=== PATIENT | male | born 1980 | race Caucasian/White ===

== ENCOUNTER 2018-10-05 13:16 | Emergency (ER) | payer MEDICAID, SELFPAY ==
--- NOTE | 2018-10-05 13:22 | NUR.NOTE ---
note pt is poor historian... pt states that he has had chest pain for 7 days that is constant but made worse with exercising pt also states that he has had a fevor (however does not know what temperature) diarrhea and diaphoresis as well as near syncopal episodes wile coughing or exercising
[2018-10-05 13:26] VITALS: BP 126/100; PULSE 90; RESP 16; TEMP 36; O2SAT 93
[2018-10-05 13:42] VITALS: BP 115/79; PULSE 90; RESP 18; O2SAT 93
--- NOTE | 2018-10-05 14:09 | DI.RAD_ITS ---
SYMPTOMS/DIAGNOSIS: COUGH, SHORTNESS OF BREATH, ? ACUTE DISTRESS PA AND LATERAL CHEST: Comparison is made with October,. The heart size is normal. There is a linear area of scarring or atelectasis in the lingula. No infiltrate or effusion is seen. IMPRESSION: No acute abnormality.
--- NOTE | 2018-10-05 14:13 | ED.GENADUL_ITS ---
Discharge Plan Disposition Patient Disposition: HOME Condition: Improving Discharge Details Chief Complaint: GenMedical Clinical Impression: Bronchitis Primary Care Provider: Chikis Linder ED Provider: Paola Waters Home Meds and New Rx's Prescriptions: New prednisone 50 mg tablet 50 mg PO DAILY 4 Days Qty: 4 RF: 0 azithromycin [Zithromax] 500 mg tablet 500 mg PO DAILY 5 Days Qty: 5 RF: 0 Continued penicillin V potassium 500 MG tablet 500 mg PO Q6H WHILE AWAKE Qty: 28 RF: 0 hydromorphone [Dilaudid] 2 MG tablet 2 mg PO Q4H PRN PRN (Reason: Pain) Qty: 10 RF: 0 Discharge Instructions Instructions: Acute Bronchitis (ED) Additional Instructions: You are encouraged to continue to refrain from smoking as this will only prolong or worsen your symptoms. Use the albuterol inhaler as needed and directed. Take the steroids until finished. If you have no improvement of symptoms in the next 2-3 days, you may start the antibiotics. Follow-up with your primary care doctor in 1 week for reevaluation. Return immediately to the emergency department any worsening or concerning symptoms. Discharge Data Discharge Physician: Paola Waters Medical Decision Making 38-year-old male who is a chronic tobacco smoker who presents for cough with green sputum, sore throat, shortness of breath with exertion, chest pain with coughing, and vomiting and diarrhea for the past week. Oxygen saturation 93% on room air. Afebrile. Coarse breath sounds and wheezing throughout. Normal ENT exam. Presentation appears most likely consistent with acute bronchitis and chest wall strain from coughing. Patient had told the nurse that he promised primary care doctor and his blood counts were off. We will give a DuoNeb, steroids, Toradol, as well as check an EKG and chest x-ray. Nurse already gaby labs, will send to assess for any abnormalities, but suspect this is likely acute bronchitis rather than a cardiac etiology. 1545 --patient sleeping on reevaluation. Patient breathing normally without retractions and appears comfortable. Breath sounds improved, minimal scattered wheezing, no rhonchi. EKG notes a rate of 78, sinus, no acute ST findings. Labs and imaging reviewed. Influenza negative. White blood cell count 14. Troponin negative. Chest x-ray negative. Patient states he feels much better and is requesting to go home. Will send home with an albuterol inhaler, and a prescription for prednisone. Patient states he recently quit smoking within the last few weeks, will send home with a prescription for antibiotics if symptoms do not improve or worsen. He is instructed to follow-up with his primary care doctor for reevaluation and return here at any time if worse. Medical Records Medical records reviewed: Yes I reviewed the patient's medical records. Imaging Data Radiologic Study: Radiologist's impression: PA AND LATERAL CHEST: Comparison is made with October,. The heart size is normal. There is a linear area of scarring or atelectasis in the lingula. No infiltrate or effusion is seen. IMPRESSION: No acute abnormality. Lab Data Lab results reviewed: Yes I reviewed the patient's lab results. 10/05/18 13:55 Nasopharynx Influenza Types A,B Antigen - Final Laboratory Tests Range/Units 10/05/18 10/05/18 14:13 14:13 WBC (4.4-10.8) k/cumm 14.38 H RBC (4.50-6.00) m/cumm 4.24 L Hgb (13.5-17.5) g/dL 14.8 Hct (40.0-50.0) % 42.1 MCV (80-95) fL 99.3 H MCH (27.0-33.0) pg 34.9 H MCHC (32.0-36.0) g/dL 35.2 RDW (11.8-14.1) % 13.7 Plt Count (130-400) x1000/uL 502 H MPV (8.0-11.0) fL 9.8 Immature Gran % 0.0 Neutrophils % 39.0 Band Neutrophils % % 4.0 Lymphocytes % 28.0 Atypical Lymphs % 9 Monocytes % 9.0 Eosinophils % 10.0 Basophils % 0.0 Absolute Neutrophils (1.2-6.7) k/cumm 6.18 Absolute Lymphocytes (1.2-3.4) k/cumm 5.32 H Absolute Monocytes (0.11-0.7) k/cumm 1.29 H Absolute Eosinophils (0.0-0.7) k/cumm 1.44 H Absolute Basophils (0.0-0.2) k/cumm 0.00 Differential Comment Manual differential RBC Morphology Normal Sodium (136-145) mmol/L 142 Potassium (3.5-5.1) mmol/L 3.9 Chloride (98-107) mmol/L 106 Carbon Dioxide (21.0-32.0) mmol/L 25.5 Anion Gap (3-11) mmol/L 10.5 BUN (7-18) mg/dL 10 Creatinine (0.70-1.30) mg/dL 0.90 Estimated GFR/1.73 m2 (mL/min/1.73m2) >= 60.00 Glucose (70-100) mg/dL 86 Calcium (8.5-10.1) mg/dL 8.9 Magnesium (1.8-2.4) mg/dL 1.9 Total Bilirubin (0.2-1.0) mg/dL 0.1 L AST (15-37) U/L 22 ALT (12-78) U/L 27 Alkaline Phosphatase (46-116) U/L 108 Troponin I (0.00-0.06) ng/mL < 0.02 Total Protein (6.4-8.2) g/dL 7.8 Albumin (3.4-5.0) g/dL 3.4 ECG Data Attestation: I personally reviewed and interpreted this ECG (s) as follows: Interpretation: Rate of 78, sinus, no acute ST elevation or depression, QTC 410, QRS 92. HPI General Mode of arrival: ambulatory . Date/Time Provider Initiated Documentation: 10/05/18 13:37 . Limitations to Documentation: no limitations . Information obtained by: patient . HPI Narrative: Patient is a 38-year-old male who is a chronic tobacco smoker who presents for sweats, sore throat, cough with green sputum, shortness of breath, vomiting and diarrhea for the past week. Patient states the cough and shortness of breath with exertion is bothering him the most. He denies any known fevers. Patient states he has been eating and drinking normally. States he has not been sleeping well. Patient states his chest pain is worse with coughing. Patient denies any recent hospital admission, antibiotics or recent travel. States he has been taking Tylenol for pain without relief. Related Data Home Medications Medication Instructions Recorded Confirmed hydromorphone [Dilaudid] 2 mg PO Q4H PRN PRN #10 tab 05/22/17 penicillin V potassium 500 mg PO Q6H WHILE AWAKE #28 05/22/17 tablet azithromycin [Zithromax] 500 mg PO DAILY 5 Days #5 tab 10/05/18 prednisone 50 mg PO DAILY 4 Days #4 tab 10/05/18 Previous Rx's Medication Instructions Recorded hydromorphone [Dilaudid] 2 mg PO Q4H PRN PRN #10 tab 05/22/17 penicillin V potassium 500 mg PO Q6H WHILE AWAKE #28 05/22/17 tablet azithromycin [Zithromax] 500 mg PO DAILY 5 Days #5 tab 10/05/18 prednisone 50 mg PO DAILY 4 Days #4 tab 10/05/18 Allergies Allergy/AdvReac Type Severity Reaction Status Date / Time No Known Allergies Allergy Unverified 05/22/17 08:42 General Stated Complaint: GenMedical [place]: 3 Review of Systems Review of Systems All systems reviewed & are unremarkable except as noted in HPI and below Constitutional Reports as per HPI, Denies chills and Denies fever(s) Eyes Denies blurry vision ENT Denies dizziness, Reports sore throat and Denies throat swelling Cardiovascular Reports chest pain and Reports dyspnea Respiratory Reports cough and Reports dyspnea Gastrointestinal Denies abdominal pain, Denies diarrhea and Denies vomiting Genitourinary Denies hematuria and Denies dysuria Musculoskeletal Denies back pain and Denies numbness Integumentary/Breasts Denies lesions and Denies rash Neurologic Denies dizziness, Denies focal weakness and Denies numbness Allergic/Immunologic Denies throat swelling PFSH Medical History No significant past medical history (Acute) Surgical History History of hammer toe correction (Acute) History of splenectomy (Acute) Social History Smoking/Tobacco Use Status: Current every day alcohol intake: never substance use type: does not use Exam Const General: cooperative and healthy appearing Orientation: alert and awake HENMT Head: normal to inspection Ears: hearing grossly normal bilaterally, external ears normal and TM's normal bilaterally General nose exam: external nose normal Face and sinus: normal facial exam Mouth: oral mucosae normal Teeth and gingiva: dentition normal Throat: posterior oropharynx normal Eyes General: appearance normal, both eyes and all related structures Eyelids: eyelids normal Pupils: PERRL EOM: EOM intact bilaterally Neck Neck: normal visual inspection Lymphatic: no lymphadenopathy noted Chest Chest: normal inspection of the chest and tenderness pectoral muscle on the left Resp Effort & Inspection: normal respiratory effort and able to speak in complete sentences Auscultation: rhonchi and wheezes Cardio Rate: regular rate Rhythm: regular rhythm GI Inspection: normal to inspection Palpation: soft, not firm, no guarding, no hepatosplenomegaly, no masses and nontender Auscultation: normal bowel sounds Skin General skin exam: no rashes or lesions noted Neuro General: alert and awake Cognition: normal cognition Speech: speech normal Gait: normal gait Motor: muscle tone normal throughout Sensory Exam: no sensory deficits noted Extrem General: normal to inspection, full ROM, normal capillary refill and no edema Psych Appearance: grossly normal Mental Status: mental status grossly normal Speech and Movement: speech and movement normal Affect: normal affect Thought Process: normal Course Vital Signs Temperature 96.8 F L 10/05/18 13:26 Pulse 90 10/05/18 13:26 Respiratory Rate 16 10/05/18 13:26 Blood Pressure 126/100 H 10/05/18 13:26 Pulse Oximetry 93 L 10/05/18 13:26 Temperature 96.8 F L 10/05/18 13:26 Temperature Source Skin 10/05/18 13:26 Pulse 90 10/05/18 13:42 Respiratory Rate 18 10/05/18 13:42 Respiratory Effort Non-Labored 10/05/18 13:41 Respiratory Depth Normal 10/05/18 13:41 Blood Pressure 115/79 10/05/18 13:42 Blood Pressure Position Sitting 10/05/18 13:26 Pulse Oximetry 93 L 10/05/18 13:42 Oxygen Delivery Method Room Air 10/05/18 13:42 Oxygen Flow Rate 0 10/05/18 13:42 Pain Level 2 10/05/18 13:26 Lab/Test Results Lab/Test Results: 10/05/18 13:55 Nasopharynx Influenza Types A,B Antigen - Pending
[2018-10-05] MEDS: Ketorolac 30 MG/ML VIAL IVP (14:28)
[2018-10-05] MEDS: Albuterol/Ipratropium 3 ML UPD VIAL UPD (14:28)
[2018-10-05] MEDS: predniSONE 20 MG TAB 60 MG PO (14:28)
[2018-10-05 14:44] LABS: Abs Immature Grans 0.08 k/cumm (0.0-0.09); HCT 42.1 % (40.0-50.0); HGB 14.8 g/dL (13.5-17.5); Mean Corp. HGB Concentration 35.2 g/dL (32.0-36.0); Mean Corpuscular Hemoglobin 34.9 pg (27.0-33.0); Mean Corpuscular Volume 99.3 fL (80-95); Mean Platelet Volume 9.8 fL (8.0-11.0); RBC 4.24 m/cumm (4.50-6.00); RBC Distribution Width 13.7 % (11.8-14.1); White Blood Cell Count 14.38 k/cumm (4.4-10.8)
[2018-10-05 14:45] LABS: Absolute Monocyte Count 1.29 k/cumm (0.11-0.7)
[2018-10-05 14:55] LABS: ALT 27 U/L (12-78); AST 22 U/L (15-37); Albumin 3.4 g/dL (3.4-5.0); Alkaline Phosphatase 108 U/L (46-116); Anion Gap 10.5 mmol/L (3-11); BUN 10 mg/dL (7-18); Bilirubin, Total 0.1 mg/dL (0.2-1.0); CO2 25.5 mmol/L (21.0-32.0); Calcium 8.9 mg/dL (8.5-10.1); Chloride 106 mmol/L (98-107); Glucose 86 mg/dL (70-100); Magnesium 1.9 mg/dL (1.8-2.4); Potassium 3.9 mmol/L (3.5-5.1); Sodium 142 mmol/L (136-145); Total Protein 7.8 g/dL (6.4-8.2)
[2018-10-05 14:58] LABS: Troponin I < 0.02 ng/mL (0.00-0.06)
[2018-10-05 15:04] VITALS: RESP 18; O2SAT 100
--- NOTE | 2018-10-05 15:05 | NUR.NOTE ---
Nursing Note: Pt alert and oriented, LS coarse throughout with occasional non-productive cough. Neb tx given and cxr obtained. no acute resp distress. will continue to monitor, labs pending.
[2018-10-05 15:09] LABS: Absolute Lymphocyte Count 5.32 k/cumm (1.2-3.4); Absolute Neutrophil Count 6.18 k/cumm (1.2-6.7); Atypical Lymphocytes % 9; Platelet Count 502 x1000/uL (130-400)
[2018-10-05 15:10] LABS: Absolute Eosinophil Count 1.44 k/cumm (0.0-0.7); Diff Comment Manual Differential; RBC Morphology Normal
[2018-10-05] MEDS: Albuterol HFA 8 GM 60 PUFF INH IH (16:22)
[2018-10-05 16:26] VITALS: PULSE 86; RESP 18; TEMP 36.7; O2SAT 95
== END 2018-10-05 16:26 | disposition home or self-care (01) ==
PROVIDERS: Emergency Provider Physician Assistant; PCP Nurse Practitioner
DX: R06.02 Shortness of breath (principal); R05 Cough; J20.9 Acute bronchitis, unspecified; R07.9 Chest pain, unspecified; F17.210 Nicotine dependence, cigarettes, uncomplicated; S29.011A Strain of muscle and tendon of front wall of thorax, initial encounter; X50.9XXA Other and unspecified overexertion or strenuous movements or postures, initial encounter
CPT/HCPCS: 36415; 80053; 87449; 93005; 94640; 96374; 99285; 71046; 83735; 84484; 85025; 93010; J1885; J7512; J7620

== ENCOUNTER 2019-02-10 07:40 | Emergency (ER) | payer MEDICAID, SELFPAY ==
[2019-02-10] VITALS (89 sets, daily range): BP systolic 117–156; BP diastolic 48–95; PULSE 62–120; RESP 13–29; TEMP 36.6–37.3; O2SAT 81–100
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
[2019-02-10] MEDS: Normal Saline 1,000 ML 1000 ML IV (07:50)
[2019-02-10 08:25] LABS: Abs Immature Grans 0.03 k/cumm (0.0-0.09); Absolute Eosinophil Count 0.13 k/cumm (0.0-0.7); Absolute Lymphocyte Count 3.26 k/cumm (1.2-3.4); Absolute Monocyte Count 0.98 k/cumm (0.11-0.7); Absolute Neutrophil Count 5.96 k/cumm (1.2-6.7); Basophils % 1.9; Eosinophils % 1.2; HCT 42.7 % (40.0-50.0); HGB 15.4 g/dL (13.5-17.5); Immature Grans % 0.3; Lymphocytes % 30.9; Mean Corp. HGB Concentration 36.1 g/dL (32.0-36.0); Mean Corpuscular Hemoglobin 36.4 pg (27.0-33.0); Mean Corpuscular Volume 100.9 fL (80-95); Mean Platelet Volume 9.3 fL (8.0-11.0); Monocytes % 9.3; Neutrophils % 56.4; Platelet Count 338 x1000/uL (130-400); RBC 4.23 m/cumm (4.50-6.00); RBC Distribution Width 13.6 % (11.8-14.1); White Blood Cell Count 10.56 k/cumm (4.4-10.8)
[2019-02-10 08:30] LABS: INR 0.9 (0.9-1.1); PTT Activated 20.9 sec (21.0-31.4); Prothrombin Time 8.9 sec (9.3-11.0)
[2019-02-10 08:36] LABS: ALT 39 U/L (12-78); AST 47 U/L (15-37); Albumin 3.9 g/dL (3.4-5.0); Alkaline Phosphatase 103 U/L (46-116); Anion Gap 16.3 mmol/L (3-11); BUN 16 mg/dL (7-18); Bilirubin, Total 0.4 mg/dL (0.2-1.0); CO2 21.7 mmol/L (21.0-32.0); CREATININE 1.06 mg/dL (0.70-1.30); Calcium 8.9 mg/dL (8.5-10.1); Chloride 101 mmol/L (98-107); Glucose 133 mg/dL (70-100); NT-proBNP 12 pg/mL; Potassium 3.7 mmol/L (3.5-5.1); Sodium 139 mmol/L (136-145); TSH (W/Ref FT4) 2.07 uIU/mL (0.358-3.74); Total Protein 7.8 g/dL (6.4-8.2)
[2019-02-10 08:42] LABS: Troponin I < 0.02 ng/mL (0.00-0.06)
[2019-02-10 08:50] LABS: Lipase 100 U/L (73-393)
[2019-02-10 09:03] LABS: ETHANOL BLOOD < 3.0 mg/dL (<3)
[2019-02-10] MEDS: Omnipaque 350 MG/ML 100 ML BTL IJ (09:05)
--- NOTE | 2019-02-10 09:05 | DI.CT_ITS ---
SYMPTOM/DIAGNOSIS: CP, SOB, MILD HYPOXEMIA. EVAL FOR PE/DISSECTION CTA CHEST AND ABDOMEN: CT angiography was performed with multi slice acquisition and multi planar and 3D reconstruction. There is no evidence of a pulmonary embolus. The thoracic aorta is intact and of normal caliber. No evidence of a dissection or aneurysm is seen. Heart size is within normal limits. No significant pericardial effusion is present. No evidence of right ventricular dysfunction seen. No significant thoracic adenopathy, pleural effusion or pneumothorax is present. Mild to moderate central lobular emphysematous changes are present in the lungs. No focal consolidating infiltrates are seen in the lungs. The tracheobronchial tree is unremarkable. There are mild degenerative changes seen in the bones of the thoracic spine. IMPRESSION: 1. No evidence of a pulmonary embolus 2. No evidence of a thoracic aortic dissection or aneurysm. 3. Mild to moderate central lobular emphysematous changes in the lungs. CT ANGIOGRAPHY ABDOMEN: CT angiography was performed with multi slice acquisition and multi planar and 3D reconstruction. The abdominal aorta is of normal caliber. No evidence of dissection or aneurysm. The celiac axis and mesenteric arteries are unremarkable. No evidence of occlusion or significant stenosis. The renal arteries are unremarkable without evidence of occlusion or significant stenosis. The iliac arteries are unremarkable without evidence of occlusion or significant stenosis. There does appear to be diffuse decreased attenuation of the liver suggesting hepatic steatosis. The portal, superior mesenteric and splenic veins are patent. The gallbladder is negative. There is no biliary ductal dilatation. The pancreas and adrenal glands are unremarkable. There is small splenule present measuring 1.4 cm. This is unchanged compared to the prior examination from 01/19/17. The kidneys show normal and symmetric enhancement. No evidence of a solid renal mass or obstruction. The urinary bladder is intact. The reproductive organs are unremarkable. The bowel shows no evidence of obstruction or inflammation. There is a normal appendix present. No significant abdominal or pelvic adenopathy, ascites or pneumoperitoneum is present. Note is made of a small fat containing umbilical hernia. Incidental note is made of diverticulosis of the colon but no evidence of acute diverticulitis. No acute osseous abnormalities appreciated. IMPRESSION: No evidence of abdominal arterial injury. No evidence of dissection or aneurysm.
[2019-02-10] MEDS: Normal Saline Flush 10 ML SYR IVP (09:06)
[2019-02-10] MEDS: Albuterol/Ipratropium 3 ML UPD VIAL UPD (10:08)
[2019-02-10] MEDS: LORazepam 2 MG/ML VIAL 0.5 MG IM (10:38)
[2019-02-10 11:42] LABS: *AMPHETAMINES SCREEN URINE Negative (Negative); *BARBITURATES SCREEN URINE Negative (Negative); *BENZODIAZEPINES SCREEN URINE Negative (Negative); Cannabinoids THC Negative (Negative); Cocaine Screen,Urine Negative (Negative); METHADONE URINE SCREEN Negative (Negative); OPIATES URINE SCREEN Negative (Negative)
[2019-02-10 11:45] LABS: Tricyclic Antidepressants Negative (Negative)
[2019-02-10 12:19] LABS: Troponin I < 0.02 ng/mL (0.00-0.06)
== END 2019-02-10 13:59 | disposition home or self-care (01) ==
PROVIDERS: Emergency Provider Student in an Organized Health Care Education/Training Program; PCP Nurse Practitioner Family
DX: R07.9 Chest pain, unspecified (principal); F17.210 Nicotine dependence, cigarettes, uncomplicated; Z90.81 Acquired absence of spleen
CPT/HCPCS: 36415; 71275; 74177; 80053; 80307; 83690; 93005; 96360; 96372; 99285; 80320; 83880; 84443; 84484; 85025; 85610; 85730; 93010; J2060; J3490; J7620

== ENCOUNTER 2019-09-02 14:28 | Emergency (ER) | payer MEDICAID, SELFPAY ==
[2019-09-02 14:36] VITALS: BP 166/108; PULSE 118; TEMP 36.4; O2SAT 96
--- NOTE | 2019-09-02 14:44 | W.ED.GENAD ---
Discharge Plan Disposition Patient Disposition: HOME Condition: Improving Discharge Details Chief Complaint: GenMedical Clinical Impression: Alcohol withdrawal, Gastroenteritis Primary Care Provider: Malou Moreno ED Provider: Elizabeth Ramos Home Meds and New Rx's Prescriptions: New ondansetron HCl [Zofran] 4 mg tablet 4 mg PO Q8H PRN (Reason: nausea and vomiting) Qty: 7 RF: 0 No Action albuterol sulfate 90 mcg/actuation HFA aerosol inhaler 1 puff IH Q6H PRN (Reason: bronchospasm) Qty: 6.7 RF: 0 Discharge Instructions Instructions: Gastroenteritis (ED) Additional Instructions: Drink plenty of fluids. Rest activities as tolerated Tylenol for soreness if needed. Ice to your shoulder for inflammation. Ice for 15 minutes 3-5 times a day. Recheck with orthopedic doctor if shoulder pain is not improving within 1 week as discussed Use nausea medication if needed as prescribed. Use withdrawal medication, Ativan only if needed for withdrawal symptoms. Do not mix with alcohol. 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 Return for any worsening or concerns sooner if needed for any alarming symptoms, difficulty eating or drinking, alarming withdrawal symptoms. Referrals: Erick Jones MD [ [facility] STAFF PHYSICIAN] - Discharge Data Discharge Date/Time-TO BE ENTERED AT DEPARTURE: 09/02/19 18:55 Medical Decision Making <Paola Waters DO - Last Filed: 09/03/19 09:18> 1510 -- 39-year-old male with a history of daily alcohol abuse presents for left shoulder pain status post fall last night after drinking and vomiting 10 times this morning. Patient denies any injuries. Patient states he was getting up from a chair and slipped while walking and hit his left shoulder on the ground. He denies head injury or LOC. He admits to occasional diarrhea. He denies any chest or abdominal pain. He denies any neck pain, back pain or extremity weakness or numbness. BP hypertensive. Heart rate tachycardic. Afebrile. He appears nontoxic but appears clinically in alcohol withdrawal. He states he drinks approximately 3 drinks daily. His last drink was at noon today which he drank after vomiting. Patient has tenderness palpation of the left distal clavicle but there is no deformity. There is no obvious extremity deformity. Will place an IV, bolus IV fluids, screening labs, Zofran, Toradol, and Ativan. Will obtain a left clavicle x-ray. 1600 -- Case endorsed to SHIRA Lewis to follow-up on labs and imaging and final disposition. Some labs returning and noted white blood cell count of 15, anion gap 13, normal lipase. Alcohol level pending. Clavicle x-ray notes possible AC separation but no obvious fracture. Medical Records Medical records reviewed: Yes I reviewed the patient's medical records. Imaging Data Radiologic Study: Radiologist's impression: XR Left Clavicle, Complete Exam date and time: 09/02/2019 4:07 PM Age: 39 years old Clinical indication: Other: S/P fall, R/O acute fracture TECHNIQUE: Imaging protocol: XR Left clavicle complete. Any number of views. COMPARISON: CR XR CHEST 2V PA LATERAL 10/05/2018 2:44 PM FINDINGS: Bones/joints: Normal. Soft tissues: Normal. IMPRESSION: No acute findings. Lab Data Lab results reviewed: Yes I reviewed the patient's lab results. Labs: Laboratory Tests Range/Units 09/02/19 09/02/19 09/02/19 15:30 15:30 15:30 WBC (4.4-10.8) k/cumm 15.97 H RBC (4.50-6.00) m/cumm 4.16 L Hgb (13.5-17.5) g/dL 14.9 Hct (40.0-50.0) % 41.4 MCV (80-95) fL 99.5 H MCH (27.0-33.0) pg 35.8 H MCHC (32.0-36.0) g/dL 36.0 RDW (11.8-14.1) % 13.8 Plt Count (130-400) x1000/uL 320 MPV (8.0-11.0) fL 9.3 Immature Gran % % 0.4 Neutrophils % 80.6 Lymphocytes % 10.5 Monocytes % 7.7 Eosinophils % 0.0 Basophils % 0.8 Absolute Neutrophils (1.2-6.7) k/cumm 12.87 H Absolute Lymphocytes (1.2-3.4) k/cumm 1.68 Absolute Monocytes (0.11-0.7) k/cumm 1.23 H Absolute Eosinophils (0.0-0.7) k/cumm 0.00 Absolute Basophils (0.0-0.2) k/cumm 0.13 Sodium (136-145) mmol/L 134 L Potassium (3.5-5.1) mmol/L 3.5 Chloride (98-107) mmol/L 96 L Carbon Dioxide (21.0-32.0) mmol/L 24.6 Anion Gap (3-11) mmol/L 13.4 H BUN (7-18) mg/dL 9 Creatinine (0.70-1.30) mg/dL 0.92 Estimated GFR/1.73 m2 (mL/min/1.73m2) >= 60.00 Glucose (74-106) mg/dL 125 H Calcium (8.5-10.1) mg/dL 9.7 Total Bilirubin (0.2-1.0) mg/dL 0.7 AST (15-37) U/L 73 H ALT (16-63) U/L 40 Alkaline Phosphatase (46-116) U/L 96 Total Protein (6.4-8.2) g/dL 7.9 Albumin (3.4-5.0) g/dL 4.0 Lipase (73-393) U/L 110 Ethyl Alcohol (<3) mg/dL < 3.0 <William Bishop MD - Last Filed: 09/03/19 00:15> Patient not seen by me. Inadvertently signed over to me. Patient should have been signed over to SHIRA Hahn. <SHIRA Sutton - Last Filed: 09/03/19 22:19> This is a 39-year-old patient signed out to me pending review of labs and left clavicle imaging. No acute fracture of the left clavicle. Patient does have leukocytosis which is likely attributed to gastroenteritis and patient is describing nausea vomiting and diarrhea. Denies associated abdominal pain. Of note patient is somewhat tachycardic. Patient did receive 1 L of IV fluid and nausea is well controlled with medications provided. Had discussion with the patient regarding how he is feeling and he is feeling significantly improved. A second liter of IV fluid was provided. Patient does report he is a daily drinker. He does report he is interested in detox he does already have information from pet nutrition specialist. Patient does feel likely he could have mild associated withdrawal symptoms in the tuition to GI symptoms as he is been unable to hold down any alcohol today. Given patient's tachycardia he did have a tremulous presentation initially which is improved at this time after receiving half milligram of Ativan. Will give patient a few tablets of Ativan for home and a few tablets prescription if needed for desired withdrawal or for forced withdrawal if unable to tolerate p.o. Patient reports understanding. Patient consents to not using this medication with alcohol. Patient reports his understanding of the desired use of this medication. Patient does continue to feel improved. Patient's reevaluation reveals benign abdominal exam. Precautions discussed for which patient should have return. Nausea medication also provided for symptomatic relief. Encouraged close follow-up with PCP and return for any alarming or worsening symptoms. The patient was stable and requested discharge. Prior to discharge, my usual and customary return precautions were reviewed with the patient - this included follow-up instructions and reasons to return to the Emergency Department if conditions worsens, does not improve as expected, or other new concerns arise. HPI <Paola Waters DO - Last Filed: 09/03/19 09:18> General Mode of arrival: ambulatory. Date/Time Provider Initiated Documentation: 09/02/19 14:39. Limitations to Documentation: no limitations. Information obtained by: patient. History of Present Illness 39 year old M presents to the emergency department with the chief complaint of drinking alcohol w/ L shoulder pain s/p fall last night, vomiting this am, described as moderate, Quality is described as sharp, Patient started experiencing this day(s) (1) and it has been constant. No relieving factors improve symptom(s), Movement worsens symptoms . Patient notes nausea/vomiting (10 x, yellow, clear); denies cough, diaphoresis, fever/chills and headaches. Patient did receive the following treatments prior to arrival, none Related Data Home Medications Medication Instructions Recorded Confirmed albuterol sulfate 1 puff IH Q6H PRN #6.7 gm 02/10/19 09/02/19 ondansetron HCl [Zofran] 4 mg PO Q8H PRN #7 tab 09/02/19 Previous Rx's Medication Instructions Recorded albuterol sulfate 1 puff IH Q6H PRN #6.7 gm 02/10/19 ondansetron HCl [Zofran] 4 mg PO Q8H PRN #7 tab 09/02/19 Allergies Allergy/AdvReac Type Severity Reaction Status Date / Time No Known Allergies Allergy Unverified 05/22/17 08:42 General Stated Complaint: GenMedical [place]: 3 Review of Systems <Paola Waters DO - Last Filed: 09/03/19 09:18> All systems reviewed & are unremarkable except as noted in HPI and below Constitutional Constitutional: Reports as per HPI, Denies chills and Denies fever(s) Eyes Eyes: Denies blurry vision ENT Ears, Nose, Mouth, and Throat: Denies dizziness, Denies sore throat and Denies throat swelling Cardiovascular Cardiovascular: Denies chest pain and Denies dyspnea Respiratory Respiratory: Denies cough and Denies dyspnea Gastrointestinal Gastrointestinal: Denies abdominal pain, Denies diarrhea and Reports vomiting Genitourinary Genitourinary: Denies hematuria and Denies dysuria Musculoskeletal Musculoskeletal: Denies back pain, Denies numbness and Reports other (L shoulder pain) Integumentary/Breasts Skin/Breast: Denies lesions and Denies rash Neurologic Neurologic: Denies dizziness, Denies focal weakness and Denies numbness Allergic/Immunologic Allergic/Immunologic: Denies throat swelling PFSH <Paola Waters DO - Last Filed: 09/03/19 09:18> Social History Smoking/Tobacco Use Status: Current every day Tobacco Type: cigarettes Alcohol Intake: current Alcohol Intake frequency: 3 or more drinks per day Drug use: Occasionally Substance use type: marijuana Do you feel safe at home: Yes Do you feel safe in your relationship?: Yes Exam <Paola Waters DO - Last Filed: 09/03/19 09:18> Const General: cooperative, ill appearing acutely (appears in withdrawal) and other (Tremulous) Nutritional Appearance: average body habitus Orientation: alert, awake and oriented x3 HENMT Head: normal to inspection Ears: hearing grossly normal bilaterally and external ears normal General nose exam: external nose normal Face and sinus: normal facial exam Mouth: oral mucosae normal Teeth and gingiva: dentition normal Throat: posterior oropharynx normal Eyes General: appearance normal, both eyes and all related structures Eyelids: eyelids normal Pupils: PERRL EOM: EOM intact bilaterally Neck Neck: normal visual inspection Lymphatic: no lymphadenopathy noted Chest Chest: normal inspection of the chest Resp Effort & Inspection: normal respiratory effort and able to speak in complete sentences Auscultation: clear to auscultation bilaterally Cardio Rate: tachycardic Rhythm: regular rhythm GI Inspection: normal to inspection Palpation: soft, not firm, no guarding, no hepatosplenomegaly, no masses and nontender Auscultation: normal bowel sounds Back/Spine/Pelvis Back: no CVA tenderness Skin General skin exam: no rashes or lesions noted Neuro General: alert and awake Cognition: normal cognition Speech: speech normal Gait: normal gait Motor: muscle tone normal throughout Sensory Exam: no sensory deficits noted Extrem Other: Tenderness to palpation of left distal clavicle. No tenderness palpation of left anterior shoulder. No bony deformity noted. Full range of motion of right upper extremity and bilateral lower extremities without evidence of trauma or deformity. Psych Appearance: grossly normal Mental Status: mental status grossly normal Speech and Movement: speech and movement normal Affect: normal affect Thought Process: normal Course <Paola Waters DO - Last Filed: 09/03/19 09:18> Vital Signs Vital signs: Vital Signs Temperature 97.5 F L 09/02/19 14:36 Pulse 118 H 09/02/19 14:36 Blood Pressure 166/108 H 09/02/19 14:36 Pulse Oximetry 96 09/02/19 14:36 Temperature 97.5 F L 09/02/19 14:36 Temperature Source Skin 09/02/19 14:36 Pulse 118 H 09/02/19 14:36 Respiratory Effort Non-Labored 09/02/19 14:39 Blood Pressure 166/108 H 09/02/19 14:36 Blood Pressure Position Sitting 09/02/19 14:36 Pulse Oximetry 96 09/02/19 14:36 Oxygen Delivery Method Room Air 09/02/19 14:36 Oxygen Flow Rate 0 09/02/19 14:36 Pain Level 10 09/02/19 14:36 Sign Out <DO Kenia Cohn Last Filed: 09/03/19 09:18> Sign Out Data: Sign Out Comment: Follow-up on patient response to fluids and meds and final disposition. Last updated by Paola Waters DO at 09/02/19 16:15 Sign Out Comment: signed over to me in error Last updated by William Bishop MD at 09/02/19 23:26
[2019-09-02] MEDS: Ondansetron 4 MG/2 ML VIAL IVP (15:26)
[2019-09-02] MEDS: Normal Saline 1,000 ML 1000 ML IV (15:27)
[2019-09-02 15:33] LABS: Abs Immature Grans 0.06 k/cumm (0.0-0.09); Absolute Basophil Count 0.13 k/cumm (0.0-0.2); Absolute Lymphocyte Count 1.68 k/cumm (1.2-3.4); Absolute Monocyte Count 1.23 k/cumm (0.11-0.7); Absolute Neutrophil Count 12.87 k/cumm (1.2-6.7); Basophils % 0.8; HCT 41.4 % (40.0-50.0); HGB 14.9 g/dL (13.5-17.5); Immature Grans % 0.4 %; Lymphocytes % 10.5; Mean Corpuscular Hemoglobin 35.8 pg (27.0-33.0); Mean Corpuscular Volume 99.5 fL (80-95); Mean Platelet Volume 9.3 fL (8.0-11.0); Monocytes % 7.7; Neutrophils % 80.6; Platelet Count 320 x1000/uL (130-400); RBC 4.16 m/cumm (4.50-6.00); RBC Distribution Width 13.8 % (11.8-14.1); White Blood Cell Count 15.97 k/cumm (4.4-10.8)
[2019-09-02] MEDS: LORazepam 2 MG/ML VIAL 0.5 MG IVP (15:34)
[2019-09-02] MEDS: Ketorolac 30 MG/ML VIAL IVP (15:37)
[2019-09-02 15:46] LABS: ALT 40 U/L (16-63); AST 73 U/L (15-37); Alkaline Phosphatase 96 U/L (46-116); Anion Gap 13.4 mmol/L (3-11); BUN 9 mg/dL (7-18); Bilirubin, Total 0.7 mg/dL (0.2-1.0); CO2 24.6 mmol/L (21.0-32.0); CREATININE 0.92 mg/dL (0.70-1.30); Calcium 9.7 mg/dL (8.5-10.1); Chloride 96 mmol/L (98-107); Glucose 125 mg/dL (74-106); Lipase 110 U/L (73-393); Potassium 3.5 mmol/L (3.5-5.1); Sodium 134 mmol/L (136-145); Total Protein 7.9 g/dL (6.4-8.2)
--- NOTE | 2019-09-02 16:04 | DI.RAD_ITS ---
EXAM: XR CLAVICLE LT INDICATION: s/p fall, r/o acute fracture. COMPARISON: No exams were available for comparison TECHNIQUE: 2D digital imaging was performed. FINDINGS: No fracture is identified. AC joint is not widened. There is no evidence of glenohumeral joint disl ocation. The visualized portions of the left upper ribs appear intact. IMPRESSION: Negative left clavicle.
[2019-09-02 16:16] LABS: ETHANOL BLOOD < 3.0 mg/dL (<3)
--- NOTE | 2019-09-02 16:35 | DI.VRAD_ITS ---
PROCEDURE INFORMATION: Exam: XR Left Clavicle, Complete Exam date and time: 09/02/2019 4:07 PM Age: 39 years old Clinical indication: Other: S/P fall, R/O acute fracture TECHNIQUE: Imaging protocol: XR Left clavicle complete. Any number of views. COMPARISON: CR XR CHEST 2V PA LATERAL 10/05/2018 2:44 PM FINDINGS: Bones/joints: Normal. Soft tissues: Normal. IMPRESSION: No acute findings. Dictated and Authenticated by: Claire Badillo MD. Ordering:KADEN Guevara MD
[2019-09-02] MEDS: Folic Acid 50 MG/10 ML VIAL (16:44)
[2019-09-02] MEDS: MAGNESIUM SULFATE 8.12 MEQ, MULTIVITAMIN 10 ML, THIAMINE 100 MG, FOLIC ACID 1 MG in Nor... 168.867 MG IV (16:46)
[2019-09-02 17:07] VITALS: BP 142/89; PULSE 87; O2SAT 94
[2019-09-02 17:08] VITALS: O2SAT 95
[2019-09-02 17:10] VITALS: O2SAT 94
--- NOTE | 2019-09-02 18:12 | NUR.NOTE ---
Nursing Note: Report to Ana DAVIS
[2019-09-02 18:17] VITALS: BP 148/93; PULSE 97; RESP 16; O2SAT 96
[2019-09-02] MEDS: LORazepam 1 MG TAB PO (18:49)
[2019-09-02] MEDS: Ondansetron O.D.T. 4 MG TABEF, 3 TABS/BTL PO (18:50)
== END 2019-09-02 18:55 | disposition home or self-care (01) ==
PROVIDERS: Physician Assistant; Emergency Provider Physician Assistant; PCP Nurse Practitioner Family
DX: M25.512 Pain in left shoulder (principal); W19.XXXA Unspecified fall, initial encounter; K52.9 Noninfective gastroenteritis and colitis, unspecified; F10.239 Alcohol dependence with withdrawal, unspecified
CPT/HCPCS: 80053; 83690; 96361; 96365; 96375; 99284; 73000; 80320; 85025; J1885; J2060; J2405

== ENCOUNTER 2019-09-05 14:51 | Emergency (ER) | payer MEDICAID, SELFPAY ==
[2019-09-05] VITALS (17 sets, daily range): BP systolic 122–163; BP diastolic 68–103; PULSE 104–135; RESP 16–23; TEMP 36.5; O2SAT 94–98
[2019-09-05] MEDS: diazePAM 10 MG/2 ML SYR 5 MG IVP (15:29)
[2019-09-05 15:59] LABS: Troponin I < 0.05 ng/Ml (<0.06)
--- NOTE | 2019-09-05 16:01 | ED.GENADUL_ITS ---
Discharge Plan Disposition Patient Disposition: HOME Condition: Improving Discharge Details Chief Complaint: Chest Pain Clinical Impression: Chest pain, Atrial tachycardia Primary Care Provider: Malou Moreno ED Provider: Sandro Fraga Home Meds and New Rx's Prescriptions: No Action albuterol sulfate 90 mcg/actuation HFA aerosol inhaler 1 puff IH Q6H PRN (Reason: bronchospasm) Qty: 6.7 RF: 0 ondansetron HCl [Zofran] 4 mg tablet 4 mg PO Q8H PRN (Reason: nausea and vomiting) Qty: 7 RF: 0 Discharge Instructions Additional Instructions: 1. Drink plenty of fluids. 2. Continue all medications as prescribed. 3. Acetaminophen 1000mg every 4 hours (up to 5 time a day) and/or ibuprofen 600mg every 6 hours as needed for fever or pain. 4. Follow?up with your primary care provider for reevaluation and possible event monitor Return to the Emergency Department (ED) if your condition worsens, does not improve as expected, or for ANY other concerns. Specifically, return if you have new or uncontrolled pain, worsening fever, difficulty breathing, vomiting, or are unable to drink fluids. Discharge Data Discharge Date/Time-TO BE ENTERED AT DEPARTURE: 09/05/19 16:31 Medical Decision Making 39-year-old who presents with persistent chest pain and palpitations/tachycardia since 0600 this morning. Symptoms subjectively similar to previous episodes and associated with not having drank alcohol for 2 days. Anxious on arrival with subjective chest pain and dyspnea. EKG diagnostic for sinus tachycardia with no acute ischemia. Clinically improved and receiving IV Valium. On reevaluation, has mild persistent tachycardia with resolution of chest pain. Also has mild subjective dyspnea. He is a smoker but does not use inhalers. Bedside thoracic ultrasound negative for evidence of focal consolidation, acute interstitial syndrome, or pleural effusion. Reviewed diagnostic findings with patient and his partner. Discussed association of rapid decrease in alcohol use with tachycardia. Discharged home with a plan for outpatient follow-up. Given usual customary return instructions prior to discharge. Medical Records Medical records reviewed: Yes I reviewed the patient's medical records. Imaging Data Radiologic Study: Attestation: I personally reviewed and interpreted this imaging study as follows: Imaging: Ultrasound (Bedside thoracic ultrasound. No evidence of focal consolidation, interstitial syndrome, or pleural effusion. Study performed by myself. Images interpreted and turbid pending contemporaneously by myself) My impression: No acute pulmonary disease. Lab Data Lab results reviewed: Yes I reviewed the patient's lab results. Lab results narrative: Normal troponin ECG Data Attestation: I personally reviewed and interpreted this ECG (s) as follows: Prior ECG tracings: available for review Interpretation: Sinus tachycardia. No acute ST changes. No sniffing change from previous EKG. HPI 39-year-old gent with a past medical history which includes alcohol abuse. He was evaluated here earlier this year for atypical chest pain. His evaluation at that time included a nondiagnostic EKG, normal labs, and a nondiagnostic CT abdomen pelvis. During that visit he was clinical improved after receiving some lorazepam. He notes he has had intermittent chest pain since with brief episodes and has not had outpatient follow-up nor re-stratification. Presents with persistent chest pain and subjective tachycardia since since 0600 this morning. Pain is subjectively similar to similar episodes and localized to his left anterior chest. He notes mild subjective dyspnea and worsening pain with palpation/positional change.. He denies presyncope, abdominal pain, change in bowel habits. He was recently evaluated here for a fall and injury to his left shoulder. He notes that that is improved and his current symptoms are different in nature than those associated with his trauma. His pain is identical to that which was managed earlier this year at this emergency department. General Date/Time Provider Initiated Documentation: 09/05/19 15:00 . Related Data Home Medications Medication Instructions Recorded Confirmed albuterol sulfate 1 puff IH Q6H PRN #6.7 gm 02/10/19 09/05/19 ondansetron HCl [Zofran] 4 mg PO Q8H PRN #7 tab 09/02/19 09/05/19 Previous Rx's Medication Instructions Recorded albuterol sulfate 1 puff IH Q6H PRN #6.7 gm 02/10/19 ondansetron HCl [Zofran] 4 mg PO Q8H PRN #7 tab 09/02/19 Allergies Allergy/AdvReac Type Severity Reaction Status Date / Time No Known Allergies Allergy Unverified 09/05/19 15:04 General Stated Complaint: Chest Pain [place]: 2 Review of Systems All systems reviewed & are unremarkable except as noted in HPI and below PFSH Medical History No significant past medical history (Acute) Surgical History History of hammer toe correction (Acute) History of splenectomy (Acute) Social History Smoking/Tobacco Use Status: Current every day Tobacco Type: cigarettes Alcohol Intake: current Alcohol Intake frequency: 3 or more drinks per day A lcohol type: hard liquor Drug use: Occasionally Substance use type: marijuana Do you feel safe at home: Yes Do you feel safe in your relationship?: Yes Exam Narrative Exam Narrative: Nursing note and vital signs have been reviewed and noted. GENERAL: alert, active, no acute distress, well -hydrated, well-nourished HEENT: atraumatic/normocephalic, PERRLA, EOMI, conjunctiva clear, external ears/canals normal, nasal mucosa normal NECK: supple, full range of motion, no mass, normal lymphadenopathy, no thyromegaly CARDIOVASCULAR: RRR, no murmurs, nl pulses, no edema; left anterior chest wall tenderness. Palpation worsening subjective pain. PULMONARY: nl effort, no audible wheezing or stridor, nl breath sounds with no focal deficit. no chest wall tenderness ABDOMEN: soft, non-tender, non-distended, no mass, no organomegaly EXTREMITY: normal muscle tone, all joints with FROM, no deformity or tenderness SKIN: no exanthem appreciated NEURO: gross motor exam normal, normal stance and gait PSYCH: alert and oriented, Course Vital Signs Vital signs: Vital Signs Pulse 135 H 09/05/19 14:55 Respiratory Rate 22 09/05/19 14:55 Blood Pressure 163/103 H 09/05/19 14:55 Pulse Oximetry 98 09/05/19 14:55 Pulse 135 H 09/05/19 14:55 Respiratory Rate 22 09/05/19 14:55 Respiratory Effort 09/05/19 15:24 Respiratory Depth Normal 09/05/19 15:24 Respiratory Pattern Normal 09/05/19 15:24 Blood Pressure 163/103 H 09/05/19 14:55 Blood Pressure Position Supine 09/05/19 14:55 Pulse Oximetry 98 09/05/19 14:55 Oxygen Delivery Method Room Air 09/05/19 14:55 Oxygen Flow Rate 0 09/05/19 14:55 Pain Level 5 09/05/19 14:55 Lab/Test Results Lab/Test Results: Laboratory Tests Range/Units 09/05/19 09/05/19 15:15 18:14 Troponin I (<0.06) ng/Ml < 0.05 Cancelled
== END 2019-09-05 16:31 | disposition home or self-care (01) ==
PROVIDERS: Emergency Provider Emergency Medicine; PCP Nurse Practitioner Family
DX: R07.9 Chest pain, unspecified (principal); I47.1 Supraventricular tachycardia; R06.00 Dyspnea, unspecified; F17.210 Nicotine dependence, cigarettes, uncomplicated
CPT/HCPCS: 36415; 93005; 96374; 99284; 84484; 93010; J3360

== ENCOUNTER 2019-12-22 09:18 | Inpatient (IN) | payer MEDICAID, SELFPAY ==
[2019-12-22] VITALS (33 sets, daily range): BP systolic 123–148; BP diastolic 75–101; PULSE 84–151; RESP 13–25; TEMP 36.4–37.9; O2SAT 94–98
--- NOTE | 2019-12-22 09:26 | DI.CT_ITS ---
EXAM: CT ABDOMEN PELVIS W CLINICAL HISTORY: periumbilical abdominal pain, vomiting x3 days. TECHNIQUE: Imaging Protocol: Axial computed tomography images with coronal and sagittal reformatted images were created and reviewed CONTRAST MATERIAL: Intravenous: Omnipaque 350 Contrast volume:structured data in ml Oral: yes / no COMPARISON: CT CHEST PE ABD PELVIS W from 02/10/2019 FINDINGS: ABDOMEN: Lung Bases: Vague area of increased density at the lung base could represent atelectasis versus infil trate. Heart size is normal.. Liver: Severe fatty infiltration.. No measurable mass. Gallbladder and biliary tract: No radiodense calculus or dilation. Pancreas: Normal density, no abnormal calcifications or inflammatory process. Spleen: status post splenectomy. A small splenule is noted in the left upper quadrant.. Kidneys: Normal size, contour and axis. No radiodense stones or obstructive uropathy. No masses seen. Adrenal glands: No masses seen. Abdominal Aorta: Abdominal portion non-dilated. PELVIS: Bladder: Symmetric distention, no gross wall thickening. Bowel: No obstruction. The colon is decompressed. There is diffuse bowel wall thickening throughout the colon which could indicate pancolitis. There are scattered diverticula but no evidence of diver ticulitis. The appendix appears normal. There is mild dilatation of distal ileum.. Peritoneal cavity: No ascites, collection or mesenteric inflammatory response. Bones: Within normal limits. Reproductive organs: Within normal limits. Lymph nodes: Unremarkable. Soft tissues: Small fatty containing umbilical hernia. Impression: Diffuse colonic wall thickening, consistent with pancolitis. The distal ileum also shows wall thicke kris and mild dilatation. RADIATION DOSE DELIVERED: Total DLP DATA REPOSITORY: All CT scans at this facility are submitted to the National Radiology Data Registry (NRDR) Dose Index Registry (DIR) with the [employer] (A[employer]). RADIATION OPTIMIZATION: All CT scans at this facility use at least one of these dose optimization te chniques: automated exposure control; mA and/or kV adjustment per patient size (includes targeted exa ms where dose is matched to clinical indication); or iterative reconstruction.
--- NOTE | 2019-12-22 09:30 | W.ED.GENAD ---
Discharge Plan Discharge Details Chief Complaint: Nausea/Vomit/Diar Primary Care Provider: Malou Moreno ED Provider: Colton Ram Home Meds and New Rx's Prescriptions: No Action albuterol sulfate 90 mcg/actuation HFA aerosol inhaler 1 puff IH Q6H PRN (Reason: bronchospasm) Qty: 6.7 RF: 0 ondansetron HCl [Zofran] 4 mg tablet 4 mg PO Q8H PRN (Reason: nausea and vomiting) Qty: 7 RF: 0 Medical Decision Making 39-year-old male with a past medical history of chronic alcoholism, last drink 1-1/2 to 2 weeks ago, and previous splenectomy secondary to trauma presents today for evaluation of vomiting for the last 2 to 3 days. No history of bilious or bloody vomiting. He denies diarrhea melena or hematochezia. Exam demonstrates mild epigastric tenderness, and mild supraumbilical tenderness. Heart rate is in the 150s, blood pressure stable. Differential includes pancreatitis, less likely gallbladder pathology, AAA is unlikely but on the differential. We will aggressively rehydrate, control his nausea. He does not want any thing for pain at this time. Will monitor closely get a CT scan reassess. 11:50 AM Patient's laboratory work-up is returned, notable anion gap, bicarb is low, white count is elevated, lactate is high. Heart rate has been improving with the 2 L of normal saline. Patient is still not urinated. He is feeling better though. CT scan results have returned and per Dr. Waddell patient has notable pancolitis, no evidence of perforation or diverticulitis. Failure the patient symptomatology is consistent with notable dehydration, and condition in conjunction with his colitis. We will give Cipro Flagyl here in the ED, continue to rehydrate. I did discuss the case with Dr. Jimenez, he agrees with the assessment and plan. Patient will be admitted to [facility]. Will order COVID and influenza testing out of an abundance of precaution. I have extensively reviewed the treatment plan with the patient. I have addressed all patient concerns at this time. I have also discussed the plan with the admitting physician and they agree with the current assessment and plan and have agreed to assume responsibility for the patient. All parties demonstrate verbal understanding and agreement with our assessment and plan at this time. EKG 9: 34 Rate 121, sinus tachycardia, DC slightly shortened at 114, no evidence of delta wave, no evidence of Fokuu-[id number]-Cdybr. QT 420, QRS 78, no evidence of STEMI. HPI General Date/Time Provider Initiated Documentation: 12/22/19 09:19. HPI Narrative: This is a 39-year-old male with a past medical history of chronic alcohol use, splenectomy secondary to previous trauma, who presents today for evaluation of vomiting. Patient states that for the last 2 and half days he has had multiple episodes of nonbilious nonbloody vomiting. He only has pain when he is vomiting. He denies any chest pain, shortness of breath, tightness in his chest, or other complaints. He denies any diarrhea. He states that the last time he drank was a week and 1/2 to 2 weeks ago. Denies any symptoms like this in the past. He denies any IV or illicit drug use, or other complaints. He denies any sick contacts. No other modifying factors. Related Data Home Medications Medication Instructions Recorded Confirmed albuterol sulfate 1 puff IH Q6H PRN #6.7 gm 02/10/19 12/22/19 ondansetron HCl [Zofran] 4 mg PO Q8H PRN #7 tab 09/02/19 12/22/19 Previous Rx's Medication Instructions Recorded albuterol sulfate 1 puff IH Q6H PRN #6.7 gm 02/10/19 ondansetron HCl [Zofran] 4 mg PO Q8H PRN #7 tab 09/02/19 Allergies Allergy/AdvReac Type Severity Reaction Status Date / Time No Known Allergies Allergy Unverified 12/22/19 09:29 General Stated Complaint: Nausea/Vomit/Diar [place]: 3 Review of Systems All systems reviewed & are unremarkable except as noted in HPI and below PFSH Social History Smoking/Tobacco Use Status: Current every day Tobacco Type: cigarettes Alcohol Intake: current Alcohol Intake frequency: 3 or more drinks per day Alcohol type: hard liquor Drug use: Occasionally Substance use type: marijuana Do you feel safe at home: Yes Do you feel safe in your relationship?: Yes Exam Narrative Exam Narrative: 1.Const: Well-nourished, Well-developed, appearing stated age 2.Eyes: PERRL, no conjunctival injection, and symmetrical lids. 3.ENT: Atraumatic external nose and ears. Notably dry MM. Neck: Symmetric, trachea midline, No thyromegaly. 4.CVS: +S1/S2, No murmurs or gallops. Peripheral pulses 2+ and equal in all extremities. Brisk capillary refill in all extremities. 5.RESP: Unlabored respiratory effort. Clear to auscultation bilaterally. No wheezes rales or rhonchi 6.GI: Soft, minimal distention, mild tenderness in the supraumbilical region, as well as the left upper quadrant. No subcutaneous air on palpation. No pain at McBurney's point, negative Wesley sign. 7.MSK: Normocephalic/Atraumatic, Extremities w/o deformity or ttp No cyanosis or clubbing, Normal movement of all extremities 8.Skin: Warm, Dry. No rashes or lesions. 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 Sensation grossly intact, no focal neurologic deficits. 10.Psych: (AAO) x3. Appropriate mood and affect Course Vital Signs Vital signs: Vital Signs Temperature 36.4 C L 12/22/19 09:23 Pulse 148 H 12/22/19 09:23 Respiratory Rate 18 12/22/19 09:23 Blood Pressure 148/101 H 12/22/19 09:23 Pulse Oximetry 95 12/22/19 09:23 Temperature 36.4 C L 12/22/19 09:23 Temperature Source Temporal Artery Scan 12/22/19 09:23 Pulse 148 H 12/22/19 09:23 Respiratory Rate 18 12/22/19 09:23 Respiratory Effort Non-Labored 12/22/19 09:27 Blood Pressure 148/101 H 12/22/19 09:23 Blood Pressure Position Sitting 12/22/19 09:23 Pulse Oximetry 95 12/22/19 09:23 Oxygen Delivery Method Room Air 12/22/19 09:23 Oxygen Flow Rate 0 12/22/19 09:23 Pain Level 2 12/22/19 09:23
[2019-12-22 09:55] LABS: Abs Immature Grans 0.03 k/cumm (0.0-0.09); Absolute Lymphocyte Count 0.44 k/cumm (1.2-3.4); Basophils % 0.1; HGB 15.7 g/dL (13.5-17.5); Immature Grans % 0.2 %; Lymphocytes % 2.4; Mean Corp. HGB Concentration 35.7 g/dL (32.0-36.0); Mean Corpuscular Hemoglobin 37.4 pg (27.0-33.0); Mean Corpuscular Volume 104.8 fL (80-95); Mean Platelet Volume 10.1 fL (8.0-11.0); Monocytes % 5.5; Neutrophils % 91.8; Platelet Count 267 x1000/uL (130-400); RBC Distribution Width 14.2 % (11.8-14.1); White Blood Cell Count 18.41 k/cumm (4.4-10.8)
[2019-12-22] MEDS: Normal Saline 1,000 ML 1000 ML IV ×2 (09:55→11:25)
[2019-12-22 09:58] LABS: Lactate 3.1 mmol/L (0.6-1.4)
[2019-12-22] MEDS: Ondansetron 4 MG/2 ML VIAL IVP (10:07)
[2019-12-22 10:08] LABS: Absolute Basophil Count 0.02 k/cumm (0.0-0.2); Absolute Monocyte Count 1.01 k/cumm (0.11-0.7)
[2019-12-22 10:23] LABS: ALT 73 U/L (16-63); AST 76 U/L (15-37); Albumin 4.1 g/dL (3.4-5.0); Alkaline Phosphatase 97 U/L (46-116); Anion Gap 26.1 mmol/L (3-11); BUN 20 mg/dL (7-18); Bilirubin, Total 1.2 mg/dL (0.2-1.0); CO2 12.9 mmol/L (21.0-32.0); CREATININE 1.36 mg/dL (0.70-1.30); Calcium 10.4 mg/dL (8.5-10.1); Chloride 90 mmol/L (98-107); Estimated GFR 57.75 (mL/min/1.73m2); Glucose 145 mg/dL (74-106); Lipase 133 U/L (73-393); Potassium 4.2 mmol/L (3.5-5.1); Sodium 129 mmol/L (136-145); TSH (W/Ref FT4) 1.36 uIU/mL (0.36-3.74); Total Protein 8.8 g/dL (6.4-8.2)
[2019-12-22 10:25] LABS: Troponin I < 0.05 ng/Ml (<0.06)
[2019-12-22 10:31] LABS: ETHANOL BLOOD < 3.0 mg/dL (<3)
[2019-12-22] MEDS: Omnipaque 350 MG/ML 100 ML BTL IV (10:37)
[2019-12-22 12:17] LABS: Bilirubin Large (Negative); Blood Small (Negative); Clarity Clear (Clear); Glucose Negative (Negative); Ketones >=160 mg/dL (Negative); Leukocyte Esterase Negative (Negative); Nitrite Negative (Negative); Specific Gravity 1.015 (1.005-1.025); Urobilinogen 0.2 EU/dL (Up TO 0.2)
[2019-12-22 12:26] LABS: Bacteria Negative HPF (Negative); C & S Indicated? No; Crystals Negative HPF (Negative); Epithelial Cells Negative HPF (Negative); Mucus Trace (Negative); Other Cells Rare Renal (Negative); RBC 0-2 HPF (0-2); WBC Negative HPF (0-5)
[2019-12-22] MEDS: metroNIDAZOLE 500 MG/100 ML BAG 100 MG IVPB (12:26)
[2019-12-22 12:27] LABS: Lactate 1.5 mmol/L (0.6-1.4)
[2019-12-22] MEDS: CIPROFLOXACIN 400 MG/200 ML BAG 200 MG IVPB (13:26)
[2019-12-22] MEDS: Acetaminophen 325 MG TAB 650 MG PO ×2 (13:40→18:12)
--- NOTE | 2019-12-22 13:55 | W.PM.HP.N ---
Date of service: 12/22/19 Time of Service: 13:55 Assessment and Plan Assessment and plan (1) Vomiting: Status: Acute Assessment and plan: History of repeated vomiting to the point of dehydration and electrolyte abnormalities. The cause of this is not clear from the history or exam or diagnostic studies performed. Relatively abrupt nausea and vomiting with relief of symptoms after vomiting. Symptoms triggered by ingestion of even liquids, but no pain, no chronic dyspepsia. If history is accurate he denies any use of medication or alcohol that might provoke gastritis. Exam and imaging do not suggest bowel obstruction. He has some mild elevation in transaminase levels which may be secondary to dehydration and not a cause of vomiting. Vomiting potentially a symptom of some other issue such as incipient sepsis? No signs or symptoms of increased intracranial pressure. No history of migraine or cyclic vomiting. Minimal use of marijuana. Diagnostically will check hepatitis panel. Therapeutically IV hydration and PRN antiemetic therapy. (2) Dehydration: Status: Acute Assessment and plan: Moderate, manifestations with tachycardia but no orthostatic symptoms. Rehydrate with lactated Ringer's and monitor electrolytes and renal function. (3) Colitis: Status: Acute Assessment and plan: This diagnosis based only on his CT scan. History and exam do not suggest colitis. He has had a CT scan and CT angiography a few years ago which did not raise any concerns regarding possible vascular compromise to the bowel. I am skeptical that he has any form of infectious colitis in the absence of diarrhea or pain. Cannot rule out the possibility of inflammatory bowel disease but again would expect diarrhea. The fever is a little concerning. He is received Cipro and metronidazole through the ER but I am not going to continue this given the ambiguity. Stool studies for bacterial pathogens and markers of inflammation or bleeding. Blood cultures to be obtained. Follow clinically. Consider steroids if pain, diarrhea develop. Reconsider antibiotics if diarrhea or abdominal pain develop. Consider colonoscopy if no other etiology found and symptoms persist. (4) Hyponatremia: Status: Acute Assessment and plan: Hyponatremia with dehydration secondary to vomiting. IV fluids and monitor sodium. (5) Tobacco use: Status: Acute Assessment and plan: Offer nicotine replacement. (6) History of splenectomy: Status: Acute Assessment and plan: CT scan shows a small splenule which may be adequate to protect him from infection from encapsulated organisms. He does not know if he has received pneumococcal, HIB or meningitis vaccines. History of Present Illness History of Present Illness Chief Complaint: Repeated vomiting Narrative: Generally healthy 39-year-old man, history of episodic heavy alcohol use, presents to the emergency room because of repeated bouts of vomiting for the past day and a half. He reports Wednesday morning development of sudden nausea then nonbilious, nonbloody emesis. Following vomiting the nausea abated fairly promptly. He knew he should try to hydrate himself but every time he did, even with water, within minutes would vomit again. Never vomited coffee-ground material or blood. Nausea is fairly sudden onset followed by vomiting and then fairly quick relief. He has had no abdominal pain. He has not had any diarrhea. He had a normal-appearing bowel movement today. He has not vomited for the past 10 to 12 hours. However feeling fatigued. Abdominal muscles are sore after vomiting but no pain otherwise. He has had no recent travel. No ill contacts. He works in the [employer] but does not drink water from streams or springs. No recent use of NSAIDs. Reports his last use of alcohol was a week and a half ago. Infrequent marijuana use. He has had one abdominal surgery for trauma, spleen removed but he has a splenule noted on CT scan. He has had no history of bowel obstruction. He has no history of black or bloody bowel movements. There is no family history of inflammatory bowel disease. No history of recurrent headaches. No history of migraine. On presentation to the emergency room he had resting tachycardia. CT scan was performed of the abdomen notable for CT findings of pancolitis, no evidence of obstruction. Fatty liver an incidental finding. Laboratory studies also show an elevated lactate, mild transaminitis, hyponatremia with sodium at 129, acute kidney injury/likely prerenal azotemia, leukocytosis with chronic macrocytosis. He empirically was given Cipro and Flagyl in the ER with concerns about infectious colitis. He received 2 L of saline with improvement in lactate and subjectively felt better. He has not had any vomiting since arrival here. Review of Systems All systems reviewed & are unremarkable except as noted in HPI and below Genitourinary Comments: Denies dysuria or hematuria. Neurologic Comments: Denies headache, focal numbness tingling or weakness. [facility] Social History Smoking/Tobacco Use Status: Current every day Tobacco Type: cigarettes Alcohol Intake: current Alcohol Intake frequency: 3 or more drinks per day Alcohol type: hard liquor Drug use: Occasionally Substance use type: marijuana Do you feel safe at home: Yes Do you feel safe in your relationship?: Yes Meds Home Medications and Allergies Home Medications Medication Instructions Recorded Confirmed Type albuterol sulfate 1 puff IH Q6H PRN #6.7 gm 02/10/19 12/22/19 Rx ondansetron HCl [Zofran] 4 mg PO Q8H PRN #7 tab 09/02/19 12/22/19 Rx Allergies Allergy/AdvReac Type Severity Reaction Status Date / Time No Known Allergies Allergy Unverified 12/22/19 09:29 Exam Narrative Exam Narrative: Man appearing his stated age in no acute distress. Temperature has gone up to 37.9. Pulse rate currently in the 90s and regular. Sclera clear, no icterus. Mucous membranes a little dry, no oral lesions visible. Neck supple. No JVD or cervical nodes. Lungs clear throughout. Regular heart rhythm no murmur S3 or S4. Abdomen is mildly obese soft there is no tenderness anywhere. Bowel sounds diminished. No masses appreciated. No guarding or rebound. I did not do rectal exam. Extremities warm with 2+ pulses distally. No edema, no petechiae. Symmetric antigravity power in all extremities. Normal DTRs throughout. No rest tremor. Transfers independently. No truncal ataxia. Oriented x4. Results CT abdomen and pelvis: Fatty infiltration of liver, diffuse colonic wall thickening, distal ileum with wall thickening. Labs Result diagrams: 12/22/19 09:40 12/22/19 09:40 Labs: Laboratory Results - last 24 hr 12/22/19 12/22/19 12/22/19 09:40 09:40 09:40 WBC 18.41 H RBC 4.20 L Hgb 15.7 Hct 44.0 MCV 104.8 H MCH 37.4 H MCHC 35.7 RDW 14.2 H Plt Count 267 MPV 10.1 Immature Gran % 0.2 Neutrophils % 91.8 Lymphocytes % 2.4 Monocytes % 5.5 Eosinophils % 0.0 Basophils % 0.1 Absolute Neutrophils 16.90 H Absolute Lymphocytes 0.44 L Absolute Monocytes 1.01 H Absolute Eosinophils 0.00 Absolute Basophils 0.02 Sodium 129 L Potassium 4.2 Chloride 90 L Carbon Dioxide 12.9 L Anion Gap 26.1 H BUN 20 H Creatinine 1.36 H Estimated GFR/1.73 m2 57.75 Glucose 145 H Lactate 3.1 H* Calcium 10.4 H Total Bilirubin 1.2 H AST 76 H ALT 73 H Alkaline Phosphatase 97 Troponin I < 0.05 Total Protein 8.8 H Albumin 4.1 Lipase 133 TSH 1.36 Urine Color Urine Clarity Urine pH Ur Specific [place] Urine Protein Urine Ketones Urine Blood Urine Nitrite Urine Bilirubin Urine Urobilinogen Ur Leukocyte Esterase Urine RBC Urine WBC Ur Epithelial Cells Urine Crystals Urine Bacteria Urine Casts Urine Mucus Urine Other Ur Culture Indicated? Urine Glucose Ethyl Alcohol < 3.0 12/22/19 12/22/19 12:00 12:25 WBC RBC Hgb Hct MCV MCH MCHC RDW Plt Count MPV Immature Gran % Neutrophils % Lymphocytes % Monocytes % Eosinophils % Basophils % Absolute Neutrophils Absolute Lymphocytes Absolute Monocytes Absolute Eosinophils Absolute Basophils Sodium Potassium Chloride Carbon Dioxide Anion Gap BUN Creatinine Estimated GFR/1.73 m2 Glucose Lactate 1.5 H Calcium Total Bilirubin AST ALT Alkaline Phosphatase Troponin I Total Protein Albumin Lipase TSH Urine Color Yellow Urine Clarity Clear Urine pH 6.0 Ur Specific [place] 1.015 Urine Protein 30 H Urine Ketones >=160 H Urine Blood Small H Urine Nitrite Negative Urine Bilirubin Large H Urine Urobilinogen 0.2 Ur Leukocyte Esterase Negative Urine RBC 0-2 Urine WBC Negative Ur Epithelial Cells Negative Urine Crystals Negative Urine Bacteria Negative Urine Casts >50 hyaline Urine Mucus Trace Urine Other Rare renal Ur Culture Indicated? No Urine Glucose Negative Ethyl Alcohol Last Vital Signs Temp 37.9 C H 12/22/19 13:40 Pulse 111 H 12/22/19 12:53 Resp 18 12/22/19 12:53 BP 134/85 12/22/19 12:53 Pulse Ox 95 12/22/19 12:53 COVID-19 Screening Traveled to [place] from one of the affected countries or regions?: NO Recent travel in the [place] within the last 14 days?: No Recent out of the country travel within the last 14 days?: No Exposure or possible exposure to illness during travel?: No Had IN PERSON contact w/suspected or confirmed C-19 person: No Have you had the following symptoms in the past few days?: No Symptoms noted since travel?: No Symptoms Medical treatment received for symptoms/illness related to travel?: no travel outside of [place]
[2019-12-22] MEDS: Pantoprazole 40 MG TABCR PO (14:54)
[2019-12-22] MEDS: Normal Saline Flush 10 ML SYR IVP (20:04)
[2019-12-22] MEDS: Lactated Ringers 1,000 ML 150 ML IV (20:57)
[2019-12-23] VITALS (8 sets, daily range): BP systolic 129–153; BP diastolic 74–102; PULSE 82–111; RESP 18–19; TEMP 36.5–37.5; O2SAT 93–97
[2019-12-23] MEDS: Lactated Ringers 1,000 ML 150 ML IV ×3 (03:30→18:50)
[2019-12-23 07:19] LABS: HCT 36.1 % (40.0-50.0); Mean Corpuscular Hemoglobin 37.9 pg (27.0-33.0); Mean Corpuscular Volume 105.2 fL (80-95); Mean Platelet Volume 10.3 fL (8.0-11.0); Platelet Count 219 x1000/uL (130-400); RBC 3.43 m/cumm (4.50-6.00); RBC Distribution Width 14.3 % (11.8-14.1); White Blood Cell Count 12.52 k/cumm (4.4-10.8)
[2019-12-23 07:36] LABS: ALT 55 U/L (16-63); AST 76 U/L (15-37); Albumin 2.9 g/dL (3.4-5.0); Alkaline Phosphatase 67 U/L (46-116); BUN 15 mg/dL (7-18); Bilirubin, Total 0.7 mg/dL (0.2-1.0); Calcium 8.2 mg/dL (8.5-10.1); Chloride 100 mmol/L (98-107); Glucose 87 mg/dL (74-106); Potassium 3.2 mmol/L (3.5-5.1); Sodium 134 mmol/L (136-145); Total Protein 6.3 g/dL (6.4-8.2)
[2019-12-23] MEDS: Pantoprazole 20 MG TABCR PO (08:00)
[2019-12-23 08:03] LABS: Vitamin B12 522 pg/mL (193-986)
[2019-12-23] MEDS: Potassium Chloride 20 MEQ TABCR 40 MEQ PO ×2 (08:37→15:42)
[2019-12-23 08:48] LABS: Magnesium 1.4 mg/dL (1.8-2.4)
--- NOTE | 2019-12-23 10:27 | PGE_ITS ---
Date of Service Date of service: 12/23/19 Time of Service: 10:27 Assessment and Plan Assessment and plan (1) Vomiting: Start date: 12/23/19 Start time: 10:30 Status: Acute Assessment and plan: No family history of bowel disease. He has not vomited since admission. One loose stool but denies diarrhea. No pain to abdomen, tolerating clear liquids. CRP elevated at 3.94 Continues to have elevated WBC, stool cultures pending, blood cultures pending. Surgery consulted. Will advance diet if surgery agrees. Continue IVF at this time. (2) Colitis: Start date: 12/23/19 Start time: 10:33 Status: Acute Assessment and plan: Imaging does not match patient assessment, no pain, no diarrhea. However he did have a low grade fever and elevated WBC, I have asked surgery to evaluate based on lack of symptoms. See above. (3) Dehydration: Start date: 12/23/19 Start time: 10:32 Status: Resolved Assessment and plan: Resolved. MMM. He is tolerating clears. (4) Hyponatremia: Start date: 12/23/19 Start time: 10:34 Status: Acute Assessment and plan: Improving at 134, will continue IVF overnight. (5) Tobacco use: Start date: 12/23/19 Start time: 10:35 Status: Acute Assessment and plan: Offer nicotine replacement, assess readiness to quit and smoking cessation (6) History of splenectomy: Start date: 12/23/19 Start time: 10:35 Status: Acute Assessment and plan: CT scan shows a small splenule which may be adequate to protect him from infection from encapsulated organisms. He does not know if he has received pneumococcal, HIB or meningitis vaccines. Above case discussed with Dr. Rosado who is in agreement. Subjective Subjective Patient reports: no new complaints and feels better Interval history since last seen: Doing well, no nausea no vomiting, denies diarrhea states he had one loose stool but not diarrhea. His assessment is not indicative of colitis with no pain or diarrhea. I have asked surgery to see him. He denies CP, SOB, NVD. Exam Narrative Exam Narrative: Man appearing his stated age in no acute distress. Afebrile overnight Pulse rate currently regular without ectopic beats. Sclera clear, no icterus. Mucous membranes moist, no oral lesions visible. Neck supple. No JVD or cervical nodes. Lungs clear throughout. Regular heart rhythm no murmur S3 or S4. Abdomen is mildly obese soft there is no tenderness anywhere. Bowel sounds normal. No masses appreciated. No guarding or rebound. Extremities warm with 2+ pulses distally. No edema, no petechiae. Symmetric antigravity power in all extremities. Normal DTRs throughout. No rest tremor. Transfers independently. No truncal ataxia. Oriented x4. Objective Objective Clinical Data: Abnormal lab results 12/22/19 12/22/19 12/23/19 Range/Units 12:00 12:25 06:30 WBC (4.4-10.8) k/cumm RBC (4.50-6.00) m/cumm Hgb (13.5-17.5) g/dL Hct (40.0-50.0) % MCV (80-95) fL MCH (27.0-33.0) pg RDW (11.8-14.1) % Sodium 134 L (136-145) mmol/L Potassium 3.2 L D (3.5-5.1) mmol/L Lactate 1.5 H (0.6-1.4) mmol/L Calcium 8.2 L (8.5-10.1) mg/dL Magnesium 1.4 L (1.8-2.4) mg/dL AST 76 H (15-37) U/L C-Reactive Protein (0.0-0.3) mg/dL Total Protein 6.3 L (6.4-8.2) g/dL Albumin 2.9 L (3.4-5.0) g/dL Urine Protein 30 H (Negative) mg/dL Urine Ketones >=160 H (Negative) mg/dL Urine Blood Small H (Negative) Urine Bilirubin Large H (Negative) 12/23/19 12/23/19 Range/Units 06:30 07:10 WBC 12.52 H D (4.4-10.8) k/cumm RBC 3.43 L (4.50-6.00) m/cumm Hgb 13.0 L D (13.5-17.5) g/dL Hct 36.1 L (40.0-50.0) % MCV 105.2 H (80-95) fL MCH 37.9 H (27.0-33.0) pg RDW 14.3 H (11.8-14.1) % Sodium (136-145) mmol/L Potassium (3.5-5.1) mmol/L Lactate (0.6-1.4) mmol/L Calcium (8.5-10.1) mg/dL Magnesium (1.8-2.4) mg/dL AST (15-37) U/L C-Reactive Protein 3.90 H (0.0-0.3) mg/dL Total Protein (6.4-8.2) g/dL Albumin (3.4-5.0) g/dL Urine Protein (Negative) mg/dL Urine Ketones (Negative) mg/dL Urine Blood (Negative) Urine Bilirubin (Negative) Vital Signs Temperature 37.5 C 12/23/19 08:00 Temperature Source Tympanic 12/23/19 08:00 Pulse 86 12/23/19 08:00 Pulse Rhythm Regular 12/22/19 16:37 Pulse 98 H 12/22/19 12:20 Respiratory Rate 18 12/23/19 08:00 Respiratory Effort Non-Labored 12/22/19 20:00 Respiratory Depth Normal 12/22/19 20:00 Respiratory Pattern Normal 12/22/19 20:00 Blood Pressure 138/92 H 12/23/19 08:00 Blood Pressure Mean 106 12/22/19 12:00 Blood Pressure Position Sitting 12/22/19 09:23 Pulse Oximetry 95 12/23/19 08:00 Oxygen Delivery Method Room Air 12/23/19 08:00 Oxygen Flow Rate 0 12/23/19 08:00 Pain Level 0 12/23/19 08:00 Intake & Output 12/22/19 12/22/19 12/23/19 11:59 23:59 11:59 Intake Total 2789 278 / 0 1949 Balance 2789 278 / 2789 Weight 68.039 kg 68.039 kg Intake: IV 2309 / 2309 Oral 480 / 480 Other: Urine Appearance Clear Stool Characteristics Liquid Laboratory Results WBC 12.52 k/cumm (4.4-10.8) H D 12/23/19 06:30 RBC 3.43 m/cumm (4.50-6.00) L 12/23/19 06:30 Hgb 13.0 g/dL (13.5-17.5) L D 12/23/19 06:30 Hct 36.1 % (40.0-50.0) L 12/23/19 06:30 MCV 105.2 fL (80-95) H 12/23/19 06:30 MCH 37.9 pg (27.0-33.0) H 12/23/19 06:30 MCHC 36.0 g/dL (32.0-36.0) 12/23/19 06:30 RDW 14.3 % (11.8-14.1) H 12/23/19 06:30 Plt Count 219 x1000/uL (130-400) 12/23/19 06:30 MPV 10.3 fL (8.0-11.0) 12/23/19 06:30 Immature Gran % 0.2 % 12/22/19 09:40 Neutrophils % 91.8 12/22/19 09:40 Lymphocytes % 2.4 12/22/19 09:40 Monocytes % 5.5 12/22/19 09:40 Eosinophils % 0.0 12/22/19 09:40 Basophils % 0.1 12/22/19 09:40 Absolute Neutrophils 16.90 k/cumm (1.2-6.7) H 12/22/19 09:40 Absolute Lymphocytes 0.44 k/cumm (1.2-3.4) L 12/22/19 09:40 Absolute Monocytes 1.01 k/cumm (0.11-0.7) H 12/22/19 09:40 Absolute Eosinophils 0.00 k/cumm (0.0-0.7) 12/22/19 09:40 Absolute Basophils 0.02 k/cumm (0.0-0.2) 12/22/19 09:40 Sodium 134 mmol/L (136-145) L 12/23/19 06:30 Potassium 3.2 mmol/L (3.5-5.1) L D 12/23/19 06:30 Chloride 100 mmol/L (98-107) 12/23/19 06:30 Carbon Dioxide 23.0 mmol/L (21.0-32.0) 12/23/19 06:30 Anion Gap 11.0 mmol/L (3-11) 12/23/19 06:30 BUN 15 mg/dL (7-18) 12/23/19 06:30 Creatinine 0.80 mg/dL (0.70-1.30) D 12/23/19 06:30 Estimated GFR/1.73 m2 >= 60.00 (mL/min/1.73m2) 12/23/19 06:30 Glucose 87 mg/dL (74-106) D 12/23/19 06:30 Lactate 1.5 mmol/L (0.6-1.4) H 12/22/19 12:25 Calcium 8.2 mg/dL (8.5-10.1) L 12/23/19 06:30 Magnesium 1.4 mg/dL (1.8-2.4) L 12/23/19 06:30 Total Bilirubin 0.7 mg/dL (0.2-1.0) 12/23/19 06:30 AST 76 U/L (15-37) H 12/23/19 06:30 ALT 55 U/L (16-63) 12/23/19 06:30 Alkaline Phosphatase 67 U/L (46-116) 12/23/19 06:30 Troponin I < 0.05 ng/Ml (<0.06) 12/22/19 09:40 C-Reactive Protein 3.90 mg/dL (0.0-0.3) H 12/23/19 07:10 Total Protein 6.3 g/dL (6.4-8.2) L 12/23/19 06:30 Albumin 2.9 g/dL (3.4-5.0) L 12/23/19 06:30 Lipase 133 U/L (73-393) 12/22/19 09:40 Vitamin B12 522 pg/mL (193-986) 12/23/19 06:30 TSH 1.36 uIU/mL (0.36-3.74) 12/22/19 09:40 Urine Color Yellow (Yellow) 12/22/19 12:00 Urine Clarity Clear (Clear) 12/22/19 12:00 Urine pH 6.0 (5-8) 12/22/19 12:00 Ur Specific [place] 1.015 (1.005-1.025) 12/22/19 12:00 Urine Protein 30 mg/dL (Negative) H 12/22/19 12:00 Urine Ketones >=160 mg/dL (Negative) H 12/22/19 12:00 Urine Blood Small (Negative) H 12/22/19 12:00 Urine Nitrite Negative (Negative) 12/22/19 12:00 Urine Bilirubin Large (Negative) H 12/22/19 12:00 Urine Urobilinogen 0.2 EU/dL (Up TO 0.2) 12/22/19 12:00 Ur Leukocyte Esterase Negative (Negative) 12/22/19 12:00 Urine RBC 0-2 HPF (0-2) 12/22/19 12:00 Urine WBC Negative HPF (0-5) 12/22/19 12:00 Ur Epithelial Cells Negative HPF (Negative) 12/22/19 12:00 Urine Crystals Negative HPF (Negative) 12/22/19 12:00 Urine Bacteria Negative HPF (Negative) 12/22/19 12:00 Urine Casts >50 hyaline LPF (Negative) 12/22/19 12:00 Urine Mucus Trace (Negative) 12/22/19 12:00 Urine Other Rare renal (Negative) 12/22/19 12:00 Ur Culture Indicated? No 12/22/19 12:00 Urine Glucose Negative mg/dL (Negative) 12/22/19 12:00 Ethyl Alcohol < 3.0 mg/dL (<3) 12/22/19 09:40
[2019-12-23 10:30] LABS: COVID-19 RT-PCR UVMMC Result Negative (Negative)
--- NOTE | 2019-12-23 10:43 | W.SURGCON ---
Date of service: 12/23/19 Assessment and Plan Assessment and plan (1) Colitis: Status: Acute Assessment and plan: A\\ 39 year old with 2 days of diarrhea followed by intractable N/V prior to admission. CT scan showed mcginnis-colitis. There is no family history of IBD Stool cultures, fecal calprotectin pending CRP is increased Differential includes viral/bacterial Gastroenteritis vs inflammatory bowel disease P\\ Will advance diet to soft, low fiber for now Await stool cultures and stool calprotectin If calprotecting is elevated and stool cultures negative then that is diagnostic for inflammatory bowel disease and we can treat with steroids. If calprotein is normal and stool cultures are negative then patient will need a flexible sigmoidoscopy with biopsies to try and get a diagnosis If stool cultures positive then treat for the infection Plan was discussed with the patient and the Hospitalist I will follow along with you (2) Hypomagnesemia: Status: Acute Assessment and plan: P\\ Replace with 2 GM of Magnesium Recheck in am History of Present Illness History of Present Illness Chief Complaint: Colitis Narrative: Generally healthy 39-year-old man, history of episodic heavy alcohol use, presents to the emergency room because of repeated bouts of vomiting for the past day and a half. He reports Wednesday morning development of sudden nausea then nonbilious, nonbloody emesis. Following vomiting the nausea abated fairly promptly. He knew he should try to hydrate himself but every time he did, even with water, within minutes would vomit again. Never vomited coffee-ground material or blood. Nausea is fairly sudden onset followed by vomiting and then fairly quick relief. He has had no abdominal pain. He has had no recent travel. No ill contacts. He works in the [employer] but does not drink water from streams or springs. No recent use of NSAIDs. Reports his last use of alcohol was a week and a half ago. Infrequent marijuana use. He has had one abdominal surgery for trauma, spleen removed but he has a splenule noted on CT scan. He has had no history of bowel obstruction. He has no history of black or bloody bowel movements. There is no family history of inflammatory bowel disease. No history of recurrent headaches. No history of migraine. Talking to the patient today he does admit that he had diarrhea for 2 days prior to his Nausea and Vomiting. He has not eaten anything since Wednesday Morning when the N/V started. He had a BM last night or this morning that was loose. CT scan was performed of the abdomen notable for CT findings of pancolitis, no evidence of obstruction. Fatty liver an incidental finding. Laboratory studies also show an elevated lactate, mild transaminitis, hyponatremia with sodium at 129, acute kidney injury/likely prerenal azotemia, leukocytosis with chronic macrocytosis. He empirically was given Cipro and Flagyl in the ER with concerns about infectious colitis. He has not had any vomiting since arrival here. He has been tolerating clear liquids Consults Consult date: 12/23/19 Requesting physician: Karen Rosado Review of Systems Constitutional Constitutional: Reports anorexia, Denies chills, Denies fever(s), Denies headache(s) and Denies weight loss Eyes Eyes: Denies change in vision ENT Ears, Nose, Mouth, and Throat: Denies dysphagia, Denies headache(s) and Denies hoarseness Cardiovascular Cardiovascular: Denies chest pain, Denies chest pain at rest, Denies chest pain with activity, Denies irregular heart rhythm, Denies palpitations, Denies dyspnea, Denies dyspnea on exertion and Denies orthopnea Respiratory Respiratory: Denies cough, Denies hemoptysis, Denies dyspnea and Denies dyspnea on exertion Gastrointestinal Gastrointestinal: Reports as per HPI and Denies dysphagia Genitourinary Genitourinary: Denies hematuria and Denies difficulty urinating Musculoskeletal Musculoskeletal: Reports system reviewed and no additional complaints, except as documented Integumentary/Breasts Skin/Breast: Reports system reviewed and no additional complaints, except as documented Neurologic Neurologic: Reports system reviewed and no additional complaints, except as documented and Denies headache(s) Psychiatric Psychiatric: Reports system reviewed and no additional complaints, except as documented Endocrine Endocrine: Reports system reviewed and no additional complaints, except as documented and Denies palpitations Hematologic/Lymphatic Hematologic/Lymphatic: Reports system reviewed and no additional complaints, except as documented [facility] Medical History Alcohol intoxication (Inactive 07/14/14) Depression (Inactive 07/14/14) No significant past medical history (Acute) Tobacco use (Inactive) Surgical History (Updated 12/23/19 @ 11:11 by Larisa Whaley MD) History of hammer toe correction (Acute) History of splenectomy (Acute) Social History Smoking/Tobacco Use Status: Current every day Tobacco Type: cigarettes Alcohol Intake: current Alcohol Intake frequency: 3 or more drinks per day Alcohol type: hard liquor Drug use: Occasionally Substance use type: marijuana Do you feel safe at home: Yes Do you feel safe in your relationship?: Yes Exam Const General: cooperative, comfortable and no acute distress Orientation: alert and oriented x3 HENMT Head: normocephalic and atraumatic Resp Effort & Inspection: normal respiratory effort Auscultation: clear to auscultation bilaterally Cardio Rate: regular rate Rhythm: regular rhythm Heart Sounds: no gallops, no murmurs and no rubs GI Inspection: normal to inspection and non-distended Palpation: soft, no hepatomegaly and no hernias Auscultation: normal bowel sounds Rectal Exam: deferred General: deferred Extrem General: no clubbing, cyanosis or edema Results Last Vital Signs Temp 99.5 F 12/23/19 08:00 Pulse 86 12/23/19 08:00 Resp 18 12/23/19 08:00 BP 138/92 H 12/23/19 08:00 Pulse Ox 95 12/23/19 08:00 Labs Result diagrams: 12/23/19 06:30 12/23/19 06:30 Labs: Laboratory Results - last 24 hr 12/22/19 12/22/19 12/22/19 12:00 12:00 12:25 WBC RBC Hgb Hct MCV MCH MCHC RDW Plt Count MPV Sodium Potassium Chloride Carbon Dioxide Anion Gap BUN Creatinine Estimated GFR/1.73 m2 Glucose Lactate 1.5 H Calcium Magnesium Total Bilirubin AST ALT Alkaline Phosphatase C-Reactive Protein Total Protein Albumin Vitamin B12 Urine Color Yellow Urine Clarity Clear Urine pH 6.0 Ur Specific [place] 1.015 Urine Protein 30 H Urine Ketones >=160 H Urine Blood Small H Urine Nitrite Negative Urine Bilirubin Large H Urine Urobilinogen 0.2 Ur Leukocyte Esterase Negative Urine RBC 0-2 Urine WBC Negative Ur Epithelial Cells Negative Urine Crystals Negative Urine Bacteria Negative Urine Casts >50 hyaline Urine Mucus Trace Urine Other Rare renal Ur Culture Indicated? No Urine Glucose Negative COVID-19 PCR Negative Nasopharyn COVID-19 PCR Not Applicable Ref Test Perform Site [facility] lab 12/23/19 12/23/19 12/23/19 06:30 06:30 06:30 WBC 12.52 H D RBC 3.43 L Hgb 13.0 L D Hct 36.1 L MCV 105.2 H MCH 37.9 H MCHC 36.0 RDW 14.3 H Plt Count 219 MPV 10.3 Sodium 134 L Potassium 3.2 L D Chloride 100 Carbon Dioxide 23.0 Anion Gap 11.0 BUN 15 Creatinine 0.80 D Estimated GFR/1.73 m2 >= 60.00 Glucose 87 D Lactate Calcium 8.2 L Magnesium 1.4 L Total Bilirubin 0.7 AST 76 H ALT 55 Alkaline Phosphatase 67 C-Reactive Protein Total Protein 6.3 L Albumin 2.9 L Vitamin B12 522 Urine Color Urine Clarity Urine pH Ur Specific [place] Urine Protein Urine Ketones Urine Blood Urine Nitrite Urine Bilirubin Urine Urobilinogen Ur Leukocyte Esterase Urine RBC Urine WBC Ur Epithelial Cells Urine Crystals Urine Bacteria Urine Casts Urine Mucus Urine Other Ur Culture Indicated? Urine Glucose COVID-19 PCR Nasopharyn COVID-19 PCR Ref Test Perform Site 12/23/19 07:10 WBC RBC Hgb Hct MCV MCH MCHC RDW Plt Count MPV Sodium Potassium Chloride Carbon Dioxide Anion Gap BUN Creatinine Estimated GFR/1.73 m2 Glucose Lactate Calcium Magnesium Total Bilirubin AST ALT Alkaline Phosphatase C-Reactive Protein 3.90 H Total Protein Albumin Vitamin B12 Urine Color Urine Clarity Urine pH Ur Specific [place] Urine Protein Urine Ketones Urine Blood Urine Nitrite Urine Bilirubin Urine Urobilinogen Ur Leukocyte Esterase Urine RBC Urine WBC Ur Epithelial Cells Urine Crystals Urine Bacteria Urine Casts Urine Mucus Urine Other Ur Culture Indicated? Urine Glucose COVID-19 PCR Nasopharyn COVID-19 PCR Ref Test Perform Site
--- NOTE | 2019-12-23 11:17 | PHA.REVIEW ---
Pharmacy Admission Review - Admission Clinical Review (Last Updated 12/23/19 @ 11:11 by Larisa Whaley MD) History of splenectomy (Acute) Hyponatremia (Acute) Colitis (Acute) Vomiting (Acute) No Known Allergies Allergy (Unverified 12/22/19 09:29) Height 5 ft 6 in Weight 68.039 kg - Renal Dosing Renal Dosing: BUN 15 mg/dL (7-18) 12/23/19 06:30 Creatinine 0.80 mg/dL (0.70-1.30) D 12/23/19 06:30 Medications needing adjustments: Reviewed (CRCL ~109ML/MIN) - Anticoagulation Anticoagulation: Hgb 13.0 g/dL (13.5-17.5) L D 12/23/19 06:30 Hct 36.1 % (40.0-50.0) L 12/23/19 06:30 Plt Count 219 x1000/uL (130-400) 12/23/19 06:30 Creatinine 0.80 mg/dL (0.70-1.30) D 12/23/19 06:30 DVT Prohphylaxis: N/A - Relevant Labs Sodium 134 mmol/L (136-145) L 12/23/19 06:30 Potassium 3.2 mmol/L (3.5-5.1) L D 12/23/19 06:30 Chloride 100 mmol/L (98-107) 12/23/19 06:30 Magnesium 1.4 mg/dL (1.8-2.4) L 12/23/19 06:30 C-Reactive Protein 3.90 mg/dL (0.0-0.3) H 12/23/19 07:10 Electrolytes, C-Reactive P, ESR: Reviewed - DM Control DM Control: Glucose 87 mg/dL (74-106) D 12/23/19 06:30 Insulin Dosing: N/A - Heart Failure/FL Heart Failure/FL: Troponin I < 0.05 ng/Ml (<0.06) 12/22/19 09:40 EF%, DEANA's, B-Blockers, Diuretics: N/A - BP Control BP Control: Blood Pressure 138/92 Blood Pressure 137/85 Blood Pressure 133/86 - Qtc Review If Elevated: Reviewed (420) - IV to PO Switch IV Medications: Reviewed (IV antibiotics,) - Home Meds Home Med List reviewed: Reviewed (albuterol inh not ordered) - Current meds Current Medication Order Review: Reviewed
[2019-12-23] MEDS: MAGNESIUM SULFATE 2 GM/50 ML BAG IVPB (11:24)
[2019-12-23] MEDS: Nicotine 14 MG/24 HR PATCH TD (12:46)
[2019-12-23] MEDS: Normal Saline Flush 10 ML SYR IVP ×2 (13:19→14:24)
[2019-12-23] MEDS: metroNIDAZOLE 500 MG/100 ML BAG 100 MG IVPB ×2 (13:19→19:55)
[2019-12-23] MEDS: CIPROFLOXACIN 400 MG/200 ML BAG 200 MG IVPB (14:24)
[2019-12-23] MEDS: Acetaminophen 325 MG TAB 650 MG PO (15:42)
--- NOTE | 2019-12-23 17:03 | PDOC.CMIN ---
- If Service Date Differs Date of service: 12/23/19 Time of Service: 17:09 Care Management Initial Assess REASON FOR HOSPITALIZATION:: Colitis, dehydration, vomiting. PAST MEDICAL HISTORY/PAST SURGICAL HISTORY:: Alcohol intoxication, depression, tobacco use, hammer toe correction, splenectomy PREVIOUS FUNCTIONAL STATUS/SOCIAL/FAMILY SUPPORTS:: Milan resides in [facility] in an apartment with his significant other. He reports working intermittently due to CV-19 and shares that he does not currently have a vehicle. He reports being independent in the community with ADLs. CURRENT FUNCTIONAL STATUS:: Milan is pleasant in interaction, somewhat guarded and answers questions simply. CM provides overview of Care Management, and Milan becomes more interactive and engaged. He reports being content with his care and shares no concerns at this time. ADVANCE DIRECTIVES:: None on file. Has patient been provided with information about the portal?: Yes Did the patient sign up for the portal?: No CODE STATUS:: Full Code INSURANCE COVERAGE / FINANCIAL ISSUES:: [facility] PRIMARY CARE PHYSICIAN:: Malou Moreno POTENTIAL DISCHARGE NEEDS:: Follow up appointment with PCP. PATIENT/FAMILY EDUCATION NEEDS:: Review of discharge instructions, discuss Ask Me Three. ANTICIPATED BARRIERS TO DISCHARGE:: None identified. TRANSPORTATION:: Via private vehicle with his significant other. PLAN:: Milan continues to be closely monitored at this time. He reports feeling much better than when he arrived. He will return home when ready per MD. He will transport via private vehicle with family or his signficant other. CM continues to follow.
[2019-12-24] VITALS (8 sets, daily range): BP systolic 135–162; BP diastolic 89–112; PULSE 72–85; RESP 18–20; TEMP 37.3–37.8; O2SAT 96–99
[2019-12-24] MEDS: Lactated Ringers 1,000 ML 150 ML IV (02:06)
[2019-12-24] MEDS: CIPROFLOXACIN 400 MG/200 ML BAG 200 MG IVPB ×2 (02:07→13:41)
[2019-12-24] MEDS: metroNIDAZOLE 500 MG/100 ML BAG 100 MG IVPB ×3 (03:57→19:47)
[2019-12-24 07:14] LABS: Abs Immature Grans 0.04 k/cumm (0.0-0.09); HCT 35.5 % (40.0-50.0); HGB 12.7 g/dL (13.5-17.5); Mean Corp. HGB Concentration 35.8 g/dL (32.0-36.0); Mean Corpuscular Volume 106.3 fL (80-95); Mean Platelet Volume 10.3 fL (8.0-11.0); Platelet Count 205 x1000/uL (130-400); RBC 3.34 m/cumm (4.50-6.00); RBC Distribution Width 14.5 % (11.8-14.1); White Blood Cell Count 12.37 k/cumm (4.4-10.8)
[2019-12-24 07:24] LABS: Anion Gap 7.4 mmol/L (3-11); BUN 7 mg/dL (7-18); CO2 25.6 mmol/L (21.0-32.0); Calcium 8.3 mg/dL (8.5-10.1); Chloride 102 mmol/L (98-107); Glucose 94 mg/dL (74-106); Magnesium 1.8 mg/dL (1.8-2.4); Potassium 3.3 mmol/L (3.5-5.1); Sodium 135 mmol/L (136-145)
[2019-12-24 07:40] LABS: Anisocytosis 1+; Macrocytosis 2+
[2019-12-24 07:41] LABS: Poikilocytes 1+
[2019-12-24 07:42] LABS: Absolute Eosinophil Count 0.62 k/cumm (0.0-0.7); Absolute Lymphocyte Count 1.98 k/cumm (1.2-3.4); Absolute Monocyte Count 0.62 k/cumm (0.11-0.7); Absolute Neutrophil Count 9.15 k/cumm (1.2-6.7); Nucleated RBC 2 /100WBC
[2019-12-24 07:51] LABS: Diff Comment Manual Differential
[2019-12-24] MEDS: Potassium Chloride 20 MEQ TABCR 40 MEQ PO ×2 (07:59→15:30)
[2019-12-24] MEDS: Pantoprazole 20 MG TABCR PO (07:59)
--- NOTE | 2019-12-24 10:01 | W.PM.PROGNOT ---
Date of Service Date of service: 12/24/19 Time of Service: 11:31 Assessment and Plan Assessment and plan (1) Colitis: Status: Acute Assessment and plan: A\\ 39 year old with 2 days of diarrhea followed by intractable N/V prior to admission. CT scan showed mcginnis-colitis. There is no family history of IBD Stool cultures, fecal calprotectin pending CRP is increased Lactoferrin is elevated WBC count continues to be elevated despite antibiotics Differential includes viral/bacterial Gastroenteritis vs inflammatory bowel disease P\\ Will place patient back on clear liquids Enema in am for a Flexible sigmoidoscopy Risks, benefits and complications reviewed with the patient. Complications include bleeding, perforation, sore throat, adverse reaction to the medications, and aspiration. Questions were entertained and answered to his satisfaction and he wished to proceed. No guarantees were given or implied. Subjective Subjective Interval history since last seen: Mr. Cody is doing well today. he has no abdominal pain. He has had a few liquid stools since getting a diet. he has not noted any blood. he denies any N/V Exam Const General: cooperative, comfortable and no acute distress Orientation: alert and oriented x3 GI Inspection: normal to inspection Palpation: soft, no hepatomegaly and nontender Auscultation: normal bowel sounds Objective Objective Clinical Data: Abnormal lab results 12/24/19 12/24/19 Range/Units 06:40 06:40 WBC 12.37 H (4.4-10.8) k/cumm RBC 3.34 L (4.50-6.00) m/cumm Hgb 12.7 L (13.5-17.5) g/dL Hct 35.5 L (40.0-50.0) % MCV 106.3 H (80-95) fL MCH 38.0 H (27.0-33.0) pg RDW 14.5 H (11.8-14.1) % Absolute Neutrophils 9.15 H (1.2-6.7) k/cumm Sodium 135 L (136-145) mmol/L Potassium 3.3 L (3.5-5.1) mmol/L Calcium 8.3 L (8.5-10.1) mg/dL Vital Signs Temperature 99.3 F 12/24/19 08:01 Temperature Source Temporal Artery Scan 12/24/19 08:01 Pulse 72 12/24/19 08:01 Pulse Rhythm Regular 12/24/19 08:04 Pulse 98 H 12/22/19 12:20 Respiratory Rate 20 12/24/19 08:01 Respiratory Effort 12/24/19 08:04 Respiratory Depth Normal 12/24/19 08:04 Respiratory Pattern Normal 12/24/19 08:04 Blood Pressure 147/98 H 12/24/19 08:01 Blood Pressure Mean 106 12/22/19 12:00 Blood Pressure Position Sitting 12/22/19 09:23 Pulse Oximetry 96 12/24/19 08:01 Oxygen Delivery Method Room Air 12/24/19 08:01 Oxygen Flow Rate 0 12/24/19 08:01 Pain Level 0 12/24/19 08:01 Intake & Output 12/23/19 12/23/19 12/24/19 11:59 23:59 11:59 Intake Total 2070 / 4320 2250 / 4320 1200 / 1200 Balance 2070 / 4320 2250 / 4320 1200 / 1200 Intake: IV 1950 / 3350 1400 / 3350 1000 / 1000 Oral 120 / 970 850 / 970 200 / 200 Other: Comment pt voiding independently. patient toilets self independently Stool Size Moderate Stool Characteristics Liquid Brown Voiding Methods Toilet Toilet Laboratory Results WBC 12.37 k/cumm (4.4-10.8) H 12/24/19 06:40 RBC 3.34 m/cumm (4.50-6.00) L 12/24/19 06:40 Hgb 12.7 g/dL (13.5-17.5) L 12/24/19 06:40 Hct 35.5 % (40.0-50.0) L 12/24/19 06:40 MCV 106.3 fL (80-95) H 12/24/19 06:40 MCH 38.0 pg (27.0-33.0) H 12/24/19 06:40 MCHC 35.8 g/dL (32.0-36.0) 12/24/19 06:40 RDW 14.5 % (11.8-14.1) H 12/24/19 06:40 Plt Count 205 x1000/uL (130-400) 12/24/19 06:40 MPV 10.3 fL (8.0-11.0) 12/24/19 06:40 Immature Gran % 0.0 % 12/24/19 06:40 Neutrophils % 74.0 12/24/19 06:40 Lymphocytes % 16.0 12/24/19 06:40 Monocytes % 5.0 12/24/19 06:40 Eosinophils % 5.0 12/24/19 06:40 Basophils % 0.0 12/24/19 06:40 Absolute Neutrophils 9.15 k/cumm (1.2-6.7) H 12/24/19 06:40 Absolute Lymphocytes 1.98 k/cumm (1.2-3.4) 12/24/19 06:40 Absolute Monocytes 0.62 k/cumm (0.11-0.7) 12/24/19 06:40 Absolute Eosinophils 0.62 k/cumm (0.0-0.7) 12/24/19 06:40 Absolute Basophils 0.00 k/cumm (0.0-0.2) 12/24/19 06:40 Nucleated RBCs 2 /100WBC 12/24/19 06:40 Differential Comment Manual differential 12/24/19 06:40 RBC Morphology See below 12/24/19 06:40 Poikilocytosis 1+ 12/24/19 06:40 Anisocytosis 1+ 12/24/19 06:40 Macrocytosis 2+ 12/24/19 06:40 Sodium 135 mmol/L (136-145) L 12/24/19 06:40 Potassium 3.3 mmol/L (3.5-5.1) L 12/24/19 06:40 Chloride 102 mmol/L (98-107) 12/24/19 06:40 Carbon Dioxide 25.6 mmol/L (21.0-32.0) 12/24/19 06:40 Anion Gap 7.4 mmol/L (3-11) 12/24/19 06:40 BUN 7 mg/dL (7-18) 12/24/19 06:40 Creatinine 0.70 mg/dL (0.70-1.30) 12/24/19 06:40 Estimated GFR/1.73 m2 >= 60.00 (mL/min/1.73m2) 12/24/19 06:40 Glucose 94 mg/dL (74-106) 12/24/19 06:40 Lactate 1.5 mmol/L (0.6-1.4) H 12/22/19 12:25 Calcium 8.3 mg/dL (8.5-10.1) L 12/24/19 06:40 Magnesium 1.8 mg/dL (1.8-2.4) 12/24/19 06:40 Total Bilirubin 0.7 mg/dL (0.2-1.0) 12/23/19 06:30 AST 76 U/L (15-37) H 12/23/19 06:30 ALT 55 U/L (16-63) 12/23/19 06:30 Alkaline Phosphatase 67 U/L (46-116) 12/23/19 06:30 Troponin I < 0.05 ng/Ml (<0.06) 12/22/19 09:40 C-Reactive Protein 3.90 mg/dL (0.0-0.3) H 12/23/19 07:10 Total Protein 6.3 g/dL (6.4-8.2) L 12/23/19 06:30 Albumin 2.9 g/dL (3.4-5.0) L 12/23/19 06:30 Lipase 133 U/L (73-393) 12/22/19 09:40 Vitamin B12 522 pg/mL (193-986) 12/23/19 06:30 Procalcitonin 1.0 ng/mL 12/23/19 06:30 TSH 1.36 uIU/mL (0.36-3.74) 12/22/19 09:40 Urine Color Yellow (Yellow) 12/22/19 12:00 Urine Clarity Clear (Clear) 12/22/19 12:00 Urine pH 6.0 (5-8) 12/22/19 12:00 Ur Specific [place] 1.015 (1.005-1.025) 12/22/19 12:00 Urine Protein 30 mg/dL (Negative) H 12/22/19 12:00 Urine Ketones >=160 mg/dL (Negative) H 12/22/19 12:00 Urine Blood Small (Negative) H 12/22/19 12:00 Urine Nitrite Negative (Negative) 12/22/19 12:00 Urine Bilirubin Large (Negative) H 12/22/19 12:00 Urine Urobilinogen 0.2 EU/dL (Up TO 0.2) 12/22/19 12:00 Ur Leukocyte Esterase Negative (Negative) 12/22/19 12:00 Urine RBC 0-2 HPF (0-2) 12/22/19 12:00 Urine WBC Negative HPF (0-5) 12/22/19 12:00 Ur Epithelial Cells Negative HPF (Negative) 12/22/19 12:00 Urine Crystals Negative HPF (Negative) 12/22/19 12:00 Urine Bacteria Negative HPF (Negative) 12/22/19 12:00 Urine Casts >50 hyaline LPF (Negative) 12/22/19 12:00 Urine Mucus Trace (Negative) 12/22/19 12:00 Urine Other Rare renal (Negative) 12/22/19 12:00 Ur Culture Indicated? No 12/22/19 12:00 Urine Glucose Negative mg/dL (Negative) 12/22/19 12:00 Ethyl Alcohol < 3.0 mg/dL (<3) 12/22/19 09:40 COVID-19 PCR Negative (Negative) 12/22/19 12:00 Nasopharyn COVID-19 PCR Not Applicable 12/22/19 12:00 Ref Test Perform Site [facility] lab 12/22/19 12:00
--- NOTE | 2019-12-24 10:19 | PGE_ITS ---
Date of Service Date of service: 12/24/19 Time of Service: Assessment and Plan Assessment and plan (1) Vomiting: Start date: 12/24/19 Start time: 10: Status: Resolved Assessment and plan: No vomiting since admission, tolerating soft diet.. Colitis on CT, on CIPRO and Flagyl for colitis. WBC slightly better still 12. He denies n/v states loose stool x 3 but semiformed. Surgery following patient, stool studies pending, lactoferin positive, stool occult blood negative, blood cultures NGTD. Plan for surgery to perform colonoscopy either Wednesday or Wednesday, will defer to surgery. (2) Colitis: Start date: 12/24/19 Start time: : Status: Acute Assessment and plan: Imaging does not match patient assessment, no pain, no diarrhea. However he did have a low grade fever and elevated WBC on admission,surgery following patient.. See above. (3) Dehydration: Start date: 12/24/19 Start time: : Status: Resolved Assessment and plan: Resolved. MMM. He is tolerating soft continue to monitor hydration status. (4) Hyponatremia: Start date: 12/24/19 Start time: 10: Status: Acute Assessment and plan: Improving at 135, will continue IVF add potassium for hypokalemia despite oral repletion (5) Tobacco use: Start date: 12/24/19 Start time: 10: Status: Inactive Assessment and plan: Not interested in cessation at this time. He is craving nicotine will increase patch to 21 mg. He smokes 1/2-1 pack daily. Continue to assess readiness to quit . (6) History of splenectomy: Start date: 12/24/19 Start time: 10:28 Status: Acute Assessment and plan: CT scan shows a small splenule which may be adequate to protect him from infection from encapsulated organisms. He does not know if he has received pneumococcal, HIB or meningitis vaccines. Above case discussed with Dr. Rosado who is in agreement. (7) Hypokalemia: Start date: 12/24/19 Start time: 10:29 Status: Acute Assessment and plan: Repeleted yesterday for 3.2 with oral repleteion of 80 meq total. Today continues to be hypokalemic. Will replete with another 80meq and give NS with 20 k IVF at 100/hr. He denies Diarrhea will obtain stool count. Subjective Subjective Patient reports: no new complaints and feels better Interval history since last seen: Patient feels better, no pain, no nausea, vomiting states 3 loose semi formed stool, no blood. He is craving nicotine, smokes 1/2-1 pack a day will increase nicotine patch. Discussed colonoscopy with him and lab results he is agreeable to plan. Exam Narrative Exam Narrative: Man appearing his stated age in no acute distress. Afebrile overnight Pulse rate currently regular without ectopic beats. Sclera clear, no icterus. Mucous membranes moist, no oral lesions visible. Neck supple. No JVD or cervical nodes. Lungs clear throughout. Regular heart rhythm no murmur S3 or S4. Abdomen is mildly obese soft there is no tenderness anywhere. Bowel sounds normal. No masses appreciated. No guarding or rebound. Extremities warm with 2+ pulses distally. No edema, no petechiae. Symmetric antigravity power in all extremities. Normal DTRs throughout. No rest tremor. Transfers independently. No truncal ataxia. Oriented x4. Objective Objective Clinical Data: Abnormal lab results 12/24/19 12/24/19 Range/Units 06:40 06:40 WBC 12.37 H (4.4-10.8) k/cumm RBC 3.34 L (4.50-6.00) m/cumm Hgb 12.7 L (13.5-17.5) g/dL Hct 35.5 L (40.0-50.0) % MCV 106.3 H (80-95) fL MCH 38.0 H (27.0-33.0) pg RDW 14.5 H (11.8-14.1) % Absolute Neutrophils 9.15 H (1.2-6.7) k/cumm Sodium 135 L (136-145) mmol/L Potassium 3.3 L (3.5-5.1) mmol/L Calcium 8.3 L (8.5-10.1) mg/dL Vital Signs Temperature 37.4 C 12/24/19 08:01 Temperature Source Temporal Artery Scan 12/24/19 08:01 Pulse 72 12/24/19 08:01 Pulse Rhythm Regular 12/24/19 08:04 Pulse 98 H 12/22/19 12:20 Respiratory Rate 20 12/24/19 08:01 Respiratory Effort 12/24/19 08:04 Respiratory Depth Normal 12/24/19 08:04 Respiratory Pattern Normal 12/24/19 08:04 Blood Pressure 147/98 H 12/24/19 08:01 Blood Pressure Mean 106 12/22/19 12:00 Blood Pressure Position Sitting 12/22/19 09:23 Pulse Oximetry 96 12/24/19 08:01 Oxygen Delivery Method Room Air 12/24/19 08:01 Oxygen Flow Rate 0 12/24/19 08:01 Pain Level 0 12/24/19 08:01 Intake & Output 12/23/19 12/23/19 12/24/19 11:59 23:59 11:59 Intake Total 2070 / 4320 2250 / 4320 1200 / 1200 Balance 2070 / 4320 2250 / 4320 1200 / 1200 Intake: IV 1950 / 3350 1400 / 3350 1000 / 1000 Oral 120 / 970 850 / 970 200 / 200 Other: Comment pt voiding independently. patient toilets self independently Stool Size Moderate Stool Characteristics Liquid Brown Voiding Methods Toilet Toilet Laboratory Results WBC 12.37 k/cumm (4.4-10.8) H 12/24/19 06:40 RBC 3.34 m/cumm (4.50-6.00) L 12/24/19 06:40 Hgb 12.7 g/dL (13.5-17.5) L 12/24/19 06:40 Hct 35.5 % (40.0-50.0) L 12/24/19 06:40 MCV 106.3 fL (80-95) H 12/24/19 06:40 MCH 38.0 pg (27.0-33.0) H 12/24/19 06:40 MCHC 35.8 g/dL (32.0-36.0) 12/24/19 06:40 RDW 14.5 % (11.8-14.1) H 12/24/19 06:40 Plt Count 205 x1000/uL (130-400) 12/24/19 06:40 MPV 10.3 fL (8.0-11.0) 12/24/19 06:40 Immature Gran % 0.0 % 12/24/19 06:40 Neutrophils % 74.0 12/24/19 06:40 Lymphocytes % 16.0 12/24/19 06:40 Monocytes % 5.0 12/24/19 06:40 Eosinophils % 5.0 12/24/19 06:40 Basophils % 0.0 12/24/19 06:40 Absolute Neutrophils 9.15 k/cumm (1.2-6.7) H 12/24/19 06:40 Absolute Lymphocytes 1.98 k/cumm (1.2-3.4) 12/24/19 06:40 Absolute Monocytes 0.62 k/cumm (0.11-0.7) 12/24/19 06:40 Absolute Eosinophils 0.62 k/cumm (0.0-0.7) 12/24/19 06:40 Absolute Basophils 0.00 k/cumm (0.0-0.2) 12/24/19 06:40 Nucleated RBCs 2 /100WBC 12/24/19 06:40 Differential Comment Manual differential 12/24/19 06:40 RBC Morphology See below 12/24/19 06:40 Poikilocytosis 1+ 12/24/19 06:40 Anisocytosis 1+ 12/24/19 06:40 Macrocytosis 2+ 12/24/19 06:40 Sodium 135 mmol/L (136-145) L 12/24/19 06:40 Potassium 3.3 mmol/L (3.5-5.1) L 12/24/19 06:40 Chloride 102 mmol/L (98-107) 12/24/19 06:40 Carbon Dioxide 25.6 mmol/L (21.0-32.0) 12/24/19 06:40 Anion Gap 7.4 mmol/L (3-11) 12/24/19 06:40 BUN 7 mg/dL (7-18) 12/24/19 06:40 Creatinine 0.70 mg/dL (0.70-1.30) 12/24/19 06:40 Estimated GFR/1.73 m2 >= 60.00 (mL/min/1.73m2) 12/24/19 06:40 Glucose 94 mg/dL (74-106) 12/24/19 06:40 Lactate 1.5 mmol/L (0.6-1.4) H 12/22/19 12:25 Calcium 8.3 mg/dL (8.5-10.1) L 12/24/19 06:40 Magnesium 1.8 mg/dL (1.8-2.4) 12/24/19 06:40 Total Bilirubin 0.7 mg/dL (0.2-1.0) 12/23/19 06:30 AST 76 U/L (15-37) H 12/23/19 06:30 ALT 55 U/L (16-63) 12/23/19 06:30 Alkaline Phosphatase 67 U/L (46-116) 12/23/19 06:30 Troponin I < 0.05 ng/Ml (<0.06) 12/22/19 09:40 C-Reactive Protein 3.90 mg/dL (0.0-0.3) H 12/23/19 07:10 Total Protein 6.3 g/dL (6.4-8.2) L 12/23/19 06:30 Albumin 2.9 g/dL (3.4-5.0) L 12/23/19 06:30 Lipase 133 U/L (73-393) 12/22/19 09:40 Vitamin B12 522 pg/mL (193-986) 12/23/19 06:30 Procalcitonin 1.0 ng/mL 12/23/19 06:30 TSH 1.36 uIU/mL (0.36-3.74) 12/22/19 09:40 Urine Color Yellow (Yellow) 12/22/19 12:00 Urine Clarity Clear (Clear) 12/22/19 12:00 Urine pH 6.0 (5-8) 12/22/19 12:00 Ur Specific [place] 1.015 (1.005-1.025) 12/22/19 12:00 Urine Protein 30 mg/dL (Negative) H 12/22/19 12:00 Urine Ketones >=160 mg/dL (Negative) H 12/22/19 12:00 Urine Blood Small (Negative) H 12/22/19 12:00 Urine Nitrite Negative (Negative) 12/22/19 12:00 Urine Bilirubin Large (Negative) H 12/22/19 12:00 Urine Urobilinogen 0.2 EU/dL (Up TO 0.2) 12/22/19 12:00 Ur Leukocyte Esterase Negative (Negative) 12/22/19 12:00 Urine RBC 0-2 HPF (0-2) 12/22/19 12:00 Urine WBC Negative HPF (0-5) 12/22/19 12:00 Ur Epithelial Cells Negative HPF (Negative) 12/22/19 12:00 Urine Crystals Negative HPF (Negative) 12/22/19 12:00 Urine Bacteria Negative HPF (Negative) 12/22/19 12:00 Urine Casts >50 hyaline LPF (Negative) 12/22/19 12:00 Urine Mucus Trace (Negative) 12/22/19 12:00 Urine Other Rare renal (Negative) 12/22/19 12:00 Ur Culture Indicated? No 12/22/19 12:00 Urine Glucose Negative mg/dL (Negative) 12/22/19 12:00 Ethyl Alcohol < 3.0 mg/dL (<3) 12/22/19 09:40 COVID-19 PCR Negative (Negative) 12/22/19 12:00 Nasopharyn COVID-19 PCR Not Applicable 12/22/19 12:00 Ref Test Perform Site [facility] lab 12/22/19 12:00
[2019-12-24] MEDS: POTASSIUM CHLORIDE/0.9% NACL 1,000 ML 100 MEQ IV (11:13)
[2019-12-24] MEDS: Nicotine 21 MG/24 HR PATCH TD (11:20)
--- NOTE | 2019-12-24 13:59 | CMPROGNOTE_ITS ---
Care Management Progress Note S/O: Milan remains pleasant in interaction, and agreeable to treatment plan. Awaiting stool cultures, per MD. Milan remains on liquid diet and IV ABX at this time. CM continues to follow. A: 39 year old male admitted to [facility] 12/22/19 for [place] colitis, vomiting, dehydration, diarrhea P: Milan continues to be closely monitored at this time. Surgical consult resulted in Dr. Whaley scheduling flexible sigmoidoscopy with biopsies for 12/25/19. Per provider, Milan will remain at [facility] awaiting procedure. Anticipate Milan will return home when ready per MD. He will transport via private vehicle with family or his significant other. CM continues to follow.
[2019-12-24] MEDS: Normal Saline Flush 10 ML SYR IVP (19:47)
[2019-12-24] MEDS: Acetaminophen 325 MG TAB 650 MG PO (22:56)
[2019-12-25] MEDS: Normal Saline Flush 10 ML SYR IVP ×3 (00:22→04:43)
[2019-12-25] MEDS: CIPROFLOXACIN 400 MG/200 ML BAG 200 MG IVPB (01:56)
[2019-12-25 01:59] VITALS: BP 140/90; PULSE 76; RESP 18; TEMP 36.8; O2SAT 97
[2019-12-25 03:14] VITALS: BP 134/92; PULSE 92; RESP 19; TEMP 36.9; O2SAT 98
[2019-12-25] MEDS: metroNIDAZOLE 500 MG/100 ML BAG 100 MG IVPB (04:44)
[2019-12-25] MEDS: POTASSIUM CHLORIDE/0.9% NACL 1,000 ML 100 MEQ IV (06:25)
[2019-12-25 07:35] VITALS: BP 148/110; PULSE 122; RESP 18; TEMP 37.4; O2SAT 98
[2019-12-25 07:35] LABS: Abs Immature Grans 0.06 k/cumm (0.0-0.09); HCT 39.9 % (40.0-50.0); HGB 14.4 g/dL (13.5-17.5); Mean Corp. HGB Concentration 36.1 g/dL (32.0-36.0); Mean Corpuscular Hemoglobin 38.3 pg (27.0-33.0); Mean Corpuscular Volume 106.1 fL (80-95); Mean Platelet Volume 9.9 fL (8.0-11.0); Platelet Count 269 x1000/uL (130-400); RBC 3.76 m/cumm (4.50-6.00); RBC Distribution Width 14.6 % (11.8-14.1); White Blood Cell Count 10.77 k/cumm (4.4-10.8)
[2019-12-25 07:43] LABS: Anion Gap 12.5 mmol/L (3-11); BUN 5 mg/dL (7-18); CO2 21.5 mmol/L (21.0-32.0); Calcium 8.8 mg/dL (8.5-10.1); Chloride 101 mmol/L (98-107); Glucose 108 mg/dL (74-106); Potassium 3.6 mmol/L (3.5-5.1); Sodium 135 mmol/L (136-145)
[2019-12-25 07:52] LABS: Absolute Basophil Count 0.11 k/cumm (0.0-0.2); Absolute Eosinophil Count 0.65 k/cumm (0.0-0.7); Absolute Monocyte Count 0.65 k/cumm (0.11-0.7); Absolute Neutrophil Count 7.97 k/cumm (1.2-6.7); Atypical Lymphocytes % 1
[2019-12-25 07:53] LABS: Diff Comment Manual Differential; Howell-Jolly Bodies Present; Macrocytosis 2+; Poikilocytes 1+
[2019-12-25] MEDS: Lactated Ringers 1,000 ML 80 ML IV (08:22)
--- NOTE | 2019-12-25 08:40 | BOWEL_PTH ---
PATIENT: Milan Cody LOC: U#:[id number] AGE/SX: 39/M ROOM: MSDoc206 RE12/22/[address]: Karen Rosado : 1980 BED: A DIS: 12/25/2019 SPEC #: [id number] RECD: 12/25/19 12:04 STATUS: YU RELiliana #: [id number] AKBAR: 12/25/19 08:[address]: Larisa Whaley DEPT: Surgical Specimen RECD BY: Stephon Winkler ENTERED: 12/25/19 12:08 SP TYPE: Bowel OTHR DR: Malou Moreno Tissues: 1 - BIOPSY BOWEL 2 - BIOPSY BOWEL 3 - BIOPSY BOWEL 4 - BIOPSY BOWEL 5 - BIOPSY BOWEL 6 - BIOPSY BOWEL 7 - BIOPSY BOWEL Procedures: GROSS AND MICRO LEVEL 4 Comments: [id number]
--- NOTE | 2019-12-25 09:13 | W.COLOREPORT ---
Date of service: 12/25/19 Time of Service: 09:13 Colonoscopy Report Date of procedure: 12/25/19 Pre-op diagnosis general: CT scan with Pancolitis Post-op diagnosis procedure note: other (Diverticulosis, colorectal polyps) Procedure: Colonoscopy Surgeon: Larisa Whaley Anesthesia proc note operative: GETA (ASA 2/ Miguelangel Barajas, ANGLE) Estimated blood loss (mL): 3 Pathology: other (Transverse polyp at 76 cm, Transverse polyp at 73 cm and splenic flexure polyp at 65, and randome biopsies) Complications: None Disposition: floor Indications: Mr. weber is a pleasant 39 year old male admitted on with abdominal pain and intractable N/V. He had had diarrhea for 3 days prior to developing the N/V. CT scan in the ER was interpreted as pancolitis. Flexible sigmoidoscopy with biopsies were recommended for diagnostic purposes. Risks, benefits and complications were reviewed with the patient. No guarantees were given or implied. He wished to proceed. Prep: Other (enema) Procedure Start Time: 08:33 Procedure End Time: 09:03 Retraction Time: 26 minutes Findings: Diverticulosis in the ascending and sigmoid colon 3 large polyps in the transverse colon at 76, 73 and 65 cm. All were >1 cm in size No edema or inflammation noted Procedure Description: After informed consent was obtained the patient was taken to the procedure room and placed in a left decubitous position. Monitors were applied and a time out was done. The patients name, date of , procedure, allergies to medications and metal in their body was reviewed. The patient was then sedated. Once sedated and comfortable a rectal exam was done. External exam was normal. Internal exam revealed a normal sphincter tone and no palpable masses. The prostate felt smooth. The scope was then introduced and retro-flexed. Grade 1 internal hemorrhoids were identified. The scope was then advanced to the cecum without difficulty. The TI and appendiceal orifice were identified. The prep was good. The scope was then slowly retracted over 26 minutes back into the rectum. Polyps were removed with hot snare in the Transverse colon at 76, 73, and 65 cm. All polyps were > 1 cm in size. There was mild diverticulosis noted in the ascending colon. There was moderate diverticulosis in the sigmoid colon. There was no appreciated edema or inflammation throughout the colon. Randome biopsies were done with cold forceps in the ascending colon, transverse colon, sigmoid colon and rectum. The scope was removed and the patient was woken up and taken back to Med/ Surg unit in stable condition. The patient tolerated the procedure well and there were no immediate complications. Follow up: The patient should follow up in the office in 10 days to discuss results and to make sure his symptoms have completely resolved. I will recommend that he finishes a course of antibiotics for 7 days because I am not sure what he had. Stool cultures are still pending at this time and there was no inflammation so doubt Colitis.
[2019-12-25 09:22] VITALS: BP 134/90; PULSE 103; RESP 18; TEMP 36.9; O2SAT 99
[2019-12-25 09:48] VITALS: BP 146/101; PULSE 85; RESP 18; TEMP 37; O2SAT 99
[2019-12-25] MEDS: Pantoprazole 20 MG TABCR PO (09:55)
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
--- NOTE | 2019-12-25 11:07 | PDOC.CMDIS ---
- If Service Date Differs Date of service: 12/25/19 Time of Service: 11:07 LACE Index Scoring Tool - Questions: Length of Stay (in days): 3 Acuity (Admit via E.D.?): Yes E.D. Visits: 3 - Answers: Total Score: 9 Risk of Readmission: Low Risk Care Management Discharge Reason for Hospitalization: Colitis, dehydration, vomiting. Discharge Plan: Milan is discharged home today with no new services. He advises his girlfriend lives with him, so she will be at home to oversee him and to ensure he has no adverse effects of the anesthesia. Milan will follow up with his PCP and plan of care as directed. He is being transported home by [facility]. Patient/Family Education Needs: Discharge education, limitations, and follow-up plan of care, including Ask Me Three and self management.
[2019-12-25 11:17] LABS: Campylobacter PCR Negative (Negative); Salmonella PCR Negative (Negative); Shiga Toxin PCR Negative (Negative); Shigella/Enteroinvasive Ecoli Negative (Negative)
[2019-12-25 11:23] LABS: Hepatitis C Ab w Rflx HCV PCR Negative (Negative)
[2019-12-25 11:47] LABS: HBs Antibody, Quant 5.5 mIU/mL (See Note); Hep B Surface Ab Negative (See Note); Hepatitis B Core Antibody Negative (Negative); Hepatitis B Surface Antigen Negative (Negative)
[2019-12-26 21:19] LABS: Calprotectin 133.9 mcg/g
== END 2019-12-25 10:55 | disposition home or self-care (01) | DRG 392 ==
LOC: ER 12:19 → MS 12:48
PROVIDERS: Surgery; Admitting Provider Internal Medicine; Emergency Provider Student in an Organized Health Care Education/Training Program; PCP Nurse Practitioner Family; Visit Provider Internal Medicine
PROC: 0DJD8ZZ Inspection of Lower Intestinal Tract, Via Natural or Artificial Opening Endoscopic (ICD-10-PCS; CPT 45330; principal; 2019-12-25 10:00)
DX: K52.9 Noninfective gastroenteritis and colitis, unspecified (principal); E87.1 Hypo-osmolality and hyponatremia; N17.9 Acute kidney failure, unspecified; D12.3 Benign neoplasm of transverse colon; K57.30 Diverticulosis of large intestine without perforation or abscess without bleeding; K64.0 First degree hemorrhoids; E83.42 Hypomagnesemia; E86.0 Dehydration; E87.6 Hypokalemia; R11.10 Vomiting, unspecified; F17.210 Nicotine dependence, cigarettes, uncomplicated; Z90.81 Acquired absence of spleen; F10.10 Alcohol abuse, uncomplicated
CPT/HCPCS: 45385; 45380; 36410; 36415; 80048; 80053; 83690; 84145; 85027; 86704; 86706; 86803; 87040; 87340; 87449; 87505; 88305; 93005; 96361; 96374; 96375; 99222; 99232; 99233; 99239; 99253; 99285; U0003; 74177; 80320; 81003; 81015; 82272; 82607; 83605; 83630; 83735; 83993; 84443; 84484; 85025; 86140; 93010; J0744; J2001; J2405; J2704; J3490

== ENCOUNTER 2020-01-28 21:34 | Emergency (ER) | payer MEDICAID, SELFPAY ==
[2020-01-28 21:38] VITALS: BP 127/99; PULSE 105; RESP 18; TEMP 36.7; O2SAT 99
--- NOTE | 2020-01-28 21:50 | ED.GENADUL_ITS ---
Discharge Plan Disposition Patient Disposition: HOME Condition: Stable Discharge Details Chief Complaint: ETOHWithdr Clinical Impression: Alcohol intoxication Primary Care Provider: Malou Moreno ED Provider: Paul Solano Home Meds and New Rx's Prescriptions: Continued albuterol sulfate 90 mcg/actuation HFA aerosol inhaler 1 puff IH Q6H PRN (Reason: bronchospasm) Qty: 6.7 RF: 0 pantoprazole [Protonix] 20 mg Tablet,Delayed Release (Dr/Ec) 20 mg PO DAILY@0730 Qty: 14 RF: 0 ondansetron HCl [Zofran] 4 mg tablet 4 mg PO Q8H PRN (Reason: nausea and vomiting) Qty: 7 RF: 0 Discharge Instructions Instructions: Alcohol Intoxication (ED) Medical Decision Making 39 yo male comes in with EMS after they were called by PD because he was intoxicated and had argument on the phone. He arrives ambulatory with stable gait and has no complaints. HAs clear speech, no focal deficits. States he had 8 twisted teas today no other drug use. No signs of trauma. Apparently on breathalyzer blew a 0.4. Given he has no complaints and no concerning findings on exam or history will d/c as his mother is able to take him home Differential Diagnosis Differential Diagnosis: alcohol intoxication, alcohol abuse HPI General Mode of arrival: EMS . Date/Time Provider Initiated Documentation: 01/28/20 21:42 . Limitations to Documentation: no limitations . Information obtained by: patient . History of Present Illness 39 year old M presents to the emergency department with the chief complaint of i feel great', Patient reports no radiation. No relieving factors improve symptom(s), Related Data Home Medications Medication Instructions Recorded Confirmed albuterol sulfate 1 puff IH Q6H PRN #6.7 gm 02/10/19 01/28/20 ondansetron HCl [Zofran] 4 mg PO Q8H PRN #7 tab 09/02/19 01/28/20 pantoprazole [Protonix] 20 mg PO DAILY@0730 #14 tab 12/25/19 01/28/20 Previous Rx's Medication Instructions Recorded albuterol sulfate 1 puff IH Q6H PRN #6.7 gm 02/10/19 ondansetron HCl [Zofran] 4 mg PO Q8H PRN #7 tab 09/02/19 pantoprazole [Protonix] 20 mg PO DAILY@0730 #14 tab 12/25/19 Allergies Allergy/AdvReac Type Severity Reaction Status Date / Time No Known Allergies Allergy Unverified 01/28/20 21:41 General Stated Complaint: ETOHWithdr [place]: 3 Review of Systems All systems reviewed & are unremarkable except as noted in HPI and below Constitutional Constitutional: Denies chills, Denies fever(s) and Denies weakness Eyes Eyes: Denies loss of vision Cardiovascular Cardiovascular: Denies chest pain and Denies dyspnea Respiratory Respiratory: Denies cough and Denies dyspnea Gastrointestinal Gastrointestinal: Denies abdominal pain, Denies nausea and Denies vomiting Genitourinary Genitourinary: Denies dysuria Musculoskeletal Musculoskeletal: Denies joint swelling Integumentary/Breasts Skin/Breast: Denies rash Neurologic Neurologic: Denies loss of vision and Denies weakness Psychiatric Psychiatric: Denies depression Endocrine Endocrine: Denies heat intolerance PFSH Social History Smoking/Tobacco Use Status: Current every day Tobacco Type: cigarettes Alcohol Intake: current Alcohol Intake frequency: 3 or more drinks per day Alcohol type: hard liquor Drug use: Never Substance use type: marijuana Details: pt states that he drank 8 or 10 twisted tea Do you feel safe at home: Yes Do you feel safe in your relationship?: Yes Exam Const General: no acute distress Orientation: alert HENMT Head: normal to inspection Ears: external ears normal General nose exam: external nose normal Mouth: moist mucous membranes Eyes General: appearance normal, both eyes and all related structures Neck Neck: normal visual inspection Resp Effort & Inspection: normal respiratory effort and able to speak in complete sentences Cardio Rate: regular rate Skin General skin exam: no rashes or lesions noted Neuro General: patient alert and patient oriented x3 Extrem General: normal to inspection Psych Mental Status: mental status grossly normal Course Vital Signs Vital signs: Vital Signs Temperature 36.7 C 01/28/20 21:38 Pulse 105 H 01/28/20 21:38 Respiratory Rate 18 01/28/20 21:38 Blood Pressure 127/99 H 01/28/20 21:38 Pulse Oximetry 99 01/28/20 21:38 Temperature 36.7 C 01/28/20 21:38 Pulse 105 H 01/28/20 21:38 Respiratory Rate 18 01/28/20 21:38 Respiratory Effort 01/28/20 21:43 Blood Pressure 127/99 H 01/28/20 21:38 Blood Pressure Position Sitting 01/28/20 21:38 Pulse Oximetry 99 01/28/20 21:38 Oxygen Delivery Method Room Air 01/28/20 21:38 Oxygen Flow Rate 0 01/28/20 21:38 Pain Level 0 01/28/20 21:38
--- NOTE | 2020-01-28 22:50 | NUR.NOTE ---
[id number] pt called his mother who said that she would send her to get him . he waited in room 4 for 10 min and then went out to the lobby. he said that his ride was here . it was not. he made several more attempts to call people. he was told to go back to rm 4. [facility] police and the screener were notified that he had no ride and needed custody.Nursing Note:
== END 2020-01-28 21:55 | disposition home or self-care (01) ==
PROVIDERS: Emergency Provider Emergency Medicine; PCP Nurse Practitioner Family
DX: F10.220 Alcohol dependence with intoxication, uncomplicated (principal)
CPT/HCPCS: 99285; 99283

== ENCOUNTER 2020-02-29 09:14 | Emergency (ER) | payer MEDICAID, SELFPAY ==
[2020-02-29] VITALS (34 sets, daily range): BP systolic 121–163; BP diastolic 73–116; PULSE 69–129; RESP 13–20; TEMP 36.8–37; O2SAT 90–100
[2020-02-29] MEDS: Ondansetron 4 MG/2 ML VIAL IVP (09:41)
[2020-02-29 09:45] LABS: Abs Immature Grans 0.02 k/cumm (0.0-0.09); Absolute Eosinophil Count 0.01 k/cumm (0.0-0.7); Absolute Lymphocyte Count 1.54 k/cumm (1.2-3.4); Absolute Monocyte Count 0.81 k/cumm (0.11-0.7); Absolute Neutrophil Count 5.73 k/cumm (1.2-6.7); Basophils % 2.4; Eosinophils % 0.1; HCT 44.7 % (40.0-50.0); Immature Grans % 0.2 %; Lymphocytes % 18.5; Mean Corp. HGB Concentration 35.8 g/dL (32.0-36.0); Mean Corpuscular Hemoglobin 38.6 pg (27.0-33.0); Mean Corpuscular Volume 107.7 fL (80-95); Monocytes % 9.7; Neutrophils % 69.1; Platelet Count 542 x1000/uL (130-400); RBC 4.15 m/cumm (4.50-6.00); RBC Distribution Width 13.8 % (11.8-14.1); White Blood Cell Count 8.31 k/cumm (4.4-10.8)
--- NOTE | 2020-02-29 09:45 | ED.GENADUL_ITS ---
Discharge Plan Disposition Patient Disposition: HOME Condition: Stable Discharge Details Chief Complaint: Nausea/Vomit/Diar Clinical Impression: Nausea and vomiting, Acute kidney injury, Acute dehydration Primary Care Provider: Malou Moreno ED Provider: Carter Ramírez Home Meds and New Rx's Prescriptions: New ondansetron 4 mg tablet,disintegrating 4 mg PO Q8H PRN (Reason: nausea and vomiting) Qty: 10 RF: 0 Discharge Instructions Instructions: Dehydration (ED), Acute Kidney Injury (DC), Acute Nausea and Vomiting (ED) Additional Instructions: Please take nausea medicine as prescribed. Please be sure to stay hydrated. Drink small amounts of fluid frequently. Please contact your primary care physician to arrange follow-up. Return to the ER for any worsening or new concerning symptoms. Stand Alone Forms: Work Release Discharge Data Discharge Date/Time-TO BE ENTERED AT DEPARTURE: 02/29/20 12:46 Medical Decision Making 9:50 -- 39-year-old male presents with nausea, vomiting and loose stool over the past 3 days with associated generalized weakness and fatigue. Abdominal exam is benign. Patient is hypertensive and tachycardic. He appears hypovolemic. I will give IVF fluid bolus and ondansetron IV for nausea. Will check chemistry to assess for electrolyte abnormalities. Consider hepatic/biliary disease, will check LFTs. --Labs reviewed and noted in creatinine noted with anion gap acidosis. Suspect starvation ketosis and GUANAKO secondary to hypovolemia. Patient has received 2L crystalloid. On reassessment is tolerating oral fluids and he notes that he feels much better. Plan for repeat labs. -- Repeat labs reviewed: creatinine and anion gap improved. Continues to tolerate PO intake. Plan for discharge with outpatient follow-up. Disposition decision was made weighing the risks and benefits of hospitalization versus outpatient treatment, the risk for further decompensation, and the patient's wishes. The patient was stable and requested discharge. Prior to discharge, my usual and customary return precautions were reviewed with the patient - this included follow-up instructions and reason to return to the emergency department if condition worsens, does not improve as expected, or other new concerns arise. HPI General Mode of arrival: ambulatory . Date/Time Provider Initiated Documentation: 02/29/20 09:33 . Limitations to Documentation: no limitations . Information obtained by: patient . HPI Narrative: 39-year-old male presents with chief complaint of nausea. Patient notes nausea and vomiting for the past 3 days. Symptoms are severe. No modifiers. He is not able to keep any fluids down. He has associated fatigue and loose stool over the same period of time. No associated fever. No abdominal pain. Patient denies raw or undercooked foods. No recent travel. Related Data Home Medications Medication Instructions Recorded Confirmed ondansetron 4 mg PO Q8H PRN #10 tab 02/29/20 Previous Rx's Medication Instructions Recorded ondansetron 4 mg PO Q8H PRN #10 tab 02/29/20 Allergies Allergy/AdvReac Type Severity Reaction Status Date / Time No Known Allergies Allergy Unverified 02/29/20 09:31 General Stated Complaint: Nausea/Vomit/Diar [place]: 3 Review of Systems All systems reviewed & are unremarkable except as noted in HPI and below Constitutional Constitutional: Denies fever(s) Respiratory Respiratory: Denies cough Gastrointestinal Gastrointestinal: Denies abdominal pain, Reports loose stools, Reports nausea and Reports vomiting PFSH Medical History Alcohol intoxication (Inactive 07/14/14) Depression (Inactive 07/14/14) No significant past medical history (Acute) Tobacco use (Inactive) Surgical History History of hammer toe correction (Acute) History of splenectomy (Acute) Social History Smoking/Tobacco Use Status: Current every day Tobacco Type: cigarettes Alcohol Intake: current Alcohol Intake frequency: 3 or more drinks per day Alcohol type: hard liquor Drug use: Never Substance use type: marijuana Details: pt states that he drank 8 or 10 twisted tea Do you feel safe at home: Yes Do you feel safe in your relationship?: Yes Exam Const General: cooperative and no acute distress Eyes Conjunctivae: normal conjunctivae Sclera: normal sclerae Neck Neck: trachea midline Resp Auscultation: clear to auscultation bilaterally, no rales, no rhonchi and no wheezes Cardio Jugular venous pressure: no JVD Rate: tachycardic Rhythm: regular rhythm GI Palpation: soft, not firm, no guarding, no masses, not rigid and nontender Skin General skin exam: no rashes or lesions noted Neuro General: patient alert, patient awake and tone normal Extrem General: no edema Psych Appearance: grossly normal Mental Status: mental status grossly normal Course Vital Signs Vital signs: Vital Signs Temperature 36.8 C 02/29/20 09:26 Pulse 129 H 02/29/20 09:26 Respiratory Rate 20 02/29/20 09:26 Blood Pressure 160/116 H 02/29/20 09:26 Pulse Oximetry 100 02/29/20 09:26 Temperature 36.8 C 02/29/20 09:26 Temperature Source Skin 02/29/20 09:26 Pulse 129 H 02/29/20 09:26 Respiratory Rate 20 02/29/20 09:26 Respiratory Effort Non-Labored 02/29/20 09:26 Blood Pressure 160/116 H 02/29/20 09:26 Blood Pressure Position Sitting 02/29/20 09:26 Pulse Oximetry 100 02/29/20 09:26 Oxygen Delivery Method Room Air 02/29/20 09:26 Oxygen Flow Rate 0 02/29/20 09:26 Pain Level 6 02/29/20 09:26
[2020-02-29] MEDS: Normal Saline 1,000 ML 1000 ML IV (09:52)
[2020-02-29 09:55] LABS: ALT 27 U/L (16-63); AST 48 U/L (15-37); Albumin 4.2 g/dL (3.4-5.0); Alkaline Phosphatase 96 U/L (46-116); Anion Gap 19.5 mmol/L (3-11); BUN 15 mg/dL (7-18); Bilirubin, Total 0.6 mg/dL (0.2-1.0); CO2 22.5 mmol/L (21.0-32.0); CREATININE 1.47 mg/dL (0.70-1.30); Calcium 10.5 mg/dL (8.5-10.1); Chloride 95 mmol/L (98-107); Estimated GFR 52.79 (mL/min/1.73m2); Glucose 141 mg/dL (74-106); Potassium 3.6 mmol/L (3.5-5.1); Sodium 137 mmol/L (136-145); Total Protein 8.5 g/dL (6.4-8.2)
[2020-02-29] MEDS: Lactated Ringers 1,000 ML 1000 ML IV (10:54)
[2020-02-29] MEDS: Mylanta Suspension 30 ML CUP PO (11:04)
[2020-02-29] MEDS: FAMOTIDINE 20 MG/50 ML BAG 200 MG IVPB (11:05)
[2020-02-29 12:35] LABS: Anion Gap 10.7 mmol/L (3-11); BUN 14 mg/dL (7-18); CO2 26.3 mmol/L (21.0-32.0); CREATININE 1.11 mg/dL (0.70-1.30); Calcium 9.1 mg/dL (8.5-10.1); Chloride 101 mmol/L (98-107); Glucose 117 mg/dL (74-106); Potassium 4.1 mmol/L (3.5-5.1); Sodium 138 mmol/L (136-145)
== END 2020-02-29 12:46 | disposition home or self-care (01) ==
PROVIDERS: Emergency Provider Student in an Organized Health Care Education/Training Program; PCP Nurse Practitioner Family
DX: R11.2 Nausea with vomiting, unspecified (principal); N17.9 Acute kidney failure, unspecified; E86.0 Dehydration
CPT/HCPCS: 80048; 80053; 96361; 96365; 96375; 99285; 85025; 99284; J2405

== ENCOUNTER 2020-03-18 17:54 | Emergency (ER) | payer MEDICAID, SELFPAY ==
[2020-03-18] VITALS (12 sets, daily range): BP systolic 53–151; BP diastolic 25–98; PULSE 87–154; RESP 14–24; TEMP 36.9; O2SAT 91–100
--- NOTE | 2020-03-18 18:13 | ED.GENADUL_ITS ---
Discharge Plan Disposition Patient Disposition: HOME Condition: Good Discharge Details Chief Complaint: GenMedical Clinical Impression: Acute dehydration, Heat exhaustion Primary Care Provider: Malou Moreno ED Provider: Colton Ram Discharge Instructions Instructions: Dehydration (ED), Heat Exhaustion (ED) Additional Instructions: At this time you are dehydrated and have suffered from mild heat exhaustion. Please drink 10 to 12 cups of tai per day, stay out of the sun for the next 24 to 48 hours and rest. Take the Zofran as needed for nausea. If you notice any worsening of your symptoms, or any new symptoms such as vomiting, diarrhea, fever, chills, shortness of breath, chest pain, numbness, weakness, or fainting , please return immediately to the emergency department for reevaluation. Please follow up with your primary care provider as soon as possible for reassessment and reevaluation. As always, it was a pleasure participating in your medical care today. 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 On exam patient is tachycardic at 110. He is nontoxic-appearing. Nonfocal neurologic exam. Concern for dehydration, metabolic/electrolyte derangement, other. Doubt acute coronary syndrome. Exam/history at this time is not consistent with sepsis, meningitis, acute tristan gent intracranial process, acute emergent intra-abdominal process, pulmonary embolism. Plan for EKG, screening labs, IV fluid hydration, telemetry. Will monitor and reassess. Labs reviewed, show hypomagnesemia, hypokalemia, elevated anion gap. Will replete, continue IV fluid hydration, at this time suspect elevated anion gap secondary to dehydration. On reassessment, patient reports feeling improved with IV fluids. Patient signed out to Dr. Ram at time of shift change with continued hydration, repeat labs pending. Medical Records Medical records reviewed: Yes I reviewed the patient's medical records. Lab Data Lab results reviewed: Yes I reviewed the patient's lab results. ECG Data Attestation: I personally reviewed and interpreted this ECG (s) as follows: Interpretation: EKG shows sinus rhythm at 96, normal axis, QRS 86, QTc 434, no acute ischemic changes, nondiagnostic EKG <Colton Ram DO - Last Filed: 03/18/20 21:48> Case was signed out to me by my colleague Dr. Molly Ramírez. Please refer to her HPI assessment and plan physical exam. Patient was signed out pending reevaluat ion after fluids. Repeat basic metabolic panel after greater than 2 L of fluids potassium and magnesium demonstrates normalization of his electrolytes and his anion gap. Patient is feeling much better and is requesting to be discharged. Signs and symptoms clinically consistent with mild dehydration in conjunction with heat exhaustion. Recommend rest for the next 48 hours, plenty of fluids, will give Zofran for home use. No concerning red flags on exam. Normal neurologic exam on exam. Patient will be discharged. I have extensively reviewed the treatment plan and discharge instructions with the patient. I have addressed all patient concerns at this time. The patient was made aware of what symptoms to monitor for that would warrant a return to the emergency department. Discussed the plan with the patient, they demonstrate verbal understanding and agreement with our assessment and plan at this time. HPI <Kassandra Ramírez MD - Last Filed: 03/27/20 09:05> General Mode of arrival: ambulatory . Date/Time Provider Initiated Documentation: 03/18/20 18:07 . Limitations to Documentation: no limitations . Information obtained by: patient, RN notes reviewed and old records reviewed . HPI Narrative: Varun Jackson is a 39-year-old man without reported history of major medical problems presenting to the emergency department with lightheadedness and nausea. 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 He reports that he did not have very much to drink today. He reports that he got nauseous and vomited around noon today, and then again around 3 PM. He reports that he had 1 beer after work. He reports that his lightheadedness worsened after and he presented to the emergency department. He reports current nausea, denies any other symptoms: No pain, fever, cough, shortness of breath, numbness, localized weakness, rash. Patient reports that he has been eating and drinking as usual, other than not drinking enough fluids while at work today. He denies any recent illness. Denies any trauma. Patient reports that he was previously in his usual state of health. Related Data Allergies Allergy/AdvReac Type Severity Reaction Status Date / Time No Known Allergies Allergy Unverified 03/18/20 18:06 General Stated Complaint: GenMedical [place]: 3 Review of Systems <Kassandra Ramírez MD - Last Filed: 03/27/20 09:05> Narrative: Constitutional: denies fevers Eyes: denies eye pain ENT: denies ear pain, dental pain, sore throat Cardiovascular: denies chest pain, edema, palpitations, reports lightheadedness Respiratory: denies SOB, cough GI: denies abdominal pain, diarrhea, reports vomiting : denies flank pain MSK: denies back pain, neck pain, arthralgias, myalgias Skin: denies rash Neuro: denies headaches, numbness, weakness PFSH <Kassandra Ramírez MD - Last Filed: 03/27/20 09:05> Medical History Alcohol intoxication (Inactive 07/14/14) Depression (Inactive 07/14/14) No significant past medical history (Acute) Tobacco use (Inactive) Social History Smoking/Tobacco Use Status: Current every day Tobacco Type: cigarettes Alcohol Intake: current Alcohol Intake frequency: 3 or more drinks per day Alcohol type: hard liquor Drug use: Never Substance use type: marijuana Details: pt states that he drank 8 or 10 twisted tea Do you feel safe at home: Yes Do you feel safe in your relationship?: Yes Exam <Kassandra Ramírez MD - Last Filed: 03/27/20 09:05> Narrative Exam Narrative: Constitutional: well and [id number], pleasant, conversing normally HENT: head atraumatic/normocephalic/normal inspection, mucous membranes dry Eyes: conjunctiva normal, sclera normal, pupils 3mm b/l Neck: no stridor, normal ROM, trachea midline Resp: normal work of breathing, LCTAB Cardio: Tachycardic rate, normal rhythm, no murmur appreciated GI: abdomen soft, non-tender, non-distended Back: normal inspection, no rash Skin: warm, dry, normal color, no rash Neuro: alert, not altered, grossly non-focal, normal tone Ext: no edema, no posterior calf tenderness to palpation Psych: normal mood, normal affect, normal behavior Course <Kassandra Ramírez MD - Last Filed: 03/27/20 09:05> Vital Signs Vital signs: Vital Signs Temperature 36.9 C 03/18/20 18:02 Pulse 119 H 03/18/20 18:02 Respiratory Rate 16 03/18/20 18:02 Blood Pressure 148/98 H 03/18/20 18:02 Pulse Oximetry 98 03/18/20 18:02 Temperature 36.9 C 03/18/20 18:02 Temperature Source Skin 03/18/20 18:02 Pulse 119 H 03/18/20 18:02 Respiratory Rate 16 03/18/20 18:02 Respiratory Effort Non-Labored 03/18/20 18:02 Blood Pressure 148/98 H 03/18/20 18:02 Blood Pressure Position Supine 03/18/20 18:02 Pulse Oximetry 98 03/18/20 18:02 Oxygen Delivery Method Room Air 03/18/20 18:02 Oxygen Flow Rate 0 03/18/20 18:02 Pain Level 0 03/18/20 18:02 Sign Out <Kassandra Ramírez MD - Last Filed: 03/27/20 09:05> Sign Out Data: Sign Out Comment: Patient signed out to Dr. Ram with IV fluids, med infusion, reassessment pending Last updated by Kassandra Ramírez MD at 03/18/20 20:29
[2020-03-18] MEDS: Normal Saline 1,000 ML 1000 ML IV ×2 (18:23→19:30)
[2020-03-18] MEDS: Ondansetron 4 MG/2 ML VIAL IVP (18:23)
--- NOTE | 2020-03-18 18:30 | RT.EKG_ITS ---
APPROVED REPORT Exam: Resting ECG Patient Location: E HR:96 bpm ECG Measurements Heart Rate 96 AXIS VT 150 P 64 QRSd 86 QRS -1 QT 344 T 50 QTc 434 <Conclusion> Sinus rhythm...normal P axis, V-rate 60- 99 Probable left atrial enlargement...P >50mS, <-0.10mV V1 EKG shows sinus rhythm at 96, normal axis, QRS 86, QTc 434, no acute ischemic changes, nondiagnostic EKG
[2020-03-18 18:35] LABS: Abs Immature Grans 0.02 k/cumm (0.0-0.09); Absolute Basophil Count 0.19 k/cumm (0.0-0.2); Absolute Lymphocyte Count 1.97 k/cumm (1.2-3.4); Absolute Monocyte Count 0.91 k/cumm (0.11-0.7); Absolute Neutrophil Count 8.16 k/cumm (1.2-6.7); Basophils % 1.7; HCT 40.8 % (40.0-50.0); Immature Grans % 0.2 %; Lymphocytes % 17.5; Mean Corpuscular Volume 106.8 fL (80-95); Mean Platelet Volume 9.7 fL (8.0-11.0); Monocytes % 8.1; Neutrophils % 72.5; Platelet Count 428 x1000/uL (130-400); RBC 3.82 m/cumm (4.50-6.00); RBC Distribution Width 13.4 % (11.8-14.1); White Blood Cell Count 11.25 k/cumm (4.4-10.8)
[2020-03-18 19:04] LABS: ALT 28 U/L (16-63); AST 34 U/L (15-37); Albumin 3.9 g/dL (3.4-5.0); Alkaline Phosphatase 89 U/L (46-116); Anion Gap 18.9 mmol/L (3-11); BUN 9 mg/dL (7-18); Bilirubin, Total 0.5 mg/dL (0.2-1.0); CO2 21.1 mmol/L (21.0-32.0); Calcium 11.2 mg/dL (8.5-10.1); Chloride 97 mmol/L (98-107); Glucose 114 mg/dL (74-106); Magnesium 1.1 mg/dL (1.8-2.4); Potassium 3.2 mmol/L (3.5-5.1); Sodium 137 mmol/L (136-145); Total Protein 7.8 g/dL (6.4-8.2)
[2020-03-18 19:13] LABS: HGB 14.8 g/dL (13.5-17.5)
[2020-03-18 19:14] LABS: Mean Corp. HGB Concentration 36.3 g/dL (32.0-36.0); Mean Corpuscular Hemoglobin 38.7 pg (27.0-33.0)
[2020-03-18 19:15] LABS: Macrocytosis 2+
[2020-03-18 19:18] LABS: Troponin I < 0.05 ng/mL (<0.06)
[2020-03-18] MEDS: MAGNESIUM SULFATE 2 GM/50 ML BAG IVPB (20:00)
[2020-03-18 20:18] LABS: Bilirubin Negative (Negative); Blood Trace-intact (Negative); Clarity Clear (Clear); Glucose Negative (Negative); Ketones Negative (Negative); Leukocyte Esterase Negative (Negative); Nitrite Negative (Negative); Urobilinogen 0.2 EU/dL (Up TO 0.2)
[2020-03-18 20:28] LABS: Bacteria Few HPF (Negative); C & S Indicated? No; Casts Negative LPF (Negative); Crystals Negative HPF (Negative); Epithelial Cells Negative HPF (Negative); Mucus Negative (Negative); Other Cells Negative (Negative); RBC 0-2 HPF (0-2); WBC Negative HPF (0-5)
[2020-03-18] MEDS: Potassium Chloride 20 MEQ TABCR 40 MEQ PO (20:32)
[2020-03-18] MEDS: Ondansetron 4 MG/2 ML VIAL (20:36)
[2020-03-18 21:34] LABS: Anion Gap 9.5 mmol/L (3-11); BUN 7 mg/dL (7-18); CO2 26.5 mmol/L (21.0-32.0); CREATININE 1.09 mg/dL (0.70-1.30); Chloride 103 mmol/L (98-107); Glucose 113 mg/dL (74-106); Potassium 3.8 mmol/L (3.5-5.1); Sodium 139 mmol/L (136-145); Troponin I < 0.05 ng/mL (<0.06)
[2020-03-18] MEDS: Ondansetron O.D.T. 4 MG TABEF, 3 TABS/BTL PO (21:54)
== END 2020-03-18 21:40 | disposition home or self-care (01) ==
PROVIDERS: Student in an Organized Health Care Education/Training Program; Emergency Provider Student in an Organized Health Care Education/Training Program; PCP Nurse Practitioner Family
DX: E86.0 Dehydration (principal); T67.3XXA Heat exhaustion, anhydrotic, initial encounter
CPT/HCPCS: 80048; 80053; 93005; 96361; 96374; 99284; 81003; 81015; 83735; 84484; 85025; 93010; J2405

== ENCOUNTER 2021-01-06 10:27 | Observation (INO) | payer MEDICAID, SELFPAY ==
[2021-01-06] VITALS (66 sets, daily range): BP systolic 108–159; BP diastolic 10–126; PULSE 76–146; RESP 10–26; TEMP 36.7–37.7; O2SAT 93–99
--- NOTE | 2021-01-06 10:15 | RT.EKG_ITS ---
APPROVED REPORT Exam: Resting ECG Reason for Exam: chest pain Patient Location: E HR:115 bpm ECG Measurements Heart Rate 115 AXIS NC 137 P 70 QRSd 73 QRS 16 QT 308 T 60 QTc 425 Conclusion Sinus tachycardia...rate> 99 Probable left atrial enlargement...P >50mS, <-0.10mV V1 questionable ST depression V4-V6, no STEMI, non-diagnostic EKG I have reviewed and interpreted ECG and agree with software generated interpretation.
--- NOTE | 2021-01-06 10:45 | DI.CT_ITS ---
Exam(s) CT CHEST/ABD/PEL W EXAM: CT CHEST/ABD/PEL W CLINICAL HISTORY: Chest pain, Abd pain, nausea, vomiting. TECHNIQUE: Imaging Protocol: Axial computed tomography images with coronal and sagittal reformatted images were created and reviewed CONTRAST MATERIAL: Intravenous: Omnipaque 350 Contrast volume:100 ml Oral: None COMPARISON: CT CT ABDOMEN PELVIS W from 12/22/2019 FINDINGS: CHEST: LUNGS: No pulmonary infiltrates nor pleural effusions. No ominous pulmonary nodules.. MEDIASTINUM: There is no hilar nor mediastinal adenopathy. Visualized thyroid unremarkable. CARDIAC: Heart size is normal. There is no pericardial effusion.Caliber of the thoracic aorta is wit hin normal limits. OSSEOUS: No significant osseous lesions.. ABDOMEN: There is no ascites. LIVER: Liver is very hypodense implying severe steatosis and slightly prominent in size. There are n o discrete focal hepatic lesions identified nor dilatation of intrahepatic ducts. GALLBLADDER/BILIARY: No obvious gallbladder pathology. CBD is not dilated. PANCREAS: No evidence of pancreatic mass nor dilatation of the pancreatic duct. SPLEEN: Spleen is again not seen. Small splenule left upper quadrant is again noted. ADRENALS: There are no significant adrenal masses. KIDNEYS: No calculi nor hydronephrosis. No solid renal masses. No cysts evident. ABDOMINAL AORTA: Abdominal aorta is not enlarged. LYMPH NODES: There is no retroperitoneal nor paraaortic adenopathy. ABDOMINAL WALL: Anterior abdominal wall periumbilical hernia noted which appears unchanged from 12/21. Does not contain bowel loops. GI: There is no evidence of bowel obstruction.There hyperdense diverticuli in the upper descending le ft colon but no evidence of acute diverticulitis. Similar type of diverticuli are seen in the ascend ing-right colon. PELVIS: LYMPH NODES: There is no intrapelvic nor inguinal adenopathy. GI: No evidence of appendicitis.Few hyperdense sigmoid diverticuli but no evidence of acute diverticu litis. diffuse thickening of the colon wall but this may be spurious related to no oral contrast ther ein. Nevertheless cannot rule out subtle colitis pattern-mcginnis colitis. The appendix itself appears u nremarkable. URINARY BLADDER: No calculi nor masses evident REPRODUCTIVE: Prostate gland is not enlarged. Seminal vesicles appear unremarkable. OSSEOUS: No significant osseous lesions. IMPRESSION: 1. No significant intrathoracic findings 2. Advanced hepatic steatosis. No discrete focal hepatic mass. 3. 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 Small splenule noted, unchanged. 4. 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 5. Right para umbilical anterior abdominal hernia again noted. This contains fat and no bowel loops . There is no bowel obstruction. RADIATION DOSE DELIVERED: 829.77mGy.cm Total DLP DATA REPOSITORY: All CT scans at this facility are submitted to the National Radiology Data Registry (NRDR) Dose Index Registry (DIR) with the [employer] ([employer]). RADIATION OPTIMIZATION: All CT scans at this facility use at least one of these dose optimization te chniques: automated exposure control; mA and/or kV adjustment per patient size (includes targeted exa ms where dose is matched to clinical indication); or iterative reconstruction.
--- NOTE | 2021-01-06 10:49 | ED.GENADUL_ITS ---
Discharge Plan Discharge Details Chief Complaint: [facility]Medical Clinical Impression: Electrolyte disturbance, Fatty liver Admit Date/Time: 01/06/21 16:54 Admit Provider: Karen Rosado Attending Provider: Karen Rosado Primary Care Provider: Malou Moreno ED Provider: Pat Sofia Discharge Data Discharge Date/Time-TO BE ENTERED AT DEPARTURE: 01/06/21 17:33 Medical Decision Making <Latricia Davis - Last Filed: 01/07/21 08:14> 40-year-old male presents the ER with of nausea vomiting, abdominal pain which began on Wednesday. Patient is also complaining of chest pain which began yesterday morning. He reports it is intermittent and is not currently present upon initial exam. He reports left midsternal type pain which shoots into his back. He is diaphoretic upon initial exam tachycardic at 117. He does have a tenderness with palpation to his right upper quadrant abdomen and area. He also endorses some chills and loose stools, denies any hematochezia or blood in his stools. 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 EKG was reviewed by Kassandra Ramírez MD ER attending, questionable ST depression in V4 V5 V6, old EKG available for review questionable related to rate. Will reorder EKG after rate has slowed. At this time cardiac work-up ordered including serial troponins, CT chest abdomen pelvis CBC shows white blood cell count 12.93, RBCs 4.09, absolute neutrophils 10.60 sodium is 134, potassium 3.1 chloride 90, anion gap 17.3 BUN 16 creatinine 1.0 GFR greater than 60 glucose was 135 calcium 13.0 bilirubin is 1.2 AST is 82 ALT 101 alk phos 96 initial troponin within normal limits. Albumin is 3.9 lipase is 100. Urinalysis shows greater than 300 protein. 160 ketones small blood positive nitrites large bilirubin and 1.0 urobilinogen negative for leukocytes. We will give 2 g of magnesium IV piggyback, another liter of normal saline added on. At this time CT is pending. 1426: Hospitalist jenn, Spoke with Addie Sexton EMERGENCY VETERINARIAN who recommends repeat CMP and PO challenge and re-eval. I will call them back if electrolytes not improving or unable to tolerate PO. 1505: Informed by staff internist office based only that patient is having visual hallucinations, states I see mice hanging from the ceiling. Informed patient that there is in fact no mouse on the ceiling, informed of plan of care and awaiting lab results. 1526: Spoke again with Hospitalist regarding repeat CMP results, patient is no longer seeing a mouse on the ceiling. He states he has never hallucinated before. Dr. Rosado recommended adding ammonia level and a PT/INR. Patient is tolerating p.o. without difficulty is eating a cracker and has drank some bria whitley no further vomiting noted. Patient states he does still markedly improved from when he arrived. Repeat call again to request hospitalist evaluation prior to disposition. She agrees to come eval patient after ammonia level results. Care to be handed off to oncoming provider Pat SILVA pending labs and Hospitalist eval. <SHIRA Kyle - Last Filed: 01/06/21 17:48> Care transition myself from Ekta Fallon NP. Please see her initial note regarding history, presentation and exam. In brief, patient is a 40-year-old female who presents today with chief complaint of vomiting and diarrhea. Patient reports constant pain hypomagnesemic with magnesium of 0.9, potassium is 3.1. Electrolyte replenishment was started in the department. During evaluation here, patient began to have visual hallucinations, in particular expressing seeing mice running on the [place]. At the time I assume care, ammonia and PT pending. Plan for admission for electrolyte abnormalities and new onset of visual hallucinations. PT 8.9, ammonia 23. Dr. Rosado evaluated the patient and agrees to admission. Patient transferred to [facility] MedSurg unit for further treatment of his electrolyte abnormalities and further assessment of his hallucinations. HPI <Latricia Davis - Last Filed: 01/07/21 08:14> General Mode of arrival: wheelchair . Date/Time Provider Initiated Documentation: 01/06/21 10:31 . Limitations to Documentation: no limitations . Information obtained by: patient . HPI Narrative: 40-year-old male presents the ER with of nausea vomiting, abdominal pain which began on Wednesday. Patient is also complaining of chest pain which began yesterday morning. He reports it is intermittent and is not currently present upon initial exam. He reports left midsternal type pain which shoots into his back. He is diaphoretic upon initial exam tachycardic at 117. He does have a tenderness with palpation to his right upper quadrant abdomen and area. He also endorses some chills and loose stools, denies any hematochezia or blood in his stools. 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 Related Data Home Medications Medication Instructions Recorded Confirmed Unknown [No Known Home Meds] 01/06/21 01/06/21 Allergies Allergy/AdvReac Type Severity Reaction Status Date / Time No Known Allergies Allergy Unverified 01/06/21 10:51 General Stated Complaint: [facility] [place]: 2 Review of Systems <Latricia Davis - Last Filed: 01/07/21 08:14> Narrative: Constitutional: Negative for weight loss, alert and oriented, well groomed, normal body habitus, appears comfortable. HEENT: Denies trauma, headaches, blurry vision, nasal discharge, sore throat, trouble swallowing. Chest: Denies palpitations, irregular rhythm. Positive left midsternal chest pain intermittently Respiratory: Denies Shortness of breath, cough, hemoptysis. GI: Denies constipation. Positive abdominal pain, nausea vomiting or diarrhea. : Denies dysuria, hematuria, flank pain, rectal bleeding. Neuro: Denies dizziness, blurry vision, weakness, syncope, headache or facial numbness. Hematologic: Denies easy bruising, intolerance to heat or cold, hair loss. [facility] <Latricia Davis - Last Filed: 01/07/21 08:14> Medical History Alcohol intoxication (07/14/14) Depression (07/14/14) No significant past medical history Tobacco use Surgical History History of hammer toe correction History of splenectomy Social History Smoking/Tobacco Use Status: Current every day Tobacco Type: cigarettes Smoking risk assessment performed?: Yes Alcohol Intake: current Alcohol Intake frequency: 3 or more drinks per day Alcohol type: hard liquor Drug use: Occasionally Substance use type: marijuana Details: NO ETOH x 3-4 weeks---01/06/21--er Do you feel safe at home: Yes Do you feel safe in your relationship?: Yes Exam <Latricia Upton Filed: 01/07/21 08:14> Narrative Exam Narrative: Constitutional: Alert and oriented x3. Appears stated age. Normal body habitus. Head: Normocephalic, no trauma. Eyes: Pupils PERRLA, Red reflex noted, EOM's intact. Eyelids symmetrical without lesions, discharge, or swelling. ENT: Bilateral TM's WNL, External ear normal to inspection, no mastoid TTP, swelling, or erythema, Nasal turbinates WNL, no nasal discharge. Normal dentition, Posterior pharynx WNL, no exudate. Chest: Tachycardic normal S1, S2, distal pulses intact. Resp: Lungs clear to auscultation bilaterally, no wheezes, rales, or rhonchi. Abdomen: Soft, nondistended tender to palpation right upper quadrant midepig astric. Musculoskeletal: Normal gait, 5/5 strength to all four extremities. Skin: No suspicious rashes or lesions. Capillary refill less than 2 sec. Neurologic: Cranial nerves II-XII intact. Alert and oriented x 3. DTR's intact. Hematologic/Lymphatic: No ecchymosis, no lymphadenopathy. Course <Latricia Upton Filed: 01/07/21 08:14> Vital Signs Vital signs: Vital Signs Temperature 36.7 C 01/06/21 10:44 Pulse 120 H 01/06/21 10:44 Respiratory Rate 18 01/06/21 10:44 Blood Pressure 159/10 H 01/06/21 10:44 Pulse Oximetry 98 01/06/21 10:44 Temperature 36.7 C 01/06/21 10:44 Temperature Source Temporal Artery Scan 01/06/21 10:44 Pulse 120 H 01/06/21 10:44 Respiratory Rate 18 01/06/21 10:44 Blood Pressure 159/10 H 01/06/21 10:44 Blood Pressure Position Supine 01/06/21 10:44 Pulse Oximetry 98 01/06/21 10:44 Oxygen Delivery Method Room Air 01/06/21 10:44 Oxygen Flow Rate 0 01/06/21 10:44 Pain Level 8 01/06/21 10:44 Sign Out <Latricia Upton Filed: 01/07/21 08:14> Sign Out Data: Sign Out Comment: Pending Ammonia and PT INR level, hospitalist evaluation. Hepatic Steatosis and electrolyte abnormality. Last updated by Latricia Davis at 01/06/21 15:48
[2021-01-06] MEDS: Normal Saline 1,000 ML 1000 ML IV (11:13)
[2021-01-06] MEDS: Ondansetron 4 MG/2 ML VIAL IVP (11:15)
--- NOTE | 2021-01-06 11:15 | RT.EKG_ITS ---
APPROVED REPORT Exam: Resting ECG Reason for Exam: chest pain Patient Location: E HR:93 bpm ECG Measurements Heart Rate 93 AXIS FL 158 P 59 QRSd 82 QRS 10 QT 354 T 53 QTc 441 Conclusion Ventricular-paced complexes...other complexes also detected Sinus rhythm at 93, normal axis, ST changes now resolved, no STEMI, noon-diagnostic EKG
[2021-01-06] MEDS: Normal Saline Flush 10 ML SYR IVP ×2 (11:17→18:34)
[2021-01-06] MEDS: Aspirin 81 MG CHEW 324 MG CH (11:17)
[2021-01-06 11:32] LABS: HCT 42.3 % (40.0-50.0); HGB 15.3 g/dL (13.5-17.5); MCH 37.4 pg (27.0-33.0); MCHC 36.2 % (32.0-36.0); MCV 103.4 fL (80-95); MPV 10.9 fL (8.0-11.0); Nucleated RBC 0 %; Platelet Count 217 10^3/uL (130-400); RBC 4.09 10^6/uL (4.36-5.78); RDW 12.5 % (11.8-14.1); RDW-SD 47.2 fL; WBC 12.93 10^3/uL (4.4-10.8)
[2021-01-06 11:35] LABS: Bilirubin Large (Negative); Blood Small (Negative); Clarity Clear (Clear); Glucose Negative (Negative); Ketones >=160 mg/dL (Negative); Leukocyte Esterase Negative (Negative); Specific Gravity >= 1.030 (1.005-1.025); pH 6.5 (5-8)
[2021-01-06 11:40] LABS: Absolute Lymphocyte Count 1.42 10^3/uL (1.2-3.4); Absolute Monocyte Count 0.91 10^3/uL (0.1-0.8); Atypical Lymphocytes % 2; Diff Comment Manual Differential; RBC Morphology Normal
[2021-01-06 11:46] LABS: Bacteria Negative HPF (Negative); Crystals Negative HPF (Negative); Epithelial Cells Rare HPF (Negative); RBC Negative HPF (0-2); WBC Negative HPF (0-5)
[2021-01-06 11:47] LABS: C & S Indicated? No; Casts Negative LPF (Negative); Mucus Heavy (Negative)
[2021-01-06 12:01] LABS: ALT 101 U/L (16-63); AST 82 U/L (15-37); Albumin 3.9 g/dL (3.4-5.0); Alkaline Phosphatase 96 U/L (46-116); Anion Gap 17.3 mmol/L (3-11); BUN 16 mg/dL (7-18); Bilirubin, Total 1.2 mg/dL (0.2-1.0); CO2 26.7 mmol/L (21.0-32.0); Chloride 90 mmol/L (98-107); Glucose 135 mg/dL (74-106); Lipase 100 U/L (73-393); Magnesium 0.9 mg/dL (1.8-2.4); Potassium 3.1 mmol/L (3.5-5.1); Sodium 134 mmol/L (136-145); Total Protein 8.1 g/dL (6.4-8.2)
[2021-01-06 12:02] LABS: Troponin I < 0.05 ng/mL (<0.06)
[2021-01-06] MEDS: Normal Saline 250 ML IV (12:31)
[2021-01-06] MEDS: MAGNESIUM SULFATE 1 GM/100 ML BAG IVPB ×2 (12:32→13:57)
[2021-01-06] MEDS: Omnipaque 350 MG/ML 100 ML BTL IV (13:31)
[2021-01-06 14:47] LABS: COVID-19 PCR Negative (Negative)
--- NOTE | 2021-01-06 15:01 | NUR.NOTE ---
PO challenge Nursing Note:
--- NOTE | 2021-01-06 15:02 | NUR.NOTE ---
pt hallucinating - sees mice on the ceiling Nursing Note:
[2021-01-06 15:06] LABS: ALT 86 U/L (16-63); AST 65 U/L (15-37); Albumin 3.4 g/dL (3.4-5.0); Alkaline Phosphatase 84 U/L (46-116); Anion Gap 12.3 mmol/L (3-11); BUN 13 mg/dL (7-18); Bilirubin, Total 0.9 mg/dL (0.2-1.0); CO2 27.7 mmol/L (21.0-32.0); CREATININE 0.9 mg/dL (0.70-1.30); Calcium 10.5 mg/dL (8.5-10.1); Chloride 94 mmol/L (98-107); Glucose 97 mg/dL (74-106); Potassium 3.2 mmol/L (3.5-5.1); Sodium 134 mmol/L (136-145); Total Protein 6.9 g/dL (6.4-8.2)
[2021-01-06 15:18] LABS: Troponin I < 0.05 ng/mL (<0.06)
[2021-01-06] MEDS: Potassium Chloride 20 MEQ TABCR PO (15:49)
[2021-01-06] MEDS: Ondansetron O.D.T. 4 MG TABEF PO (15:49)
[2021-01-06 16:03] LABS: INR 0.9 (0.9-1.1); Prothrombin Time 8.9 sec (9.3-11.0)
[2021-01-06 16:39] LABS: Ammonia 23 umol/L (11-32)
--- NOTE | 2021-01-06 17:02 | NUR.NOTE ---
Nursing Note: JHONNY Boykin for update [phone]
--- NOTE | 2021-01-06 17:14 | HPE_ITS ---
Date of service: 01/06/21 Time of Service: 16:50 Assessment and Plan Assessment and plan (1) Acute gastroenteritis: Status: Acute Assessment and plan: Possibly bacterial. Canabinoid hyperemesis not ruled out. Observe on hospitalist service. IVF. Obtain stool studies. No abx at this time - but if no improvement tomorrow, would initiate. (2) Colitis: Status: Suspected Assessment and plan: This could not be ruled out by CT. As above (3) Dehydration: Status: Acute Assessment and plan: IVF (4) Hypomagnesemia: Status: Acute Assessment and plan: Replete and recheck in am (5) Hypokalemia: Status: Acute Assessment and plan: Replete and recheck in am (6) Hyponatremia: Status: Acute Assessment and plan: Due to dehydration. Continue IVF (7) DVT prophylaxis: Status: Acute Assessment and plan: Not indicated in a young ambulatory male with no other risk factors (8) Discharge planning issues: Status: Acute Assessment and plan: Full code Obs History of Present Illness History of Present Illness Chief Complaint: Nausea and vomiting Narrative: Mr Cody is a 40 year old male with no relevant PMHx except for tobacco abuse and occasional alcohol use who presented to [facility] ED today with two days of n/v/diarrhea after eating a chicken sandwich. He states his last alcoholic beverage was 3 weeks ago. His workup in the ED reveals dehydration with profound hypomagnesemia. His nausea and vomiting resolved in the ED with IV zofran. Hospitalist admission was requested due to hypomagnesemia. Additionally, the patient did state in the ED that he saw a mouse on the ceiling. To me he states that he did not see a mouse but saw the chains from the curtain move and thought that there must have been a mouse doing it. He does not normally have hallucinations. Review of Systems All systems reviewed & are unremarkable except as noted in HPI and below [facility] Medical History Alcohol intoxication (07/14/14) Depression (07/14/14) No significant past medical history Tobacco use Surgical History History of hammer toe correction History of splenectomy Social History Smoking/Tobacco Use Status: Current every day Tobacco Type: cigarettes Smoking risk assessment performed?: Yes Alcohol Intake: current Alcohol Intake frequency: 3 or more drinks per day Alcohol type: hard liquor Drug use: Occasionally Substance use type: marijuana Details: NO ETOH x 3-4 weeks---01/06/21--er Do you feel safe at home: Yes Do you feel safe in your relationship?: Yes Meds Allergies and Home Medications Allergies Allergy/AdvReac Type Severity Reaction Status Date / Time No Known Allergies Allergy Unverified 01/06/21 10:51 Home Medications Medication Instructions Recorded Confirmed Type Unknown [No Known Home Meds] 01/06/21 01/06/21 History Exam Narrative Exam Narrative: General: Pleasant middle-aged male, appears comfortable in bed Neurological: A&Ox3, no focal deficits, no asterexis Psychiatric: appropriate speech pattern/content; the patient is not hallucinating with me in the room Skin: Visible skin intact HEENT: Atraumatic, normocephalic, EOMI, dry MM, clear oropharynx, no submandibular or cervical lymphadenopathy, no goiter or JVD Cardiovascular: RRR, no m/r/g Lungs: CTAB Gastrointestinal: soft, nontender, nondistended Genitourinary: deferred Extremities: no edema BLE's Results Imaging Additional studies: EKG #1: ST, HR 115, no acute ischemia EKG #2: SR, HR 93, no acute ischemia CT abdomen/pelvis: 1. No significant intrathoracic findings 2. Advanced hepatic steatosis. No discrete focal hepatic mass. 3. 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 Small splenule noted, unchanged. 4. Crawford colitis versus lack of oral contrast within the colon lumen. 5. Right para umbilical anterior abdominal hernia again noted. This contains fat and no bowel loops. There is no bowel obstruction. Labs Result diagrams: 01/06/21 11:20 01/06/21 14:28 Labs: Laboratory Results - last 24 hr 01/06/21 01/06/21 01/06/21 11:20 11:20 11:25 WBC 12.93 H RBC 4.09 L Hgb 15.3 Hct 42.3 MCV 103.4 H MCH 37.4 H MCHC 36.2 H RDW 12.5 Plt Count 217 MPV 10.9 Immature Gran % 0.0 Neutrophils % 82.0 Lymphocytes % 9.0 Atypical Lymphs % 2 Monocytes % 7.0 Eosinophils % 0.0 Basophils % 0.0 Nucleated RBC % 0 Absolute Neutrophils 10.60 H Absolute Lymphocytes 1.42 Absolute Monocytes 0.91 H Absolute Eosinophils 0.00 Absolute Basophils 0.00 RBC Morphology Normal PT INR Sodium 134 L Potassium 3.1 L Chloride 90 L Carbon Dioxide 26.7 Anion Gap 17.3 H BUN 16 Creatinine 1.0 Estimated GFR/1.73 m2 >= 60.00 Glucose 135 H Calcium 13.0 H* Magnesium 0.9 L Total Bilirubin 1.2 H AST 82 H ALT 101 H Alkaline Phosphatase 96 Ammonia Troponin I < 0.05 Total Protein 8.1 Albumin 3.9 Lipase 100 Urine Color Yellow Urine Clarity Clear Urine pH 6.5 Ur Specific [place] >= 1.030 H Urine Protein >=300 H Urine Ketones >=160 H Urine Blood Small H Urine Nitrite Positive H Urine Bilirubin Large H Urine Urobilinogen 1.0 H Ur Leukocyte Esterase Negative Urine RBC Negative Urine WBC Negative Ur Epithelial Cells Rare Urine Crystals Negative Urine Bacteria Negative Urine Casts Negative Urine Mucus Heavy Ur Culture Indicated? No Urine Glucose Negative COVID-19 Source SARS-CoV-2 (PCR) 01/06/21 01/06/21 01/06/21 13:55 14:28 14:28 WBC RBC Hgb Hct MCV MCH MCHC RDW Plt Count MPV Immature Gran % Neutrophils % Lymphocytes % Atypical Lymphs % Monocytes % Eosinophils % Basophils % Nucleated RBC % Absolute Neutrophils Absolute Lymphocytes Absolute Monocytes Absolute Eosinophils Absolute Basophils RBC Morphology PT INR Sodium 134 L Potassium 3.2 L Chloride 94 L Carbon Dioxide 27.7 Anion Gap 12.3 H BUN 13 Creatinine 0.9 Estimated GFR/1.73 m2 >= 60.00 Glucose 97 Calcium 10.5 H Magnesium Total Bilirubin 0.9 AST 65 H ALT 86 H Alkaline Phosphatase 84 Ammonia Troponin I < 0.05 Total Protein 6.9 Albumin 3.4 Lipase Urine Color Urine Clarity Urine pH Ur Specific [place] Urine Protein Urine Ketones Urine Blood Urine Nitrite Urine Bilirubin Urine Urobilinogen Ur Leukocyte Esterase Urine RBC Urine WBC Ur Epithelial Cells Urine Crystals Urine Bacteria Urine Casts Urine Mucus Ur Culture Indicated? Urine Glucose COVID-19 Source Nasopharyx SARS-CoV-2 (PCR) Negative 01/06/21 01/06/21 15:45 16:21 WBC RBC Hgb Hct MCV MCH MCHC RDW Plt Count MPV Immature Gran % Neutrophils % Lymphocytes % Atypical Lymphs % Monocytes % Eosinophils % Basophils % Nucleated RBC % Absolute Neutrophils Absolute Lymphocytes Absolute Monocytes Absolute Eosinophils Absolute Basophils RBC Morphology PT 8.9 L INR 0.9 Sodium Potassium Chloride Carbon Dioxide Anion Gap BUN Creatinine Estimated GFR/1.73 m2 Glucose Calcium Magnesium Total Bilirubin AST ALT Alkaline Phosphatase Ammonia 23 Troponin I Total Protein Albumin Lipase Urine Color Urine Clarity Urine pH Ur Specific [place] Urine Protein Urine Ketones Urine Blood Urine Nitrite Urine Bilirubin Urine Urobilinogen Ur Leukocyte Esterase Urine RBC Urine WBC Ur Epithelial Cells Urine Crystals Urine Bacteria Urine Casts Urine Mucus Ur Culture Indicated? Urine Glucose COVID-19 Source SARS-CoV-2 (PCR) Last Vital Signs Temp 36.7 C 01/06/21 10:44 Pulse 89 01/06/21 13:16 Resp 12 01/06/21 13:10 BP 108/93 H 01/06/21 13:16 Pulse Ox 97 01/06/21 13:16 COVID-19 Screening Have you, or household traveled for leisure in last 14 days?: No Had IN PERSON contact w/suspected or confirmed C-19 person: No
[2021-01-06] MEDS: POTASSIUM CHLORIDE/0.9% NACL 1,000 ML 100 MEQ IV (18:36)
[2021-01-06] MEDS: MAGNESIUM SULFATE 2 GM/50 ML BAG IVPB (18:36)
[2021-01-06 19:50] LABS: *AMPHETAMINES SCREEN URINE Negative (Negative); *BARBITURATES SCREEN URINE Negative (Negative); *BENZODIAZEPINES SCREEN URINE Negative (Negative); Cannabinoids THC Positive (Negative); Cocaine Screen,Urine Negative (Negative); METHADONE URINE SCREEN Negative (Negative); OPIATES URINE SCREEN Negative (Negative)
[2021-01-06 19:55] LABS: Tricyclic Antidepressants Negative (Negative)
[2021-01-06] MEDS: Magnesium Oxide 400 MG TAB PO (20:10)
[2021-01-07] VITALS: BP 143/93; PULSE 80; RESP 18; TEMP 37.3; O2SAT 95
[2021-01-07] MEDS: POTASSIUM CHLORIDE/0.9% NACL 1,000 ML 100 MEQ IV (03:55)
[2021-01-07 03:57] VITALS: BP 147/93; PULSE 82; RESP 16; TEMP 36.5; O2SAT 96
[2021-01-07 07:00] VITALS: PULSE 113
[2021-01-07 07:05] LABS: Absolute Basophil Count 0.11 10^3/uL (0.0-0.2); HCT 35.8 % (40.0-50.0); HGB 12.6 g/dL (13.5-17.5); MCH 37.1 pg (27.0-33.0); MCHC 35.2 % (32.0-36.0); MCV 105.3 fL (80-95); MPV 11.5 fL (8.0-11.0); Nucleated RBC 0 %; RDW 12.8 % (11.8-14.1); RDW-SD 49.6 fL; WBC 11.02 10^3/uL (4.4-10.8)
[2021-01-07 07:25] LABS: ALT 70 U/L (16-63); AST 68 U/L (15-37); Albumin 2.9 g/dL (3.4-5.0); Alkaline Phosphatase 69 U/L (46-116); Anion Gap 11.4 mmol/L (3-11); BUN 13 mg/dL (7-18); Bilirubin, Total 0.8 mg/dL (0.2-1.0); CO2 24.6 mmol/L (21.0-32.0); CREATININE 0.9 mg/dL (0.70-1.30); Calcium 8.6 mg/dL (8.5-10.1); Chloride 101 mmol/L (98-107); Glucose 73 mg/dL (74-106); Magnesium 1.8 mg/dL (1.8-2.4); Potassium 3.6 mmol/L (3.5-5.1); Sodium 137 mmol/L (136-145); Total Protein 6.2 g/dL (6.4-8.2)
[2021-01-07 07:35] LABS: Platelet Count 178 10^3/uL (130-400)
[2021-01-07 07:40] LABS: Absolute Eosinophil Count 0.11 10^3/uL (0.0-0.7); Absolute Monocyte Count 0.88 10^3/uL (0.1-0.8); Absolute Neutrophil Count 7.71 10^3/uL (1.2-6.7); Diff Comment Manual Differential
[2021-01-07 07:41] LABS: Macrocytosis 1+
[2021-01-07 07:42] LABS: Howell-Jolly Bodies Present
[2021-01-07 07:44] VITALS: BP 129/92; PULSE 82; RESP 18; TEMP 37.3; O2SAT 94
[2021-01-07] MEDS: Magnesium Oxide 400 MG TAB PO (08:28)
--- NOTE | 2021-01-07 08:48 | DSE_ITS ---
Date of service: 01/07/21 Time of Service: 08:48 DS: Diagnosis Discharge Diagnosis (1) Acute gastroenteritis: Status: Acute (2) Colitis: Status: Suspected (3) Dehydration: Status: Acute (4) Hypomagnesemia: Status: Acute (5) Hypokalemia: Status: Acute (6) Hyponatremia: Status: Acute Discharge Plan Disposition Patient Disposition: HOME Condition: Improving Discharge Details Reason For Visit: Dehydration, hypomagnesemia, hypokalemia Admit Date/Time: 01/06/21 16:54 Admit Provider: Karen Rosado Attending Provider: Karen Rosado Primary Care Provider: Malou Moreno Hospital Course Hospital Course: Thisis a 40 year old male with no past medical history except for tobacco abuse and occasional alcohol use who presented to the emergency department with two days of n/v/diarrhea after eating a chicken sandwich. He states his last alcoholic beverage was 3 weeks ago. His workup in the ED reveals dehydration with profound hypomagnesemia. His nausea and vomiting resolved in the ED with IV zofran. Hospitalist admission was requested due to hypomagnesemia. Additionally, the patient did state in the ED that he saw a mouse on the ceiling. To me he states that he did not see a mouse but saw the chains from the curtain move and thought that there must have been a mouse doing it. He does not normally have hallucinations. Overnight he continued to remain asymptomatic. He continued to receive magnesium and fluid replacement with resolution of electrolyte abnormalities. his diet was advanced and he was tolerating a regular diet. He had no abdominal pain on examination. he is stable and ready for discharge to home. discharge discussed with Dr Rosado Home Meds and New Rx's Prescriptions: New magnesium oxide 400 mg (241.3 mg magnesium) Tablet 400 mg PO DAILY Qty: 30 RF: 0 ondansetron HCl [Zofran] 4 mg tablet 4 mg PO Q6H PRNQty: 10 RF: 0 Discharge Instructions Instructions: Dehydration (DC), Hypomagnesemia (DC) Additional Instructions: can hydrate with 1/2 strength Gatorade with water. after one week of magnesium supplement can switch to multivitamin. magnesium can cause diarrhea, if so stop taking to see if it subsides Stand Alone Forms: Nursing Discharge Form Referrals: Malou Moreno [Primary Care Provider] - 01/16/21 1:15 pm Activity:: Activity as Tolerated Equipment/Supplies:: No Equipment Needed Diet:: As Tolerated Discharge Orders Discharge Orders: Discharge Order (Routine); Ordered 01/07/21 Ordered By: Addie Sexton DS: Summary Time Spent with Patient providing and/or coordinating discharge services: Less than 30 minutes Status at Discharge Functional status at discharge: independent ambulation Overall status at discharge: patient is back to baseline Mental Status: mental status grossly normal Speech and Movement: speech and movement normal Mood: congruent mood Affect: normal affect Exam Narrative Exam Narrative: General: middle-aged male, no acute distress Neurological: A&Ox3, no focal deficits, no asterexis Psychiatric: appropriate mood and affect, no hallucinations Skin: no rashes or lesions HEENT: Atraumatic, normocephalic, EOMI, dry MM, clear oropharynx Cardiovascular: RRR, no murmurs Lungs: respirations even and unlabored Gastrointestinal: soft, non-tender, non-distended Genitourinary: deferred Extremities: no edema BLE's Psych Mental Status: mental status grossly normal Speech and Movement: speech and movement normal Mood: congruent mood Affect: normal affect DS: Data Vitals/I&O Vitals and I&O: Vital Signs Temperature 37.3 C 01/07/21 07:44 Temperature Source Tympanic 01/07/21 07:44 Pulse 82 01/07/21 07:44 Pulse Rhythm Regular 01/07/21 02:52 Pulse 94 H 01/06/21 20:30 Respiratory Rate 18 01/07/21 07:44 Respiratory Effort Non-Labored 01/07/21 02:52 Respiratory Depth Normal 01/07/21 02:52 Respiratory Pattern Normal 01/07/21 02:52 Blood Pressure 129/92 H 01/07/21 07:44 Blood Pressure Mean 110 01/06/21 17:31 Blood Pressure Position Supine 01/06/21 10:44 Pulse Oximetry 94 01/07/21 07:44 Oxygen Delivery Method Room Air 01/07/21 07:44 Oxygen Flow Rate 0 01/07/21 07:44 Pain Level 0 01/07/21 08:26 Comment 01/07/21 08:26 Intake & Output 01/06/21 01/06/21 01/07/21 11:59 23:59 11:59 Intake Total 1445.833 / 1445.833 931.667 / 931.667 Output Total 300 / 300 350 / 350 Balance 1145.833 / 1145.833 581.667 / 581.667 Weight 64 kg 63 kg Intake: IV 1445.833 / 1445.833 931.667 / 931.667 Output: Urine 300 / 300 350 / 350 Other: Urine Color Yellow Urine Appearance Clear Comment unable to assess pt flushed it immediately Voiding Methods Toilet Data Completed and Pending Labs on day of discharge: Labs from last 24 hours 01/07/21 01/07/21 01/06/21 06:30 06:30 16:21 WBC 11.02 H RBC 3.40 L Hgb 12.6 L D Hct 35.8 L MCV 105.3 H MCH 37.1 H MCHC 35.2 RDW 12.8 Plt Count 178 MPV 11.5 H Immature Gran % 0.0 Neutrophils % 70.0 Lymphocytes % 20.0 Atypical Lymphs % Monocytes % 8.0 Eosinophils % 1.0 Basophils % 1.0 Nucleated RBC % 0 Absolute Neutrophils 7.71 H Absolute Lymphocytes 2.20 Absolute Monocytes 0.88 H Absolute Eosinophils 0.11 Absolute Basophils 0.11 RBC Morphology See below Macrocytosis 1+ [place] Bodies Present PT INR Sodium 137 Potassium 3.6 Chloride 101 Carbon Dioxide 24.6 Anion Gap 11.4 H BUN 13 Creatinine 0.9 Estimated GFR/1.73 m2 >= 60.00 Glucose 73 L Calcium 8.6 Magnesium 1.8 Total Bilirubin 0.8 AST 68 H ALT 70 H Alkaline Phosphatase 69 Ammonia 23 Troponin I Total Protein 6.2 L Albumin 2.9 L Lipase Urine Color Urine Clarity Urine pH Ur Specific [place] Urine Protein Urine Ketones Urine Blood Urine Nitrite Urine Bilirubin Urine Urobilinogen Ur Leukocyte Esterase Urine RBC Urine WBC Ur Epithelial Cells Urine Crystals Urine Bacteria Urine Casts Urine Mucus Ur Culture Indicated? Urine Glucose Urine Opiates Screen Urine Methadone Screen Ur Barbiturates Screen Ur Tricyclics Screen Ur Amphetamines Screen U Benzodiazepines Scrn Urine Cocaine Screen Ur THC Screen COVID-19 Source SARS-CoV-2 (PCR) Path Cons Comment Pending 01/06/21 01/06/21 01/06/21 15:45 14:28 14:28 WBC RBC Hgb Hct MCV MCH MCHC RDW Plt Count MPV Immature Gran % Neutrophils % Lymphocytes % Atypical Lymphs % Monocytes % Eosinophils % Basophils % Nucleated RBC % Absolute Neutrophils Absolute Lymphocytes Absolute Monocytes Absolute Eosinophils Absolute Basophils RBC Morphology Macrocytosis [place] Bodies PT 8.9 L INR 0.9 Sodium 134 L Potassium 3.2 L Chloride 94 L Carbon Dioxide 27.7 Anion Gap 12.3 H BUN 13 Creatinine 0.9 Estimated GFR/1.73 m2 >= 60.00 Glucose 97 Calcium 10.5 H Magnesium Total Bilirubin 0.9 AST 65 H ALT 86 H Alkaline Phosphatase 84 Ammonia Troponin I < 0.05 Total Protein 6.9 Albumin 3.4 Lipase Urine Color Urine Clarity Urine pH Ur Specific [place] Urine Protein Urine Ketones Urine Blood Urine Nitrite Urine Bilirubin Urine Urobilinogen Ur Leukocyte Esterase Urine RBC Urine WBC Ur Epithelial Cells Urine Crystals Urine Bacteria Urine Casts Urine Mucus Ur Culture Indicated? Urine Glucose Urine Opiates Screen Urine Methadone Screen Ur Barbiturates Screen Ur Tricyclics Screen Ur Amphetamines Screen U Benzodiazepines Scrn Urine Cocaine Screen Ur THC Screen COVID-19 Source SARS-CoV-2 (PCR) Path Cons Comment 01/06/21 01/06/21 01/06/21 13:55 11:25 11:25 WBC RBC Hgb Hct MCV MCH MCHC RDW Plt Count MPV Immature Gran % Neutrophils % Lymphocytes % Atypical Lymphs % Monocytes % Eosinophils % Basophils % Nucleated RBC % Absolute Neutrophils Absolute Lymphocytes Absolute Monocytes Absolute Eosinophils Absolute Basophils RBC Morphology Macrocytosis [place] Bodies PT INR Sodium Potassium Chloride Carbon Dioxide Anion Gap BUN Creatinine Estimated GFR/1.73 m2 Glucose Calcium Magnesium Total Bilirubin AST ALT Alkaline Phosphatase Ammonia Troponin I Total Protein Albumin Lipase Urine Color Yellow Urine Clarity Clear Urine pH 6.5 Ur Specific [place] >= 1.030 H Urine Protein >=300 H Urine Ketones >=160 H Urine Blood Small H Urine Nitrite Positive H Urine Bilirubin Large H Urine Urobilinogen 1.0 H Ur Leukocyte Esterase Negative Urine RBC Negative Urine WBC Negative Ur Epithelial Cells Rare Urine Crystals Negative Urine Bacteria Negative Urine Casts Negative Urine Mucus Heavy Ur Culture Indicated? No Urine Glucose Negative Urine Opiates Screen Negative Urine Methadone Screen Negative Ur Barbiturates Screen Negative Ur Tricyclics Screen Negative Ur Amphetamines Screen Negative U Benzodiazepines Scrn Negative Urine Cocaine Screen Negative Ur THC Screen Positive A COVID-19 Source Nasopharyx SARS-CoV-2 (PCR) Negative Path Cons Comment 01/06/21 01/06/21 11:20 11:20 WBC 12.93 H RBC 4.09 L Hgb 15.3 Hct 42.3 MCV 103.4 H MCH 37.4 H MCHC 36.2 H RDW 12.5 Plt Count 217 MPV 10.9 Immature Gran % 0.0 Neutrophils % 82.0 Lymphocytes % 9.0 Atypical Lymphs % 2 Monocytes % 7.0 Eosinophils % 0.0 Basophils % 0.0 Nucleated RBC % 0 Absolute Neutrophils 10.60 H Absolute Lymphocytes 1.42 Absolute Monocytes 0.91 H Absolute Eosinophils 0.00 Absolute Basophils 0.00 RBC Morphology Normal Macrocytosis [place] Bodies PT INR Sodium 134 L Potassium 3.1 L Chloride 90 L Carbon Dioxide 26.7 Anion Gap 17.3 H BUN 16 Creatinine 1.0 Estimated GFR/1.73 m2 >= 60.00 Glucose 135 H Calcium 13.0 H* Magnesium 0.9 L Total Bilirubin 1.2 H AST 82 H ALT 101 H Alkaline Phosphatase 96 Ammonia Troponin I < 0.05 Total Protein 8.1 Albumin 3.9 Lipase 100 Urine Color Urine Clarity Urine pH Ur Specific [place] Urine Protein Urine Ketones Urine Blood Urine Nitrite Urine Bilirubin Urine Urobilinogen Ur Leukocyte Esterase Urine RBC Urine WBC Ur Epithelial Cells Urine Crystals Urine Bacteria Urine Casts Urine Mucus Ur Culture Indicated? Urine Glucose Urine Opiates Screen Urine Methadone Screen Ur Barbiturates Screen Ur Tricyclics Screen Ur Amphetamines Screen U Benzodiazepines Scrn Urine Cocaine Screen Ur THC Screen COVID-19 Source SARS-CoV-2 (PCR) Path Cons Comment PFSH Medical History Alcohol intoxication (07/14/14) Depression (07/14/14) No significant past medical history Tobacco use Surgical History History of hammer toe correction History of splenectomy Social History Smoking/Tobacco Use Status: Current every day Tobacco Type: cigarettes Smoking risk assessment performed?: Yes Alcohol Intake: current Alcohol Intake frequency: 3 or more drinks per day Alcohol type: hard liquor Drug use: Occasionally Substance use type: marijuana Details: NO ETOH x 3-4 weeks---01/06/21--er Do you feel safe at home: Yes Do you feel safe in your relationship?: Yes
[2021-01-30 13:25] LABS: Nitrite Positive (Negative)
== END 2021-01-07 11:57 | disposition home or self-care (01) ==
LOC: ER 17:18 → MS 17:38
PROVIDERS: Nurse Practitioner Acute Care; Registered Nurse Emergency; Admitting Provider Internal Medicine; Emergency Provider Physician Assistant; PCP Nurse Practitioner Family; Visit Provider Internal Medicine
DX: K52.9 Noninfective gastroenteritis and colitis, unspecified (principal); E87.1 Hypo-osmolality and hyponatremia; E83.42 Hypomagnesemia; R07.89 Other chest pain; E86.0 Dehydration; R00.0 Tachycardia, unspecified; E87.6 Hypokalemia; Z90.81 Acquired absence of spleen; F17.210 Nicotine dependence, cigarettes, uncomplicated
CPT/HCPCS: 36415; 74177; 80053; 80307; 83690; 87635; 93005; 96361; 96365; 96366; 96375; 99285; 71260; 81003; 81015; 82140; 83735; 84484; 85025; 85610; 93010; 99217; 99220; G0378; J2405; J3475; J3490

== ENCOUNTER 2021-04-18 08:56 | Emergency (ER) | payer MEDICAID, SELFPAY ==
[2021-04-18] VITALS (20 sets, daily range): BP systolic 141–168; BP diastolic 85–113; PULSE 66–101; RESP 9–25; TEMP 37.1; O2SAT 96–99
--- NOTE | 2021-04-18 09:00 | RT.EKG_ITS ---
APPROVED REPORT Exam: Resting ECG Reason for Exam: chest pain Patient Location: E HR:83 bpm ECG Measurements Heart Rate 83 AXIS MA 133 P 23 QRSd 74 QRS 15 QT 388 T 52 QTc 456 Conclusion Sinus rhythm...normal P axis, V-rate 60- 99
[2021-04-18 09:37] LABS: Abs Immature Grans 0.02 10^3/uL (0.0-0.06); Absolute Basophil Count 0.12 10^3/uL (0.0-0.2); Absolute Eosinophil Count 0.09 10^3/uL (0.0-0.7); Absolute Lymphocyte Count 1.57 10^3/uL (1.2-3.4); Absolute Monocyte Count 0.92 10^3/uL (0.1-0.8); Absolute Neutrophil Count 7.61 10^3/uL (1.2-6.7); Basophils % 1.2; Eosinophils % 0.9; HCT 37.4 % (40.0-50.0); HGB 13.5 g/dL (13.5-17.5); Immature Grans % 0.2; Lymphocytes % 15.2; MCH 39.5 pg (27.0-33.0); MCHC 36.1 % (32.0-36.0); MCV 109.4 fL (80-95); MPV 10.1 fL (8.0-11.0); Monocytes % 8.9; Neutrophils % 73.6; Nucleated RBC 0 %; Platelet Count 278 10^3/uL (130-400); RBC 3.42 10^6/uL (4.36-5.78); RDW 13.1 % (11.8-14.1); RDW-SD 52.9 fL; WBC 10.33 10^3/uL (4.4-10.8)
[2021-04-18] MEDS: Ondansetron 4 MG/2 ML VIAL IVP (09:39)
[2021-04-18] MEDS: Lactated Ringers 1,000 ML 1000 ML IV ×2 (09:39→11:30)
--- NOTE | 2021-04-18 09:44 | ED.GENADUL_ITS ---
Discharge Plan Disposition Patient Disposition: HOME Condition: Good Discharge Details Clinical Impression: Dehydration, Hypomagnesemia, Electrolyte disturbance, Acute hypokalemia, Nausea & vomiting, Diarrhea Primary Care Provider: Malou Moreno ED Provider: Lavinia Galindo Home Meds and New Rx's Prescriptions: New potassium chloride 20 mEq tablet extended release 20 meq PO DAILY Qty: 7 RF: 0 magnesium 250 mg tablet 250 mg PO DAILY Qty: 10 RF: 0 metoclopramide HCl [Reglan] 10 mg tablet 10 mg PO Q6H PRNQty: 14 RF: 0 Discharge Instructions Instructions: Dehydration (ED), Hypokalemia (ED), Acute Nausea and Vomiting (ED), Acute Diarrhea (ED), Hypomagnesemia (ED) Additional Instructions: Continue with the electrolyte supplementation at home Recommend Gatorade Clear liquid diet for the next 24 hours Take the nausea medication as needed Please return with persistent vomiting, worsening pain, shortness of breath, or with any new or worsening complaints including blood in your vomit, blood in your stool Discharge Data Discharge Date/Time-TO BE ENTERED AT DEPARTURE: 04/18/21 12:52 Medical Decision Making Negative troponin with symptoms present for last several days, clinically low suspicion for pulmonary embolism and PERC negative Feeling very much symptomatically improved, able to tolerate p.o. Hypokalemia, supplemented and patient able to tolerate potassium in the outpatient setting Hyponatremia, received IV fluids resuscitation, no indication for additional intervention at this time Request discharge home, feeling symptomatically improved We will take potassium in the outpatient setting Given the threshold to return there worsening complaints CT abdomen and pelvis were ordered, viral etiology of patient's complaints Will need close outpatient follow-up with primary care physician, return discu ssed and patient expressed understanding, discharged home in stable condition with stable vital Medical Records Medical records reviewed: Yes I reviewed the patient's medical records. Lab Data Lab results reviewed: Yes I reviewed the patient's lab results. HPI General Mode of arrival: ambulatory . Date/Time Provider Initiated Documentation: 04/18/21 08:59 . Limitations to Documentation: no limitations . Information obtained by: patient . HPI Narrative: This 40-year-old male with history of colitis, splenectomy in 2006, fatty liver presents for report of nausea, vomiting, diarrhea, yesterday. Patient states he vomited 15-20 times. He denies any blood in his vomitus. He states he has had some intermittent chest pain which is precipitated with vomiting. He denies any current chest discomfort. He states he had chills but has not checked his temperature. He denies any sick contacts, cough, or shortness of breath. He is not vaccinated. He denies any urinary symptoms. Denies recent alcohol use. States his last drink was at the beginning of February. Denies history of withdrawals. Denies any urinary symptoms. Has not taken any medications prior to arrival. Last vomitus was several hours prior to arrival. Denies any blood in stool. Denies any known spoiled food. Related Data Home Medications Medication Instructions Recorded Confirmed magnesium 250 mg PO DAILY #10 tab 04/18/21 metoclopramide HCl [Reglan] 10 mg PO Q6H PRN #14 tab 04/18/21 potassium chloride 20 meq PO DAILY #7 tab 04/18/21 Previous Rx's Medication Instructions Recorded magnesium 250 mg PO DAILY #10 tab 04/18/21 metoclopramide HCl [Reglan] 10 mg PO Q6H PRN #14 tab 04/18/21 potassium chloride 20 meq PO DAILY #7 tab 04/18/21 Allergies Allergy/AdvReac Type Severity Reaction Status Date / Time No Known Allergies Allergy Unverified 04/18/21 10:23 General Stated Complaint: Chest Pain [place]: 3 Review of Systems All systems reviewed & are unremarkable except as noted in HPI and below PFSH Medical History Alcohol intoxication (07/14/14) Depression (07/14/14) No significant past medical history Tobacco use Surgical History History of hammer toe correction History of splenectomy Social History Smoking/Tobacco Use Status: Current every day Tobacco Type: cigarettes Smoking risk assessment performed?: Yes Alcohol Intake: current Alcohol Intake frequency: 3 or more drinks per day Alcohol type: hard liquor Drug use: Occasionally Substance use type: marijuana Details: NO ETOH x 3-4 weeks---01/06/21--er Do you feel safe at home: Yes Do you feel safe in your relationship?: Yes Exam Const General: cooperative, comfortable and no acute distress HENMT Mouth: oral mucosae normal Eyes Pupils: PERRL Neck Other: No meningismus Chest Other: Reproducible left chest wall pain Resp Effort & Inspection: normal respiratory effort Auscultation: clear to auscultation bilaterally Cardio Rate: regular rate Rhythm: regular rhythm GI Other: No abdominal tenderness, no CVA tenderness Skin General skin exam: no rashes or lesions noted Neuro General: patient alert and patient oriented x3 Extrem Other: No calf swelling or tenderness Psych Appearance: grossly normal Course Vital Signs Vital signs: Vital Signs Temperature 37.1 C 04/18/21 09:01 Pulse 87 04/18/21 09:01 Respiratory Rate 18 04/18/21 09:01 Blood Pressure 168/104 H 04/18/21 09:01 Pulse Oximetry 99 04/18/21 09:01 Temperature 37.1 C 04/18/21 09:01 Temperature Source Temporal Artery Scan 04/18/21 09:01 Pulse 87 04/18/21 09:01 Respiratory Rate 18 04/18/21 09:14 Respiratory Effort Non-Labored 04/18/21 09:14 Respiratory Depth Normal 04/18/21 09:14 Respiratory Pattern Normal 04/18/21 09:14 Blood Pressure 168/104 H 04/18/21 09:01 Blood Pressure Position Sitting 04/18/21 09:01 Pulse Oximetry 99 04/18/21 09:01 Oxygen Delivery Method Room Air 04/18/21 09:01 Oxygen Flow Rate 0 04/18/21 09:01
[2021-04-18 09:50] LABS: ETHANOL BLOOD < 3.0 mg/dL (<3)
[2021-04-18 09:50] LABS: Bilirubin Moderate (Negative); Blood Trace-intact (Negative); Clarity Clear (Clear); Glucose Negative (Negative); Ketones 40 mg/dL (Negative); Leukocyte Esterase Negative (Negative); pH 8.5 (5-8)
[2021-04-18 09:53] LABS: ALT 124 U/L (16-63); AST 169 U/L (15-37); Albumin 3.7 g/dL (3.4-5.0); Alkaline Phosphatase 101 U/L (46-116); Anion Gap 13.2 mmol/L (3-11); BUN 12 mg/dL (7-18); Bilirubin, Total 0.8 mg/dL (0.2-1.0); CO2 24.8 mmol/L (21.0-32.0); CREATININE 0.7 mg/dL (0.70-1.30); Calcium 8.1 mg/dL (8.5-10.1); Chloride 95 mmol/L (98-107); Glucose 105 mg/dL (74-106); Lipase 174 U/L (73-393); Sodium 133 mmol/L (136-145); Total Protein 7.6 g/dL (6.4-8.2)
[2021-04-18 09:54] LABS: Potassium 2.9 mmol/L (3.5-5.1); Troponin I < 0.05 ng/mL (<0.06)
[2021-04-18 10:02] LABS: Diff Comment Agrees w/ Instrument
[2021-04-18 10:04] LABS: Howell-Jolly Bodies Present; Macrocytosis 1+
--- NOTE | 2021-04-18 10:06 | DI.RAD_ITS ---
Exam(s) XR PORTABLE CHEST AP EXAM: XR PORTABLE CHEST AP CLINICAL HISTORY: fever TECHNIQUE: 2D digital imaging was performed. COMPARISON: No exams were available for comparison FINDINGS: MEDIASTINUM: Normal. HEART: Normal. PULMONARY VASCULATURE: Normal. LUNGS: Clear. PLEURAL SPACE: No pleural effusion or pneumothorax. BONE:Within normal limits for the patient's age. OTHER FINDINGS:Normal. IMPRESSION: No acute pulmonary findings. DATA REPOSITORY: RADIATION DOSE DELIVERED:
[2021-04-18 10:10] LABS: Nitrite Color Interference (Negative)
[2021-04-18] MEDS: MAGNESIUM SULFATE 2 GM/50 ML BAG IVPB (10:15)
[2021-04-18 10:22] LABS: Bacteria Few HPF (Negative); C & S Indicated? Yes; Casts Negative LPF (Negative); Crystals Negative HPF (Negative); Epithelial Cells Negative HPF (Negative); Mucus Heavy (Negative)
[2021-04-18] MEDS: Potassium Chloride 20 MEQ TABCR 40 MEQ PO (11:30)
[2021-04-19 12:46] LABS: COVID-19 RT-PCR UVMMC Result Negative (Negative)
== END 2021-04-18 12:52 | disposition home or self-care (01) ==
PROVIDERS: Emergency Provider Physician Assistant; PCP Nurse Practitioner Family
DX: E86.0 Dehydration (principal); E83.42 Hypomagnesemia; E87.6 Hypokalemia; R11.2 Nausea with vomiting, unspecified; R19.7 Diarrhea, unspecified
CPT/HCPCS: 36415; 80053; 83690; 87505; 93005; 96361; 96365; 96366; 99284; U0003; 71045; 80320; 81003; 81015; 83735; 84484; 85025; 87086; 93010; J2405

== ENCOUNTER 2021-04-29 02:30 | Inpatient (IN) | payer MEDICAID, SELFPAY ==
[2021-04-29] VITALS (132 sets, daily range): BP systolic 105–149; BP diastolic 68–113; PULSE 75–111; RESP 10–24; TEMP 36.5–36.8; O2SAT 87–98
--- NOTE | 2021-04-29 02:30 | RT.EKG_ITS ---
APPROVED REPORT Exam: Resting ECG Reason for Exam: dizziness Patient Location: E HR:95 bpm ECG Measurements Heart Rate 95 AXIS AZ 148 P 65 QRSd 77 QRS 7 QT 337 T 30 QTc 425 Conclusion Sinus rhythm...normal P axis, V-rate 60- 99 Left atrial enlargement...P, P'>60mS, <-0.15mV V1
--- NOTE | 2021-04-29 02:30 | DI.CT_ITS ---
Exam(s) CT HEAD WO EXAM: CT HEAD WO CLINICAL HISTORY: altered mental status. TECHNIQUE: Imaging Protocol: Axial computed tomography images with coronal and sagittal reformatted images were created and reviewed COMPARISON: No exams were available for comparison FINDINGS: Ventricles and Extra axial spaces: Normal in size and morphology for the patient's age. Hemorrhage: None. Cerebral parenchyma: Normal. Midline shift: None. Brainstem/Cerebellum: Normal. Calvarium: Normal. Visualized Paranasal sinuses/Mastoids: Clear. Soft Tissues: Unremarkable. IMPRESSION: No acute intracranial process. RADIATION DOSE DELIVERED: 746.11mGy.cm Total DLP DATA REPOSITORY: All CT scans at this facility are submitted to the National Radiology Data Registry (NRDR) Dose Index Registry (DIR) with the [employer] [employer] ([employer]). RADIATION OPTIMIZATION: All CT scans at this facility use at least one of these dose optimization te chniques: automated exposure control; mA and/or kV adjustment per patient size (includes targeted exa ms where dose is matched to clinical indication); or iterative reconstruction.
--- NOTE | 2021-04-29 02:37 | ED.GENADUL_ITS ---
Discharge Plan Disposition Patient Disposition: [facility] INPATIENT Condition: Stable Discharge Details Clinical Impression: Dehydration, Hyponatremia, Hypercalcemia, Altered mental status Primary Care Provider: Malou Moreno ED Provider: Paul Solano Home Meds and New Rx's Prescriptions: No Action potassium chloride 20 mEq tablet extended release 20 meq PO DAILY Qty: 7 RF: 0 magnesium 250 mg tablet 250 mg PO DAILY Qty: 10 RF: 0 metoclopramide HCl [Reglan] 10 mg tablet 10 mg PO Q6H PRNQty: 14 RF: 0 Medical Decision Making 40 yo male with hx of splenectomy, frequent episodes of n/v and electrolyte abnormalities, chronic smoker, who comes in with ems with him reportedly not acting himself and not remembering parts of the evening/night. EMS reports they were called to him last night for him not acting his norm per family and he was caox4 at that time and declined transport. He apparently doesn't remember EMS being with him and alfredo again was not acting himself per his family so they called ems. EMS states he was outside his house about 50 feet or so [address]. HE was brought here and is currently caox4 though with mild slurred speech, constricted pupils and both conjunctiva are injected. He smokes, states he had 3 beers last night and denies drug use. He has no focal motor or sensation deficits, eomi. HE states he has had some intermittent dizziness where he feels the room spinning and also nausea, no chest pain. Given his history will evaluate for electrolyte abnormalities and obtain ct head given his altered mental status earlier. His last known well was 7pm per report from ems so not lyitic candidate and symptoms don't fit with cva and has no deficits on exam to suggest this. Will also obtain drug screen and check alcohol level though he denies drug use recently does use marijuana occasionally. He has no headache, no meningismus and no fever and is cao4 now so doubt rn paralegal infection labs remarkable for wbc of 16 and has on review of labs chronic elevation of wbc when it is checked most of the time, has had repeated undifferentiated colitis in the past though has no gi symptoms now and no abdomen tenderness. Has a Na of 114 and Ca of 17 which is significantly changed from when he was here on 04/18. 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 Will discuss with hospitalist for admission Differential Diagnosis Differential Diagnosis: electrolyte abnormality, ich, drug use, alcohol use Medical Records Medical records reviewed: Yes I reviewed the patient's medical records. Imaging Data Radiologic Study: Attestation: I personally reviewed and interpreted this imaging study as follows: Imaging: CT Scan Radiologist's impression: no acute findings Radiologic Study #2: Attestation: I personally reviewed and interpreted this imaging study as follows: Imaging: X-Ray My impression: no acute findings Lab Data Lab results reviewed: Yes I reviewed the patient's lab results. ECG Data Attestation: I personally reviewed and interpreted this ECG (s) as follows: Prior ECG tracings: available for review Interpretation: sinus rhythm, rate of 95, pr 148, qtc [address] t wave ischemic findings HPI General Mode of arrival: EMS . Date/Time Provider Initiated Documentation: 04/29/21 02:35 . Limitations to Documentation: altered mental status (doesn't remember parts of the night) . Information obtained by: patient and EMS . History of Present Illness 40 year old M presents to the emergency department with the chief complaint of altered mental status, Patient started experiencing this unknown and it has been intermittent. No relieving factors improve symptom(s), No exacerbating factors reported . Patient notes other (nausea). Patient did receive the following treatments prior to arrival, none Related Data Home Medications Medication Instructions Recorded Confirmed magnesium 250 mg PO DAILY #10 tab 04/18/21 04/29/21 metoclopramide HCl [Reglan] 10 mg PO Q6H PRN #14 tab 04/18/21 04/29/21 potassium chloride 20 meq PO DAILY #7 tab 04/18/21 04/29/21 Previous Rx's Medication Instructions Recorded magnesium 250 mg PO DAILY #10 tab 04/18/21 metoclopramide HCl [Reglan] 10 mg PO Q6H PRN #14 tab 04/18/21 potassium chloride 20 meq PO DAILY #7 tab 04/18/21 Allergies Allergy/AdvReac Type Severity Reaction Status Date / Time No Known Allergies Allergy Unverified 04/18/21 10:23 General Stated Complaint: [facility] [place]: 3 Review of Systems All systems reviewed & are unremarkable except as noted in HPI and below Constitutional Constitutional: Denies chills, Denies fever(s) and Denies weakness Cardiovascular Cardiovascular: Denies chest pain and Denies dyspnea Respiratory Respiratory: Denies cough and Denies dyspnea Gastrointestinal Gastrointestinal: Denies abdominal pain and Denies vomiting Genitourinary Genitourinary: Denies dysuria Musculoskeletal Musculoskeletal: Denies joint swelling Neurologic Neurologic: Denies weakness Psychiatric Psychiatric: Denies depression [facility] Medical History Alcohol intoxication (07/14/14) Depression (07/14/14) No significant past medical history Tobacco use Surgical History History of hammer toe correction History of splenectomy Social History Smoking/Tobacco Use Status: Current every day Tobacco Type: cigarettes Smoking risk assessment performed?: Yes Alcohol Intake: current Alcohol Intake frequency: 3 or more drinks per day Alcohol type: hard liquor Drug use: Occasionally Substance use type: marijuana Details: NO ETOH x 3-4 weeks---01/06/21--er. Admits to 3 beers on 04/29/2021 Do you feel safe at home: Yes Do you feel safe in your relationship?: Yes Exam Const General: no acute distress Orientation: alert HENMT Head: normal to inspection Ears: external ears normal General nose exam: external nose normal Mouth: moist mucous membranes Eyes EOM: EOM intact bilaterally Neck Neck: normal visual inspection Resp Effort & Inspection: normal respiratory effort and able to speak in complete sentences Cardio Rate: regular rate Skin General skin exam: no rashes or lesions noted Neuro General: patient alert and patient oriented x3 Extrem General: normal to inspection Psych Mental Status: mental status grossly normal Course Vital Signs Vital signs: Vital Signs Temperature 36.6 C 04/29/21 02:31 Pulse 96 H 04/29/21 02:31 Respiratory Rate 18 04/29/21 02:31 Blood Pressure 146/111 H 04/29/21 02:31 Pulse Oximetry 94 04/29/21 02:31 Temperature 36.6 C 04/29/21 02:31 Pulse 96 H 04/29/21 02:31 Respiratory Rate 18 04/29/21 02:31 Blood Pressure 146/111 H 04/29/21 02:31 Blood Pressure Position Supine 04/29/21 02:31 Pulse Oximetry 94 04/29/21 02:31 Oxygen Delivery Method Room Air 04/29/21 02:31 Oxygen Flow Rate 0 04/29/21 02:31 Pain Level 0 04/29/21 02:31
[2021-04-29 03:21] LABS: Abs Immature Grans 0.13 10^3/uL (0.0-0.06); HCT 39.7 % (40.0-50.0); HGB 14.3 g/dL (13.5-17.5); MCH 38.8 pg (27.0-33.0); MCV 107.6 fL (80-95); MPV 11.1 fL (8.0-11.0); Nucleated RBC 0 %; Platelet Count 210 10^3/uL (130-400); RBC 3.69 10^6/uL (4.36-5.78); RDW 12.1 % (11.8-14.1); RDW-SD 48.1 fL; WBC 16.85 10^3/uL (4.4-10.8)
[2021-04-29 03:22] LABS: Magnesium 1.8 mg/dL (1.8-2.4)
[2021-04-29 03:31] LABS: Acetaminophen < 2 ug/mL (10-30); Salicylate < 2.8 mg/dL (<2.8); Troponin I < 0.05 ng/mL (<0.06)
--- NOTE | 2021-04-29 03:33 | DI.VRAD_ITS ---
PROCEDURE INFORMATION: Exam: CT Head Without Contrast Exam date and time: 04/29/2021 2:37 AM Age: 40 years old Clinical indication: Altered mental status/memory loss; Confusion or disorientation; Patient HX: AMS TECHNIQUE: Imaging protocol: Computed tomography of the head without contrast. Radiation optimization: All CT scans at this facility use at least one of these dose optimization techniques: automated exposure control; mA and/or kV adjustment per patient size (includes targeted exams where dose is matched to clinical indication); or iterative reconstruction. COMPARISON: CT HEAD WITHOUT CONTRAST 07/14/2014 8:01 PM FINDINGS: Brain: Normal. No hemorrhage. Unremarkable white matter. No mass effect. Extra-axial space: No evidence of subdural hemorrhage. Cerebral ventricles: No ventriculomegaly. Paranasal sinuses: Visualized sinuses are unremarkable. No fluid levels. Mastoid air cells: Visualized mastoid air cells are well aerated. Bones/joints: Unremarkable. No acute fracture. Soft tissues: Unremarkable. IMPRESSION: No acute intracranial abnormality. Dictated and Authenticated by: Paul Hernandez MD. Ordering:SUZAN Miller MD
[2021-04-29 03:41] LABS: Absolute Lymphocyte Count 1.18 10^3/uL (1.2-3.4); Absolute Monocyte Count 1.35 10^3/uL (0.1-0.8); Absolute Neutrophil Count 14.32 10^3/uL (1.2-6.7); Bands % 0; Diff Comment Manual Differential; Macrocytosis 2+
--- NOTE | 2021-04-29 03:45 | DI.RAD_ITS ---
Exam(s) XR PORTABLE CHEST AP EXAM: XR PORTABLE CHEST AP CLINICAL HISTORY: hypercalcemia TECHNIQUE: 2D digital imaging was performed. COMPARISON: CR XR PORTABLE CHEST AP from 04/18/2021 FINDINGS: MEDIASTINUM: Normal. HEART: Normal. PULMONARY VASCULATURE: Normal. LUNGS: Clear. PLEURAL SPACE: No pleural effusion or pneumothorax. BONE:Within normal limits for the patient's age. OTHER FINDINGS:Normal. IMPRESSION: No acute pulmonary findings. DATA REPOSITORY: RADIATION DOSE DELIVERED:
[2021-04-29 03:47] LABS: ALT 126 U/L (16-63); AST 123 U/L (15-37); Alkaline Phosphatase 106 U/L (46-116); Anion Gap -5.4 mmol/L (3-11); BUN 33 mg/dL (7-18); Bilirubin, Direct 0.4 mg/dL (0.0-0.2); Bilirubin, Total 1.7 mg/dL (0.2-1.0); CO2 35.4 mmol/L (21.0-32.0); CREATININE 1.9 mg/dL (0.70-1.30); Chloride 84 mmol/L (98-107); Creatine Kinase 316 U/L (39-308); ETHANOL BLOOD < 3.0 mg/dL (<3); Estimated GFR 39.07 (mL/min/1.73m2); Glucose 111 mg/dL (74-106); Potassium 3.3 mmol/L (3.5-5.1); TSH (W/Ref FT4) 1.24 uIU/mL (0.36-3.74); Total Protein 8.1 g/dL (6.4-8.2)
[2021-04-29 03:49] LABS: Calcium 17.5 mg/dL (8.5-10.1); Sodium 114 mmol/L (136-145)
[2021-04-29] MEDS: Normal Saline 1,000 ML 150 ML IV (04:04)
[2021-04-29 04:06] LABS: PHOSPHORUS 5.2 mg/dL (2.6-4.7)
--- NOTE | 2021-04-29 04:48 | MCONE_ITS ---
Date of service: 04/29/21 Time of Service: 04:48 Assessment and Plan Assessment and plan (1) Hypercalcemia: Status: Acute Assessment and plan: Acute, severe symptomatic hypercalcemia. 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 I do note prior instances of mild hypercalcemia and there may be some underlying predisposition. While there is some TW flattening on EKG there are no abnorm alities of conduction. The liver enzymes may be a separate issue (? alcohol) and the leukocytosis is nonspecific (and no clinical features otherwise of infection). Lastly the hyponatremia is likely of the hypovolemic variety, as manifested by azotemia, though this latter may represent a degree of intrinsic renal disease as well. I have requested a repeat labs to ensure this is not lab error: Ca 17.4, Na 127, K 3.3, Creat 1.6. Hypercalcemia: check PTH, aggressive IVF, trend Calcium Hyponatremia: Given extremely rapid (<2 hours) change in serum sodium with minimal intervention I strongly suspect this was of brief duration (and therefore not at risk during correction). Will continue hydration and track. TAs, question EtOH. Will trend Leukocytosis: trend, no antibiotics at this time Azotemia: check U/A, follow, hydrate History of Present Illness History of Present Illness Chief Complaint: confusion Narrative: 40 male with h/o alcohol use, and prior visits entailing varying degrees of dehydration or electrolyte abnormalities but w/o specific etiology -- here tonight because of confusion and unusual behaviors at home (EMS called by girlfriend). In ER initial findings of note for mild confusion, and labs for severe hyponatremia (114) and hypercalcemia (17.5) along with HCO3 35, BUN 33, Creat 1.9, white count 16 and CPK 316. EKG sinus rhythm with diffuse TW flattening. UDS pending. Head CT negative. ER obtains h/o frequent ingestion of TUMS (patient tells me 3-4 per day). I was asked to evaluate for admission. At present patient states he is feeling a little weak, has been have some vertigo like symptoms for several days, no other specific complaints. Other lab abnormalities in addition to above entail AST 123, ALT 126, TBili 1.7 Review of Systems All systems reviewed & are unremarkable except as noted in HPI and below PFSH Medical History Alcohol intoxication (07/14/14) Depression (07/14/14) No significant past medical history Tobacco use Surgical History History of hammer toe correction History of splenectomy Social History Smoking/Tobacco Use Status: Current every day Tobacco Type: cigarettes Smoking risk assessment performed?: Yes Alcohol Intake: current Alcohol Intake frequency: 3 or more drinks per day Alcohol type: hard liquor Drug use: Occasionally Substance use type: marijuana Details: NO ETOH x 3-4 weeks---01/06/21--er. Admits to 3 beers on 04/29/2021 Do you feel safe at home: Yes Do you feel safe in your relationship?: Yes Exam Narrative Exam Narrative: 142-146/98-111, 70-96, 36.6, 18, 94% RA. HEENT atraumatic; neck supple; lungs clear; heart RRR w/o MRG; abdomen soft and NT; extremities w/o edema; neuro Ox3, seems to have some trouble focusing or sustaining train of thought, moves all 4s equally Results Last Vital Signs Temp 36.6 C 04/29/21 02:31 Pulse 96 H 04/29/21 02:31 Resp 18 04/29/21 02:43 BP 146/111 H 04/29/21 02:31 Pulse Ox 94 04/29/21 02:31 Labs Result diagrams: 04/29/21 03:00 04/29/21 04:49 Labs: Laboratory Results - last 24 hr 04/29/21 04/29/21 04/29/21 03:00 03:00 03:00 WBC RBC Hgb Hct MCV MCH MCHC RDW Plt Count MPV Immature Gran % Neutrophils % Band Neutrophils % Lymphocytes % Monocytes % Eosinophils % Basophils % Nucleated RBC % Absolute Neutrophils Absolute Lymphocytes Absolute Monocytes Absolute Eosinophils Absolute Basophils RBC Morphology Macrocytosis Sodium 114 L* Potassium 3.3 L Chloride 84 L Carbon Dioxide 35.4 H Anion Gap -5.4 L BUN 33 H Creatinine 1.9 H Estimated GFR/1.73 m2 39.07 Glucose 111 H Calcium 17.5 H* Phosphorus Magnesium 1.8 Total Bilirubin 1.7 H Conjugated Bilirubin 0.4 H AST 123 H ALT 126 H Alkaline Phosphatase 106 Creatine Kinase 316 H Troponin I Total Protein 8.1 Albumin 4.0 TSH 1.24 Salicylates < 2.8 Acetaminophen < 2 Ethyl Alcohol < 3.0 04/29/21 04/29/21 04/29/21 03:00 03:00 03:10 WBC 16.85 H RBC 3.69 L Hgb 14.3 Hct 39.7 L MCV 107.6 H MCH 38.8 H MCHC 36.0 RDW 12.1 Plt Count 210 MPV 11.1 H Immature Gran % 0.0 Neutrophils % 85.0 Band Neutrophils % 0 Lymphocytes % 7.0 Monocytes % 8.0 Eosinophils % 0.0 Basophils % 0.0 Nucleated RBC % 0 Absolute Neutrophils 14.32 H Absolute Lymphocytes 1.18 L Absolute Monocytes 1.35 H Absolute Eosinophils 0.00 Absolute Basophils 0.00 RBC Morphology See Below Macrocytosis 2+ Sodium Potassium Chloride Carbon Dioxide Anion Gap BUN Creatinine Estimated GFR/1.73 m2 Glucose Calcium Phosphorus 5.2 H Magnesium Total Bilirubin Conjugated Bilirubin AST ALT Alkaline Phosphatase Creatine Kinase Troponin I < 0.05 Total Protein Albumin TSH Salicylates Acetaminophen Ethyl Alcohol
--- NOTE | 2021-04-29 04:50 | DI.VRAD_ITS ---
PROCEDURE INFORMATION: Exam: XR Chest Exam date and time: 04/29/2021 3:53 AM Age: 40 years old Clinical indication: Hypercalcemia TECHNIQUE: Imaging protocol: XR of the chest. Views: 1 view. COMPARISON: CR XR PORTABLE CHEST AP 04/18/2021 9:59 AM FINDINGS: Tubes, catheters and devices: Cardiac leads superimposed over the chest bilaterally. Lungs: No alveolar infiltrate. Pleural spaces: No pleural fluid collection. No pneumothorax. Heart/Mediastinum: Normal heart size. Bones/joints: Unremarkable for patient age. IMPRESSION: No active pulmonary disease. No acute change compared to 04/18/2021. Dictated and Authenticated by: Ervin Queen MD. Ordering:SUZAN Miller MD
[2021-04-29 05:11] LABS: Troponin I < 0.05 ng/mL (<0.06)
[2021-04-29 05:17] LABS: ALT 132 U/L (16-63); AST 120 U/L (15-37); Albumin 4.1 g/dL (3.4-5.0); Alkaline Phosphatase 106 U/L (46-116); Anion Gap 6.2 mmol/L (3-11); BUN 34 mg/dL (7-18); Bilirubin, Total 1.6 mg/dL (0.2-1.0); CO2 35.8 mmol/L (21.0-32.0); CREATININE 1.6 mg/dL (0.70-1.30); Chloride 85 mmol/L (98-107); Estimated GFR 47.64 (mL/min/1.73m2); Glucose 106 mg/dL (74-106); Potassium 3.3 mmol/L (3.5-5.1); Sodium 127 mmol/L (136-145); Total Protein 8.3 g/dL (6.4-8.2)
[2021-04-29 05:18] LABS: Calcium 17.4 mg/dL (8.5-10.1)
[2021-04-29 05:39] LABS: Source Nasal/Nares
[2021-04-29 06:07] LABS: Bilirubin Small (Negative); Blood Trace-intact (Negative); Clarity Sl Cloudy (Clear); Glucose Negative (Negative); Ketones 15 mg/dL (Negative); Leukocyte Esterase Negative (Negative); Nitrite Positive (Negative); Specific Gravity >= 1.030 (1.005-1.025); Urobilinogen 0.2 EU/dL (Up TO 0.2); pH 5.5 (5-8)
[2021-04-29 06:11] LABS: Bacteria Few HPF (Negative); C & S Indicated? Yes; Casts Negative LPF (Negative); Crystals Negative HPF (Negative); Epithelial Cells Negative HPF (Negative); Mucus Negative (Negative)
[2021-04-29 06:18] LABS: *AMPHETAMINES SCREEN URINE Negative (Negative); *BARBITURATES SCREEN URINE Negative (Negative); *BENZODIAZEPINES SCREEN URINE Negative (Negative); Cannabinoids THC Negative (Negative); Cocaine Screen,Urine Negative (Negative); METHADONE URINE SCREEN Negative (Negative); OPIATES URINE SCREEN Negative (Negative)
[2021-04-29] MEDS: cefTRIAXone 2 GM/50 ML BAG IVPB (06:21)
[2021-04-29 06:22] LABS: Tricyclic Antidepressants Negative (Negative)
[2021-04-29 06:29] LABS: COVID-19 PCR Negative (Negative)
[2021-04-29] MEDS: THIAMINE 100 MG in Normal Saline 100 ML 200 MG IVPB (08:00)
--- NOTE | 2021-04-29 08:24 | W.PM.PROGNOT ---
Date of Service Date of service: 04/29/21 Time of Service: 11:23 Assessment and Plan Assessment and plan (1) Hypercalcemia: Status: Acute Assessment and plan: Continue IV hydraton/forced diuresis. Fluids changed to plasmalyte. Look for source: check CT chest/abdomen/pelvis looking for malignancy (there is also a concern for nephrolithiasis). Await Vit D studies/PTH. Receiving calcitonin/zoledronic acid today. QT interval is actually prolonged, whereas shortening of QT is normally expected. Continue cardiac monitoring. Would keep in the ICU. (2) Hyponatremia: Status: Acute Assessment and plan: Actually significantly improved. Next BMP at noon, from then on Q6H. (3) Acute hypokalemia: Status: Acute Assessment and plan: replete, continue to follow (4) QT prolongation: Status: Acute Assessment and plan: Somewhat unusual with hypercalcemia. Mag level 1.8. Will give 2 grams of magnesium sulfate, continue cardiac monitoring. (5) Toxic metabolic encephalopathy: Status: Acute Assessment and plan: Likely due to hypercalcemia. Monitor mental status with improvement of calcium levels. (6) Nausea & vomiting: Status: Acute Assessment and plan: ? due to alcoholic gastritis. Obtain imaging (CT chest/abdomen/pelvis), start PPI. Clear liquids - advance as tolerated. (7) GUANAKO (acute kidney injury): Status: Acute Assessment and plan: Improved with IVF. Check CT abdomen to ensure there are no stones. Consider silva catheter for UOP monitoring. (8) Alcohol use: Status: Acute Assessment and plan: Monitor for EtOH w/d. Would not put on a multivitamin until I know Vitamin D level. Provide daily thiamine, monitor on CIWA. (9) DVT prophylaxis: Status: Acute Assessment and plan: enoxaparin SC (10) Discharge planning issues: Status: Acute Assessment and plan: Full code Continues to require hospitalization. Total Critical Care Time [address] Jha Subjective Subjective Interval history since last seen: This morning, was Disoriented, A&Ox1. Following commands. Calm, pleasant. He is now A&Ox2. Denies dizziness, headache or pain anywhere, shortness of breath, nausea. Drinks 2-3 beers/day. No signs of alcohol withdrawal yet. Exam Narrative Exam Narrative: General: Pleasant middle-aged male, A&Ox2, calm, cooperative HEENT: EOMI, MMM Heart: RRR, no m/r/g Lungs: CTAB Abdomen: soft, nontender, nondistended Extremities: no edema BLE's, 2+ pedal pulses B Objective Last Vital Signs Temp 36.8 C 04/29/21 06:45 Pulse 91 H 04/29/21 06:45 Resp 15 04/29/21 06:31 BP 131/91 H 04/29/21 06:31 Pulse Ox 94 04/29/21 06:31 Laboratory Results - last 24 hr 04/29/21 04/29/21 04/29/21 03:00 03:00 03:00 WBC RBC Hgb Hct MCV MCH MCHC RDW Plt Count MPV Immature Gran % Neutrophils % Band Neutrophils % Lymphocytes % Monocytes % Eosinophils % Basophils % Nucleated RBC % Absolute Neutrophils Absolute Lymphocytes Absolute Monocytes Absolute Eosinophils Absolute Basophils RBC Morphology Macrocytosis Sodium 114 L* Potassium 3.3 L Chloride 84 L Carbon Dioxide 35.4 H Anion Gap -5.4 L BUN 33 H Creatinine 1.9 H Estimated GFR/1.73 m2 39.07 Glucose 111 H Calcium 17.5 H* Phosphorus Magnesium 1.8 Total Bilirubin 1.7 H Conjugated Bilirubin 0.4 H AST 123 H ALT 126 H Alkaline Phosphatase 106 Creatine Kinase 316 H Troponin I Total Protein 8.1 Albumin 4.0 TSH 1.24 Urine Color Urine Clarity Urine pH Ur Specific [place] Urine Protein Urine Ketones Urine Blood Urine Nitrite Urine Bilirubin Urine Urobilinogen Ur Leukocyte Esterase Urine RBC Urine WBC Ur Epithelial Cells Urine Crystals Urine Bacteria Urine Casts Urine Mucus Ur Culture Indicated? Urine Glucose Salicylates < 2.8 Urine Opiates Screen Urine Methadone Screen Acetaminophen < 2 Ur Barbiturates Screen Ur Tricyclics Screen Ur Amphetamines Screen U Benzodiazepines Scrn Urine Cocaine Screen Ur THC Screen Ethyl Alcohol < 3.0 COVID-19 Source SARS-CoV-2 (PCR) 04/29/21 04/29/21 04/29/21 03:00 03:00 03:10 WBC 16.85 H RBC 3.69 L Hgb 14.3 Hct 39.7 L MCV 107.6 H MCH 38.8 H MCHC 36.0 RDW 12.1 Plt Count 210 MPV 11.1 H Immature Gran % 0.0 Neutrophils % 85.0 Band Neutrophils % 0 Lymphocytes % 7.0 Monocytes % 8.0 Eosinophils % 0.0 Basophils % 0.0 Nucleated RBC % 0 Absolute Neutrophils 14.32 H Absolute Lymphocytes 1.18 L Absolute Monocytes 1.35 H Absolute Eosinophils 0.00 Absolute Basophils 0.00 RBC Morphology See Below Macrocytosis 2+ Sodium Potassium Chloride Carbon Dioxide Anion Gap BUN Creatinine Estimated GFR/1.73 m2 Glucose Calcium Phosphorus 5.2 H Magnesium Total Bilirubin Conjugated Bilirubin AST ALT Alkaline Phosphatase Creatine Kinase Troponin I < 0.05 Total Protein Albumin TSH Urine Color Urine Clarity Urine pH Ur Specific [place] Urine Protein Urine Ketones Urine Blood Urine Nitrite Urine Bilirubin Urine Urobilinogen Ur Leukocyte Esterase Urine RBC Urine WBC Ur Epithelial Cells Urine Crystals Urine Bacteria Urine Casts Urine Mucus Ur Culture Indicated? Urine Glucose Salicylates Urine Opiates Screen Urine Methadone Screen Acetaminophen Ur Barbiturates Screen Ur Tricyclics Screen Ur Amphetamines Screen U Benzodiazepines Scrn Urine Cocaine Screen Ur THC Screen Ethyl Alcohol COVID-19 Source SARS-CoV-2 (PCR) 04/29/21 04/29/21 04/29/21 03:34 04:49 04:49 WBC RBC Hgb Hct MCV MCH MCHC RDW Plt Count MPV Immature Gran % Neutrophils % Band Neutrophils % Lymphocytes % Monocytes % Eosinophils % Basophils % Nucleated RBC % Absolute Neutrophils Absolute Lymphocytes Absolute Monocytes Absolute Eosinophils Absolute Basophils RBC Morphology Macrocytosis Sodium 127 L D Potassium 3.3 L Chloride 85 L Carbon Dioxide 35.8 H Anion Gap 6.2 BUN 34 H Creatinine 1.6 H Estimated GFR/1.73 m2 47.64 Glucose 106 Calcium 17.4 H* Phosphorus Magnesium Total Bilirubin 1.6 H Conjugated Bilirubin AST 120 H ALT 132 H Alkaline Phosphatase 106 Creatine Kinase Troponin I < 0.05 Total Protein 8.3 H Albumin 4.1 TSH Urine Color Urine Clarity Urine pH Ur Specific [place] Urine Protein Urine Ketones Urine Blood Urine Nitrite Urine Bilirubin Urine Urobilinogen Ur Leukocyte Esterase Urine RBC Urine WBC Ur Epithelial Cells Urine Crystals Urine Bacteria Urine Casts Urine Mucus Ur Culture Indicated? Urine Glucose Salicylates Urine Opiates Screen Urine Methadone Screen Acetaminophen Ur Barbiturates Screen Ur Tricyclics Screen Ur Amphetamines Screen U Benzodiazepines Scrn Urine Cocaine Screen Ur THC Screen Ethyl Alcohol COVID-19 Source Nasal/Nares SARS-CoV-2 (PCR) Negative 04/29/21 04/29/21 05:59 05:59 WBC RBC Hgb Hct MCV MCH MCHC RDW Plt Count MPV Immature Gran % Neutrophils % Band Neutrophils % Lymphocytes % Monocytes % Eosinophils % Basophils % Nucleated RBC % Absolute Neutrophils Absolute Lymphocytes Absolute Monocytes Absolute Eosinophils Absolute Basophils RBC Morphology Macrocytosis Sodium Potassium Chloride Carbon Dioxide Anion Gap BUN Creatinine Estimated GFR/1.73 m2 Glucose Calcium Phosphorus Magnesium Total Bilirubin Conjugated Bilirubin AST ALT Alkaline Phosphatase Creatine Kinase Troponin I Total Protein Albumin TSH Urine Color Yellow Urine Clarity Sl Cloudy Urine pH 5.5 Ur Specific [place] >= 1.030 H Urine Protein 100 H Urine Ketones 15 H Urine Blood Trace-intact H Urine Nitrite Positive H Urine Bilirubin Small H Urine Urobilinogen 0.2 Ur Leukocyte Esterase Negative Urine RBC 3-5 H Urine WBC 3-5 Ur Epithelial Cells Negative Urine Crystals Negative Urine Bacteria Few Urine Casts Negative Urine Mucus Negative Ur Culture Indicated? Yes Urine Glucose Negative Salicylates Urine Opiates Screen Negative Urine Methadone Screen Negative Acetaminophen Ur Barbiturates Screen Negative Ur Tricyclics Screen Negative Ur Amphetamines Screen Negative U Benzodiazepines Scrn Negative Urine Cocaine Screen Negative Ur THC Screen Negative Ethyl Alcohol COVID-19 Source SARS-CoV-2 (PCR)
[2021-04-29] MEDS: Furosemide 40 MG/4 ML VIAL IVP (09:00)
[2021-04-29 09:31] LABS: C-Reactive Protein 1.81 mg/dL (0.0-0.3); Procalcitonin 0.9 ng/mL
[2021-04-29 09:41] LABS: Anion Gap 9.8 mmol/L (3-11); BUN 35 mg/dL (7-18); CO2 31.2 mmol/L (21.0-32.0); CREATININE 1.3 mg/dL (0.70-1.30); Chloride 88 mmol/L (98-107); Glucose 97 mg/dL (74-106); Potassium 3.2 mmol/L (3.5-5.1); Sodium 129 mmol/L (136-145)
[2021-04-29 09:48] LABS: Calcium 15.6 mg/dL (8.5-10.1)
[2021-04-29 09:51] LABS: POTASSIUM,URINE RANDOM 81 mmol/L; Sodium, Urine 7 mmol/L
[2021-04-29] MEDS: Thiamine 100 MG TAB PO (10:27)
[2021-04-29] MEDS: Potassium Chloride 20 MEQ TABCR PO (10:27)
[2021-04-29] MEDS: Magnesium Oxide 400 MG TAB PO (10:27)
[2021-04-29] MEDS: Lactated Ringers 1,000 ML 150 ML IV (10:28)
[2021-04-29] MEDS: Omnipaque 350 MG/ML 50 ML BTL PO (10:33)
--- NOTE | 2021-04-29 10:38 | PUCC_ITS ---
General Date of Service Date of service: 04/29/21 Time of Service: 08:00 Reason for Admission to ICU: Hypercalcemia Assessment and Plan Assessment and plan (1) Acute hypokalemia: Status: Acute (2) Hypercalcemia: Status: Acute (3) Altered mental status: Status: Acute Qualifiers: Altered mental status type: disorientation Qualified Code(s): R41.0 - Disorientation, unspecified (4) GUANAKO (acute kidney injury): Status: Resolved (5) Alcohol use: Status: Acute (6) Macrocytosis: Status: Acute (7) Hyponatremia: Status: Acute Assessment and plan: This is a 40-year-old gentleman with medical history of alcohol use who presents to the ED with confusion found to have significant hypercalcemia as well as hyponatremia. He does not have a true prodrome of infectious illness, although he is currently a poor historian. I am unsure currently of the etiology of his hypercalcemia however it seems very unlikely for milk-alkali syndrome given he does not have chronic kidney disease and was not taking enough Tums per report for the development of this degree of hypercalcemia. On review of his calcium levels in the past they have been quite tenuous with high levels and low levels being present. Regardless of the cause the treatment remains the same initially which is IV fluids in addition to diuresis to try and lower calcium levels. We will recheck his calcium level and if there is not marked improvement we will have to consider administration of calcitonin as well as zoledronic acid acid. Recommendations Pulmonary: No acute concerns Cardiac: No acute concerns - monitor tele for bradycardia Renal: Acute Kidney Injury - 1 dose of Lasix 40mg - receiving IVF Hypercalcemia - recommend IVF with Plasmalyte at 150cc/hr - recheck calcium level at 12:00, if not below 12, recommend: - calcitonin 4units/kg s.q. q12 hours, with the first dose at the same time as: - Zoledronic acid 4mg IV infused over 60 minutes - no need to correct for renal failure as GFR >60 - recommend checking a PTH, ionized calcium, 25-OH vitamin D, 1,25-OH vitamin D and PTH-related peptide - TSH is normal - continue to monitor tele for bradycardia - recommend urine lytes and a random spot urine calcium - recommend checking lytes and calcium q8h for now Hypokalemia - recommend repletment to 4.0 Acute Hyponatremia Sodium level on 04/18/2021 was 133 so the sodium level of 114 on admission was clearly acute in nature and therefore rapid improvement to now 129 is not contraindicated. - continue to monitor - would check electrolyte with calcium q8hr as above I&O: Intake & Output 04/26/21 04/27/21 04/28/21 04/29/21 23:59 23:59 23:59 23:59 Intake Total / 101 Balance Weight 60.6 kg Daily Fluid Goal:: Positive 1-2 L GI Nutrition: OK for renal diet from my perspective Infectious Disease: No acute concerns. He does have a slightly elevated procalc itonin to 0.9, however in the setting of his GUANAKO as well as hypercalcemia this is somewhat to be expected as this is normally secreted by see cells of the thyroid in response to hypercalcemia. - CXR ok, no rashes, UA non infectious Hematologic: Macrocytosis - could be due to EtOH use - recommend multivitamin Neurologic: Confusion Due to hypercalcemia, should improve with treatment - recommend neuro checks q4hrs Endocrine: No acute concerns - TSH is normal Lines: PIV Consider [place] Prophylaxis: Recommend heparin and SCD's for DVT ppx No current indication for GI ppx I spent a total of 45 minutes with this patient including bedside assessment, rounding with nursing, coordination of care with the hospitalist service, chart review and documentation. Code Status: Resuscitation Status Full Code Subjective Critical and life-threatening events over the past 24 hours: This is a 40-year-old gentleman who presents to the ED after having bouts of confusion found to have a calcium level of initially 17.5 with marked hyponatremia to 114. The patient tells me that he was not feeling ill prior to this but that he was noticing confusion as well as some difficulty breathing. Of note the patient does drink daily. There is documentation of him ingesting TUMS 3-4 times per day, although it is extremely difficult to overdose on TUMS given the low amount of calcium actually present in them. On my assessment he is feeling much better than when he initially came in but is still having confusion. He denies any shortness of breath, change in sputum, skin rashes, difficulty urinating or other symptoms of side confusion at the moment Exam Const General: no acute distress Nutritional Appearance: well nourished HENMT Head: normocephalic Ears: external ears normal and no periauricular adenopathy General nose exam: nasal mucous membranes and turbinates normal Face and sinus: sinuses nontender Mouth: oropharynx normal and moist mucous membranes Teeth and gingiva: dentition normal Eyes General: appearance normal, both eyes and all related structures Pupils: PERRL Neck Neck: normal visual inspection and no lymphadenopathy Chest Chest: normal inspection of the chest Resp Effort & Inspection: normal respiratory effort Auscultation: clear to auscultation bilaterally, no rales, no rhonchi and no wheezes Cardio Rate: regular rate Rhythm: regular rhythm Heart Sounds: S1 normal, S2 normal and no murmurs Pulses: radial pulses present bilaterally GI Inspection: normal to inspection Palpation: soft Skin General skin exam: no rashes or lesions noted Neuro General: patient alert, patient awake and patient confused Extrem General: no clubbing, cyanosis or edema Psych Mental Status: mental status grossly normal Affect: normal affect Attitude: cooperative Most Recent VS/Results Last Vital Signs Temp 36.8 C 04/29/21 09:53 Pulse 91 H 04/29/21 09:53 Resp 14 04/29/21 09:53 BP 105/68 04/29/21 09:53 Pulse Ox 91 L 04/29/21 09:53 Laboratory Results - last 24 hr 04/29/21 04/29/21 04/29/21 03:00 03:00 03:00 WBC RBC Hgb Hct MCV MCH MCHC RDW Plt Count MPV Immature Gran % Neutrophils % Band Neutrophils % Lymphocytes % Monocytes % Eosinophils % Basophils % Nucleated RBC % Absolute Neutrophils Absolute Lymphocytes Absolute Monocytes Absolute Eosinophils Absolute Basophils RBC Morphology Macrocytosis Sodium 114 L* Potassium 3.3 L Chloride 84 L Carbon Dioxide 35.4 H Anion Gap -5.4 L BUN 33 H Creatinine 1.9 H Estimated GFR/1.73 m2 39.07 Glucose 111 H Calcium 17.5 H* Phosphorus Magnesium 1.8 Total Bilirubin 1.7 H Conjugated Bilirubin 0.4 H AST 123 H ALT 126 H Alkaline Phosphatase 106 Creatine Kinase 316 H Troponin I C-Reactive Protein Total Protein 8.1 Albumin 4.0 Procalcitonin TSH 1.24 Urine Color Urine Clarity Urine pH Ur Specific [place] Urine Protein Urine Ketones Urine Blood Urine Nitrite Urine Bilirubin Urine Urobilinogen Ur Leukocyte Esterase Urine RBC Urine WBC Ur Epithelial Cells Urine Crystals Urine Bacteria Urine Casts Urine Mucus Ur Culture Indicated? Ur Random Sodium Ur Random Potassium Urine Glucose Salicylates < 2.8 Urine Opiates Screen Urine Methadone Screen Acetaminophen < 2 Ur Barbiturates Screen Ur Tricyclics Screen Ur Amphetamines Screen U Benzodiazepines Scrn Urine Cocaine Screen Ur THC Screen Ethyl Alcohol < 3.0 COVID-19 Source SARS-CoV-2 (PCR) 04/29/21 04/29/21 04/29/21 03:00 03:00 03:10 WBC 16.85 H RBC 3.69 L Hgb 14.3 Hct 39.7 L MCV 107.6 H MCH 38.8 H MCHC 36.0 RDW 12.1 Plt Count 210 MPV 11.1 H Immature Gran % 0.0 Neutrophils % 85.0 Band Neutrophils % 0 Lymphocytes % 7.0 Monocytes % 8.0 Eosinophils % 0.0 Basophils % 0.0 Nucleated RBC % 0 Absolute Neutrophils 14.32 H Absolute Lymphocytes 1.18 L Absolute Monocytes 1.35 H Absolute Eosinophils 0.00 Absolute Basophils 0.00 RBC Morphology See Below Macrocytosis 2+ Sodium Potassium Chloride Carbon Dioxide Anion Gap BUN Creatinine Estimated GFR/1.73 m2 Glucose Calcium Phosphorus 5.2 H Magnesium Total Bilirubin Conjugated Bilirubin AST ALT Alkaline Phosphatase Creatine Kinase Troponin I < 0.05 C-Reactive Protein Total Protein Albumin Procalcitonin TSH Urine Color Urine Clarity Urine pH Ur Specific [place] Urine Protein Urine Ketones Urine Blood Urine Nitrite Urine Bilirubin Urine Urobilinogen Ur Leukocyte Esterase Urine RBC Urine WBC Ur Epithelial Cells Urine Crystals Urine Bacteria Urine Casts Urine Mucus Ur Culture Indicated? Ur Random Sodium Ur Random Potassium Urine Glucose Salicylates Urine Opiates Screen Urine Methadone Screen Acetaminophen Ur Barbiturates Screen Ur Tricyclics Screen Ur Amphetamines Screen U Benzodiazepines Scrn Urine Cocaine Screen Ur THC Screen Ethyl Alcohol COVID-19 Source SARS-CoV-2 (PCR) 04/29/21 04/29/21 04/29/21 03:34 04:49 04:49 WBC RBC Hgb Hct MCV MCH MCHC RDW Plt Count MPV Immature Gran % Neutrophils % Band Neutrophils % Lymphocytes % Monocytes % Eosinophils % Basophils % Nucleated RBC % Absolute Neutrophils Absolute Lymphocytes Absolute Monocytes Absolute Eosinophils Absolute Basophils RBC Morphology Macrocytosis Sodium 127 L D Potassium 3.3 L Chloride 85 L Carbon Dioxide 35.8 H Anion Gap 6.2 BUN 34 H Creatinine 1.6 H Estimated GFR/1.73 m2 47.64 Glucose 106 Calcium 17.4 H* Phosphorus Magnesium Total Bilirubin 1.6 H Conjugated Bilirubin AST 120 H ALT 132 H Alkaline Phosphatase 106 Creatine Kinase Troponin I < 0.05 C-Reactive Protein Total Protein 8.3 H Albumin 4.1 Procalcitonin TSH Urine Color Urine Clarity Urine pH Ur Specific [place] Urine Protein Urine Ketones Urine Blood Urine Nitrite Urine Bilirubin Urine Urobilinogen Ur Leukocyte Esterase Urine RBC Urine WBC Ur Epithelial Cells Urine Crystals Urine Bacteria Urine Casts Urine Mucus Ur Culture Indicated? Ur Random Sodium Ur Random Potassium Urine Glucose Salicylates Urine Opiates Screen Urine Methadone Screen Acetaminophen Ur Barbiturates Screen Ur Tricyclics Screen Ur Amphetamines Screen U Benzodiazepines Scrn Urine Cocaine Screen Ur THC Screen Ethyl Alcohol COVID-19 Source Nasal/Nares SARS-CoV-2 (PCR) Negative 04/29/21 04/29/21 04/29/21 05:59 05:59 08:30 WBC RBC Hgb Hct MCV MCH MCHC RDW Plt Count MPV Immature Gran % Neutrophils % Band Neutrophils % Lymphocytes % Monocytes % Eosinophils % Basophils % Nucleated RBC % Absolute Neutrophils Absolute Lymphocytes Absolute Monocytes Absolute Eosinophils Absolute Basophils RBC Morphology Macrocytosis Sodium 129 L Potassium 3.2 L Chloride 88 L Carbon Dioxide 31.2 Anion Gap 9.8 BUN 35 H Creatinine 1.3 Estimated GFR/1.73 m2 >= 60.00 Glucose 97 Calcium 15.6 H* Phosphorus Magnesium Total Bilirubin Conjugated Bilirubin AST ALT Alkaline Phosphatase Creatine Kinase Troponin I C-Reactive Protein Total Protein Albumin Procalcitonin TSH Urine Color Yellow Urine Clarity Sl Cloudy Urine pH 5.5 Ur Specific [place] >= 1.030 H Urine Protein 100 H Urine Ketones 15 H Urine Blood Trace-intact H Urine Nitrite Positive H Urine Bilirubin Small H Urine Urobilinogen 0.2 Ur Leukocyte Esterase Negative Urine RBC 3-5 H Urine WBC 3-5 Ur Epithelial Cells Negative Urine Crystals Negative Urine Bacteria Few Urine Casts Negative Urine Mucus Negative Ur Culture Indicated? Yes Ur Random Sodium Ur Random Potassium Urine Glucose Negative Salicylates Urine Opiates Screen Negative Urine Methadone Screen Negative Acetaminophen Ur Barbiturates Screen Negative Ur Tricyclics Screen Negative Ur Amphetamines Screen Negative U Benzodiazepines Scrn Negative Urine Cocaine Screen Negative Ur THC Screen Negative Ethyl Alcohol COVID-19 Source SARS-CoV-2 (PCR) 04/29/21 04/29/21 04/29/21 08:30 08:30 09:20 WBC RBC Hgb Hct MCV MCH MCHC RDW Plt Count MPV Immature Gran % Neutrophils % Band Neutrophils % Lymphocytes % Monocytes % Eosinophils % Basophils % Nucleated RBC % Absolute Neutrophils Absolute Lymphocytes Absolute Monocytes Absolute Eosinophils Absolute Basophils RBC Morphology Macrocytosis Sodium Potassium Chloride Carbon Dioxide Anion Gap BUN Creatinine Estimated GFR/1.73 m2 Glucose Calcium Phosphorus Magnesium Total Bilirubin Conjugated Bilirubin AST ALT Alkaline Phosphatase Creatine Kinase Troponin I C-Reactive Protein 1.81 H Total Protein Albumin Procalcitonin 0.9 TSH Urine Color Urine Clarity Urine pH Ur Specific [place] Urine Protein Urine Ketones Urine Blood Urine Nitrite Urine Bilirubin Urine Urobilinogen Ur Leukocyte Esterase Urine RBC Urine WBC Ur Epithelial Cells Urine Crystals Urine Bacteria Urine Casts Urine Mucus Ur Culture Indicated? Ur Random Sodium 7 Ur Random Potassium 81 Urine Glucose Salicylates Urine Opiates Screen Urine Methadone Screen Acetaminophen Ur Barbiturates Screen Ur Tricyclics Screen Ur Amphetamines Screen U Benzodiazepines Scrn Urine Cocaine Screen Ur THC Screen Ethyl Alcohol COVID-19 Source SARS-CoV-2 (PCR) Review of Systems All systems reviewed & are unremarkable except as noted in HPI and below
[2021-04-29] MEDS: Calcitonin-Salmon 400 UNITS/2 ML VIAL 240 UNITS IM ×2 (10:45→22:33)
--- NOTE | 2021-04-29 11:15 | RT.EKG_ITS ---
APPROVED REPORT Exam: Resting ECG Reason for Exam: qt prolongation Patient Location: I HR:99 bpm ECG Measurements Heart Rate 99 AXIS CO 144 P 67 QRSd 79 QRS 14 QT 424 T 58 QTc 544 Conclusion Sinus rhythm...normal P axis, V-rate 60- 99 Left atrial enlargement...P, P'>60mS, <-0.15mV V1 Prolonged QT interval...QTc >500mS
--- NOTE | 2021-04-29 12:08 | DI.CT_ITS ---
Exam(s) CT CHEST/ABD/PEL WO EXAM: CT CHEST/ABD/PEL WO CLINICAL HISTORY: with PO contrast. Leucocytosis, hypercalcemia TECHNIQUE: Imaging Protocol: Axial computed tomography images with coronal and sagittal reformatted images were created and reviewed CONTRAST MATERIAL: Imaging Protocol: Axial computed tomography images with coronal and sagittal refo rmatted images were created and reviewed. COMPARISON: CT CT CHEST/ABD/PEL W from 01/06/2021 FINDINGS: CHEST: Tracheobronchial tree: Patent where visualized. Mediastinum and [place]: No dominant adenopathy or fluid collection. Pulmonary parenchyma: Small ground-glass opacities are seen in the right middle lobe and the left suzie gula. Mild centrilobular pulmonary emphysema. Pleura: No effusion or pneumothorax. Heart: The heart is not dilated. No coronary artery calcifications are seen. No pericardial effusion. Aorta: Thoracic aorta non-dilated. Mild atherosclerosis. Lymph nodes: Within normal limits. Bones:Within normal limits for the patient's age. Soft tissues: Unremarkable. ABDOMEN: Liver: Fatty infiltration. The liver measures 18 cm long. No measurable mass. Gallbladder and Biliary Tract: No radiodense calculus or dilation. Pancreas: Normal density, no abnormal calcifications or inflammatory process. Spleen: Absent spleen. There is a splenule seen in the left upper quadrant. Adrenals: No masses seen. Kidneys: Normal size, contour and axis. No radiodense stones or obstructive uropathy. No masses seen. Abdominal Aorta: Abdominal portion non-dilated. Mild atherosclerosis. Bowel: No obstruction or bowel wall thickening. Appendix is unremarkable. Sigmoid diverticulosis, but no evidence of acute diverticulitis. Peritoneal Cavity: No ascites, collection or mesenteric inflammatory response. Lymph Nodes: Within normal limits. Bones: Unremarkable. Soft Tissues: Small fat containing paraumbilical hernia. PELVIS: Bladder: Symmetric distention, no gross wall thickening. Reproductive Organs: Unremarkable as visualized. Lymph Nodes: Within normal limits. Bones: Within normal limits. IMPRESSION: 1. No acute abdominal or pelvic process. 2. Small nonspecific ground-glass opacities in the right middle lobe and the left lingula. Different ial considerations include pulmonary edema, hemorrhage, infection or inflammation. Atypical infectio n should be considered. RADIATION DOSE DELIVERED: 761.14mGy.cm Total DLP 761.14mGy.cm Total DLP DATA REPOSITORY: All CT scans at this facility are submitted to the National Radiology Data Registry (NRDR) Dose Index Registry (DIR) with the [employer] (A[employer]). RADIATION OPTIMIZATION: All CT scans at this facility use at least one of these dose optimization te chniques: automated exposure control; mA and/or kV adjustment per patient size (includes targeted exa ms where dose is matched to clinical indication); or iterative reconstruction.
[2021-04-29] MEDS: POTASSIUM CHLORIDE 20 MEQ/100 ML BAG 50 MEQ IVPB ×2 (12:57→13:56)
[2021-04-29 13:05] LABS: Anion Gap 11.2 mmol/L (3-11); BUN 33 mg/dL (7-18); CO2 31.8 mmol/L (21.0-32.0); CREATININE 1.2 mg/dL (0.70-1.30); Chloride 86 mmol/L (98-107); Glucose 117 mg/dL (74-106); Sodium 129 mmol/L (136-145)
[2021-04-29] MEDS: Pantoprazole 40 MG VIAL IVP (13:12)
[2021-04-29 13:20] LABS: Potassium 2.8 mmol/L (3.5-5.1)
--- NOTE | 2021-04-29 13:23 | PDOC.CMIN ---
- If Service Date Differs Date of service: 04/29/21 Time of Service: 13:23 Care Management Initial Assess REASON FOR HOSPITALIZATION:: Hypercalcemia PAST MEDICAL HISTORY/PAST SURGICAL HISTORY:: Alcohol intoxication, depression, tobacco use, hammer toe correction, splenectomy PREVIOUS FUNCTIONAL STATUS/SOCIAL/FAMILY SUPPORTS:: Milan resides in [facility] in an apartment with his significant other. He reports being independent in the community with ADLs. CURRENT FUNCTIONAL STATUS:: Milan was lying in bed when CM met with him. He was pleasant although presented somewhat confused. He answered questions simply and minimally. He shared that things changed when the government opened up when CM asked him if he had his covid vaccine. No further info was provided. CM continues to support. ADVANCE DIRECTIVES:: None on file Has patient been provided with info about the portal/API?: Yes Did the patient sign up for the portal?: No CODE STATUS:: Full Code INSURANCE COVERAGE / FINANCIAL ISSUES:: Medicaid CURRENT HOME/COMMUNITY SERVICES/EQUIPMENT:: None PRIMARY CARE PHYSICIAN:: Malou Moreno POTENTIAL DISCHARGE NEEDS:: Follow up appointment with PCP PATIENT/FAMILY EDUCATION NEEDS:: Review of discharge instructions, limitations and plan to follow up with PCP, ask me three. ANTICIPATED BARRIERS TO DISCHARGE:: None identified at this time TRANSPORTATION:: via private vehicle with significant other PLAN:: Discharge home with no new services when medically cleared via private vehicle with significant other. Follow up with community providers. CM continues to support.
--- NOTE | 2021-04-29 13:27 | PHA.REVIEW ---
Pharmacy Admission Review - Admission Clinical Review (Last Reviewed 04/29/21 @ 05:00 by Miguelangel Saleh MD) QT prolongation (Acute) Toxic metabolic encephalopathy (Acute) Hyponatremia (Acute) Macrocytosis (Acute) Alcohol use (Acute) Acute hypokalemia (Acute) Nausea & vomiting (Acute) Hypercalcemia (Acute) Altered mental status (Acute) Discharge planning issues (Acute) DVT prophylaxis (Acute) GUANAKO (acute kidney injury) (Acute) Hyponatremia (Acute) Dehydration (Acute) No Known Allergies Allergy (Unverified 04/18/21 10:23) Resuscitation Status Full Code Height 5 ft 7 in Weight 60.6 kg - Comments Comments/Follow Ups: Rocephin 1gram IV x1 in ED, Lorazepam for CIWA, IVF's changed to Normosol-R, Vit D lab panel pending, repeat critical labs for Na++, Ca++, K+. Elevated Procal not necessarily an infectious process, see if lab is repeated. CIWA=1. K-dur is ordered 40meq po TID....so follow closely. Blood and urine cultures pending - Renal Dosing Renal Dosing: BUN 33 mg/dL (7-18) H 04/29/21 12:35 Creatinine 1.2 mg/dL (0.70-1.30) 04/29/21 12:35 Medications needing adjustments: Reviewed (CrCl~68ml/min) - Anticoagulation Anticoagulation: Hgb 14.3 g/dL (13.5-17.5) 04/29/21 03:00 Hct 39.7 % (40.0-50.0) L 04/29/21 03:00 Plt Count 210 10^3/uL (130-400) 04/29/21 03:00 Creatinine 1.2 mg/dL (0.70-1.30) 04/29/21 12:35 DVT Prophylaxis: Reviewed Medications: Enoxaparin - Opiate Usage Evaluate Pain Scale/Pains Meds: N/A - Relevant Labs Sodium 129 mmol/L (136-145) L 04/29/21 12:35 Potassium 2.8 mmol/L (3.5-5.1) L* 04/29/21 12:35 Chloride 86 mmol/L (98-107) L 04/29/21 12:35 Phosphorus 5.2 mg/dL (2.6-4.7) H 04/29/21 03:10 Magnesium 1.8 mg/dL (1.8-2.4) 04/29/21 03:00 C-Reactive Protein 1.81 mg/dL (0.0-0.3) H 04/29/21 08:30 Electrolytes, C-Reactive P, ESR: Reviewed (Calcium ~15, rec'd [place] Calcitonin 240mg IM x1, and receiving Q12h; Zolendronic Acid, K+ oral and IV runs, IVF's, Na++ low 129, C-reactive elevated, Procalcitonin 0.9, LFT's elevated, Mag IV given) - DM Control DM Control: Glucose 117 mg/dL (74-106) H 04/29/21 12:35 Insulin Dosing: N/A - Heart Failure/NE Heart Failure/NE: Troponin I < 0.05 ng/mL (<0.06) 04/29/21 04:49 EF%, DEANA's, B-Blockers, Diuretics: Reviewed (Lasix IVP x1) - BP Control BP Control: Blood Pressure [Right Arm] 105/68 Blood Pressure 105/68 Blood Pressure 131/85 Blood Pressure 140/113 Blood Pressure 129/91 Blood Pressure 131/91 Blood Pressure 131/93 Blood Pressure 120/90 Blood Pressure 143/98 Blood Pressure 126/82 Blood Pressure 131/91 Blood Pressure 148/102 Blood Pressure 134/93 Blood Pressure 138/108 Blood Pressure 142/104 Blood Pressure 142/103 Blood Pressure 135/94 Blood Pressure 141/101 Blood Pressure 149/106 Blood Pressure 134/103 Blood Pressure 145/106 Blood Pressure 146/111 Blood Pressure 146/111 - Qtc Review If Elevated: Reviewed (QTC 425) - IV to PO Switch IV Medications: Reviewed (IV Protonix) - Home Meds Home Med List reviewed: Reviewed Relevent Home Meds Not ordered & why?: Metoclopramide, Potassium & Mag being ordered as needed
[2021-04-29] MEDS: ELECTROLYTE-R SOLUTION 1,000 ML 150 ML IV ×2 (13:55→20:50)
[2021-04-29] MEDS: MAGNESIUM SULFATE 2 GM/50 ML BAG IVPB (13:56)
[2021-04-29] MEDS: Normal Saline Flush 10 ML SYR IVP ×2 (14:03→16:13)
[2021-04-29] MEDS: Potassium Chloride 20 MEQ TABCR 40 MEQ PO ×2 (14:49→20:01)
[2021-04-29 18:26] LABS: Anion Gap 3.8 mmol/L (3-11); BUN 32 mg/dL (7-18); CO2 35.2 mmol/L (21.0-32.0); CREATININE 0.9 mg/dL (0.70-1.30); Chloride 90 mmol/L (98-107); Glucose 94 mg/dL (74-106); Potassium 3.2 mmol/L (3.5-5.1); Sodium 129 mmol/L (136-145)
[2021-04-29 18:41] LABS: Calcium 12.5 mg/dL (8.5-10.1)
[2021-04-30] VITALS (82 sets, daily range): BP systolic 97–124; BP diastolic 59–84; PULSE 73–107; RESP 10–23; TEMP 36.5–37.6; O2SAT 89–100
[2021-04-30 01:27] LABS: Anion Gap 6.1 mmol/L (3-11); BUN 26 mg/dL (7-18); CO2 32.9 mmol/L (21.0-32.0); CREATININE 0.9 mg/dL (0.70-1.30); Calcium 10.9 mg/dL (8.5-10.1); Chloride 94 mmol/L (98-107); Glucose 89 mg/dL (74-106); Potassium 3.3 mmol/L (3.5-5.1); Sodium 133 mmol/L (136-145)
[2021-04-30] MEDS: ELECTROLYTE-R SOLUTION 1,000 ML 150 ML IV (03:09)
[2021-04-30 06:54] LABS: Abs Immature Grans 0.14 10^3/uL (0.0-0.06); Absolute Lymphocyte Count 1.09 10^3/uL (1.2-3.4); Absolute Monocyte Count 1.16 10^3/uL (0.1-0.8); Basophils % 0.8; Eosinophils % 0.8; HCT 31.3 % (40.0-50.0); HGB 10.9 g/dL (13.5-17.5); Lymphocytes % 7.5; MCH 38.8 pg (27.0-33.0); MCHC 34.8 % (32.0-36.0); MCV 111.4 fL (80-95); MPV 11.1 fL (8.0-11.0); Neutrophils % 81.9; Nucleated RBC 0 %; Platelet Count 188 10^3/uL (130-400); RBC 2.81 10^6/uL (4.36-5.78); RDW 12.6 % (11.8-14.1); RDW-SD 51.8 fL; WBC 14.55 10^3/uL (4.4-10.8)
[2021-04-30 06:56] LABS: Absolute Basophil Count 0.12 10^3/uL (0.0-0.2); Absolute Eosinophil Count 0.12 10^3/uL (0.0-0.7)
[2021-04-30 06:57] LABS: Absolute Neutrophil Count 11.92 10^3/uL (1.2-6.7)
[2021-04-30 07:16] LABS: Magnesium 1.8 mg/dL (1.8-2.4)
[2021-04-30 07:17] LABS: ALT 88 U/L (16-63); AST 73 U/L (15-37); BUN 24 mg/dL (7-18); Bilirubin, Total 0.6 mg/dL (0.2-1.0); CREATININE 0.8 mg/dL (0.70-1.30); Calcium 10.3 mg/dL (8.5-10.1); Chloride 96 mmol/L (98-107); Glucose 83 mg/dL (74-106); Potassium 3.5 mmol/L (3.5-5.1); Sodium 134 mmol/L (136-145)
[2021-04-30 07:23] LABS: ALT 86 U/L (16-63); AST 72 U/L (15-37); Alkaline Phosphatase 79 U/L (46-116); Bilirubin, Direct 0.2 mg/dL (0.0-0.2); Bilirubin, Total 0.6 mg/dL (0.2-1.0); Total Protein 5.7 g/dL (6.4-8.2)
[2021-04-30 07:24] LABS: Basophilic Stippling Present; Diff Comment Diff Reviewed; Howell-Jolly Bodies Present
[2021-04-30 07:25] LABS: Macrocytosis 3+; Poikilocytes 1+; Polychromasia Present
--- NOTE | 2021-04-30 08:15 | RT.EKG_ITS ---
APPROVED REPORT Exam: Resting ECG Reason for Exam: qt prolongation Patient Location: I HR:79 bpm ECG Measurements Heart Rate 79 AXIS IA 143 P 3 QRSd 78 QRS 16 QT 405 T 30 QTc 465 Conclusion Sinus rhythm...normal P axis, V-rate 60- 99
--- NOTE | 2021-04-30 08:18 | PGE_ITS ---
Date of Service Date of service: 04/30/21 Time of Service: 11:01 Assessment and Plan Assessment and plan (1) Hypercalcemia: Status: Acute Assessment and plan: Improved. D/c IVF, calcitonin. Transfer out of the ICU. (2) Abdominal pain: Status: Acute Assessment and plan: Concern for recurrent peptic ulcer disease for which the patient was probably taking tums at home to begin with. C/s general surgery for possible endoscopy. PPI. Carafate. Clear liquids until surgical plans clarified. (3) Hyponatremia: Status: Resolved Assessment and plan: Resolved. (4) Acute hypokalemia: Status: Resolved Assessment and plan: recheck in am (5) QT prolongation: Status: Resolved Assessment and plan: QTc 465 ms today. Ok to d/c cardiac moniotring (6) Toxic metabolic encephalopathy: Status: Resolved Assessment and plan: Likely due to hypercalcemia. Resolved today (7) Nausea & vomiting: Status: Resolved Assessment and plan: ? due to alcoholic gastritis or peptic ulcer disease. Add carafate to PPI. C/s general surgery as above. N/v/ resolved. Clear liquids until surgical plans clarified. (8) GUANAKO (acute kidney injury): Status: Resolved Assessment and plan: D/c IVF. (9) Alcohol use: Status: Acute Assessment and plan: Monitor for EtOH w/d. No signs of this so far. Would not put on a multivitamin until I know Vitamin D level. Provide daily thiamine, monitor on CIWA. (10) DVT prophylaxis: Status: Acute Assessment and plan: enoxaparin SC on hold due to possibility of peptic ulcer and/or EGD (11) Discharge planning issues: Status: Acute Assessment and plan: Full code Transfer out of ICU to [facility] floor Subjective Subjective Interval history since last seen: Milan states that he sometimes feels better and sometimes he feels sick. He specifically refers to midabdominal pain that started this morning. He was taking tums for abdominal pain at home and states that he has a h/o ulcers. He was using maalox for this earlier when he was first diagnosed with ulcers a long time ago. He states he had a diagnosis of colitis made at our hospital. His colonoscopy path report and endoscopy report show no colitis (12/27/2019). A&Ox3. No more nausea or light headedness. Urine cloudy. Urinating on his own. Had a BM yesterday. Does not feel constipated. Coughs. Smokers. on RA. Exam Narrative Exam Narrative: General: Pleasant middle-aged male, A&Ox3, calm, cooperative, looks tired HEENT: EOMI, MMM Heart: RRR, no m/r/g Lungs: CTAB Abdomen: soft, tender periumbilically, nondistended, + BS Extremities: no edema BLE's, 2+ pedal pulses B Objective Last Vital Signs Temp 36.5 C 04/30/21 05:27 Pulse 78 04/30/21 07:00 Resp 14 04/30/21 07:10 BP 105/69 04/30/21 07:00 Pulse Ox 95 04/30/21 07:10 Laboratory Results - last 24 hr 04/29/21 04/29/21 04/29/21 03:10 08:30 08:30 WBC RBC Hgb Hct MCV MCH MCHC RDW Plt Count MPV Immature Gran % Neutrophils % Lymphocytes % Monocytes % Eosinophils % Basophils % Nucleated RBC % Absolute Neutrophils Absolute Lymphocytes Absolute Monocytes Absolute Eosinophils Absolute Basophils RBC Morphology Polychromasia Poikilocytosis Basophilic Stippling Macrocytosis [place] Bodies Sodium 129 L Potassium 3.2 L Chloride 88 L Carbon Dioxide 31.2 Anion Gap 9.8 BUN 35 H Creatinine 1.3 Estimated GFR/1.73 m2 >= 60.00 Glucose 97 Calcium 15.6 H* Magnesium Total Bilirubin Conjugated Bilirubin AST ALT Alkaline Phosphatase C-Reactive Protein 1.81 H Total Protein Albumin Procalcitonin Cortisol 27 Ur Random Sodium Ur Random Potassium 04/29/21 04/29/21 04/29/21 08:30 09:20 12:35 WBC RBC Hgb Hct MCV MCH MCHC RDW Plt Count MPV Immature Gran % Neutrophils % Lymphocytes % Monocytes % Eosinophils % Basophils % Nucleated RBC % Absolute Neutrophils Absolute Lymphocytes Absolute Monocytes Absolute Eosinophils Absolute Basophils RBC Morphology Polychromasia Poikilocytosis Basophilic Stippling Macrocytosis [place] Bodies Sodium 129 L Potassium 2.8 L* Chloride 86 L Carbon Dioxide 31.8 Anion Gap 11.2 H BUN 33 H Creatinine 1.2 Estimated GFR/1.73 m2 >= 60.00 Glucose 117 H Calcium 15.0 H* Magnesium Total Bilirubin Conjugated Bilirubin AST ALT Alkaline Phosphatase C-Reactive Protein Total Protein Albumin Procalcitonin 0.9 Cortisol Ur Random Sodium 7 Ur Random Potassium 81 04/29/21 04/30/21 04/30/21 18:09 01:00 06:20 WBC RBC Hgb Hct MCV MCH MCHC RDW Plt Count MPV Immature Gran % Neutrophils % Lymphocytes % Monocytes % Eosinophils % Basophils % Nucleated RBC % Absolute Neutrophils Absolute Lymphocytes Absolute Monocytes Absolute Eosinophils Absolute Basophils RBC Morphology Polychromasia Poikilocytosis Basophilic Stippling Macrocytosis [place] Bodies Sodium 129 L 133 L 134 L Potassium 3.2 L 3.3 L 3.5 Chloride 90 L 94 L 96 L Carbon Dioxide 35.2 H 32.9 H 32.0 Anion Gap 3.8 6.1 6.0 BUN 32 H 26 H 24 H Creatinine 0.9 0.9 0.8 Estimated GFR/1.73 m2 >= 60.00 >= 60.00 >= 60.00 Glucose 94 89 83 Calcium 12.5 H* 10.9 H 10.3 H Magnesium Total Bilirubin 0.6 Conjugated Bilirubin AST 73 H ALT 88 H Alkaline Phosphatase C-Reactive Protein Total Protein Albumin Procalcitonin Cortisol Ur Random Sodium Ur Random Potassium 04/30/21 04/30/21 04/30/21 06:20 06:20 06:20 WBC 14.55 H RBC 2.81 L Hgb 10.9 L D Hct 31.3 L D MCV 111.4 H MCH 38.8 H MCHC 34.8 RDW 12.6 Plt Count 188 MPV 11.1 H Immature Gran % 1.0 Neutrophils % 81.9 Lymphocytes % 7.5 Monocytes % 8.0 Eosinophils % 0.8 Basophils % 0.8 Nucleated RBC % 0 Absolute Neutrophils 11.92 H Absolute Lymphocytes 1.09 L Absolute Monocytes 1.16 H Absolute Eosinophils 0.12 Absolute Basophils 0.12 RBC Morphology See Below Polychromasia Present Poikilocytosis 1+ Basophilic Stippling Present Macrocytosis 3+ [place] Bodies Present Sodium Potassium Chloride Carbon Dioxide Anion Gap BUN Creatinine Estimated GFR/1.73 m2 Glucose Calcium Magnesium 1.8 Total Bilirubin 0.6 Conjugated Bilirubin 0.2 AST 72 H ALT 86 H Alkaline Phosphatase 79 C-Reactive Protein Total Protein 5.7 L Albumin 3.0 L Procalcitonin Cortisol Ur Random Sodium Ur Random Potassium
[2021-04-30] MEDS: MAGNESIUM SULFATE 1 GM/100 ML BAG IVPB (08:51)
[2021-04-30] MEDS: Enoxaparin 40 MG/0.4 ML SYR SC (08:54)
[2021-04-30] MEDS: Thiamine 100 MG TAB PO (08:54)
[2021-04-30] MEDS: Magnesium Oxide 400 MG TAB PO (08:54)
[2021-04-30] MEDS: Normal Saline Flush 10 ML SYR IVP (08:55)
[2021-04-30 09:10] LABS: Calcium (Random Urine) 47.3 mg/dL (See Note)
--- NOTE | 2021-04-30 09:35 | PDOC.CMPRO ---
- If Service Date Differs Date of service: 04/30/21 Time of Service: 09:35 Care Management Progress Note S/O: Milan was laying in bed when CM met with him. He was pleasant, cooperative and A&O X3. He reports that he is feeling better today. He was able to update his significant other by phone and supports CM in reaching out to her because she has questions. CM called [facility] ([phone]), however she was at work and wants to call CM back at a later time. CM continues to support. A: 40 year old male admitted to [facility] ICU on 04/29/21 for hypercalcemia , hyponatremia and abdominal pain. P: Discharge home with no new services when medically cleared via private vehicle with significant other. Follow up with community providers. CM continues to support.
[2021-04-30 09:39] LABS: PHOSPHORUS < 2.0 mg/dL (2.6-4.7)
--- NOTE | 2021-04-30 11:21 | PUCC_ITS ---
General Date of Service Date of service: 04/30/21 Time of Service: 07:45 Reason for Admission to ICU: Hypercalcemia Assessment and Plan Assessment and plan (1) Acute hypokalemia: Status: Resolved (2) Hypercalcemia: Status: Acute (3) Altered mental status: Status: Acute Qualifiers: Altered mental status type: disorientation Qualified Code(s): R41.0 - Disorientation, unspecified (4) GUANAKO (acute kidney injury): Status: Resolved (5) Alcohol use: Status: Acute (6) Macrocytosis: Status: Acute (7) Respiratory failure with hypoxia: Status: Acute Qualifiers: Chronicity: acute Qualified Code(s): J96.01 - Acute respiratory failure with hypoxia (8) QT prolongation: Status: Resolved (9) Hyponatremia: Status: Acute Assessment and plan: This is a 40-year-old gentleman with medical history of alcohol use who presents to the ED with confusion found to have significant hypercalcemia as well as hyponatremia. He does not have a true prodrome of infectious illness, although he is currently a poor historian. I am unsure currently of the etiology of his hypercalcemia however it seems very unlikely for milk-alkali syndrome given he does not have chronic kidney disease and was not taking enough Tums per report for the development of this degree of hypercalcemia. On review of his calcium levels in the past they have been quite tenuous with high levels and low levels being present. He was treated with aggressive IV fluid resuscitation and was given a dose of Lasix due to his kidney dysfunction which did not dramatically change his calcium level so therefore was started on twice daily calcitonin and was given an infusion of zoledronic acid. His calcium level responded appropriately to these interventions and is currently at 10.3. He is significantly improved and no longer requires ICU care. Recommendations Pulmonary: Acute hypoxic respiratory failure - d/c IVF - Incentive spirometry - wean supplemental O2 as tolerated, sat goal >90% Emphysema - outpatient follow up with PCP GGO on CT These are quite small and nonspecific. Patient has no infectious symptoms so would not treat - outpatient follow up with PCP - recommend repeat CT in 3 months time Cardiac: QTc prolongation, transient His QTc was normal on admission and on an EKG obtained yesterday did increase by quite a large amount. Given this we repeated the EKG this morning that again shows a normal QTc. Renal: Acute Kidney Injury, resolved - no more IVF required Hypercalcemia - s/p calcitonin q12 and zoledronic acid infusion with appropriate response - f/u PTH, ionized calcium, 25-OH vitamin D, 1,25-OH vitamin D and PTH-related peptide - TSH is normal - can check lytes daily moving forward - urine calcium is high - no hypocalcuria Hypokalemia - recommend repletment to 4.0 Acute Hyponatremia Sodium level on 04/18/2021 was 133 so the sodium level of 114 on admission was clearly acute in nature and therefore rapid improvement to now 129 is not contraindicated. - continue to monitor Hypophosphatemia -recommend repletement to 4 I&O: Intake & Output 04/27/21 04/28/21 04/29/21 04/30/21 23:59 23:59 23:59 23:59 Intake Total 1368.167 / 9992.639 3092.0 / 2150.0 Output Total 1780 / 1780 Balance -411.833 / -481.373 8438.0 / 2150.0 Weight 60.6 kg 61.8 kg Daily Fluid Goal:: Even GI Nutrition: Ok for regular diet Date of Last Bowel Movement: 04/29/21 Infectious Disease: No acute concerns. He does have a slightly elevated procalcitonin to 0.9, however in the setting of his GUANAKO as well as hypercalcemia this is somewhat to be expected as this is normally secreted by see cells of the thyroid in response to hypercalcemia. - CT ok, no rashes, UA non infectious Hematologic: Macrocytosis - could be due to EtOH use - recommend multivitamin Neurologic: Confusion, improving Due to hypercalcemia Endocrine: No acute concerns Lines: PIV Prophylaxis: Recommend heparin and SCD's for DVT ppx No current indication for GI ppx I spent a total of 30 minutes with this patient including bedside assessment, rounding with nursing, coordination of care with the hospitalist service, chart review and documentation. Code Status: Resuscitation Status Full Code Subjective Critical and life-threatening events over the past 24 hours: Patient states he is feeling much better. He does feel as though his brain is a little slow but thinks the confusion has improved. He does not have any other symptoms at the moment. Exam Const General: no acute distress Nutritional Appearance: well nourished [facility] Head: normocephalic Ears: external ears normal and no periauricular adenopathy General nose exam: nasal mucous membranes and turbinates normal Face and sinus: sinuses nontender Mouth: oropharynx normal and moist mucous membranes Teeth and gingiva: dentition normal Eyes General: appearance normal, both eyes and all related structures Pupils: PERRL Neck Neck: normal visual inspection and no lymphadenopathy Chest Chest: normal inspection of the chest Resp Effort & Inspection: normal respiratory effort Auscultation: clear to auscultation bilaterally, no rales, no rhonchi and no wheezes Cardio Rate: regular rate Rhythm: regular rhythm Heart Sounds: S1 normal, S2 normal and no murmurs Pulses: radial pulses present bilaterally GI Inspection: normal to inspection Palpation: soft Skin General skin exam: no rashes or lesions noted Neuro General: patient alert, patient awake and patient confused Extrem General: no clubbing, cyanosis or edema Psych Mental Status: mental status grossly normal Affect: normal affect Attitude: cooperative Most Recent VS/Results Last Vital Signs Temp 36.5 C 04/30/21 05:27 Pulse 87 04/30/21 11:00 Resp 14 04/30/21 11:01 BP 124/77 04/30/21 11:00 Pulse Ox 95 04/30/21 11:01 Laboratory Results - last 24 hr 04/29/21 04/29/21 04/29/21 03:10 09:20 12:35 WBC RBC Hgb Hct MCV MCH MCHC RDW Plt Count MPV Immature Gran % Neutrophils % Lymphocytes % Monocytes % Eosinophils % Basophils % Nucleated RBC % Absolute Neutrophils Absolute Lymphocytes Absolute Monocytes Absolute Eosinophils Absolute Basophils RBC Morphology Polychromasia Poikilocytosis Basophilic Stippling Macrocytosis [place] Bodies Sodium 129 L Potassium 2.8 L* Chloride 86 L Carbon Dioxide 31.8 Anion Gap 11.2 H BUN 33 H Creatinine 1.2 Estimated GFR/1.73 m2 >= 60.00 Glucose 117 H Calcium 15.0 H* Phosphorus Magnesium Total Bilirubin Conjugated Bilirubin AST ALT Alkaline Phosphatase Total Protein Albumin Cortisol 27 Ur Random Calcium 47.3 04/29/21 04/30/21 04/30/21 18:09 01:00 06:20 WBC RBC Hgb Hct MCV MCH MCHC RDW Plt Count MPV Immature Gran % Neutrophils % Lymphocytes % Monocytes % Eosinophils % Basophils % Nucleated RBC % Absolute Neutrophils Absolute Lymphocytes Absolute Monocytes Absolute Eosinophils Absolute Basophils RBC Morphology Polychromasia Poikilocytosis Basophilic Stippling Macrocytosis [place] Bodies Sodium 129 L 133 L 134 L Potassium 3.2 L 3.3 L 3.5 Chloride 90 L 94 L 96 L Carbon Dioxide 35.2 H 32.9 H 32.0 Anion Gap 3.8 6.1 6.0 BUN 32 H 26 H 24 H Creatinine 0.9 0.9 0.8 Estimated GFR/1.73 m2 >= 60.00 >= 60.00 >= 60.00 Glucose 94 89 83 Calcium 12.5 H* 10.9 H 10.3 H Phosphorus Magnesium Total Bilirubin 0.6 Conjugated Bilirubin AST 73 H ALT 88 H Alkaline Phosphatase Total Protein Albumin Cortisol Ur Random Calcium 04/30/21 04/30/21 04/30/21 06:20 06:20 06:20 WBC 14.55 H RBC 2.81 L Hgb 10.9 L D Hct 31.3 L D MCV 111.4 H MCH 38.8 H MCHC 34.8 RDW 12.6 Plt Count 188 MPV 11.1 H Immature Gran % 1.0 Neutrophils % 81.9 Lymphocytes % 7.5 Monocytes % 8.0 Eosinophils % 0.8 Basophils % 0.8 Nucleated RBC % 0 Absolute Neutrophils 11.92 H Absolute Lymphocytes 1.09 L Absolute Monocytes 1.16 H Absolute Eosinophils 0.12 Absolute Basophils 0.12 RBC Morphology See Below Polychromasia Present Poikilocytosis 1+ Basophilic Stippling Present Macrocytosis 3+ [place] Bodies Present Sodium Potassium Chloride Carbon Dioxide Anion Gap BUN Creatinine Estimated GFR/1.73 m2 Glucose Calcium Phosphorus < 2.0 L Magnesium 1.8 Total Bilirubin 0.6 Conjugated Bilirubin 0.2 AST 72 H ALT 86 H Alkaline Phosphatase 79 Total Protein 5.7 L Albumin 3.0 L Cortisol Ur Random Calcium Review of Systems All systems reviewed & are unremarkable except as noted in HPI and below
[2021-04-30] MEDS: Pantoprazole 40 MG VIAL IVP (11:22)
--- NOTE | 2021-04-30 13:12 | W.SURGCON ---
Assessment and Plan Assessment and plan (1) Abdominal pain: Status: Acute Assessment and plan: Symptoms have been well controlled during this admission. Discussed continuing with PPI and Carafate upon d/c to help alleviate his symptoms. Reviewed and discussed diet modifications such as reducing (ideally eliminating) spicy foods, caffeine, chocolate, ETOH and fatty foods from his diet. He does not describe or present with any alarming symptoms, that require an in-patient endoscopy evaluation. He should follow up with General Surgery 1-2 weeks after d/c for follow up and to discuss proceeding with a endoscopy as an out-patient. He is also due for a screening Colonoscopy, secondary to Colonoscopy from 2019 that was remarkable for tubullovilious adenomatous polyp with dysplasia. Diet- Recommend advancing as tolerated. Continue PPI and Carafate. Pain is currently well controlled. (2) Alcohol use: Status: Acute (3) Nausea & vomiting: Status: Resolved History of Present Illness History of Present Illness Chief Complaint: Abdominal Pain, hypercalcemia Narrative: 40 y/o male with a history of ETOH us, colitis, s/p splenectomy and hypercalcemia presented to the ER with complaints of abdominal pain, nausea, vomiting and reported 6+ month history of heartburn. Patient reports that whenever he eat he gets heartburn, which he describes as pain and burning sensation located in his epigastric region. Reports distant history of ulcers when he was in the 6th grade.He states that he has only taken TUMs for his symptoms. He does not avoid spicy foods. He reports drinking 4+ beers/day. Currently, he denies having any nausea, vomiting, heart burn, abdominal pain or chest pain. [facility] Medical History Alcohol intoxication (07/14/14) Depression (07/14/14) No significant past medical history Tobacco use Surgical History History of hammer toe correction History of splenectomy Social History Smoking/Tobacco Use Status: Current every day Tobacco Type: cigarettes Smoking risk assessment performed?: Yes Alcohol Intake: current Alcohol Intake frequency: 3 or more drinks per day Alcohol type: hard liquor Drug use: Occasionally Substance use type: marijuana Details: NO ETOH x 3-4 weeks---01/06/21--er. Admits to 3 beers on 04/29/2021 Do you feel safe at home: Yes Do you feel safe in your relationship?: Yes Exam Const General: cooperative, healthy appearing and comfortable Orientation: alert and oriented x3 Resp Effort & Inspection: normal respiratory effort, no audible wheezes and no cough GI Inspection: normal to inspection and scar (s/p splenectomy) Palpation: soft Auscultation: normal bowel sounds Results Last Vital Signs Temp 36.6 C 04/30/21 08:00 Pulse 87 04/30/21 11:00 Resp 14 04/30/21 11:01 BP 124/77 04/30/21 11:00 Pulse Ox 95 04/30/21 11:01 Labs Result diagrams: 04/30/21 06:20 04/30/21 06:20 Labs: Laboratory Results - last 24 hr 04/29/21 04/29/21 04/29/21 03:10 09:20 12:35 WBC RBC Hgb Hct MCV MCH MCHC RDW Plt Count MPV Immature Gran % Neutrophils % Lymphocytes % Monocytes % Eosinophils % Basophils % Nucleated RBC % Absolute Neutrophils Absolute Lymphocytes Absolute Monocytes Absolute Eosinophils Absolute Basophils RBC Morphology Polychromasia Poikilocytosis Basophilic Stippling Macrocytosis [place] Bodies Sodium 129 L Potassium 2.8 L* Chloride 86 L Carbon Dioxide 31.8 Anion Gap 11.2 H BUN 33 H Creatinine 1.2 Estimated GFR/1.73 m2 >= 60.00 Glucose 117 H Calcium 15.0 H* Phosphorus Magnesium Total Bilirubin Conjugated Bilirubin AST ALT Alkaline Phosphatase Total Protein Albumin Cortisol 27 Ur Random Calcium 47.3 04/29/21 04/30/21 04/30/21 18:09 01:00 06:20 WBC RBC Hgb Hct MCV MCH MCHC RDW Plt Count MPV Immature Gran % Neutrophils % Lymphocytes % Monocytes % Eosinophils % Basophils % Nucleated RBC % Absolute Neutrophils Absolute Lymphocytes Absolute Monocytes Absolute Eosinophils Absolute Basophils RBC Morphology Polychromasia Poikilocytosis Basophilic Stippling Macrocytosis [place] Bodies Sodium 129 L 133 L 134 L Potassium 3.2 L 3.3 L 3.5 Chloride 90 L 94 L 96 L Carbon Dioxide 35.2 H 32.9 H 32.0 Anion Gap 3.8 6.1 6.0 BUN 32 H 26 H 24 H Creatinine 0.9 0.9 0.8 Estimated GFR/1.73 m2 >= 60.00 >= 60.00 >= 60.00 Glucose 94 89 83 Calcium 12.5 H* 10.9 H 10.3 H Phosphorus Magnesium Total Bilirubin 0.6 Conjugated Bilirubin AST 73 H ALT 88 H Alkaline Phosphatase Total Protein Albumin Cortisol Ur Random Calcium 04/30/21 04/30/21 04/30/21 06:20 06:20 06:20 WBC 14.55 H RBC 2.81 L Hgb 10.9 L D Hct 31.3 L D MCV 111.4 H MCH 38.8 H MCHC 34.8 RDW 12.6 Plt Count 188 MPV 11.1 H Immature Gran % 1.0 Neutrophils % 81.9 Lymphocytes % 7.5 Monocytes % 8.0 Eosinophils % 0.8 Basophils % 0.8 Nucleated RBC % 0 Absolute Neutrophils 11.92 H Absolute Lymphocytes 1.09 L Absolute Monocytes 1.16 H Absolute Eosinophils 0.12 Absolute Basophils 0.12 RBC Morphology See Below Polychromasia Present Poikilocytosis 1+ Basophilic Stippling Present Macrocytosis 3+ [place] Bodies Present Sodium Potassium Chloride Carbon Dioxide Anion Gap BUN Creatinine Estimated GFR/1.73 m2 Glucose Calcium Phosphorus < 2.0 L Magnesium 1.8 Total Bilirubin 0.6 Conjugated Bilirubin 0.2 AST 72 H ALT 86 H Alkaline Phosphatase 79 Total Protein 5.7 L Albumin 3.0 L Cortisol Ur Random Calcium
[2021-04-30 13:22] LABS: Parathyroid Hormone,Intact <6 pg/mL (19-88)
[2021-04-30] MEDS: Sucralfate 1 GM TAB PO ×2 (16:29→20:37)
[2021-04-30] MEDS: Acetaminophen 325 MG TAB 650 MG PO (17:29)
[2021-04-30] MEDS: Omeprazole 20 MG CAPCR 40 MG PO (20:37)
[2021-04-30] MEDS: Potassium Chloride 20 MEQ TABCR 40 MEQ PO (20:37)
[2021-05-01 01:14] LABS: Vitamin D 25 Total 10.5 ng/mL (30-100)
[2021-05-01 06:51] LABS: HCT 33.4 % (40.0-50.0); HGB 11.6 g/dL (13.5-17.5); MCH 38.8 pg (27.0-33.0); MCHC 34.7 % (32.0-36.0); MCV 111.7 fL (80-95); MPV 10.2 fL (8.0-11.0); Platelet Count 243 10^3/uL (130-400); RBC 2.99 10^6/uL (4.36-5.78); RDW 12.6 % (11.8-14.1); RDW-SD 51.8 fL
[2021-05-01 07:17] LABS: WBC 14.09 10^3/uL (4.4-10.8)
[2021-05-01 07:26] LABS: Magnesium 1.3 mg/dL (1.8-2.4)
[2021-05-01 07:27] LABS: Anion Gap 10.3 mmol/L (3-11); BUN 13 mg/dL (7-18); CO2 22.7 mmol/L (21.0-32.0); CREATININE 0.7 mg/dL (0.70-1.30); Calcium 8.7 mg/dL (8.5-10.1); Chloride 96 mmol/L (98-107); Glucose 85 mg/dL (74-106); Potassium 4.2 mmol/L (3.5-5.1); Sodium 129 mmol/L (136-145)
[2021-05-01 07:30] LABS: PHOSPHORUS < 2.0 mg/dL (2.6-4.7)
[2021-05-01] MEDS: Potassium Chloride 20 MEQ TABCR 40 MEQ PO ×2 (07:55→19:45)
[2021-05-01] MEDS: Omeprazole 20 MG CAPCR 40 MG PO ×2 (07:55→19:45)
[2021-05-01] MEDS: Thiamine 100 MG TAB PO (07:56)
[2021-05-01] MEDS: Magnesium Oxide 400 MG TAB PO (07:57)
[2021-05-01] MEDS: Sucralfate 1 GM TAB PO ×4 (07:57→21:31)
[2021-05-01] MEDS: Acetaminophen 325 MG TAB 650 MG PO (07:57)
[2021-05-01 08:05] VITALS: BP 116/82; PULSE 78; RESP 14; TEMP 36.7; O2SAT 99
[2021-05-01] MEDS: MAGNESIUM SULFATE 4 GM/100 ML BAG IVPB (09:54)
[2021-05-01] MEDS: Normal Saline Flush 10 ML SYR IVP (09:55)
[2021-05-01 11:15] LABS: HBs Antibody, Qual Negative (See Note); HBs Antibody, Quant <3.1 mIU/mL (See Note); Hepatitis B Core Antibody Negative (Negative); Hepatitis B surface Ag Negative (Negative); Hepatitis C Ab w Rflx HCV PCR Negative (Negative)
--- NOTE | 2021-05-01 12:55 | PDOC.CMPRO ---
- If Service Date Differs Date of service: 05/01/21 Time of Service: 12:55 Care Management Progress Note S/O: Milan was laying in bed when CM met with him. He was pleasant, cooperative and A&O X3. He reports that he is feeling better again today but is still weak. He reports that he is starving and hopes that his diet can be advanced soon. BUSTER discussed with RN, who advised that MD evaluation is pending. Milan has been able to ambulate independently in his room and has been just taking it easy. Milan shares that he's been nicotine free since his admission. 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 CM made referral and continues to support. A: 40 year old male admitted to [facility] ICU on 04/29/21 for hypercalcemia , hyponatremia and abdominal pain. P: Milan will likely be discharge home with no new services (when medically cleared) via private vehicle with significant other. Milan will need an outpatient colonoscopy scheduled and follow up with community providers. BUSTER continues to support.
--- NOTE | 2021-05-01 14:24 | CHAPLAIN ---
Milan was resting in bed when I visited. He was moved from the ICU to Med/Surg and said he was feeling better and glad to be moved to Med/Surg. I explained my role and offered support. Milan said he's been in touch with his girlfriend by phone.
[2021-05-01 15:35] VITALS: BP 109/76; PULSE 83; RESP 16; TEMP 36.6; O2SAT 100
--- NOTE | 2021-05-01 15:44 | W.PM.PROGNOT ---
Date of Service Date of service: 05/01/21 Time of Service: 15:44 Assessment and Plan Assessment and plan (1) Hypercalcemia: Status: Resolved Assessment and plan: Improved w/ IVF/lasix, bisphosphonates, calcitonin - now all d/c'ed. Low PTH and Vit D. Check PTHrP. 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 The patient was advised not to resume tums on discharge. (2) Abdominal pain: Status: Resolved Assessment and plan: Advance diet. Continue PPI and carafate. Will need repeat EGD/Colonoscopy as outpatient, per general surgery. (3) Hyponatremia: Status: Acute Assessment and plan: Monitor with resumption of regular diet. (4) Acute hypokalemia: Status: Resolved Assessment and plan: recheck in am (5) QT prolongation: Status: Resolved Assessment and plan: QTc 465 ms today. Ok to d/c cardiac moniotring (6) Toxic metabolic encephalopathy: Status: Resolved Assessment and plan: Likely due to hypercalcemia. Resolved (7) Nausea & vomiting: Status: Resolved Assessment and plan: ? due to alcoholic gastritis or peptic ulcer disease. Continue carafate to PPI. Advance diet. Needs outpatient EGD/colonoscopy. (8) GUANAKO (acute kidney injury): Status: Resolved (9) Alcohol use: Status: Chronic Assessment and plan: Monitor for EtOH w/d. No signs of this so far. Start MVI Provide daily thiamine, monitor on CIWA. (10) DVT prophylaxis: Status: Acute Assessment and plan: Teds/ SCDs (11) Discharge planning issues: Status: Acute Assessment and plan: Full code Anticipate d/c home tomorrow Subjective Subjective Interval history since last seen: Feels better today. ALmost no abdominal pain. No nausea. Denies dizziness, chest pain, shortness of breath. States he was going through 2 bottles of tums/week, thinks there is more than 100 tabs of tums in each bottle. Exam Narrative Exam Narrative: General: Pleasant middle-aged male, A&Ox3, calm, cooperative, looks more animated than yesterday HEENT: EOMI, MMM Heart: RRR, no m/r/g Lungs: CTAB Abdomen: soft, tender periumbilically, nondistended, + BS Extremities: no edema BLE's, 2+ pedal pulses B Objective Last Vital Signs Temp 36.7 C 09/02/21 08:05 Pulse 78 05/01/21 08:05 Resp 14 05/01/21 08:05 BP 116/82 05/01/21 08:05 Pulse Ox 99 05/01/21 08:05 Laboratory Results - last 24 hr 04/29/21 04/29/21 04/30/21 08:30 08:30 06:20 WBC RBC Hgb Hct MCV MCH MCHC RDW Plt Count MPV Sodium Potassium Chloride Carbon Dioxide Anion Gap BUN Creatinine Estimated GFR/1.73 m2 Glucose Calcium Phosphorus Magnesium 25-OH Vitamin D Total 10.5 L PTH Intact <6 L Hep Bs Antigen Negative Hep Bs Antibody Negative Hep Bs Antibody, Quant <3.1 Hep B Core Total Ab Negative Hepatitis C Antibody Negative 05/01/21 05/01/21 05/01/21 06:35 06:35 06:35 WBC 14.09 H RBC 2.99 L Hgb 11.6 L Hct 33.4 L MCV 111.7 H MCH 38.8 H MCHC 34.7 RDW 12.6 Plt Count 243 MPV 10.2 Sodium 129 L Potassium 4.2 Chloride 96 L Carbon Dioxide 22.7 Anion Gap 10.3 BUN 13 D Creatinine 0.7 Estimated GFR/1.73 m2 >= 60.00 Glucose 85 Calcium 8.7 Phosphorus Magnesium 1.3 L 25-OH Vitamin D Total PTH Intact Hep Bs Antigen Hep Bs Antibody Hep Bs Antibody, Quant Hep B Core Total Ab Hepatitis C Antibody 05/01/21 06:35 WBC RBC Hgb Hct MCV MCH MCHC RDW Plt Count MPV Sodium Potassium Chloride Carbon Dioxide Anion Gap BUN Creatinine Estimated GFR/1.73 m2 Glucose Calcium Phosphorus < 2.0 L Magnesium 25-OH Vitamin D Total PTH Intact Hep Bs Antigen Hep Bs Antibody Hep Bs Antibody, Quant Hep B Core Total Ab Hepatitis C Antibody
[2021-05-01] MEDS: Nicotine 14 MG/24 HR PATCH TD (17:56)
[2021-05-01] MEDS: Magnesium Chloride 64 MG TABCR PO (19:45)
--- NOTE | 2021-05-01 21:29 | W.PM.PROGNOT ---
Date of Service Date of service: 05/01/21 Time of Service: 17:00 Assessment and Plan Assessment and plan (1) Toxic metabolic encephalopathy: Status: Resolved Assessment and plan: -cont PPI & carafate -f/u as outpt for repeat blood work and egd & CE once electrolyte abnormalities have cleared -cont medical managment (2) Hyponatremia: Status: Acute (3) Alcohol use: Status: Chronic (4) Acute hypokalemia: Status: Resolved (5) Hypercalcemia: Status: Resolved (6) Diarrhea: Status: Acute (7) QT prolongation: Status: Resolved (8) Fatty liver: Status: Acute (9) GUANAKO (acute kidney injury): Status: Resolved (10) History of splenectomy: Status: Acute (11) Colitis: Status: Suspected Objective Last Vital Signs Temp 36.6 C 05/01/21 15:35 Pulse 83 05/01/21 15:35 Resp 16 05/01/21 15:35 BP 109/76 05/01/21 15:35 Pulse Ox 100 05/01/21 15:35 Laboratory Results - last 24 hr 04/29/21 04/30/21 05/01/21 08:30 06:20 06:35 WBC RBC Hgb Hct MCV MCH MCHC RDW Plt Count MPV Sodium 129 L Potassium 4.2 Chloride 96 L Carbon Dioxide 22.7 Anion Gap 10.3 BUN 13 D Creatinine 0.7 Estimated GFR/1.73 m2 >= 60.00 Glucose 85 Calcium 8.7 Phosphorus Magnesium 25-OH Vitamin D Total 10.5 L Hep Bs Antigen Negative Hep Bs Antibody Negative Hep Bs Antibody, Quant <3.1 Hep B Core Total Ab Negative Hepatitis C Antibody Negative 05/01/21 05/01/21 05/01/21 06:35 06:35 06:35 WBC 14.09 H RBC 2.99 L Hgb 11.6 L Hct 33.4 L MCV 111.7 H MCH 38.8 H MCHC 34.7 RDW 12.6 Plt Count 243 MPV 10.2 Sodium Potassium Chloride Carbon Dioxide Anion Gap BUN Creatinine Estimated GFR/1.73 m2 Glucose Calcium Phosphorus < 2.0 L Magnesium 1.3 L 25-OH Vitamin D Total Hep Bs Antigen Hep Bs Antibody Hep Bs Antibody, Quant Hep B Core Total Ab Hepatitis C Antibody
[2021-05-02 00:36] VITALS: BP 114/82; PULSE 90; RESP 18; TEMP 37.1; O2SAT 99
[2021-05-02 07:21] LABS: BUN 11 mg/dL (7-18); CREATININE 0.6 mg/dL (0.70-1.30); Calcium 7.5 mg/dL (8.5-10.1); Chloride 98 mmol/L (98-107); Glucose 94 mg/dL (74-106); PHOSPHORUS < 2.0 mg/dL (2.6-4.7); Potassium 3.8 mmol/L (3.5-5.1); Sodium 131 mmol/L (136-145)
[2021-05-02 07:24] LABS: Magnesium 1.6 mg/dL (1.8-2.4)
[2021-05-02] MEDS: Multivitamin TAB 1 TAB PO (07:44)
[2021-05-02] MEDS: Omeprazole 20 MG CAPCR 40 MG PO (07:44)
[2021-05-02] MEDS: Magnesium Chloride 64 MG TABCR PO (07:44)
[2021-05-02 07:45] VITALS: BP 113/87; PULSE 80; RESP 18; TEMP 36.4; O2SAT 100
[2021-05-02] MEDS: Thiamine 100 MG TAB PO (07:45)
[2021-05-02] MEDS: Potassium Chloride 20 MEQ TABCR 40 MEQ PO (07:45)
[2021-05-02] MEDS: Sucralfate 1 GM TAB PO ×2 (07:45→11:36)
[2021-05-02] MEDS: Cholecalciferol (Vitamin D3) 400 UNIT TAB 800 UNIT PO (11:40)
[2021-05-02] MEDS: MAGNESIUM SULFATE 2 GM/50 ML BAG IVPB (11:41)
[2021-05-02] MEDS: Normal Saline Flush 10 ML SYR IVP (11:42)
--- NOTE | 2021-05-02 13:30 | PT.INIE ---
Date of service: 05/02/21 Time of Service: 13:30 PT Notes Visit Reasons: Hypercalcemia Physical Therapy Inpatient Initial Evaluation Date: 05/02/2021 Referring Doctor: Karen Rosado MD PT Orders: PT CONSULT: Limited ability Precautions: Fall. Standard. Activity as tolerated. Patient Profile/Admitting Diagnosis: Varun is a 40-year-old male who presented to the ED with initial diagnosis of hypercalcemia, abdominal pain, acute hypokalemia, QT prolongation, toxic metabolic encephalopathy, nausea and vomiting and alcohol use. Remaining unresolved diagnoses include acute kidney injury and hyponatremia PMHX: Medical History Alcohol intoxication (07/14/14) Depression (07/14/14) No significant past medical history Tobacco use Surgical History History of hammer toe correction History of splenectomy Social History/Home Situation: Lives with a girlfriend and his cat in a private home with 4 steps to enter with both rails. Independent with all aspects of ADLs without assistive device. Equipment Owned/DME: None Subjective: Agreeable to PT consult. States that he feels a lot better and is more confident about getting mobilized. Hopeful to be going home today. Objective: General Observation: Supine in bed. Mental Status: Alert and oriented as to person, place, time, and purpose. Able to pay attention, focus, and respond appropriately. Pain: 0/10 ROM: Right Upper Extremity: Shoulder Flexion WFL. Shoulder abduction WFL. Elbow flexion WFL. Wrist flexion WFL. Functional opening and closing of hand WFL. Left Upper Extremity: Shoulder Flexion WFL. Shoulder abduction WFL. Elbow flexion WFL. Wrist flexion WFL. Functional opening and closing of hand WFL. Right Lower Extremity: Hip flexion WFL. Hip abduction WFL. Knee flexion WFL. Ankle dorsiflexion WFL. Ankle plantarflexion WFL. Left Lower Extremity: Hip flexion WFL. Hip abduction WFL. Knee flexion WFL. Ankle dorsiflexion WFL. Ankle plantarflexion WFL. Strength: Right Upper Extremity: Shoulder flexors 5/5. Shoulder abductors 5/5. Elbow flexors 5/5. Elbow extensors 5/5. 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 Left Upper Extremity: Shoulder flexors 5/5. Shoulder abductors 5/5. Elbow flexors 5/5. Elbow extensors 5/5. 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 Right Lower Extremity: Hip flexors 5/5. Hip abductors 5/5. Knee flexors 5/5. Knee extensors 5/5. Ankle dorsiflexors 5/5. Ankle plantarflexors 5/5. Left Lower Extremity: Hip flexors 5/5. Hip abductors 5/5. Knee flexors 5/5. Knee extensors 5/5. Ankle dorsiflexors 5/5. Ankle plantarflexors 5/5. Bed Mobility/Transfers: Rolling independent Supine to sit independent Sit to supine independent Sit to stand independent Stand to sit independent Bed to reclining chair independent Reclining chair to bed independent Gait: Instructed patient with level surface ambulation of 360 feet requiring supervision assist. Gait pattern unremarkable Balance: Static Sitting: Normal Dynamic Sitting: Normal Static Standing: Normal Dynamic Standing: Good Special Tests: Mobility Limitations Standardized Measure [facility] AM-PAC 6 clicks Basic Mobility Inpatient Short Form: Raw Score: 24 CMS Score: 0% deficit Informed Consent/Education: Patient was instructed in purpose of PT consult and plan of care. Agreeable to proceed with established PT POC to achieve personal goals. Assessment: Patient is at a baseline mobility level and requires no assistive device at this time. No skilled services needed at this time. No equipment needs. Patient is assessed as a 39721 low complexity based on the following: History: 40-year-old male with past medical history as indicated above Examination: Demonstrable impairment in strength, balance, and mobility level with underlying impairments and functional limitations as exhibited above as well as deficit score of 0% utilizing the [facility] Mobility Inpatient Short Form Presentation: Stable Decision Makin low complexity Goals: N/A, PT evaluation only. Plan of Care/Treatment Plan: N/A, PT evaluation only. DISCHARGE RECOMMENDATIONS: Home when medically cleared by hospitalist. TREATMENT CODE/TIME: 99027 x 18 minutes beginning at 13:30 PM. Thank you for the opportunity to participate in the care of this patient. Shira Parks PT, DPT, CLT [facility] [place], [place]
--- NOTE | 2021-05-02 14:30 | W.PM.DS.N ---
Date of service: 05/02/21 Time of Service: 14:31 DS: Diagnosis Discharge Diagnosis (1) Hypercalcemia: Status: Resolved (2) Milk alkali syndrome: Status: Resolved (3) Toxic metabolic encephalopathy: Status: Resolved (4) Hyponatremia: Status: Chronic (5) Acute hypokalemia: Status: Resolved (6) Hypoparathyroidism: Status: Acute (7) GUANAKO (acute kidney injury): Status: Resolved (8) QT prolongation: Status: Resolved (9) Diarrhea: Status: Resolved (10) Alcohol use: Status: Chronic (11) Fatty liver: Status: Chronic (12) Leucocytosis: Status: Chronic Asessment and Plan: not felt to be due to an infectious process. Will require outpatient follow up (13) Iatrogenic hypocalcemia: Status: Acute (14) Hypophosphatemia: Status: Acute (15) Tubulovillous adenoma: Status: Chronic Asessment and Plan: H/o tubulovillous adenoma on colonoscopy 12/25/19 (16) Vitamin D deficiency: Status: Acute (17) COVID-19 ruled out by laboratory testing: Status: Ruled-out Discharge Plan Disposition Patient Disposition: HOME Condition: Stable Discharge Details Reason For Visit: Hypercalcemia Admit Date/Time: 04/30/21 17:31 Admit Provider: Miguelangel Saleh Attending Provider: Miguelangel Saleh Primary Care Provider: Malou Moreno [facility] Course Hospital Course: Mr Cody is a 40 year old male with PMHx of EtOH abuse, gastric ulcer in the distant past, tubulovillous adenoma on colonoscopy in 2019, as well as multiple electrolyte abnormalities who was admitted to [facility] ICU on 04/29/21 with acute severe symptomatic hypercalcemia with calcium level of 17.5. He was altered on presentation, felt to be due to the hypercalcemia. Additionaly, he was found to have a sodium of 114, potassium of 3.3 He did have a normal magnesium level on presentation. His hypercalcemia workup included Vitamin D level (low), PTH (low), a CT of the chest/abdomen/pelvis looking for malignancy (negative for malignancy, but did show nonspecific ground glass opacities in RML and L lingula, which were asymptomatic, and he had ruled out for COVID-19). His urine calcium was 47.3 mg/dL. The patient was treated with aggressive IV fluids and forced diuresis as well as with addition of calcitonin and zoledronic acid. With this, his calcium level normalized (slightly low at the time of discharge) and his phosphate level, which was initially high, became low. Repletion of both was initiated. We now feel that the patient's hypercalcemia was due to milk alkali syndrome as he admitted taking 2 bottles of tums (>100 tabs) per week to treat his abdominal pain. This got better with initiation of PPI and carafate, on which the patient is getting discharged home. At this time, he is told not to take tums. He will need to follow up with general surgery, who evaluated the patient in the hospital, for an outpatient EGD/colonoscopy. He is asked not to drink alcohol. He did not have signs of alcohol withdrawal on this admission. The patient is medically stable for discharge home today. He will need repeat bloodwork in 1 week. Should his electrolyte abnormalities return, he should be referred to nephrology. Care for patient as well as completion of his discharge summary on day of discharge took 45 minutes. Home Meds and New Rx's Prescriptions: New potassium chloride [Klor-Con M20] 20 mEq Tablet,Er Particles/Crystals 40 meq PO BID Qty: 60 RF: 0 multivitamin [Multiple Vitamins] Tablet 1 tab PO DAILY Qty: 30 RF: 0 cholecalciferol (vitamin D3) [Vitamin D3] 10 mcg (400 unit) Tablet 800 unit PO DAILY Qty: 60 RF: 0 magnesium chloride [Mag 64] 64 mg Tablet,Delayed Release (Dr/Ec) 64 mg PO BID Qty: 60 RF: 0 nicotine 14 mg/24 hr Patch 24 Hour 14 mg transdermal DAILY PRN PRNQty: 28 RF: 0 Phospha 250 Neutral 250 mg Tablet 2 tab PO QID Qty: 30 RF: 0 sucralfate 1 gram Tablet 1 g PO AC & HS Qty: 120 RF: 0 thiamine mononitrate (vit B1) [Vitamin B-1 (mononitrate)] 100 mg Tablet 100 mg PO QAM Qty: 30 RF: 0 calcium carbonate [Calcium 600] 600 mg calcium (1,500 mg) tablet 600 mg PO DAILY Qty: 7 RF: 0 omeprazole 40 mg capsule,delayed release(DR/EC) 40 mg PO BID Qty: 60 RF: 0 Discontinued potassium chloride 20 mEq tablet extended release 20 meq PO DAILY Qty: 7 RF: 0 magnesium 250 mg tablet 250 mg PO DAILY Qty: 10 RF: 0 metoclopramide HCl [Reglan] 10 mg tablet 10 mg PO Q6H PRNQty: 14 RF: 0 Discharge Instructions Instructions: Omeprazole (By mouth), Diet for Stomach Ulcers and Gastritis (ED), Hyponatremia (DC), Hypokalemia (DC), Hypocalcemia (DC), Hypomagnesemia (DC), Hypercalcemia (DC), Hypophosphatemia (DC) Additional Instructions: Your calcium is actually low at the time of discharge, so you are being sent home on a calcium supplement. Do not take more than this unless told to do so by your doctor. Follow a bland diet. You must stop drinking alcohol and smoking. Return to the hospital with any fever, bleeding, chest pain, shortness of breath, or if you feel weak. Bloodwork in 1 week. Folow up with your PCP in 1-2 weeks. Follow up with general surgery in 1-2 weeks (EGD, colonoscopy). Stand Alone Forms: Nursing Discharge Form Referrals: Larisa Whaley MD [ [facility] STAFF PHYSICIAN] - Malou Moreno [Primary Care Provider] - 05/09/21 2:00 pm Activity:: Activity as Tolerated Equipment/Supplies:: No Equipment Needed Diet:: Diet for gastritis/ulcers Discharge Orders Discharge Orders: Discharge Order (Routine); Ordered 05/02/21 Ordered By: Karen Rosado Other Ambulatory Orders: Basic Metabolic Panel (Routine) Timeframe: 20210509 Facility: [facility] - Location: Laboratory Outpatient Ordered By: Karen Rosado Magnesium (Routine) Timeframe: [id number] Facility: [facility] - Location: Laboratory Outpatient Ordered By: Karen Rosado Phosphorus (Routine) Timeframe: [id number] Facility: [facility] - Location: Laboratory Outpatient Ordered By: Karen Rosado DS: Summary Time Spent with Patient providing and/or coordinating discharge services: Greater than 30 minutes Status at Discharge Functional status at discharge: independent ambulation Overall status at discharge: patient is back to baseline Mental Status: mental status grossly normal Speech and Movement: speech and movement normal Mood: congruent mood Affect: normal affect Exam Narrative Exam Narrative: General: Pleasant middle-aged male, A&Ox3, calm, cooperative, looks well, does have a cough HEENT: EOMI, MMM Heart: RRR, no m/r/g Lungs: CTAB Abdomen: soft, tender periumbilically, nondistended, + BS Extremities: no edema BLE's, 2+ pedal pulses B Psych Mental Status: mental status grossly normal Speech and Movement: speech and movement normal Mood: congruent mood Affect: normal affect DS: Data Vitals/I&O Vitals and I&O: Vital Signs Temperature 36.4 C L 05/02/21 07:45 Temperature Source Skin 05/02/21 07:45 Pulse 80 05/02/21 07:45 Pulse Rhythm Regular 05/01/21 18:33 Pulse 89 04/30/21 13:00 Respiratory Rate 18 05/02/21 07:45 Respiratory Effort 05/02/21 07:49 Respiratory Depth Normal 05/02/21 07:49 Respiratory Pattern Normal 05/02/21 07:49 Blood Pressure 113/87 05/02/21 07:45 Blood Pressure Mean 77 04/30/21 13:00 Blood Pressure Position Supine 04/29/21 23:20 Pulse Oximetry 100 05/02/21 07:45 Oxygen Delivery Method Room Air 05/02/21 07:45 Oxygen Flow Rate 0 05/02/21 07:45 Pain Level 0 05/02/21 07:45 Comment 05/01/21 08:05 Intake & Output 05/01/21 05/02/21 05/02/21 23:59 11:59 23:59 Intake Total 120 / 120 Balance 120 / 120 Weight 59.8 kg Intake: Oral 120 / 120 Other: Urine Appearance Clear Clear Stool Size Moderate Stool Characteristics Formed Brown Data Completed and Pending Completed studies during hospitalization [Text1]: CT head: No acute intracranial process. CXR: No acute pulmonary findings. CT chest/abdomen/pelvis: 1. No acute abdominal or pelvic process. 2. Small nonspecific ground-glass opacities in the right middle lobe and the left lingula. Differential considerations include pulmonary edema, hemorrhage, infection or inflammation. Atypical infection should be considered. Labs on day of discharge: Labs from last 24 hours 05/02/21 05/02/21 05/02/21 06:43 06:43 06:43 Sodium 131 L Potassium 3.8 Chloride 98 Carbon Dioxide 19.0 L Anion Gap 14.0 H BUN 11 Creatinine 0.6 L Estimated GFR/1.73 m2 >= 60.00 Glucose 94 Calcium 7.5 L Phosphorus < 2.0 L Magnesium 1.6 L PTH Related Peptide Pending Preliminary micro results at discharge 04/29/21 10:55 Blood Culture - Preliminary Blood NO GROWTH 72 HOURS 04/29/21 11:00 Blood Culture - Preliminary Blood NO GROWTH 72 HOURS PFS Medical History (Updated 05/02/21 @ 14:50 by Karen Rosado MD) Alcohol intoxication (07/14/14) Colitis Depression (07/14/14) No significant past medical history Tobacco use Tubulovillous adenoma Surgical History History of hammer toe correction History of splenectomy Social History Smoking/Tobacco Use Status: Current every day Tobacco Type: cigarettes Smoking risk assessment performed?: Yes Alcohol Intake: current Alcohol Intake frequency: 3 or more drinks per day Alcohol type: hard liquor Drug use: Occasionally Substance use type: marijuana Details: NO ETOH x 3-4 weeks---01/06/21--er. Admits to 3 beers on 04/29/2021 Do you feel safe at home: Yes Do you feel safe in your relationship?: Yes
[2021-05-02] MEDS: Calcium Carbonate 1.5 GM TAB 3 GM PO (15:16)
[2021-05-02 15:25] VITALS: BP 113/83; PULSE 73; RESP 18; TEMP 37; O2SAT 98
--- NOTE | 2021-05-02 16:41 | CMDISCH_ITS ---
- If Service Date Differs Date of service: 05/02/21 Time of Service: 16:41 LACE Index Scoring Tool - Questions: Length of Stay (in days): 3 Acuity (Admit via E.D.?): Yes E.D. Visits: 3 - Answers: Total Score: 9 Risk of Readmission: Low Risk Care Management Discharge Reason for Hospitalization: Hypercalcemia Discharge Plan: Discharge home with no new services via private vehicle with significant other. [place] will follow discharge plan of care which includes follow up with [facility] and PCP. After discharge CM was notified that his Omeprazole was not covered. CM faxed a prior Auth. Patient/Family Education Needs: Review discharge instruction and plan to follow up. ask me three.
[2021-05-06 14:31] LABS: 1,25-Dihydroxyvitamin D <8.0 pg/mL (18-64)
[2021-05-08 14:57] LABS: PTH-Related Peptide <0.4 pmol/L (< or = 4.2)
== END 2021-05-02 15:59 | disposition home or self-care (01) | DRG 643 ==
LOC: ER 06:09 → ICU 08:12 → MS 04-30 14:13 → ICU 05-01 15:24
PROVIDERS: Internal Medicine; Admitting Provider General Practice; Emergency Provider Emergency Medicine; PCP Nurse Practitioner Family; Visit Provider General Practice
DX: E20.9 Hypoparathyroidism, unspecified (principal); G92 Toxic encephalopathy; N17.9 Acute kidney failure, unspecified; E87.1 Hypo-osmolality and hyponatremia; E87.6 Hypokalemia; R94.31 Abnormal electrocardiogram [ECG] [EKG]; F17.210 Nicotine dependence, cigarettes, uncomplicated; F12.90 Cannabis use, unspecified, uncomplicated; F32.9 Major depressive disorder, single episode, unspecified; Z20.822 Contact with and (suspected) exposure to COVID-19; D75.89 Other specified diseases of blood and blood-forming organs; E83.39 Other disorders of phosphorus metabolism; Z86.010 Personal history of colon polyps; Z90.81 Acquired absence of spleen; K76.0 Fatty (change of) liver, not elsewhere classified; Z72.89 Other problems related to lifestyle; E83.51 Hypocalcemia; D72.829 Elevated white blood cell count, unspecified
CPT/HCPCS: 36415; 71250; 80048; 80053; 80076; 80307; 82306; 82533; 82550; 84145; 85027; 86704; 86706; 86803; 87040; 87340; 87635; 93005; 96361; 96374; 97163; 99285; J1650; J3489; 70450; 71045; 74176; 80320; 80329; 81003; 81015; 82247; 82248; 82340; 82397; 82652; 83735; 83970; 84100; 84133; 84300; 84443; 84450; 84460; 84484; 85025; 86140; 87086; 93010; 99219; 99232; 99239; 99291; G0378; J0630; J1940; J3475; J3480; J3490; Q9967

== ENCOUNTER 2022-07-03 22:52 | Inpatient (IN) | payer MEDICAID, SELFPAY ==
[2022-07-03] VITALS (17 sets, daily range): BP systolic 123–133; BP diastolic 75–84; PULSE 94–106; RESP 15–20; TEMP 36.8; O2SAT 94–96
--- NOTE | 2022-07-03 23:15 | DI.RAD_ITS ---
Exam(s) XR PORTABLE CHEST AP EXAM: XR PORTABLE CHEST AP CLINICAL HISTORY: chest pain. TECHNIQUE: 2D digital imaging was performed. COMPARISON: CR,XR XR PORTABLE CHEST AP from 04/29/2021 FINDINGS: Single AP portable view. Heart size is upper normal. The mediastinum is not widened. Lungs are clear. No infiltrates nor obvious pleural effusions. IMPRESSION: No acute pulmonary findings on this single AP portable view of the chest. DATA REPOSITORY: RADIATION DOSE DELIVERED:
--- NOTE | 2022-07-03 23:15 | RT.EKG_ITS ---
APPROVED REPORT Exam: Resting ECG Reason for Exam: chest pain Patient Location: E HR:100 bpm ECG Measurements Heart Rate 100 AXIS SC 134 P 56 QRSd 89 QRS -13 QT 437 T 46 QTc 566 Conclusion Sinus tachycardia...rate> 99 Probable left atrial enlargement...P >50mS, <-0.10mV V1 Nonspecific repol abnormality, diffuse leads...ST dep, T flat/neg, ant/lat/inf no stemi Prolonged QT interval...QTc >500mS
[2022-07-03 23:16] LABS: BE (Venous) 8 mmol/L (-2-3); HCO3 (Venous) 31 mmol/L (23-28); O2 Sat (Venous) 68 %; TCO2 (Venous) 28 mmol/L (24-29); pCO2 (Venous) 38 mmHg (41-51); pH (Venous) 7.52 (7.31-7.41); pO2 (Venous) 34 mmHg
[2022-07-03 23:17] LABS: Source Nasal/Nares
[2022-07-03 23:18] LABS: Abs Immature Grans 0.16 10^3/uL (0.0-0.06); Absolute Basophil Count 0.08 10^3/uL (0.0-0.2); Absolute Monocyte Count 1.07 10^3/uL (0.1-0.8); Basophils % 0.4; Eosinophils % 0.9; HCT 30.5 % (40.0-50.0); HGB 11.4 g/dL (13.5-17.5); Immature Grans % 0.8; Lymphocytes % 14.1; MCH 43.3 pg (27.0-33.0); MCHC 37.4 % (32.0-36.0); MCV 116 fL (80-95); MPV 9.3 fL (8.0-11.0); Monocytes % 5.2; Neutrophils % 78.6; Nucleated RBC 1.4 % (0.0-0.3); Platelet Count 430 10^3/uL (130-400); RBC 2.63 10^6/uL (4.36-5.78); RDW 16.9 % (11.8-14.1); RDW-SD 71.5 fL
--- NOTE | 2022-07-03 23:19 | ED.GENADUL_ITS ---
Discharge Plan Disposition Patient Disposition: [facility] INPATIENT Condition: Serious Discharge Details Clinical Impression: Hypomagnesemia, Hypokalemia, Hypocalcemia, Rhabdomyolysis Primary Care Provider: Malou Moreno ED Provider: Paul Solano Home Meds and New Rx's Prescriptions: No Action potassium chloride [Klor-Con M20] 20 mEq Tablet,Er Particles/Crystals 40 meq PO BID Qty: 60 0RF multivitamin [Multiple Vitamins] Tablet 1 tab PO DAILY Qty: 30 0RF Mag 64 64 mg Tablet,Delayed Release (Dr/Ec) 64 mg PO BID Qty: 60 0RF omeprazole 40 mg capsule,delayed release(DR/EC) 40 mg PO BID Qty: 60 0RF pantoprazole 40 mg tablet,delayed release (DR/EC) 40 mg PO BID Qty: 60 0RF Medical Decision Making 41 yo male with 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 HE states on Wednesday he had some anterior chest discomfort described as an ache that resolved after a few hours. Over the next day he noticed swelling in his legs and joint pains. Tonight due to the joint pain and also feeling of general weakness he couldn't get out of a chair so ems was called. HE arrives hemodynamically stable. He has pitting edema of both lower legs up to the mid tibia. No erythema or warmth. Normal sensation and cap refill. He has trouble lifting his legs off the bed due to weakness and joint pain, no focal or uniateral weakness and sensation is intact. He denies having any abdominal pain or back pain and has no pain in his chest currently. Denies headaches, vision changes or slurred speech. He has no drift or other deficits in his arms, cn ii-xii intact. No wheezing on lung exam though is diminished at the bases bilaterally. Unclear etiology on exam and history for his leg swelling, joint pain and general weakness along with chest pain on Wednesday. Will obtain cbc, cmp, mag, ekg and trop and cxr to further evaluate. Has no tearing back pain so doubt dissection. xray unremarkable, pt remains hemodynamically stable. Has chronically elevated lft's, wbc of 20 though always seems to have a leukocytosis. His k is 1.7, mag 0.9 and calcium less then 6 [place] [id number]. 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 No trauma or severe pain to suggest compartment syndrome. He is making urine, had 500cc come out when silva placed. Discussed with hospitalist who accepts for admission, will hold on abx unless procalcitonin elevated. procalcitonin elevated, pt stable but will initiate broad spectrum antibiotics with vano and zosyn Differential Diagnosis Differential Diagnosis: nstemi, chf, rhabdo, electrolyte abnormality Medical Records Medical records reviewed: Yes I reviewed the patient's medical records. Imaging Data Radiologic Study: Attestation: I personally reviewed and interpreted this imaging study as follows: Imaging: X-Ray Radiologist's impression: no acute findings Lab Data Lab results reviewed: Yes I reviewed the patient's lab results. ECG Data Attestation: I personally reviewed and interpreted this ECG (s) as follows: Prior ECG tracings: available for review Interpretation: sinus tachycardia, rate of 101, qtc 566, st depression v3-v4 sinus rhyth, rate of 90, qtc 600 HPI General Mode of arrival: EMS . Date/Time Provider Initiated Documentation: 07/03/22 22:53 . Limitations to Documentation: no limitations . Information obtained by: patient . History of Present Illness 41 year old M presents to the emergency department with the chief complaint of general weakness, described as moderate, Patient started experiencing this day(s) (4) and it has been constant. No relieving factors improve symptom(s), No exacerbating factors reported . Patient notes chest pain (on wednesday none since) and other (leg swelling); denies fever/chills. Patient did receive the following treatments prior to arrival, none Related Data Home Medications Medication Instructions Recorded Confirmed magnesium chloride 64 mg 64 mg PO BID #60 tabs 05/02/21 07/03/22 (magnesium chloride) tablet,delayed release (Mag 64) multivitamin (Multiple Vitamins 1 tab PO DAILY #30 tabs 05/02/21 07/03/22 tablet) omeprazole 40 mg capsule,delayed 40 mg PO BID #60 caps 05/02/21 07/03/22 release pantoprazole 40 mg tablet,delayed 40 mg PO BID #60 tabs 05/02/21 07/03/22 release potassium chloride 20 mEq 40 meq PO BID #60 tabs 05/02/21 07/03/22 tablet,extended release(part/cryst) (Klor-Con M) Previous Rx's Medication Instructions Recorded magnesium chloride 64 mg 64 mg PO BID #60 tabs 05/02/21 (magnesium chloride) tablet,delayed release (Mag 64) multivitamin (Multiple Vitamins 1 tab PO DAILY #30 tabs 05/02/21 tablet) omeprazole 40 mg capsule,delayed 40 mg PO BID #60 caps 05/02/21 release pantoprazole 40 mg tablet,delayed 40 mg PO BID #60 tabs 05/02/21 release potassium chloride 20 mEq 40 meq PO BID #60 tabs 05/02/21 tablet,extended release(part/cryst) (Klor-Con M) Allergies Allergy/AdvReac Type Severity Reaction Status Date / Time No Known Allergies Allergy Unverified 07/03/22 23:05 General Stated Complaint: [facility] [place]: 3 Review of Systems All systems reviewed & are unremarkable except as noted in HPI and below Constitutional Constitutional: Denies chills and Denies fever(s) Eyes Eyes: Denies loss of vision Cardiovascular Cardiovascular: Denies dyspnea Respiratory Respiratory: Denies cough and Denies dyspnea Gastrointestinal Gastrointestinal: Denies abdominal pain, Denies nausea and Denies vomiting Neurologic Neurologic: Denies loss of vision PFSH All Active Problems (Updated 07/04/22 @ 01:25 by Paul Solano MD) Hypocalcemia (Acute) Rhabdomyolysis (Acute) Hypoparathyroidism (Acute) Vitamin D deficiency (Acute) Tubulovillous adenoma (Chronic) Leucocytosis (Chronic) Hypophosphatemia (Acute) Iatrogenic hypocalcemia (Acute) Hypocalcemia (Acute) Respiratory failure with hypoxia (Acute) Hyponatremia (Chronic) Macrocytosis (Acute) Alcohol use (Chronic) Altered mental status (Acute) Discharge planning issues (Acute) DVT prophylaxis (Acute) Acute gastroenteritis (Acute) Electrolyte disturbance (Acute) Fatty liver (Chronic) Hypokalemia (Acute) Hypomagnesemia (Acute) History of splenectomy (Acute) Hyponatremia (Acute) Dehydration (Acute) Medical History Alcohol intoxication (07/14/14) Colitis Depression (07/14/14) No significant past medical history Tobacco use Surgical History History of hammer toe correction Social History Smoking/Tobacco Use Status: Current every day Tobacco Type: cigarettes Smoking risk assessment performed?: Yes Alcohol Intake: current Alcohol type: beer Drug use: Occasionally Substance use type: marijuana Details: NO ETOH x 3-4 weeks---01/06/21--er. Admits to 3 beers on 04/29/2021 Do you feel safe at home: Yes Do you feel safe in your relationship?: Yes Exam Const General: no acute distress Orientation: alert HENMT Head: normal to inspection Ears: external ears normal General nose exam: external nose normal Mouth: moist mucous membranes Eyes General: appearance normal, both eyes and all related structures Neck Neck: normal visual inspection Resp Effort & Inspection: normal respiratory effort and able to speak in complete sentences Cardio Rate: regular rate GI Palpation: soft and nontender Neuro General: patient alert and patient oriented x3 Extrem General: no calf tenderness and edema Psych Mental Status: mental status grossly normal Course Vital Signs Vital signs: Vital Signs Temperature 36.8 C 07/03/22 22:58 Pulse 100 H 07/03/22 22:58 Respiratory Rate 16 07/03/22 22:58 Blood Pressure 128/84 07/03/22 22:58 Pulse Oximetry 96 07/03/22 22:58 Temperature 36.8 C 07/03/22 22:58 Temperature Source Oral 07/03/22 22:58 Pulse 100 H 07/03/22 22:58 Respiratory Rate 16 07/03/22 22:58 Respiratory Effort 07/03/22 23:14 Respiratory Depth Normal 07/03/22 23:14 Respiratory Pattern Normal 07/03/22 23:14 Blood Pressure 128/84 07/03/22 22:58 Blood Pressure Position Supine 07/03/22 22:58 Pulse Oximetry 96 07/03/22 22:58 Oxygen Delivery Method Room Air 07/03/22 22:58 Oxygen Flow Rate 0 07/03/22 22:58 Pain Level 8 07/03/22 22:58 Comment 07/03/22 22:58 Lab/Test Results Lab/Test Results: Laboratory Tests Range/Units 07/03/22 07/03/22 23:10 23:10 VBG pH (7.31-7.41) 7.52 H VBG pCO2 (41-51) mmHg 38 L VBG pO2 mmHg 34 VBG HCO3 (23-28) mmol/L 31 H VBG Total CO2 (24-29) mmol/L 28 VBG O2 Saturation % 68 VBG Base Excess (-2-3) mmol/L 8 H COVID-19 Source Nasal/Nares
[2022-07-03 23:25] LABS: Absolute Eosinophil Count 0.19 10^3/uL (0.0-0.7); Absolute Neutrophil Count 16.19 10^3/uL (1.2-6.7)
[2022-07-03 23:30] LABS: Howell-Jolly Bodies Present
[2022-07-03 23:31] LABS: Macrocytosis 3+
[2022-07-03 23:42] LABS: ALT 97 U/L (16-63); AST 396 U/L (15-37); Albumin 2.6 g/dL (3.4-5.0); Alkaline Phosphatase 151 U/L (46-116); Anion Gap 16.3 mmol/L (3-11); BUN 10 mg/dL (7-18); Bilirubin, Total 0.9 mg/dL (0.2-1.0); CO2 29.7 mmol/L (21.0-32.0); CREATININE 0.9 mg/dL (0.70-1.30); Chloride 87 mmol/L (98-107); ETHANOL BLOOD 144.6 mg/dL (<10); Estimated GFR 108.68 (mL/min/1.73m2); Glucose 114 mg/dL (74-106); Magnesium 0.9 mg/dL (1.8-2.4); Sodium 133 mmol/L (136-145); TSH (W/Ref FT4) 4.91 uIU/mL (0.36-3.74); Total Protein 6.9 g/dL (6.4-8.2)
[2022-07-03 23:43] LABS: NT-proBNP 162 pg/mL (<300); Troponin I < 50 ng/L (<or=60)
[2022-07-03 23:44] LABS: COVID-19 PCR Negative (Negative)
[2022-07-03 23:46] LABS: Calcium 5.9 mg/dL (8.5-10.1); Creatine Kinase > 10000 U/L (39-308); Potassium 1.7 mmol/L (3.5-5.1)
[2022-07-04] VITALS (167 sets, daily range): BP systolic 98–134; BP diastolic 44–86; PULSE 86–128; RESP 12–25; TEMP 36.9–38.1; O2SAT 78–96
[2022-07-04 00:02] LABS: FREE T4 1.18 ng/dL (0.76-1.46)
[2022-07-04 00:19] LABS: Lipase 50 U/L (73-393); PHOSPHORUS < 2.0 mg/dL (2.6-4.7)
--- NOTE | 2022-07-04 00:19 | DI.VRAD_ITS ---
PROCEDURE INFORMATION: Exam: XR Chest Exam date and time: 07/03/2022 23:15 Age: 41 years old Clinical indication: Other: Chest pain TECHNIQUE: Imaging protocol: Radiologic exam of the chest. Views: 1 view. COMPARISON: CT CHEST/ABD/PEL WO 04/29/2021 12:08 FINDINGS: Lungs: No consolidation. Pleural spaces: No pleural effusion. No pneumothorax. Heart/Mediastinum: No cardiomegaly. Bones/joints: No acute fracture. IMPRESSION: Negative portable chest. Dictated and Authenticated by: Marylin Noriega MD. Ordering:SUZAN Miller MD
[2022-07-04 00:22] LABS: INR 1.1 (0.9-1.1); Prothrombin Time 10.9 sec (9.3-11.0)
[2022-07-04] MEDS: Lidocaine 2% Jelly 6 ML SYR (00:54)
[2022-07-04] MEDS: POTASSIUM CHLORIDE 10 MEQ/100 ML BAG 100 MEQ IVPB (00:55)
[2022-07-04] MEDS: Potassium Chloride 20 MEQ TABCR 120 MEQ PO (00:56)
[2022-07-04 00:57] LABS: Bilirubin Negative (Negative); Blood Large (Negative); Clarity Clear (Clear); Glucose Negative (Negative); Ketones Trace mg/dL (Negative); Leukocyte Esterase Negative (Negative); Nitrite Negative (Negative); pH 6.5 (5-8)
[2022-07-04 01:01] LABS: Epithelial Cells Rare HPF (Negative); WBC Negative HPF (0-5)
[2022-07-04 01:02] LABS: Bacteria Rare HPF (Negative); C & S Indicated? No; Casts Negative LPF (Negative); Crystals Negative HPF (Negative); Mucus Negative (Negative)
[2022-07-04] MEDS: MAGNESIUM SULFATE 4 GM/100 ML BAG IVPB (01:06)
--- NOTE | 2022-07-04 01:23 | HPE_ITS ---
Date of service: 07/04/22 Time of Service: 01:26 Assessment and Plan Assessment and plan (1) Sepsis: Status: Suspected Assessment and plan: elevated white count, tachycardia, elevated procalcitonin. Source unclear. The patient cites a distant history of a tick bite. Will empirically treat with vancomycin, zosyn, and doxycycline. (2) Rhabdomyolysis: Status: Acute Assessment and plan: Etiology unclear. ?immobility, ?seizure, ? tick borne illness. Treat with IVF and will likely require forced diuresis. Still making urine - monitor Urine output with a silva catheter. Monitor Cr. (3) Hypokalemia: Status: Acute Assessment and plan: Replete; also replete magnesium (4) Hypomagnesemia: Status: Acute Assessment and plan: Replete (5) Hypocalcemia: Status: Acute Assessment and plan: Replete; also replete magnesium (6) Hyponatremia: Status: Acute Assessment and plan: Will likely correct with IV hydration. Will monitor (7) QT prolongation: Status: Acute Assessment and plan: Correct electrolytes. Monitor on tele. (8) Alcohol use: Status: Chronic Assessment and plan: Monitor for w/d. No h/o w/d. Will supplement thiamine, MVI. (9) Hypophosphatemia: Status: Acute Assessment and plan: Replete (10) Transaminitis: Status: Acute Assessment and plan: Suspect this is due to rhabdomyolysis, though EtOH liver disease could be contributing, based on the pattern. Trend LFTs. Obtain US abdomen if available tomorrow (11) Ambulatory dysfunction: Status: Acute Assessment and plan: C/s PT (12) Discharge planning issues: Status: Acute Assessment and plan: Full code (13) DVT prophylaxis: Status: Acute Assessment and plan: SC heparin History of Present Illness History of Present Illness Chief Complaint: weakness, inability to get up from the chair, BLE swelling Narrative: Mr Cody is a 41 year old male with PMHx of prior episodes of electrolyte disturbance, hypoparathyroidism, alcohol abuse, fatty liver, who presented to [facility] ED c/o generalized weakness, malaise, and diffuse joint and muscle pains as well as bilateral leg swelling to the point of being unable to get out of a chair today. The patient has been falling at home. Today, he fell twice, landing on his left side both times. He states that it's actually his right side that hurts more and denies injury to that. Denies seizures and loss of consciousness. Symptoms started 5 days ago. Denies fever, runy nose, sore throat, endorses smoker's cough. Has had diarrhea (brown) x 3 days. Denies urinary sx. Denies IVD use. States he was bitten by a tick a year ago. He states that for two days until yesterday, he had chest pain that has now resolved. His workup in the ED revealed severe electrolyte derangements including hypokalemia, hypomagnesemia, hypocalcemia, hypophosphatemia, hyponatremia. He was also found to be in rhabdomyolysis with a CPK >10,000. He was found to have a leucocytosis and tachycardia with an elevated procalcitonin and no clear source. He continues to drink alcohol and did have EtOH detected in his blood on this presentation. He states his last drink was today 07/03/22 at 8 pm. Prior to this, he had not had a drink in 3-4 days. When he drinks, he has 3-4 drinks/day. He denies symptoms of alcohol withdrawal. Review of Systems All systems reviewed & are unremarkable except as noted in HPI and below PFSH All Active Problems (Updated 07/04/22 @ 03:24 by Karen Rosado MD) Ambulatory dysfunction (Acute) Transaminitis (Acute) Hypomagnesemia (Acute) Hypokalemia (Acute) Hypocalcemia (Acute) Rhabdomyolysis (Acute) Hypoparathyroidism (Acute) Vitamin D deficiency (Acute) Tubulovillous adenoma (Chronic) Leucocytosis (Chronic) Hypophosphatemia (Acute) Iatrogenic hypocalcemia (Acute) Hypocalcemia (Acute) Respiratory failure with hypoxia (Acute) QT prolongation (Acute) Hyponatremia (Chronic) Macrocytosis (Acute) Alcohol use (Chronic) Altered mental status (Acute) Discharge planning issues (Acute) DVT prophylaxis (Acute) Acute gastroenteritis (Acute) Electrolyte disturbance (Acute) Fatty liver (Chronic) Hypokalemia (Acute) Hypomagnesemia (Acute) History of splenectomy (Acute) Hyponatremia (Acute) Dehydration (Acute) Medical History Alcohol intoxication (07/14/14) Colitis Depression (07/14/14) No significant past medical history Tobacco use Surgical History History of hammer toe correction Social History Smoking/Tobacco Use Status: Current every day Tobacco Type: cigarettes Smoking risk assessment performed?: Yes Alcohol Intake: current Alcohol type: beer Drug use: Occasionally Substance use type: marijuana Details: NO ETOH x 3-4 weeks---01/06/21--er. Admits to 3 beers on 04/29/2021 Do you feel safe at home: Yes Do you feel safe in your relationship?: Yes Meds Allergies and Home Medications Allergies Allergy/AdvReac Type Severity Reaction Status Date / Time No Known Allergies Allergy Unverified 07/03/22 23:05 Home Medications Medication Instructions Recorded Confirmed Type magnesium chloride 64 mg 64 mg PO BID #60 tabs 05/02/21 07/03/22 Rx (magnesium chloride) tablet,delayed release (Mag 64) multivitamin (Multiple Vitamins 1 tab PO DAILY #30 tabs 05/02/21 07/03/22 Rx tablet) omeprazole 40 mg capsule,delayed 40 mg PO BID #60 caps 05/02/21 07/03/22 Rx release pantoprazole 40 mg tablet,delayed 40 mg PO BID #60 tabs 05/02/21 07/03/22 Rx release potassium chloride 20 mEq 40 meq PO BID #60 tabs 05/02/21 07/03/22 Rx tablet,extended release(part/cryst) (Klor-Con M) Exam Narrative Exam Narrative: General: Pleasant middle-aged male who looks weak/tired, but does not look ill, A&ox3, NAD Neurological: A&ox3, no focal deficits while laying in the stretcher, able to move all 4 extremities Psychiatric: Flat affect, mildly anxious Skin: Visible skin intact HEENT: Atraumatic, normocephalic, EOMI, dry MM, clear oropharynx, no submandibular or cervical lymphadenopathy, no goiter or JVD Cardiovascular: RRR, no m/r/g Lungs: CTAB Gastrointestinal: soft, nontender, nondistended Genitourinary: has a silva Extremities: +1 BLE edema, symmetric, trace pedal pulses B, no clubbing/cyanosis Results Imaging Additional studies: CXR: Negative portable chest. EKG: HR 90, NSR, no acute ischemia, QTc 600 ms Labs Result diagrams: 07/03/22 23:10 07/03/22 23:10 Labs: Laboratory Results - last 24 hr 07/03/22 07/03/22 07/03/22 23:10 23:10 23:10 WBC 20.60 H RBC 2.63 L Hgb 11.4 L Hct 30.5 L MCV 116 H MCH 43.3 H MCHC 37.4 H RDW 16.9 H Plt Count 430 H MPV 9.3 Immature Gran % 0.8 Neutrophils % 78.6 Lymphocytes % 14.1 Monocytes % 5.2 Eosinophils % 0.9 Basophils % 0.4 Nucleated RBC % 1.4 H Absolute Neutrophils 16.19 H Absolute Lymphocytes 2.90 Absolute Monocytes 1.07 H Absolute Eosinophils 0.19 Absolute Basophils 0.08 Macrocytosis 3+ [place] Bodies Present PT INR VBG pH VBG pCO2 VBG pO2 VBG HCO3 VBG Total CO2 VBG O2 Saturation VBG Base Excess Sodium 133 L Potassium 1.7 L* Chloride 87 L Carbon Dioxide 29.7 Anion Gap 16.3 H BUN 10 Creatinine 0.9 Est GFR (CKD-EPI 2020) 108.68 Glucose 114 H Calcium 5.9 L* Phosphorus Magnesium 0.9 L Total Bilirubin 0.9 AST 396 H ALT 97 H Alkaline Phosphatase 151 H Creatine Kinase Troponin I NT-Pro-B Natriuret Pep Total Protein 6.9 Albumin 2.6 L Lipase TSH 4.91 H Free T4 1.18 Urine Color Urine Clarity Urine pH Ur Specific [place] Urine Protein Urine Ketones Urine Blood Urine Nitrite Urine Bilirubin Urine Urobilinogen Ur Leukocyte Esterase Urine RBC Urine WBC Ur Epithelial Cells Urine Crystals Urine Bacteria Urine Casts Urine Mucus Ur Culture Indicated? Urine Glucose Ethyl Alcohol 144.6 H COVID-19 Source Nasal/Nares SARS-CoV-2 (PCR) Negative 07/03/22 07/03/22 07/03/22 23:10 23:10 23:10 WBC RBC Hgb Hct MCV MCH MCHC RDW Plt Count MPV Immature Gran % Neutrophils % Lymphocytes % Monocytes % Eosinophils % Basophils % Nucleated RBC % Absolute Neutrophils Absolute Lymphocytes Absolute Monocytes Absolute Eosinophils Absolute Basophils Macrocytosis [place] Bodies PT INR VBG pH 7.52 H VBG pCO2 38 L VBG pO2 34 VBG HCO3 31 H VBG Total CO2 28 VBG O2 Saturation 68 VBG Base Excess 8 H Sodium Potassium Chloride Carbon Dioxide Anion Gap BUN Creatinine Est GFR (CKD-EPI 2020) Glucose Calcium Phosphorus < 2.0 L Magnesium Total Bilirubin AST ALT Alkaline Phosphatase Creatine Kinase > 28309 H Troponin I NT-Pro-B Natriuret Pep Total Protein Albumin Lipase 50 TSH Free T4 Urine Color Urine Clarity Urine pH Ur Specific [place] Urine Protein Urine Ketones Urine Blood Urine Nitrite Urine Bilirubin Urine Urobilinogen Ur Leukocyte Esterase Urine RBC Urine WBC Ur Epithelial Cells Urine Crystals Urine Bacteria Urine Casts Urine Mucus Ur Culture Indicated? Urine Glucose Ethyl Alcohol COVID-19 Source SARS-CoV-2 (PCR) 07/03/22 07/03/22 07/04/22 23:10 23:17 00:45 WBC RBC Hgb Hct MCV MCH MCHC RDW Plt Count MPV Immature Gran % Neutrophils % Lymphocytes % Monocytes % Eosinophils % Basophils % Nucleated RBC % Absolute Neutrophils Absolute Lymphocytes Absolute Monocytes Absolute Eosinophils Absolute Basophils Macrocytosis [place] Bodies PT 10.9 INR 1.1 VBG pH VBG pCO2 VBG pO2 VBG HCO3 VBG Total CO2 VBG O2 Saturation VBG Base Excess Sodium Potassium Chloride Carbon Dioxide Anion Gap BUN Creatinine Est GFR (CKD-EPI 2020) Glucose Calcium Phosphorus Magnesium Total Bilirubin AST ALT Alkaline Phosphatase Creatine Kinase Troponin I < 50 NT-Pro-B Natriuret Pep 162 Total Protein Albumin Lipase TSH Free T4 Urine Color Yellow Urine Clarity Clear Urine pH 6.5 Ur Specific [place] 1.020 Urine Protein 100 H Urine Ketones Trace H Urine Blood Large H Urine Nitrite Negative Urine Bilirubin Negative Urine Urobilinogen 1.0 H Ur Leukocyte Esterase Negative Urine RBC 3-5 H Urine WBC Negative Ur Epithelial Cells Rare Urine Crystals Negative Urine Bacteria Rare Urine Casts Negative Urine Mucus Negative Ur Culture Indicated? No Urine Glucose Negative Ethyl Alcohol COVID-19 Source SARS-CoV-2 (PCR) Last Vital Signs Temp 36.8 C 07/03/22 22:58 Pulse 104 H 07/04/22 00:16 Resp 18 07/04/22 01:05 BP 134/85 07/04/22 00:16 Pulse Ox 94 07/04/22 00:05
[2022-07-04] MEDS: Calcium Gluconate 4.65 MEQ/10 ML VIAL 4.65 MG IVP ×2 (01:35→06:57)
[2022-07-04 01:50] LABS: Procalcitonin 22.4 ng/mL
--- NOTE | 2022-07-04 02:00 | RT.EKG_ITS ---
APPROVED REPORT Exam: Resting ECG Reason for Exam: chest pain Patient Location: E HR:90 bpm ECG Measurements Heart Rate 90 AXIS AL 150 P 73 QRSd 91 QRS 9 QT 489 T 56 QTc 600 Conclusion Sinus rhythm...normal P axis, V-rate 60- 99 Probable left atrial enlargement...P >50mS, <-0.10mV V1 Prolonged QT interval...QTc >500mS
[2022-07-04] MEDS: PIPERACILLIN/TAZO 4.5 GM in Normal Saline 100 ML IVPB ×3 (02:22→17:05)
[2022-07-04 02:24] LABS: Troponin I < 50 ng/L (<or=60)
[2022-07-04] MEDS: VANCOMYCIN 1,000 MG in Normal Saline 250 ML 166.6666 MG IVPB (02:24)
[2022-07-04] MEDS: THIAMINE 100 MG in Normal Saline 100 ML 200 MG IVPB (04:45)
[2022-07-04] MEDS: Ketorolac 15 MG/ML VIAL IVP ×2 (05:07→23:49)
[2022-07-04] MEDS: POTASSIUM CHLORIDE 20 MEQ/100 ML BAG 50 MEQ IVPB ×8 (05:07→23:48)
[2022-07-04] MEDS: DOXYCYCLINE 100 MG in Normal Saline 100 ML IVPB ×2 (05:19→17:21)
[2022-07-04] MEDS: Normal Saline Flush 10 ML SYR IVP ×2 (05:48→14:14)
[2022-07-04 06:26] LABS: Anion Gap 7.4 mmol/L (3-11); BUN 9 mg/dL (7-18); CO2 34.6 mmol/L (21.0-32.0); CREATININE 0.6 mg/dL (0.70-1.30); Chloride 94 mmol/L (98-107); Estimated GFR 122.83 (mL/min/1.73m2); Glucose 108 mg/dL (74-106); Magnesium 1.9 mg/dL (1.8-2.4); PHOSPHORUS 2.3 mg/dL (2.6-4.7); Sodium 136 mmol/L (136-145)
[2022-07-04 06:30] LABS: Calcium 5.6 mg/dL (8.5-10.1); Potassium 1.7 mmol/L (3.5-5.1)
[2022-07-04 07:09] LABS: Vitamin D 25 Total 6.4 ng/mL (30-100)
[2022-07-04 07:23] LABS: Lab Add On Test DONE
[2022-07-04 07:26] LABS: Anion Gap 8.1 mmol/L (3-11); BUN 9 mg/dL (7-18); CO2 33.9 mmol/L (21.0-32.0); CREATININE 0.7 mg/dL (0.70-1.30); Chloride 95 mmol/L (98-107); Estimated GFR 117.25 (mL/min/1.73m2); Glucose 124 mg/dL (74-106); Sodium 137 mmol/L (136-145)
[2022-07-04] MEDS: Acetaminophen 325 MG TAB PO ×2 (07:30→22:54)
[2022-07-04 07:36] LABS: Calcium 5.8 mg/dL (8.5-10.1)
[2022-07-04 07:40] LABS: Abs Immature Grans 0.19 10^3/uL (0.0-0.06); Absolute Basophil Count 0.07 10^3/uL (0.0-0.2); Absolute Eosinophil Count 0.16 10^3/uL (0.0-0.7); Absolute Monocyte Count 0.97 10^3/uL (0.1-0.8); Absolute Neutrophil Count 15.67 10^3/uL (1.2-6.7); Basophils % 0.4; Eosinophils % 0.9; Lymphocytes % 6.9; MCV 117 fL (80-95); MPV 9.7 fL (8.0-11.0); Monocytes % 5.3; Neutrophils % 85.5; Nucleated RBC 1.3 % (0.0-0.3); Platelet Count 329 10^3/uL (130-400); RBC 2.14 10^6/uL (4.36-5.78); RDW-SD 72.1 fL; WBC 18.33 10^3/uL (4.4-10.8)
[2022-07-04 07:51] LABS: Absolute Lymphocyte Count 1.26 10^3/uL (1.2-3.4)
[2022-07-04 07:55] LABS: MCHC 36.1 % (32.0-36.0)
[2022-07-04] MEDS: Folic Acid 1 MG TAB PO (07:56)
[2022-07-04] MEDS: Multivitamin TAB 1 TAB PO (07:56)
[2022-07-04] MEDS: Calcium Carbonate 1.5 GM TAB 3 GM PO ×2 (07:57→19:21)
[2022-07-04] MEDS: Thiamine 100 MG TAB PO (07:57)
[2022-07-04] MEDS: Pantoprazole 40 MG TABCR PO ×2 (07:57→19:21)
[2022-07-04] MEDS: Potassium Chloride 20 MEQ TABCR 40 MEQ PO ×3 (07:58→21:35)
[2022-07-04] MEDS: Magnesium Oxide 400 MG TAB PO ×4 (07:58→19:21)
[2022-07-04] MEDS: Enoxaparin 40 MG/0.4 ML SYR SC (07:59)
[2022-07-04 08:05] LABS: HCT 24.1 % (40.0-50.0); HGB 8.7 g/dL (13.5-17.5); MCH 42.6 pg (27.0-33.0)
[2022-07-04 08:18] LABS: Anisocytosis 2+; Diff Comment Agrees w/ Instrument
[2022-07-04 08:19] LABS: Howell-Jolly Bodies Present; Macrocytosis 3+; Polychromasia Present
[2022-07-04 08:21] LABS: Creatine Kinase > 10000 U/L (39-308)
[2022-07-04] MEDS: Cholecalciferol (Vitamin D3) 1,000 UNIT TAB 1000 UNITS PO (08:41)
[2022-07-04 09:03] LABS: Creatinine,Urine 140.77 mg/dL; POTASSIUM,URINE RANDOM 10 mmol/L; Sodium, Urine 14 mmol/L
--- NOTE | 2022-07-04 09:23 | INITIAL_ITS ---
- If Service Date Differs Date of service: 07/04/22 Time of Service: 09:23 Care Management Initial Assess REASON FOR HOSPITALIZATION:: severe hypokalemia, hypomagnesemia, hypocalcemia PAST MEDICAL HISTORY/PAST SURGICAL HISTORY:: All Active Problems. Ambulatory dysfunction (Acute). Transaminitis (Acute). Hypomagnesemia (Acute). Hypokalemia (Acute). Hypocalcemia (Acute). Rhabdomyolysis (Acute). Hypoparathyroidism (Acute). Vitamin D deficiency (Acute). Tubulovillous adenoma (Chronic). Leucocytosis (Chronic). Hypophosphatemia (Acute). Iatrogenic hypocalcemia (Acute). Hypocalcemia (Acute). Respiratory failure with hypoxia (Acute). QT prolongation (Acute). Hyponatremia (Chronic). Macrocytosis (Acute). Alcohol use (Chronic). Altered mental status (Acute). Discharge planning issues (Acute). DVT prophylaxis (Acute). Acute gastroenter itis (Acute). Electrolyte disturbance (Acute). Fatty liver (Chronic). Hypokalemia (Acute). Hypomagnesemia (Acute). History of splenectomy (Acute). Hyponatremia (Acute). Dehydration (Acute). Medical History. Alcohol intoxication (07/14/14). Colitis. Depression (07/14/14). No significant past medical history. Tobacco use. Surgical History. History of hammer toe correction PREVIOUS FUNCTIONAL STATUS/SOCIAL/FAMILY SUPPORTS:: Milan resides in [facility] in an apartment with his significant other. 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 He reports being independent in the community with ADLs. CURRENT FUNCTIONAL STATUS:: Milan was sitting up in his bed, eating lunch when CM met with him. He described how he has declined at home over the last week, and how he felt scared when he couldn't move his legs, which is when the ambulance was called and he presented to the ED. He reported that he was unsure how long to expect his hospitalization. CM noted that per report, his electrolytes will be repleated. He is being treated for rhabdo, and has a tick panel pending. He stated that he is comfortable with the plan to remain inpatient. CM will continue to follow. ADVANCE DIRECTIVES:: None on file. Has patient been provided with info about the portal/API?: Yes Did the patient sign up for the portal?: No CODE STATUS:: Full Code INSURANCE COVERAGE / FINANCIAL ISSUES:: [employer] CURRENT HOME/COMMUNITY SERVICES/EQUIPMENT:: None PRIMARY CARE PHYSICIAN:: Malou Moreno POTENTIAL DISCHARGE NEEDS:: Follow up appointment with PCP PATIENT/FAMILY EDUCATION NEEDS:: Review of discharge instructions, limitations and plan to follow up with PCP, ask me three. ANTICIPATED BARRIERS TO DISCHARGE:: None identified TRANSPORTATION:: Via private vehicle by s/o PLAN:: Anticipate Milan will return home with no new services once medically cleared. His s/o will drive him home via private vehicle. He will follow up with his PCP and discharge plan of care. CM will continue to follow.
[2022-07-04] MEDS: VANCOMYCIN/WATER (PEG) 1.5 GM/300 ML BAG IV ×2 (10:02→19:13)
--- NOTE | 2022-07-04 10:55 | NUR.NOTE ---
Patient's soles of his feet are calloused and filthy. RN has patient soak his feet at side of bed. Patient enjoys having his feet soaked.ursing Note:
--- NOTE | 2022-07-04 11:01 | NUR.NOTE ---
Patient and RN give patient's girlfriend a telephonic update.Nursing Note:
[2022-07-04 12:28] LABS: BUN 10 mg/dL (7-18); CREATININE 0.9 mg/dL (0.70-1.30); Chloride 97 mmol/L (98-107); Estimated GFR 108.68 (mL/min/1.73m2); Glucose 127 mg/dL (74-106); Sodium 140 mmol/L (136-145)
[2022-07-04 12:30] LABS: PHOSPHORUS 2.3 mg/dL (2.6-4.7)
[2022-07-04 12:31] LABS: Calcium 6.4 mg/dL (8.5-10.1)
[2022-07-04 12:32] LABS: Potassium 2.4 mmol/L (3.5-5.1)
[2022-07-04 12:56] LABS: Creatine Kinase > 10000 U/L (39-308)
--- NOTE | 2022-07-04 14:30 | PGE_ITS ---
Date of Service Date of service: 07/04/22 Time of Service: 14:30 Assessment and Plan Assessment and plan (1) Rhabdomyolysis: Status: Acute Assessment and plan: unclear etiology, possible from falls although no visible hematomas; no traumatic injury and no evidence for compartment syndrome. continue iv hydration, monitor urine output, CK levels; avoid alkalinization as he already has alkaline VBG and alkalinization may worsen his potassium levels. Critical care time spent interviewing and examining the patient, reviewing studies, discussing case with patient's nurse and consulting physicians was 30 minutes (2) Hypokalemia: Status: Acute Assessment and plan: continue iv and oral replacement; monitor serial levels; continue magnesium supplementation as well (3) Hypomagnesemia: Status: Acute Assessment and plan: patient given iv and oral replacement, level is now at lower limits of normal. continue oral supplementation (4) Hypocalcemia: Status: Acute Assessment and plan: with his low albumen level his calcium level corrects to 7.0. I will not give iv calcium as he has no tetany and this would worsen his hypokalemia. However his vitamin D level is low and vitamin D should be supplemented. (5) QT prolongation: Status: Acute Assessment and plan: Correct electrolytes. Monitor on tele. (6) Alcohol use: Status: Chronic Assessment and plan: Monitor for w/d. No h/o w/d. Will supplement thiamine, MVI. (7) Hypophosphatemia: Status: Acute Assessment and plan: patient was severely depleted and now has come up to 2.3. continue to monitor and replace orally (8) Anemia: Status: Chronic Assessment and plan: historically he has been anemic ususally in the 10 gm however he has not had any labs in a year. Overnight his Hb dropped from 11.4 gm to 8.7 gm. I will check stool occult blood and iron studies. he has been put on folate and thiamine. (9) Transaminitis: Status: Acute Assessment and plan: Suspect this is due to rhabdomyolysis, though EtOH liver disease could be contributing, based on the pattern. Trend LFTs. Obtain US abdomen if available tomorrow (10) Ambulatory dysfunction: Status: Acute Assessment and plan: C/s PT (11) Discharge planning issues: Status: Acute Assessment and plan: Full code (12) DVT prophylaxis: Status: Acute Assessment and plan: SC heparin Subjective Subjective Interval history since last seen: Mr. Bishop was admitted last night with rhabdomyolysis along with multiple electrolyte abnormalities including severe hypokalemia and severe hypophosphatemia as well as severe hypomagnesemia and moderate hypocalcemia. Patient's symptoms include muscle weakness and pain causing him unable to walk and sustaining some falls. He is still weak, can not stand unassisted. he is still getting potassium replacement. Latest K+ is 2.4. Patient admits to drinking 2 tall boys beers at least 3 days per weeks some times more. He denies any severe alcohol withdrawal. he admits to occasional rectal bleeding w/ black stools. Exam Narrative Exam Narrative: Middle age white male w/ rather plethoric facial appearance, alert and oriented Lungs: clear Heart: tachycardic, regular, no murmur Abdomen: soft, nontender Rectal exam: normal tone, smear of light brown but stool card not available. Will be sent to lab Manual muscle exam: generalized weakness w/ more proximal weakness than distal; hand slag mixer equal, upper arms and proximal legs weak compared to distal Objective Last Vital Signs Temp 37.2 C 07/04/22 14:17 Pulse 115 H 07/04/22 14:17 Resp 19 07/04/22 14:17 BP 117/76 07/04/22 14:17 Pulse Ox 91 L 07/04/22 14:17 Laboratory Results - last 24 hr 07/03/22 07/03/22 07/03/22 23:10 23:10 23:10 WBC 20.60 H RBC 2.63 L Hgb 11.4 L Hct 30.5 L MCV 116 H MCH 43.3 H MCHC 37.4 H RDW 16.9 H Plt Count 430 H MPV 9.3 Immature Gran % 0.8 Neutrophils % 78.6 Lymphocytes % 14.1 Monocytes % 5.2 Eosinophils % 0.9 Basophils % 0.4 Nucleated RBC % 1.4 H Absolute Neutrophils 16.19 H Absolute Lymphocytes 2.90 Absolute Monocytes 1.07 H Absolute Eosinophils 0.19 Absolute Basophils 0.08 RBC Morphology Polychromasia Anisocytosis Macrocytosis 3+ [place] Bodies Present PT INR VBG pH VBG pCO2 VBG pO2 VBG HCO3 VBG Total CO2 VBG O2 Saturation VBG Base Excess Sodium 133 L Potassium 1.7 L* Chloride 87 L Carbon Dioxide 29.7 Anion Gap 16.3 H BUN 10 Creatinine 0.9 Est GFR (CKD-EPI 2020) 108.68 Glucose 114 H Calcium 5.9 L* Phosphorus Magnesium 0.9 L Total Bilirubin 0.9 AST 396 H ALT 97 H Alkaline Phosphatase 151 H Creatine Kinase Troponin I NT-Pro-B Natriuret Pep Total Protein 6.9 Albumin 2.6 L Lipase 25-OH Vitamin D Total Procalcitonin TSH 4.91 H Free T4 1.18 Urine Color Urine Clarity Urine pH Ur Specific [place] Urine Protein Urine Ketones Urine Blood Urine Nitrite Urine Bilirubin Urine Urobilinogen Ur Leukocyte Esterase Urine RBC Urine WBC Ur Epithelial Cells Urine Crystals Urine Bacteria Urine Casts Urine Mucus Ur Culture Indicated? Ur Random Creatinine Ur Random Sodium Ur Random Potassium Urine Glucose Ethyl Alcohol 144.6 H COVID-19 Source Nasal/Nares SARS-CoV-2 (PCR) Negative Add-On Test Request 07/03/22 07/03/22 07/03/22 23:10 23:10 23:10 WBC RBC Hgb Hct MCV MCH MCHC RDW Plt Count MPV Immature Gran % Neutrophils % Lymphocytes % Monocytes % Eosinophils % Basophils % Nucleated RBC % Absolute Neutrophils Absolute Lymphocytes Absolute Monocytes Absolute Eosinophils Absolute Basophils RBC Morphology Polychromasia Anisocytosis Macrocytosis [place] Bodies PT INR VBG pH 7.52 H VBG pCO2 38 L VBG pO2 34 VBG HCO3 31 H VBG Total CO2 28 VBG O2 Saturation 68 VBG Base Excess 8 H Sodium Potassium Chloride Carbon Dioxide Anion Gap BUN Creatinine Est GFR (CKD-EPI 2020) Glucose Calcium Phosphorus < 2.0 L Magnesium Total Bilirubin AST ALT Alkaline Phosphatase Creatine Kinase > 00645 H Troponin I NT-Pro-B Natriuret Pep Total Protein Albumin Lipase 50 25-OH Vitamin D Total Procalcitonin TSH Free T4 Urine Color Urine Clarity Urine pH Ur Specific [place] Urine Protein Urine Ketones Urine Blood Urine Nitrite Urine Bilirubin Urine Urobilinogen Ur Leukocyte Esterase Urine RBC Urine WBC Ur Epithelial Cells Urine Crystals Urine Bacteria Urine Casts Urine Mucus Ur Culture Indicated? Ur Random Creatinine Ur Random Sodium Ur Random Potassium Urine Glucose Ethyl Alcohol COVID-19 Source SARS-CoV-2 (PCR) Add-On Test Request 07/03/22 07/03/22 07/04/22 23:10 23:17 00:45 WBC RBC Hgb Hct MCV MCH MCHC RDW Plt Count MPV Immature Gran % Neutrophils % Lymphocytes % Monocytes % Eosinophils % Basophils % Nucleated RBC % Absolute Neutrophils Absolute Lymphocytes Absolute Monocytes Absolute Eosinophils Absolute Basophils RBC Morphology Polychromasia Anisocytosis Macrocytosis [place] Bodies PT 10.9 INR 1.1 VBG pH VBG pCO2 VBG pO2 VBG HCO3 VBG Total CO2 VBG O2 Saturation VBG Base Excess Sodium Potassium Chloride Carbon Dioxide Anion Gap BUN Creatinine Est GFR (CKD-EPI 2020) Glucose Calcium Phosphorus Magnesium Total Bilirubin AST ALT Alkaline Phosphatase Creatine Kinase Troponin I < 50 NT-Pro-B Natriuret Pep 162 Total Protein Albumin Lipase 25-OH Vitamin D Total Procalcitonin TSH Free T4 Urine Color Yellow Urine Clarity Clear Urine pH 6.5 Ur Specific [place] 1.020 Urine Protein 100 H Urine Ketones Trace H Urine Blood Large H Urine Nitrite Negative Urine Bilirubin Negative Urine Urobilinogen 1.0 H Ur Leukocyte Esterase Negative Urine RBC 3-5 H Urine WBC Negative Ur Epithelial Cells Rare Urine Crystals Negative Urine Bacteria Rare Urine Casts Negative Urine Mucus Negative Ur Culture Indicated? No Ur Random Creatinine Ur Random Sodium Ur Random Potassium Urine Glucose Negative Ethyl Alcohol COVID-19 Source SARS-CoV-2 (PCR) Add-On Test Request 07/04/22 07/04/22 07/04/22 01:00 01:59 05:35 WBC RBC Hgb Hct MCV MCH MCHC RDW Plt Count MPV Immature Gran % Neutrophils % Lymphocytes % Monocytes % Eosinophils % Basophils % Nucleated RBC % Absolute Neutrophils Absolute Lymphocytes Absolute Monocytes Absolute Eosinophils Absolute Basophils RBC Morphology Polychromasia Anisocytosis Macrocytosis [place] Bodies PT INR VBG pH VBG pCO2 VBG pO2 VBG HCO3 VBG Total CO2 VBG O2 Saturation VBG Base Excess Sodium 136 Potassium 1.7 L* Chloride 94 L Carbon Dioxide 34.6 H Anion Gap 7.4 BUN 9 Creatinine 0.6 L Est GFR (CKD-EPI 2020) 122.83 Glucose 108 H Calcium 5.6 L* Phosphorus 2.3 L Magnesium 1.9 Total Bilirubin AST ALT Alkaline Phosphatase Creatine Kinase Troponin I < 50 NT-Pro-B Natriuret Pep Total Protein Albumin Lipase 25-OH Vitamin D Total Procalcitonin 22.4 TSH Free T4 Urine Color Urine Clarity Urine pH Ur Specific [place] Urine Protein Urine Ketones Urine Blood Urine Nitrite Urine Bilirubin Urine Urobilinogen Ur Leukocyte Esterase Urine RBC Urine WBC Ur Epithelial Cells Urine Crystals Urine Bacteria Urine Casts Urine Mucus Ur Culture Indicated? Ur Random Creatinine Ur Random Sodium Ur Random Potassium Urine Glucose Ethyl Alcohol COVID-19 Source SARS-CoV-2 (PCR) Add-On Test Request 07/04/22 07/04/22 07/04/22 05:35 05:35 06:56 WBC 18.33 H RBC 2.14 L Hgb 8.7 L D Hct 24.1 L MCV 117 H MCH 42.6 H MCHC 36.1 H RDW 17.0 H Plt Count 329 MPV 9.7 Immature Gran % 1.0 Neutrophils % 85.5 Lymphocytes % 6.9 Monocytes % 5.3 Eosinophils % 0.9 Basophils % 0.4 Nucleated RBC % 1.3 H Absolute Neutrophils 15.67 H Absolute Lymphocytes 1.26 Absolute Monocytes 0.97 H Absolute Eosinophils 0.16 Absolute Basophils 0.07 RBC Morphology See Below Polychromasia Present Anisocytosis 2+ Macrocytosis 3+ [place] Bodies Present PT INR VBG pH VBG pCO2 VBG pO2 VBG HCO3 VBG Total CO2 VBG O2 Saturation VBG Base Excess Sodium Potassium Chloride Carbon Dioxide Anion Gap BUN Creatinine Est GFR (CKD-EPI 2020) Glucose Calcium Phosphorus Magnesium Total Bilirubin AST ALT Alkaline Phosphatase Creatine Kinase Troponin I NT-Pro-B Natriuret Pep Total Protein Albumin Lipase 25-OH Vitamin D Total 6.4 L Procalcitonin TSH Free T4 Urine Color Urine Clarity Urine pH Ur Specific [place] Urine Protein Urine Ketones Urine Blood Urine Nitrite Urine Bilirubin Urine Urobilinogen Ur Leukocyte Esterase Urine RBC Urine WBC Ur Epithelial Cells Urine Crystals Urine Bacteria Urine Casts Urine Mucus Ur Culture Indicated? Ur Random Creatinine Ur Random Sodium Ur Random Potassium Urine Glucose Ethyl Alcohol COVID-19 Source SARS-CoV-2 (PCR) Add-On Test Request DONE 07/04/22 07/04/22 07/04/22 06:56 06:56 08:00 WBC RBC Hgb Hct MCV MCH MCHC RDW Plt Count MPV Immature Gran % Neutrophils % Lymphocytes % Monocytes % Eosinophils % Basophils % Nucleated RBC % Absolute Neutrophils Absolute Lymphocytes Absolute Monocytes Absolute Eosinophils Absolute Basophils RBC Morphology Polychromasia Anisocytosis Macrocytosis [place] Bodies PT INR VBG pH VBG pCO2 VBG pO2 VBG HCO3 VBG Total CO2 VBG O2 Saturation VBG Base Excess Sodium 137 Potassium 2.0 L* Chloride 95 L Carbon Dioxide 33.9 H Anion Gap 8.1 BUN 9 Creatinine 0.7 Est GFR (CKD-EPI 2020) 117.25 Glucose 124 H Calcium 5.8 L* Phosphorus Magnesium Total Bilirubin AST ALT Alkaline Phosphatase Creatine Kinase > 56802 H Troponin I NT-Pro-B Natriuret Pep Total Protein Albumin Lipase 25-OH Vitamin D Total Procalcitonin TSH Free T4 Urine Color Urine Clarity Urine pH Ur Specific [place] Urine Protein Urine Ketones Urine Blood Urine Nitrite Urine Bilirubin Urine Urobilinogen Ur Leukocyte Esterase Urine RBC Urine WBC Ur Epithelial Cells Urine Crystals Urine Bacteria Urine Casts Urine Mucus Ur Culture Indicated? Ur Random Creatinine 140.77 Ur Random Sodium 14 Ur Random Potassium 10 Urine Glucose Ethyl Alcohol COVID-19 Source SARS-CoV-2 (PCR) Add-On Test Request 07/04/22 07/04/22 07/04/22 11:45 11:45 11:45 WBC RBC Hgb Hct MCV MCH MCHC RDW Plt Count MPV Immature Gran % Neutrophils % Lymphocytes % Monocytes % Eosinophils % Basophils % Nucleated RBC % Absolute Neutrophils Absolute Lymphocytes Absolute Monocytes Absolute Eosinophils Absolute Basophils RBC Morphology Polychromasia Anisocytosis Macrocytosis [place] Bodies PT INR VBG pH VBG pCO2 VBG pO2 VBG HCO3 VBG Total CO2 VBG O2 Saturation VBG Base Excess Sodium 140 Potassium 2.4 L* Chloride 97 L Carbon Dioxide 35.0 H Anion Gap 8.0 BUN 10 Creatinine 0.9 Est GFR (CKD-EPI 2020) 108.68 Glucose 127 H Calcium 6.4 L Phosphorus 2.3 L Magnesium Total Bilirubin AST ALT Alkaline Phosphatase Creatine Kinase > 37584 H Troponin I NT-Pro-B Natriuret Pep Total Protein Albumin Lipase 25-OH Vitamin D Total Procalcitonin TSH Free T4 Urine Color Urine Clarity Urine pH Ur Specific [place] Urine Protein Urine Ketones Urine Blood Urine Nitrite Urine Bilirubin Urine Urobilinogen Ur Leukocyte Esterase Urine RBC Urine WBC Ur Epithelial Cells Urine Crystals Urine Bacteria Urine Casts Urine Mucus Ur Culture Indicated? Ur Random Creatinine Ur Random Sodium Ur Random Potassium Urine Glucose Ethyl Alcohol COVID-19 Source SARS-CoV-2 (PCR) Add-On Test Request
[2022-07-04 15:20] LABS: HCT 25.5 % (40.0-50.0); HGB 9.4 g/dL (13.5-17.5)
[2022-07-04 15:33] LABS: Anion Gap 8.7 mmol/L (3-11); BUN 10 mg/dL (7-18); CO2 32.3 mmol/L (21.0-32.0); CREATININE 0.9 mg/dL (0.70-1.30); Chloride 100 mmol/L (98-107); Estimated GFR 108.68 (mL/min/1.73m2); Glucose 120 mg/dL (74-106); Sodium 141 mmol/L (136-145)
[2022-07-04 15:35] LABS: PHOSPHORUS 2.1 mg/dL (2.6-4.7)
[2022-07-04 15:48] LABS: Calcium 6.4 mg/dL (8.5-10.1); Potassium 2.4 mmol/L (3.5-5.1)
[2022-07-04 15:55] LABS: Iron 187 ug/dL (65-175); Total Iron Binding Capacity 219 ug/dL (250-450); Transferrin Sat 85 % (20-55)
[2022-07-04 16:09] LABS: Ferritin 930 ng/mL (26-388)
[2022-07-04 20:27] LABS: Anion Gap 8.2 mmol/L (3-11); BUN 9 mg/dL (7-18); CO2 30.8 mmol/L (21.0-32.0); CREATININE 0.9 mg/dL (0.70-1.30); Chloride 103 mmol/L (98-107); Estimated GFR 108.68 (mL/min/1.73m2); Glucose 149 mg/dL (74-106); Sodium 142 mmol/L (136-145)
[2022-07-04 20:29] LABS: Calcium 6.1 mg/dL (8.5-10.1); Potassium 2.5 mmol/L (3.5-5.1)
[2022-07-05] VITALS (82 sets, daily range): BP systolic 103–143; BP diastolic 54–92; PULSE 76–117; RESP 1–24; TEMP 36.9–38.3; O2SAT 86–96
--- NOTE | 2022-07-05 | DI.CT_ITS ---
Exam(s) CT CHEST/ABD/PEL W EXAM: CT CHEST/ABD/PEL W CLINICAL HISTORY: fevers, cirrhosis; r/o bacterial peritonitis. TECHNIQUE: Imaging Protocol: Axial computed tomography images with coronal and sagittal reformatted images were created and reviewed CONTRAST MATERIAL: Intravenous: Omnipaque 350 Contrast volume:100 ml Oral: None COMPARISON: CT CT CHEST/ABD/PEL WO from 04/29/2021 FINDINGS: CHEST: LUNGS: There is a prominent area of atelectasis-infiltrate in the left lower lobe and an associated s mall-moderate size ipsilateral left pleural effusion.. There is also mild infiltrate in the superior segment of the left lower lobe. There is relative sparing of the left upper lobe and lingula. In t he opposite-right lung there is mild infiltrate and atelectasis in the basal segments right lower lob e. Also small left pleural effusion. No significant findings in the trachea and mainstem bronchi. MEDIASTINUM: No gross hilar nor mediastinal adenopathy. Slightly increased size lymph nodes noted in the subcarinal region. Hilar regions exhibit minimally prominent nodes. No supraclavicular nor axi llary adenopathy. Visualized thyroid unremarkable. CARDIAC: Heart size is normal. There is no pericardial effusion.Caliber of the thoracic aorta is wit hin normal limits. OSSEOUS: No significant osseous lesions.. ABDOMEN: There is no ascites. LIVER: Liver is very hypodense implying severe steatosis. There are no discrete focal hepatic lesion s identified. GALLBLADDER/BILIARY: No obvious gallbladder pathology. CBD is not dilated. PANCREAS: No evidence of pancreatic mass nor dilatation of the pancreatic duct. 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 There is again noted an unchanged 1.5 x 1.5 cm splenule. Splenic and portal veins are patent. ADRENALS: There are no significant adrenal masses. KIDNEYS: No calculi nor hydronephrosis. No solid renal masses. No cysts evident. ABDOMINAL AORTA: Abdominal aorta is not enlarged. Atherosclerotic involvement of the left common jaimee ac arteries noted but no occlusion. LYMPH NODES: There is no retroperitoneal nor paraaortic adenopathy. ABDOMINAL WALL: There is a in anterior abdominal wall midline right para umbilical inguinal hernia wh ich is unchanged from 04/29/2021 and contains only fat and no bowel loops. There is no bowel obstruc tion GI: There is no evidence of bowel obstruction.There is circumferential mural thickening in the right- side of the colon and majority of the transverse colon noted. This may be due to under distension wi th lack of oral contrast or may be related to colitis such as ulcerative colitis. There is sigmoid d iverticuli in the sigmoid but no evidence of acute diverticulitis. PELVIS: LYMPH NODES: There is no intrapelvic nor inguinal adenopathy. GI: No evidence of appendicitis.Sigmoid diverticulosis but no evidence of acute diverticulitis. URINARY BLADDER: There is a Wiley catheter in the urinary bladder. No obvious masses. REPRODUCTIVE: Prostate gland is not enlarged. Seminal vesicles unremarkable. OSSEOUS: No fractures. No osseous lesions. IMPRESSION: 1. Bilateral infiltrates, as described above, and small bilateral pleural effusions. 2. Spleen is either developmentally or surgically absent, similar previous. Small left upper quadran t splenule is again noted, unchanged in size, measuring 1.5 x 1.5 cm. 3. Anterior abdominal wall midline para umbilical hernia which contains fat but no bowel loops. Ther e is no bowel obstruction. 4. Sigmoid diverticuli without evidence of acute diverticulitis. In addition, there findings in the ascending colon which are There is circumferential hypodense thickening of the wall of the ascending colon. Also the proximal aspect of the transverse colon. This may be related to an element of colitis. For, this may also be related just to under distension. This was not evident on the prior study of 04/29/2021. However, that time there was oral contrast in the bowel lumen, including the colon. Hepatic steatosis is noted. There are no discrete focal hepatic lesions. RADIATION DOSE DELIVERED: 1,025.13mGy.cm Total DLP DATA REPOSITORY: All CT scans at this facility are submitted to the National Radiology Data Registry (NRDR) Dose Index Registry (DIR) with the [employer] ([employer]). RADIATION OPTIMIZATION: All CT scans at this facility use at least one of these dose optimization te chniques: automated exposure control; mA and/or kV adjustment per patient size (includes targeted exa ms where dose is matched to clinical indication); or iterative reconstruction.
[2022-07-05] MEDS: PIPERACILLIN/TAZO 4.5 GM in Normal Saline 100 ML IVPB ×3 (01:00→15:23)
[2022-07-05] MEDS: VANCOMYCIN/WATER (PEG) 1.5 GM/300 ML BAG IV (01:14)
[2022-07-05 01:26] LABS: Anion Gap 7.2 mmol/L (3-11); BUN 8 mg/dL (7-18); CO2 30.8 mmol/L (21.0-32.0); CREATININE 0.8 mg/dL (0.70-1.30); Chloride 106 mmol/L (98-107); Estimated GFR 112.61 (mL/min/1.73m2); Glucose 179 mg/dL (74-106); Sodium 144 mmol/L (136-145)
[2022-07-05 01:33] LABS: Potassium 2.6 mmol/L (3.5-5.1)
[2022-07-05] MEDS: Potassium Chloride 20 MEQ TABCR 40 MEQ PO ×5 (01:39→19:30)
[2022-07-05] MEDS: Calcium Gluconate 4.65 MEQ/10 ML VIAL 4.65 MG IVP (01:39)
[2022-07-05] MEDS: MAGNESIUM SULFATE 2 GM/50 ML BAG IVPB (01:40)
[2022-07-05] MEDS: Normal Saline Flush 10 ML SYR IVP ×3 (01:43→19:35)
[2022-07-05] MEDS: POTASSIUM CHLORIDE 20 MEQ/100 ML BAG 50 MEQ IVPB ×2 (03:21→05:12)
[2022-07-05] MEDS: DOXYCYCLINE 100 MG in Normal Saline 100 ML IVPB ×2 (03:29→15:23)
[2022-07-05 06:05] LABS: Abs Immature Grans 0.45 10^3/uL (0.0-0.06); Absolute Basophil Count 0.12 10^3/uL (0.0-0.2); Absolute Eosinophil Count 0.42 10^3/uL (0.0-0.7); Basophils % 0.5; Eosinophils % 1.7; HCT 22.3 % (40.0-50.0); HGB 8.2 g/dL (13.5-17.5); Immature Grans % 1.8; Lymphocytes % 11.6; MCH 45.1 pg (27.0-33.0); MCHC 36.8 % (32.0-36.0); MCV 123 fL (80-95); MPV 9.7 fL (8.0-11.0); Monocytes % 3.3; Neutrophils % 81.1; Nucleated RBC 4.1 % (0.0-0.3); Platelet Count 350 10^3/uL (130-400); RBC 1.82 10^6/uL (4.36-5.78); RDW 18.3 % (11.8-14.1); RDW-SD 81.7 fL; WBC 24.62 10^3/uL (4.4-10.8)
[2022-07-05 06:35] LABS: Magnesium 1.8 mg/dL (1.8-2.4)
[2022-07-05 06:36] LABS: Absolute Lymphocyte Count 2.86 10^3/uL (1.2-3.4); Absolute Monocyte Count 0.81 10^3/uL (0.1-0.8); Absolute Neutrophil Count 19.97 10^3/uL (1.2-6.7)
[2022-07-05 06:37] LABS: Macrocytosis 3+
[2022-07-05 06:38] LABS: Polychromasia Present
[2022-07-05 06:39] LABS: Howell-Jolly Bodies Present
[2022-07-05 06:48] LABS: ALT 57 U/L (16-63); AST 154 U/L (15-37); Albumin 1.7 g/dL (3.4-5.0); Alkaline Phosphatase 109 U/L (46-116); Anion Gap 2.4 mmol/L (3-11); BUN 7 mg/dL (7-18); Bilirubin, Total 0.8 mg/dL (0.2-1.0); CO2 30.6 mmol/L (21.0-32.0); CREATININE 0.8 mg/dL (0.70-1.30); Chloride 109 mmol/L (98-107); Estimated GFR 112.61 (mL/min/1.73m2); Glucose 105 mg/dL (74-106); PHOSPHORUS 2.4 mg/dL (2.6-4.7); Potassium 3.1 mmol/L (3.5-5.1); Sodium 142 mmol/L (136-145); Total Protein 4.8 g/dL (6.4-8.2)
[2022-07-05 06:56] LABS: Calcium 6.3 mg/dL (8.5-10.1)
[2022-07-05] MEDS: Acetaminophen 325 MG TAB PO ×2 (06:56→19:59)
[2022-07-05] MEDS: Ketorolac 15 MG/ML VIAL IVP ×2 (06:57→15:22)
[2022-07-05 07:02] LABS: Creatine Kinase > 10000 U/L (39-308)
[2022-07-05 07:39] LABS: Source Nasopharynx
[2022-07-05 08:26] LABS: COVID-19 PCR Negative (Negative)
[2022-07-05] MEDS: Albuterol 2.5 MG/3 ML INH SOLN VIAL UPD (08:48)
[2022-07-05] MEDS: Multivitamin TAB 1 TAB PO (09:10)
[2022-07-05] MEDS: Magnesium Oxide 400 MG TAB PO ×4 (09:11→19:31)
[2022-07-05] MEDS: Enoxaparin 40 MG/0.4 ML SYR SC (09:11)
[2022-07-05] MEDS: Pantoprazole 40 MG TABCR PO ×2 (09:11→19:30)
[2022-07-05] MEDS: Cholecalciferol (Vitamin D3) 1,000 UNIT TAB 1000 UNITS PO (09:11)
[2022-07-05 09:14] LABS: Vancomycin, Trough 19.8 ug/mL (10.0-20.0)
[2022-07-05] MEDS: Thiamine 100 MG TAB PO (09:14)
[2022-07-05] MEDS: Folic Acid 1 MG TAB PO (09:14)
[2022-07-05] MEDS: Ergocalciferol 50000 UNITS CAP PO (09:15)
[2022-07-05] MEDS: VANCOMYCIN/WATER (PEG) 1.25 GM/250 ML BAG IV (11:07)
[2022-07-05] MEDS: Omnipaque 350 MG/ML 100 ML BTL IJ (11:12)
--- NOTE | 2022-07-05 11:36 | DI.VRAD_ITS ---
PROCEDURE INFORMATION: Exam: CT Chest With Contrast; Diagnostic Exam date and time: 07/05/2022 11:43 AM Age: 41 years old Clinical indication: Other: Fevers, cirrhosis, R/O bacterial peritonitis TECHNIQUE: Imaging protocol: Diagnostic computed tomography of the chest with contrast. Radiation optimization: All CT scans at this facility use at least one of these dose optimization techniques: automated exposure control; mA and/or kV adjustment per patient size (includes targeted exams where dose is matched to clinical indication); or iterative reconstruction. Contrast material: OMNIPAQUE 350; Contrast volume: 100 ml; Contrast route: INTRAVENOUS (IV); COMPARISON: CT CHEST/ABD/PEL WO 04/29/2021 12:08 PM FINDINGS: Lungs: Large left basilar lung consolidation. Small right basilar lung consolidation. Multifocal bilateral airspace disease Pleural spaces: Small bilateral pleural effusions Heart: Unremarkable. No cardiomegaly. No pericardial effusion. Lymph nodes: Unremarkable. No enlarged lymph nodes. Vasculature: Unremarkable. No aortic aneurysm. Bones/joints: Subacute fracture right posterior 11th rib Soft tissues: Unremarkable. IMPRESSION: 1. Bilateral pneumonia 2. Bilateral pleural effusions PROCEDURE INFORMATION: Exam: CT Abdomen And Pelvis With Contrast Exam date and time: 07/05/2022 11:43 AM Age: 41 years old Clinical indication: Other: Fevers, cirrhosis, R/O bacterial peritonitis TECHNIQUE: Imaging protocol: Computed tomography of the abdomen and pelvis with contrast. Radiation optimization: All CT scans at this facility use at least one of these dose optimization techniques: automated exposure control; mA and/or kV adjustment per patient size (includes targeted exams where dose is matched to clinical indication); or iterative reconstruction. Contrast material: OMNIPAQUE 350; Contrast volume: 100 ml; Contrast route: INTRAVENOUS (IV); COMPARISON: CT CHEST/ABD/PEL WO 04/29/2021 12:08 PM FINDINGS: Lungs: See above Liver: Severe fatty infiltration of the liver Gallbladder and bile ducts: Distended. No calcified stones. No ductal dilation. Pancreas: Unremarkable. No ductal dilation. Spleen: Splenectomy. Small splenule left upper quadrant Adrenal glands: Normal. No mass. Kidneys and ureters: Unremarkable. No hydronephrosis. Stomach and bowel: Moderate diverticulosis is present in the sigmoid colon. No evidence of diverticulitis. Thickening of the wall of the ascending colon, possible colitis Appendix: No evidence of appendicitis. Intraperitoneal space: Unremarkable. No free air. No significant fluid collection. Vasculature: Unremarkable. No abdominal aortic aneurysm. Lymph nodes: Unremarkable. No enlarged lymph nodes. Urinary bladder: Wiley catheter within the urinary bladder Reproductive: Unremarkable as visualized. Bones/joints: Unremarkable. No acute fracture. Soft tissues: Small ventral hernia containing fat. Air bubbles within the left anterior abdominal wall, likely injection sites IMPRESSION: 1. Suspected colitis 2. Splenectomy 3. Small left upper quadrant splenule Dictated and Authenticated by: Rylie Li MD. Ordering:P.ROBERTS [place] Leo Montano MD
--- NOTE | 2022-07-05 11:54 | PT.INIE ---
PT Notes Visit Reasons: Severe Hypokalemia, Hypomagnesemia, Hypocalcemia,R Inpatient Physical Therapy Evaluation Date: 07/05/2022 Referring Doctor: aKren Rosado MD PT Orders: PT CONSULT: Evaluate Precautions: Fall precautions Patient Profile/Admitting Diagnosis: 41-year-old male who developed insidious onset of weakness and functional deterioration over the past 10 days to the point where he is admitted on Wednesday with electrolyte imbalance. PMHX: PFSH All Active Problems?(Updated 07/04/22 @ 03:24 by Karen Rosado MD) Ambulatory dysfunction (Acute) Transaminitis (Acute) Hypomagnesemia (Acute) Hypokalemia (Acute) Hypocalcemia (Acute) Rhabdomyolysis (Acute) Hypoparathyroidism (Acute) Vitamin D deficiency (Acute) Tubulovillous adenoma (Chronic) Leucocytosis (Chronic) Hypophosphatemia (Acute) Iatrogenic hypocalcemia (Acute) Hypocalcemia (Acute) Respiratory failure with hypoxia (Acute) QT prolongation (Acute) Hyponatremia (Chronic) Macrocytosis (Acute) Alcohol use (Chronic) Altered mental status (Acute) Discharge planning issues (Acute) DVT prophylaxis (Acute) Acute gastroenteritis (Acute) Electrolyte disturbance (Acute) Fatty liver (Chronic) Hypokalemia (Acute) Hypomagnesemia (Acute) History of splenectomy (Acute) Hyponatremia (Acute) Dehydration (Acute) Medical History Alcohol intoxication (07/14/14) Colitis Depression (07/14/14) No significant past medical history Tobacco use Surgical History? History of hammer toe correction Social History/Home Situation: Lives with his disabled girlfriend in a second floor apartment with approximately 14 steps with railing. His bathroom is handicap accessible with a walk-in shower, grab bars and a flexible shower hose. 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 Current Functional Limitations: Prior to his illness, he was independent with all ADLs, driving etc. Currently, he requires assistance with all ADLs including bed mobility Equipment Owned/DME: None mentioned Subjective: Patient complains of intermittent discomfort primarily throughout his lower extremities within a stocking glove distribution. This generally occurs with movement. He notes that he is feeling better today than upon admission. Objective: General Observation: Pleasant, cooperative and no abnormal pain behavior noted. Mental Status: Oriented x3 Pain: 5/10 on a VAS Vital Signs: His resting respiratory rate is approximately 14 breaths/min, and increases to greater than 24 breaths/min with activity ROM: His joint mobility is good functional range throughout without pain on movement. He has tight gastrocnemius bilaterally at 0 degrees of dorsiflexion. He has edematous lower legs particular the ankle-foot complex. Negative erythema or warmth Strength: He has full volitional movement throughout with his upper extremity strength generally rated 3/5 proximally and 4/5 distally. His proximal lower extremity strength is 2/5, quads and hamstrings -4/5, and ankle musculature 3/5 Neuro: KJ's +3 and AJ's are +2 and symmetrical, BR, triceps, biceps are +2 on the left/+1 in the right. Negative Babinski bilaterally, sensation and proprioception is intact, fingertips to nose mildly ataxic on the left which may be due to his weakness. Does have some mild resistance on passive movement Bed Mobility/Transfers: Independent with assuming the supine to sitting position but with considerable effort. Requires assistance with his lower extremities when assuming the sitting to supine position. He is able to reposition himself in bed again with considerable effort. He was able to assume the sitting to standing position with mild contact guarding Gait: He ambulated approximately 3 feet forward and backwards with a short shuffling steps using a FWW and requiring moderate contact guarding. Balance: Static Sitting: Fair Dynamic Sitting: Fair to poor Static Standing: Fair Dynamic Standing: Fair requiring contact guarding Special Tests: Mobility Limitations Standardized Measure [facility]-PAC 6 clicks Basic Mobility Inpatient Short Form: Raw Score: 10 standardized Score: 32.29 CMS Score: 76.75%/CL Informed Consent/Education: Patient instructed in purpose of PT consult and plan of care. Assessment: Patient is a 41year old male referred to physical therapy services with the diagnosis of electrolyte imbalance. Patient presents with clinical signs and symptoms consistent with this diagnosis, as demonstrated by the following impairment level findings: Significant weakness throughout, with significant functional impairment particular with his bed mobility and gait. 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 We will have a better idea over the next couple days for more definitive recommendation. Impairments are contributing to the following functional limitations: AMPAC score. Patient is assessed as a High 22101 complexity based on the following: History: See comorbidities and social history Examination: See above for functional limitations and impairments Presentation: Unstable Decision Making: High complexity based on his clinical findings Goals: Goals X1 week 1. Supine-Sit independent with minimal effort 2. Sit-Supine independent 3. Sit-Stand independent with minimal effort 4. Stand-Sit independent with minimal effort 5. Bed-Chair independent 6. Chair-Bed independent 7. Gait independent ambulation with FWW for greater than 150 feet 8. Stairs ascend and descend stairs with a railing 9. Stable sitting and standing balance Plan of Care/Treatment Plan: 1-2x/day, 7 days/week x 1 week. Plan of care has been reviewed with the MEDICARE SPECIALIST providing the service under Physical Therapy direction. Initiate Physical Therapy intervention for strengthening, bed mobility, transfers, gait, stairs, balance training, use of assistive device. Patient was instructed to perform bridging, straight leg raises and ankle pumping frequently throughout the day. DISCHARGE RECOMMENDATIONS: SNF for continued rehabilitation currently, but will review reassess on a daily basis while in the hospital TREATMENT CODE/TIME: 73213/14062 11 45-12 40 5 AM Disclaimer: This note was created using [employer] voice recognition software. It was reviewed for major content. However, there may be multiple small discrepancies and errors due to the voice recognition aspects of the software.
--- NOTE | 2022-07-05 12:49 | W.PM.PROGNOT ---
Date of Service Date of service: 07/05/22 Time of Service: 12:49 Assessment and Plan Assessment and plan (1) Rhabdomyolysis: Status: Acute Assessment and plan: CK level remains elevated > 10,000. Unclear etiology, possible from falls although no visible hematomas; no traumatic injury and no evidence for compartment syndrome. Continue iv hydration, monitor urine output, CK levels. (avoiding alkalinization as he already has alkaline VBG and alkalinization may worsen his potassium levels). Creatinine normal at 0.8 (2) Hypokalemia: Status: Acute Assessment and plan: K improved to 3.1. Continue iv and oral replacement; monitor serial levels Continue magnesium supplementation as well (3) Hypomagnesemia: Status: Acute Assessment and plan: patient given iv and oral replacement, level is now at lower limits of normal. Continue oral supplementation (4) Hypocalcemia: Status: Acute Assessment and plan: with his low albumen level his calcium level corrects to 8.14. vitamin D level is low and vitamin D is being supplemented. (5) QT prolongation: Status: Acute Assessment and plan: Correct electrolytes. Monitor on tele. (6) Alcohol use: Status: Chronic Assessment and plan: Monitor for w/d. No h/o w/d. Will supplement thiamine, MVI. (7) Hypophosphatemia: Status: Acute Assessment and plan: patient was severely depleted and now has come up to 2.3. Continue to monitor and replace orally (8) Anemia: Status: Chronic Assessment and plan: historically he has been anemic ususally in the 10 gm however he has not had any labs in a year. Hgb has been variable: 11.4 > 8.7 > 9.4 > 8.2. Iron level elevated at 187. Ferritin high at 930. Monitor for GI loses. (9) Transaminitis: Status: Acute Assessment and plan: Suspect this is due to rhabdomyolysis, though EtOH liver disease could be contributing, based on the pattern. Trend LFTs. CT abd/pelvis showed severe fatty infiltration of liver. Possible colitis of ascending colon. (10) Ambulatory dysfunction: Status: Acute Assessment and plan: C/s PT (11) Discharge planning issues: Status: Acute Assessment and plan: Full code (12) DVT prophylaxis: Status: Acute Assessment and plan: SC heparin (13) Pneumonia: Status: Acute Assessment and plan: Large left basilar lung consolidation and small right basilar consolidation. Multifocal bilateral airspace disease. Small bilateral pleural effusion. Cont Zosyn and Vanc. Added doxycycline. Consult pulmonary in the AM. Stable now on RA. Monitor WBC count (has increased). Subjective Subjective Patient reports: no new complaints, feels better and fever; denies nausea or vomiting Interval history since last seen: Ongoing weakness. Exam Narrative Exam Narrative: Gen: Lying in bed. NAD. Conversational. Lungs: clear. Nonlabored breathing. 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 Affect appropriate. Objective Last Vital Signs Temp 37.5 C 07/05/22 07:40 Pulse 99 H 07/05/22 10:00 Resp 21 07/05/22 10:10 BP 121/75 07/05/22 10:00 Pulse Ox 92 07/05/22 10:01 Laboratory Results - last 24 hr 07/04/22 07/04/22 07/04/22 15:10 15:10 15:10 WBC RBC Hgb 9.4 L Hct 25.5 L MCV MCH MCHC RDW Plt Count MPV Immature Gran % Neutrophils % Lymphocytes % Monocytes % Eosinophils % Basophils % Nucleated RBC % Absolute Neutrophils Absolute Lymphocytes Absolute Monocytes Absolute Eosinophils Absolute Basophils Polychromasia Macrocytosis Brisen[place]-Midway Bodies Sodium 141 Potassium 2.4 L* Chloride 100 Carbon Dioxide 32.3 H Anion Gap 8.7 BUN 10 Creatinine 0.9 Est GFR (CKD-EPI 2020) 108.68 Glucose 120 H Calcium 6.4 L Phosphorus Magnesium Iron TIBC Transferrin % Sat Ferritin Total Bilirubin AST ALT Alkaline Phosphatase Creatine Kinase Total Protein Albumin Vancomycin Trough COVID-19 Source SARS-CoV-2 (PCR) Patient ABO/Rh O Negative Antibody Screen NEGATIVE 07/04/22 07/04/22 07/04/22 15:10 15:10 15:10 WBC RBC Hgb Hct MCV MCH MCHC RDW Plt Count MPV Immature Gran % Neutrophils % Lymphocytes % Monocytes % Eosinophils % Basophils % Nucleated RBC % Absolute Neutrophils Absolute Lymphocytes Absolute Monocytes Absolute Eosinophils Absolute Basophils Polychromasia Macrocytosis Brisen[place] Bodies Sodium Potassium Chloride Carbon Dioxide Anion Gap BUN Creatinine Est GFR (CKD-EPI 2020) Glucose Calcium Phosphorus 2.1 L Magnesium Iron 187 H TIBC 219 L Transferrin % Sat 85 H Ferritin 930 H Total Bilirubin AST ALT Alkaline Phosphatase Creatine Kinase Total Protein Albumin Vancomycin Trough COVID-19 Source SARS-CoV-2 (PCR) Patient ABO/Rh Antibody Screen 07/04/22 07/05/22 07/05/22 20:08 01:08 EST 05:48 WBC RBC Hgb Hct MCV MCH MCHC RDW Plt Count MPV Immature Gran % Neutrophils % Lymphocytes % Monocytes % Eosinophils % Basophils % Nucleated RBC % Absolute Neutrophils Absolute Lymphocytes Absolute Monocytes Absolute Eosinophils Absolute Basophils Polychromasia Macrocytosis [place] Bodies Sodium 142 144 Potassium 2.5 L* 2.6 L* Chloride 103 106 Carbon Dioxide 30.8 30.8 Anion Gap 8.2 7.2 BUN 9 8 Creatinine 0.9 0.8 Est GFR (CKD-EPI 2020) 108.68 112.61 Glucose 149 H 179 H Calcium 6.1 L* 6.0 L* Phosphorus Magnesium 1.8 Iron TIBC Transferrin % Sat Ferritin Total Bilirubin AST ALT Alkaline Phosphatase Creatine Kinase Total Protein Albumin Vancomycin Trough COVID-19 Source SARS-CoV-2 (PCR) Patient ABO/Rh Antibody Screen 07/05/22 07/05/22 07/05/22 05:48 05:48 07:30 WBC 24.62 H RBC 1.82 L Hgb 8.2 L Hct 22.3 L MCV 123 H D MCH 45.1 H MCHC 36.8 H RDW 18.3 H Plt Count 350 MPV 9.7 Immature Gran % 1.8 Neutrophils % 81.1 Lymphocytes % 11.6 Monocytes % 3.3 Eosinophils % 1.7 Basophils % 0.5 Nucleated RBC % 4.1 H Absolute Neutrophils 19.97 H Absolute Lymphocytes 2.86 Absolute Monocytes 0.81 H Absolute Eosinophils 0.42 Absolute Basophils 0.12 Polychromasia Present Macrocytosis 3+ Brisen[place] Bodies Present Sodium 142 Potassium 3.1 L Chloride 109 H Carbon Dioxide 30.6 Anion Gap 2.4 L BUN 7 Creatinine 0.8 Est GFR (CKD-EPI 2020) 112.61 Glucose 105 Calcium 6.3 L* Phosphorus 2.4 L Magnesium Iron TIBC Transferrin % Sat Ferritin Total Bilirubin 0.8 AST 154 H ALT 57 Alkaline Phosphatase 109 Creatine Kinase > 30690 H Total Protein 4.8 L Albumin 1.7 L Vancomycin Trough COVID-19 Source Nasopharynx SARS-CoV-2 (PCR) Negative Patient ABO/Rh Antibody Screen 07/05/22 08:53 WBC RBC Hgb Hct MCV MCH MCHC RDW Plt Count MPV Immature Gran % Neutrophils % Lymphocytes % Monocytes % Eosinophils % Basophils % Nucleated RBC % Absolute Neutrophils Absolute Lymphocytes Absolute Monocytes Absolute Eosinophils Absolute Basophils Polychromasia Macrocytosis Brisen[place] Bodies Sodium Potassium Chloride Carbon Dioxide Anion Gap BUN Creatinine Est GFR (CKD-EPI 2020) Glucose Calcium Phosphorus Magnesium Iron TIBC Transferrin % Sat Ferritin Total Bilirubin AST ALT Alkaline Phosphatase Creatine Kinase Total Protein Albumin Vancomycin Trough 19.8 COVID-19 Source SARS-CoV-2 (PCR) Patient ABO/Rh Antibody Screen
[2022-07-05 18:07] LABS: Ionized Calcium 0.82 mmol/L (1.14-1.35)
[2022-07-06] VITALS (8 sets, daily range): BP systolic 127–143; BP diastolic 83–96; PULSE 60–108; RESP 16–22; TEMP 37.1–38; O2SAT 92–100
--- NOTE | 2022-07-06 | DI.US_ITS ---
Exam(s) US EXTREMITY VENOUS BI EXAM: US EXTREMITY VENOUS BI CLINICAL HISTORY: BLE edema, concern for DVT TECHNIQUE: Grayscale, color, and doppler imaging of the deep venous system of both lower extremities was performed. COMPARISON: No exams were available for comparison FINDINGS: There is no evidence of intraluminal thrombus and there is normal compression and augmentation demons trated within the common femoral veins, femoral veins, and popliteal veins of both lower extremities. In the calves the interrogated veins also exhibit normal compression/ augmentation properties. The greater saphenous veins also appear patent as do the saphenofemoral junctions bilaterally.. IMPRESSION: 1. No ultrasound evidence of DVT in either lower extremity. DATA REPOSITORY:
--- NOTE | 2022-07-06 | DI.MRI_ITS ---
Exam(s) MR LUMBAR SPINE WO/W EXAM: MR LUMBAR SPINE WO/W CLINICAL HISTORY: Sepsis, back pain and BLE weakness and pain. TECHNIQUE: Multiplanar multisequence MRI of the Lumbar spine was performed. Both pre and post contra st infused sequences were performed. COMPARISON: CT CT CHEST/ABD/PEL W from 07/05/2022 FINDINGS: Conus medullaris is at normal level. There is no evidence of conus mass nor subjacent clumping of in trathecal nerve roots to suggest arachnoiditis. The distal thecal sac appears unremarkable.There is no evidence of Tarlov intrasacral cysts nor other significant findings within the sacral canal SPINAL CANAL: No evidence of abnormal fluid collection to suggest epidural abscess, as per request. Also no evidence of paraspinal abscess. Psoas muscles appear symmetrical. Bones:There are no fractures nor focal ominous osseous lesions in the lumbar vertebral bodies and vis ualized sacrum. Benign intraosseous hemangioma is noted in the right side L1 vertebral body. With respect to the individual levels... T12-L1: Unremarkable L1-2: Normal disc height and signal. No disc herniation nor central canal stenosis.No foraminal steno sis L2-3: Normal disc height. No disc herniation nor central canal stenosis.No foraminal stenosis.No face t arthropathy. L3-4: Normal disc height. No disc herniation or central canal stenosis.No foraminal stenosis.No face t arthropathy. L4-5: Small disc height and signal. No disc herniation. No central canal stenosis. No foraminal st enosis. No facet arthropathy. L5-S1: Normal disc height and signal. No disc herniation. No canal stenosis. No foraminal stenosis . No significant facet arthropathy. Soft tissues: paraspinal soft tissues appear unremarkable.Kidneys appear unremarkable. No evidence of abdominal aortic aneurysm. IMPRESSION: 1. No evidence of epidural nor paraspinal abscess, as per request. 2. No evidence of disc herniation, canal stenosis, or foraminal stenosis. 3. No significant facet arthropathy. Incidentally noted is a benign intraosseous hemangioma in the right side of L1 vertebral body. Report called by myself to the hospitalist 07/06/2022 5:15 p.m. DATA REPOSITORY:
[2022-07-06] MEDS: PIPERACILLIN/TAZO 4.5 GM in Normal Saline 100 ML IVPB ×3 (00:45→18:17)
[2022-07-06] MEDS: Ketorolac 15 MG/ML VIAL IVP (01:13)
[2022-07-06] MEDS: DOXYCYCLINE 100 MG in Normal Saline 100 ML IVPB ×2 (05:05→16:52)
[2022-07-06 06:54] LABS: HCT 26.2 % (40.0-50.0); HGB 9.2 g/dL (13.5-17.5); MCH 44.2 pg (27.0-33.0); MCHC 35.1 % (32.0-36.0); MCV 126 fL (80-95); MPV 9.5 fL (8.0-11.0); Platelet Count 405 10^3/uL (130-400); RBC 2.08 10^6/uL (4.36-5.78); RDW 18.8 % (11.8-14.1); RDW-SD 88.1 fL
[2022-07-06 06:57] LABS: WBC 25.34 10^3/uL (4.4-10.8)
[2022-07-06 07:10] LABS: ALT 93 U/L (16-63); AST 378 U/L (15-37); Albumin 1.8 g/dL (3.4-5.0); Alkaline Phosphatase 108 U/L (46-116); Anion Gap 8.5 mmol/L (3-11); BUN 6 mg/dL (7-18); Bilirubin, Total 0.6 mg/dL (0.2-1.0); CO2 25.5 mmol/L (21.0-32.0); CREATININE 0.7 mg/dL (0.70-1.30); Chloride 110 mmol/L (98-107); Estimated GFR 117.25 (mL/min/1.73m2); Glucose 96 mg/dL (74-106); Potassium 4.7 mmol/L (3.5-5.1); Sodium 144 mmol/L (136-145); Total Protein 5.3 g/dL (6.4-8.2)
[2022-07-06 07:14] LABS: Calcium 5.9 mg/dL (8.5-10.1)
[2022-07-06 07:15] LABS: PHOSPHORUS 4.5 mg/dL (2.6-4.7)
[2022-07-06 07:28] LABS: Absolute Neutrophil Count 22.05 10^3/uL (1.2-6.7); Bands % 1
[2022-07-06 07:29] LABS: Absolute Basophil Count 0.25 10^3/uL (0.0-0.2); Absolute Lymphocyte Count 3.04 10^3/uL (1.2-3.4); Creatine Kinase > 10000 U/L (39-308); Diff Comment Manual Differential; Macrocytosis 2+
[2022-07-06] MEDS: Potassium Chloride 20 MEQ TABCR 40 MEQ PO (07:55)
[2022-07-06] MEDS: Enoxaparin 40 MG/0.4 ML SYR SC (07:55)
[2022-07-06] MEDS: Acetaminophen 325 MG TAB PO ×2 (07:55→20:05)
[2022-07-06] MEDS: Magnesium Oxide 400 MG TAB PO ×4 (07:56→19:59)
[2022-07-06] MEDS: Pantoprazole 40 MG TABCR PO ×2 (07:56→19:59)
[2022-07-06] MEDS: Folic Acid 1 MG TAB PO (07:56)
[2022-07-06] MEDS: Thiamine 100 MG TAB PO (07:56)
[2022-07-06] MEDS: Cholecalciferol (Vitamin D3) 1,000 UNIT TAB 1000 UNITS PO (07:56)
[2022-07-06] MEDS: Multivitamin TAB 1 TAB PO (07:56)
--- NOTE | 2022-07-06 08:38 | W.PULMCON ---
General Date Of Service Date of service: 07/06/22 Time of Service: 08:38 Reason for Consult: Pneumonia Assessment and Plan Assessment and plan (1) Pneumonia: Status: Acute (2) Transaminitis: Status: Acute (3) Emphysema lung: Status: Acute (4) Elevated CK: Status: Acute (5) Rhabdomyolysis: Status: Acute Assessment and plan: This is a 41 yo man admitted for pneumonia and elevated CK with muscle weakness and pain. Legionella can cause elevation in CK level, so I will test for this. That being said his pneumonia is clinically not severe so I do wonder if the CK and muscle weakness is unrelated. He denies drug use but I will order a Utox. Autoimmune processes can cause elevated CK levels as well, so I will order a broad work up for this. I think it would be clinically helpful to see if the lab can dilute the CK level in order to give a true quantity in order to assess if there is improvement or not. He already received fluids earlier in his hospital stay and his CK level remains >10,000. His leg exam is abnormal as well with swelling and tenderness. Given the lack of improvement I do recommend CT imaging of the leg to ensure nothing else is being missed. His chest CT find emphysema, and although he smokes, he is very young to have emphysema so I will order AAT levels, particularly given the LFT increase. Pneumonia - continue Zosyn and doxy - urine antigens for strep and legionella Elevated CK - recommend titration of CK to get an actual number to truly trend - have ordered: Utox, LDH, aldolase, myomarker panel, SSA/SSB, HIV, RF, anti-ccp, anti-SM, Scl-70, ANCA - recommend CT lumbar and legs with contrast - f/u myoglobulin level - f/u tick panel Emphysema - AAT level ordered History of Present Illness Narrative: This is a 41 yo man with significant medical history of hypoparathyroidism and electrolyte disturbances who was admitted for leg pain and also found to have a pneumonia. The leg pain is his most serious complaint and he was found to have CK >10,000, and remains to be this elevated. He does have alcohol disuse disorder but has not had signs of withdrawaling. He had a procalcitonin which was elevated and was found to have a pneumonia on imaging. He is receiving doxy and Zosyn for his pneumonia. He has been ordered for a very extended tick borne work up. His transaminases are also increased higher than what his baseline is. Initially it was though that his electrolyte abnormalities were to blame, but these have been corrected and his problems still remain. He tells me that his breathing is fine but his legs still very much bother him. He is eating and drinking fine. He does not indorse trouble breathing. He denies illicit drug use to me. He also states he did not do anything overly exertional prior to the muscle pain and leg weakness occurring. He states he did fall but it was due to leg weakness and he did not injury himself. Review of Systems All systems reviewed & are unremarkable except as noted in HPI and below PFSH All Active Problems (Updated 07/06/22 @ 13:43 by Rosa Jha MD) Emphysema lung (Acute) Elevated CK (Acute) Pneumonia (Acute) Anemia (Chronic) Ambulatory dysfunction (Acute) Transaminitis (Acute) Hypomagnesemia (Acute) Hypokalemia (Acute) Hypocalcemia (Acute) Rhabdomyolysis (Acute) Hypoparathyroidism (Acute) Vitamin D deficiency (Acute) Tubulovillous adenoma (Chronic) Leucocytosis (Chronic) Hypophosphatemia (Acute) Iatrogenic hypocalcemia (Acute) Hypocalcemia (Acute) Respiratory failure with hypoxia (Acute) QT prolongation (Acute) Hyponatremia (Chronic) Macrocytosis (Acute) Alcohol use (Chronic) Altered mental status (Acute) Discharge planning issues (Acute) DVT prophylaxis (Acute) Acute gastroenteritis (Acute) Electrolyte disturbance (Acute) Fatty liver (Chronic) Hypokalemia (Acute) Hypomagnesemia (Acute) History of splenectomy (Acute) Hyponatremia (Acute) Dehydration (Acute) Medical History Alcohol intoxication (07/14/14) Colitis Depression (07/14/14) No significant past medical history Tobacco use Surgical History History of hammer toe correction Social History Smoking/Tobacco Use Status: Current every day Tobacco Type: cigarettes Smoking risk assessment performed?: Yes Alcohol Intake: current Alcohol type: beer Drug use: Occasionally Substance use type: marijuana Details: NO ETOH x 3-4 weeks---01/06/21--er. Admits to 3 beers on 04/29/2021 Do you feel safe at home: Yes Do you feel safe in your relationship?: Yes Visit Medication and Allergies Active Medications Generic Name Dose Route Start Last Admin Trade Name Freq PRN Reason Stop Dose Admin Acetaminophen 0 mg 07/04/22 01:16 07/06/22 07:55 Acetaminophen 325 Mg Tab PO 650 mg Q4H PRN PRN Administration Al Hydrox/Mg Hydrox/Simethicone 30 ml 07/04/22 01:16 Mylanta Suspension 30 Ml Cup PO Q2H PRN PRN Albuterol Sulfate 2.5 mg 07/04/22 06:27 07/05/22 08:48 Albuterol 2.5 Mg/3 Ml Inh Soln Vial UPD 2.5 mg Q2H PRN PRN Administration Cholecalciferol 1,000 units 07/04/22 08:30 07/06/22 07:56 Cholecalciferol (Vitamin D3) 1,000 Unit Tab PO 1,000 units DAILY ELOY Administration Dimethicone/Zinc Oxide 0 gm 07/04/22 01:11 Saeed Protect Cream 142 Gm Tube TP PRN PRN Docusate Sodium 100 mg 07/04/22 01:16 Docusate Sodium 100 Mg Cap PO TID PRN PRN Enoxaparin Sodium 40 mg 07/04/22 08:00 07/06/22 07:55 Enoxaparin 40 Mg/0.4 Ml Syr SC 40 mg Q24H ELOY Administration Ergocalciferol 50,000 units 07/05/22 08:30 07/05/22 09:15 Ergocalciferol 26681 Units Cap PO 50,000 units Q7D ELOY Administration Folic Acid 1 mg 07/04/22 08:30 07/06/22 07:56 Folic Acid 1 Mg Tab PO 07/10/22 08:31 1 mg QAM ELOY Administration Sodium Chloride 500 mls @ 0 mls/hr 07/04/22 01:16 Saline 500ml Bag IV PRN PRN As Directed Doxycycline Hyclate 100 mg/ 100 mls @ 100 mls/hr 07/04/22 04:00 07/06/22 06:05 Sodium Chloride IVPB Infused Q12H [facility]LOY Infusion Piperacillin Sod/Tazobactam 100 mls @ 25 mls/hr 07/04/22 08:00 07/06/22 04:45 Sod 4.5 gm/ Sodium Chloride IVPB Infused Q8H [facility] Infusion Protocol IV Miscellaneous Supplies 1 each 07/03/22 23:15 Iv Access IV DIRECTED [facility] IV Miscellaneous Supplies 1 each 07/04/22 01:30 Iv Access IV DIRECTED [facility] Iohexol 100 ml 07/05/22 11:15 07/05/22 11:12 Omnipaque 350 Mg/Ml 100 Ml Btl IJ 08/04/22 23:59 100 ml DIRECTED [facility] Administration Ketorolac Tromethamine 15 mg 07/04/22 04:32 07/06/22 01:13 Ketorolac 15 Mg/Ml Vial IVP 07/09/22 04:31 15 mg Q6H PRN PRN Administration Lorazepam 0 mg 07/04/22 01:19 Lorazepam 1 Mg Tab PO/SL DIRECTED PRN Magnesium Hydroxide 30 ml 07/04/22 01:16 Milk Of Magnesia 30 Ml Cup PO DAILY PRN PRN Magnesium Oxide 400 mg 07/04/22 08:30 07/06/22 07:56 Magnesium Oxide 400 Mg Tab PO 400 mg QID [facility] Administration Multivitamins 1 tab 07/04/22 08:30 07/06/22 07:56 Multivitamin Tab PO 07/10/22 08:31 1 tab QAM [facility] Administration Pantoprazole Sodium 40 mg 07/04/22 08:30 07/06/22 07:56 Pantoprazole 40 Mg Tabcr PO 40 mg BID ELOY Administration Phosphorus 500 mg 07/05/22 08:30 07/06/22 07:55 Phosphorus Neutral 250 Mg Tablet PO 500 mg QID [facility] Administration Potassium Chloride 40 meq 07/04/22 22:00 07/06/22 07:55 Potassium Chloride 20 Meq Tabcr PO 40 meq QID [facility] Administration Sodium Chloride 0 ml 07/03/22 23:08 07/05/22 15:22 Normal Saline Flush 10 Ml Syr IVP 20 ml PRN PRN Administration Sodium Chloride 0 ml 07/04/22 01:16 07/05/22 19:35 Normal Saline Flush 10 Ml Syr IVP 10 ml PRN PRN Administration Thiamine HCl 100 mg 07/04/22 08:30 07/06/22 07:56 Thiamine 100 Mg Tab PO 07/10/22 08:31 100 mg QAM ELOY Administration Allergies No Known Allergies Allergy (Unverified 07/03/22 23:05) Exam Narrative Exam Narrative: Gen: NAD, normal respiratory effort, well-nourished HENT: PERRL Chest: No respiratory distress, normal appearance of chest, clear to auscultation bilaterally, no crackles or wheezes, normal inspiratory effort Heart: regular rate and rhythym, no murmurs, rubs or gallops Abdomen: Non-distended, soft, non tender Extremities: No clubbing, no rashes. Bilateral leg edema and tenderness Neuro: AAOx3 , non focal Psych: cooperative, appropriate mental affect Results Last Vital Signs Temp 37.4 C 07/06/22 07:52 Pulse 92 H 07/06/22 08:07 Resp 20 07/06/22 07:52 BP 131/90 07/06/22 07:52 Pulse Ox 92 07/06/22 07:52 Labs Result diagrams: 07/06/22 06:50 07/06/22 06:50 Labs: Laboratory Results - last 24 hr 07/05/22 07/06/22 07/06/22 08:53 06:50 06:50 WBC 25.34 H* RBC 2.08 L Hgb 9.2 L Hct 26.2 L MCV 126 H MCH 44.2 H MCHC 35.1 RDW 18.8 H Plt Count 405 H MPV 9.5 Immature Gran % 0.0 Neutrophils % 86.0 Band Neutrophils % 1 Lymphocytes % 12.0 Monocytes % 0.0 Eosinophils % 0.0 Basophils % 1.0 Nucleated RBC % 2.0 H Absolute Neutrophils 22.05 H Absolute Lymphocytes 3.04 Absolute Monocytes 0.00 L Absolute Eosinophils 0.00 Absolute Basophils 0.25 H RBC Morphology See Below Macrocytosis 2+ Sodium Potassium Chloride Carbon Dioxide Anion Gap BUN Creatinine Est GFR (CKD-EPI 2020) Glucose Calcium Phosphorus 4.5 Total Bilirubin AST ALT Alkaline Phosphatase Creatine Kinase > 49208 H Total Protein Albumin Vancomycin Trough 19.8 07/06/22 06:50 WBC RBC Hgb Hct MCV MCH MCHC RDW Plt Count MPV Immature Gran % Neutrophils % Band Neutrophils % Lymphocytes % Monocytes % Eosinophils % Basophils % Nucleated RBC % Absolute Neutrophils Absolute Lymphocytes Absolute Monocytes Absolute Eosinophils Absolute Basophils RBC Morphology Macrocytosis Sodium 144 Potassium 4.7 D Chloride 110 H Carbon Dioxide 25.5 Anion Gap 8.5 BUN 6 L Creatinine 0.7 Est GFR (CKD-EPI 2020) 117.25 Glucose 96 Calcium 5.9 L* Phosphorus Total Bilirubin 0.6 AST 378 H ALT 93 H Alkaline Phosphatase 108 Creatine Kinase Total Protein 5.3 L Albumin 1.8 L Vancomycin Trough Imaging Abdomen CT scan report/results: report reviewed and image reviewed CT scan - chest: report reviewed and image reviewed CT scan - pelvis: report reviewed and image reviewed EKG: report reviewed
[2022-07-06 09:00] LABS: Lab Add On Test DONE
[2022-07-06] MEDS: Normal Saline Flush 10 ML SYR IVP ×4 (09:11→19:59)
[2022-07-06] MEDS: Normal Saline 500 ML 30 ML IV (09:13)
[2022-07-06 09:35] LABS: Parathyroid Hormone,Intact 118 pg/mL (19-88)
[2022-07-06 09:59] LABS: Vancomycin, Trough 3.7 ug/mL (10.0-20.0)
[2022-07-06 11:19] LABS: Lyme Ab w Rflx to Lyme Confirm Negative (Negative)
--- NOTE | 2022-07-06 11:58 | PTTR_ITS ---
Date of service: 07/06/22 Time of Service: 08:48 PT Notes Visit Reasons: Severe Hypokalemia, Hypomagnesemia, Hypocalcemia,R Inpatient Physical Therapy Treatment Note [facility] Date: 07/06/2022 PRECAUTIONS: Activity as tolerated, fall SUBJECTIVE: Milan is pleasant and agreeable to participating in PT. He reports that he still doesn't feel well. OBJECTIVE: PAIN: No c/o pain BED MOBILITY/TRANSFERS: Supine-sit: Min A with HOB at 20 degrees Sit-stand: SBA Stand-sit: SBA GAIT Assistive Device: FWW Weight bearing: Full Assist: SBA Distance: 60' x2 in a.m.; 200' in p.m. Deviation: SOB, wide CHRISTI and minimal knee flexion in a.m., cueing for FWW management; all improved in p.m. THEREX: Patient was instructed in a LE strengthening program, completed in a standing position, to include: heel raises, hip flexion, hip abduction and mini squats. Patient requires seated rest due to fatigue. STAIRS: Up/down 3x4 and 2x6 using B rails and a step-to pattern with SBA ASSESSMENT: Patient tolerated session with c/o increased fatigue. He demon strates wide CHRISTI, minimal knee flexion and requires cueing for FWW management with gait training, although demonstrates improvement in gait mechanics in p.m.. He was able to tolerate a progression in gait distance with FWW support and SBA in both a.m. and p.m.. PLAN: Continue with global strengthening and general conditioning for improved mobility and activity tolerance. TREATMENT CODE/TIME: Session 1: 19 minutes; 30860 (08:48) Session 2: 18 minutes; 80343 (13:28)
[2022-07-06 16:10] LABS: *AMPHETAMINES SCREEN URINE Negative (Negative); *BARBITURATES SCREEN URINE Negative (Negative); *BENZODIAZEPINES SCREEN URINE Negative (Negative); Cannabinoids THC Negative (Negative); Cocaine Screen,Urine Negative (Negative); METHADONE URINE SCREEN Negative (Negative); OPIATES URINE SCREEN Negative (Negative)
[2022-07-06 16:12] LABS: Tricyclic Antidepressants Negative (Negative)
--- NOTE | 2022-07-06 16:14 | PDOC.CMPRO ---
- If Service Date Differs Date of service: 07/06/22 Time of Service: 16:14 Care Management Progress Note S/O: Milan was sitting up in his chair when CM met with him. He stated that he is doing ok, but is still wondering why he is having trouble ambulating. Per PT, he is able to ambulate, but he is having difficulty with his gait. Per report, his white blood count continues to increase, and is 25.34 today. His electrolytes continue to be repleted. He is not medically cleared for discharge. CM will continue to follow. A: Milan is a 41 year old male admitted to [facility] on 07/04/22 with severe electrolyte abnormalities. P: Anticipate Milan will return home with no new services once medically cleared. His s/o will drive him home via private vehicle. He will follow up with his PCP and discharge plan of care. CM will continue to follow.
--- NOTE | 2022-07-06 17:44 | PGE_ITS ---
Date of Service Date of service: 07/06/22 Time of Service: 18:00 Assessment and Plan Assessment and plan (1) Rhabdomyolysis: Status: Acute Assessment and plan: CK level remains elevated > 10,000. D/w lab if CK lab can be diluted to get a quantifiable number to trend. Unclear etiology, possible from falls although no visible hematomas; no traumatic injury and no evidence for compartment syndrome. Continue iv hydration, monitor urine output, CK levels. (avoiding alkalinization as he already has alkaline VBG and alkalinization may worsen his potassium levels). Creatinine normal at 0.7 Pending: Utox, LDH, aldolase, myomarker panel, SSA/SSB, HIV, RF, anti-ccp, anti- SM, Scl-70, ANCA, urine myoglobin. Lumbar MRI w/o evidence of abnormality, abscess. (2) Hypokalemia: Status: Acute Assessment and plan: K now 4.7 Stopped oral supplementation and IV supp. Monitor. (3) Hypomagnesemia: Status: Acute Assessment and plan: patient given iv and oral replacement, level is now at lower limits of normal. Continue oral supplementation (4) Hypocalcemia: Status: Acute Assessment and plan: with his low albumen level his calcium level corrected to 8.14 on 07/05. Now corrected is 7.66 vitamin D level is low and vitamin D is being supplemented at 50,000 units Qwk. (5) QT prolongation: Status: Acute Assessment and plan: Correct electrolytes. Monitor on tele. (6) Alcohol use: Status: Chronic Assessment and plan: Monitor for w/d. No h/o w/d and none noted to date. Will supplement thiamine, MVI. (7) Hypophosphatemia: Status: Acute Assessment and plan: patient was severely depleted and now normalized. Nutrition related. (8) Anemia: Status: Chronic Assessment and plan: historically he has been anemic ususally in the 10 gm however he has not had any labs in a year. Hgb has been variable: 11.4 > 8.7 > 9.4 > 8.2 > 9.2. Iron level elevated at 187. Ferritin high at 930. Monitor for GI loses. (9) Transaminitis: Status: Acute Assessment and plan: Suspect this is due to rhabdomyolysis, though EtOH liver disease could be contributing, based on the pattern. Bilirubin normal. Trend LFTs. CT abd/pelvis showed severe fatty infiltration of liver. Possible colitis of ascending colon. (10) Ambulatory dysfunction: Status: Acute Assessment and plan: C/s PT (11) Discharge planning issues: Status: Acute Assessment and plan: Full code (12) DVT prophylaxis: Status: Acute Assessment and plan: SC heparin (13) Pneumonia: Status: Acute Assessment and plan: Large left basilar lung consolidation and small right basilar consolidation. Multifocal bilateral airspace disease. Small bilateral pleural effusion. Cont Zosyn and doxycycline. Pulmonary medicine now following. Stable now on RA. Monitor WBC count (has increased). Subjective Subjective Patient reports: no new complaints and fever (Last PM: 38.3); denies nausea, vomiting or shortness of breath Interval history since last seen: Ongoing BLE weakness. Walked with PT today; painful in legs. Wide based gait noted. Exam Narrative Exam Narrative: Gen: Sitting in recliner. NAD. Conversational. Lungs: clear. Nonlabored breathing. Heart: tachycardic, regular, no murmur Abdomen: soft, nontender Exts: Nonpitting edema of BLE's. Diffuse tenderness of BLEs. No erythema, lesions. Psych: General appearance and speech are normal. Affect appropriate. Objective Last Vital Signs Temp 37.7 C H 07/06/22 16:46 Pulse 108 H 07/06/22 16:46 Resp 22 07/06/22 16:46 BP 143/96 H 07/06/22 16:46 Pulse Ox 100 07/06/22 16:46 Laboratory Results - last 24 hr 07/03/22 07/04/22 07/04/22 23:10 05:35 08:00 WBC RBC Hgb Hct MCV MCH MCHC RDW Plt Count MPV Immature Gran % Neutrophils % Band Neutrophils % Lymphocytes % Monocytes % Eosinophils % Basophils % Nucleated RBC % Absolute Neutrophils Absolute Lymphocytes Absolute Monocytes Absolute Eosinophils Absolute Basophils RBC Morphology Macrocytosis Sodium Potassium Chloride Carbon Dioxide Anion Gap BUN Creatinine Est GFR (CKD-EPI 2020) Glucose Calcium Ionized Calcium Phosphorus Total Bilirubin AST ALT Alkaline Phosphatase Creatine Kinase Total Protein Albumin PTH Intact 118 H Urine Chloride <15 Vancomycin Trough Urine Opiates Screen Urine Methadone Screen Ur Barbiturates Screen Ur Tricyclics Screen Ur Amphetamines Screen U Benzodiazepines Scrn Urine Cocaine Screen Ur THC Screen Lyme Disease Antibody Negative Add-On Test Request 07/05/22 07/06/22 07/06/22 07:09 06:50 06:50 WBC 25.34 H* RBC 2.08 L Hgb 9.2 L Hct 26.2 L MCV 126 H MCH 44.2 H MCHC 35.1 RDW 18.8 H Plt Count 405 H MPV 9.5 Immature Gran % 0.0 Neutrophils % 86.0 Band Neutrophils % 1 Lymphocytes % 12.0 Monocytes % 0.0 Eosinophils % 0.0 Basophils % 1.0 Nucleated RBC % 2.0 H Absolute Neutrophils 22.05 H Absolute Lymphocytes 3.04 Absolute Monocytes 0.00 L Absolute Eosinophils 0.00 Absolute Basophils 0.25 H RBC Morphology See Below Macrocytosis 2+ Sodium Potassium Chloride Carbon Dioxide Anion Gap BUN Creatinine Est GFR (CKD-EPI 2020) Glucose Calcium Ionized Calcium 0.82 L Phosphorus 4.5 Total Bilirubin AST ALT Alkaline Phosphatase Creatine Kinase > 50642 H Total Protein Albumin PTH Intact Urine Chloride Vancomycin Trough Urine Opiates Screen Urine Methadone Screen Ur Barbiturates Screen Ur Tricyclics Screen Ur Amphetamines Screen U Benzodiazepines Scrn Urine Cocaine Screen Ur THC Screen Lyme Disease Antibody Add-On Test Request 07/06/22 07/06/22 07/06/22 06:50 06:50 09:20 WBC RBC Hgb Hct MCV MCH MCHC RDW Plt Count MPV Immature Gran % Neutrophils % Band Neutrophils % Lymphocytes % Monocytes % Eosinophils % Basophils % Nucleated RBC % Absolute Neutrophils Absolute Lymphocytes Absolute Monocytes Absolute Eosinophils Absolute Basophils RBC Morphology Macrocytosis Sodium 144 Potassium 4.7 D Chloride 110 H Carbon Dioxide 25.5 Anion Gap 8.5 BUN 6 L Creatinine 0.7 Est GFR (CKD-EPI 2020) 117.25 Glucose 96 Calcium 5.9 L* Ionized Calcium Phosphorus Total Bilirubin 0.6 AST 378 H ALT 93 H Alkaline Phosphatase 108 Creatine Kinase Total Protein 5.3 L Albumin 1.8 L PTH Intact Urine Chloride Vancomycin Trough 3.7 L Urine Opiates Screen Urine Methadone Screen Ur Barbiturates Screen Ur Tricyclics Screen Ur Amphetamines Screen U Benzodiazepines Scrn Urine Cocaine Screen Ur THC Screen Lyme Disease Antibody Add-On Test Request DONE 07/06/22 14:19 WBC RBC Hgb Hct MCV MCH MCHC RDW Plt Count MPV Immature Gran % Neutrophils % Band Neutrophils % Lymphocytes % Monocytes % Eosinophils % Basophils % Nucleated RBC % Absolute Neutrophils Absolute Lymphocytes Absolute Monocytes Absolute Eosinophils Absolute Basophils RBC Morphology Macrocytosis Sodium Potassium Chloride Carbon Dioxide Anion Gap BUN Creatinine Est GFR (CKD-EPI 2020) Glucose Calcium Ionized Calcium Phosphorus Total Bilirubin AST ALT Alkaline Phosphatase Creatine Kinase Total Protein Albumin PTH Intact Urine Chloride Vancomycin Trough Urine Opiates Screen Negative Urine Methadone Screen Negative Ur Barbiturates Screen Negative Ur Tricyclics Screen Negative Ur Amphetamines Screen Negative U Benzodiazepines Scrn Negative Urine Cocaine Screen Negative Ur THC Screen Negative Lyme Disease Antibody Add-On Test Request
[2022-07-06 19:56] LABS: LDH 1824 U/L (85-227)
[2022-07-06] MEDS: LORazepam 1 MG TAB PO/SL (20:05)
[2022-07-06 22:51] LABS: Legionella Ag Detection Urine Negative (Negative)
[2022-07-07] VITALS (9 sets, daily range): BP systolic 100–150; BP diastolic 65–90; PULSE 85–99; RESP 17–21; TEMP 36.9–37.7; O2SAT 95–98
--- NOTE | 2022-07-07 | DI.MRI_ITS ---
Exam(s) MR LOWER EXTREMITY BI WO/W EXAM: MR LOWER EXTREMITY BI WO/W CLINICAL HISTORY: See MRI LLE TECHNIQUE: Multiplanar multisequence MRI of the lower extremities was performed. CONTRAST MATERIAL: IV Contrast: 15 ML of Dotarem contrast administered. COMPARISON: No exams were available for comparison FINDINGS: There are serpiginous lines in the subcortical region of the left medial femoral condyle, the medial lateral proximal tibia is bilaterally and the left fibular head. The lines are of decreased signal i ntensity on T1 and shows the double line sign on the T2 weighted images. Following contrast administ ration the peripheral rim of tissue enhances. The findings are most suggestive of bone infarcts. Ma rrow signal is otherwise unremarkable. There is edema seen in the soft tissues of the lower extremities bilaterally. No focal fluid collect ion is seen to suggest an abscess. The muscles show normal signal. No enhancement is seen following contrast administration. IMPRESSION: 1. Findings of bilateral lower extremity cellulitis. No abscess or evidence to suggest myositis. 2. 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 3. Findings were discussed with Dr. Alexandra at 4 p.m. on 07/07/2022. DATA REPOSITORY:
[2022-07-07] MEDS: PIPERACILLIN/TAZO 4.5 GM in Normal Saline 100 ML IVPB ×3 (00:49→17:40)
[2022-07-07] MEDS: DOXYCYCLINE 100 MG in Normal Saline 100 ML IVPB ×2 (05:04→16:20)
[2022-07-07 06:41] LABS: Abs Immature Grans 0.37 10^3/uL (0.0-0.06); Basophils % 0.5; HCT 25.6 % (40.0-50.0); HGB 8.9 g/dL (13.5-17.5); Immature Grans % 2.2; Lymphocytes % 12.6; MCH 43.6 pg (27.0-33.0); MCHC 34.8 % (32.0-36.0); MCV 126 fL (80-95); MPV 9.4 fL (8.0-11.0); Monocytes % 4.1; Neutrophils % 78.6; Nucleated RBC 3.7 % (0.0-0.3); Platelet Count 404 10^3/uL (130-400); RBC 2.04 10^6/uL (4.36-5.78); RDW 19.2 % (11.8-14.1); RDW-SD 87.2 fL; WBC 17.12 10^3/uL (4.4-10.8)
[2022-07-07 07:05] LABS: ALT 126 U/L (16-63); AST 481 U/L (15-37); Albumin 1.7 g/dL (3.4-5.0); Alkaline Phosphatase 103 U/L (46-116); Anion Gap 10.4 mmol/L (3-11); BUN 7 mg/dL (7-18); Bilirubin, Total 0.5 mg/dL (0.2-1.0); CO2 21.6 mmol/L (21.0-32.0); CREATININE 0.6 mg/dL (0.70-1.30); Chloride 107 mmol/L (98-107); Estimated GFR 122.83 (mL/min/1.73m2); Glucose 83 mg/dL (74-106); Potassium 4.3 mmol/L (3.5-5.1); Sodium 139 mmol/L (136-145); Total Protein 5.2 g/dL (6.4-8.2)
[2022-07-07 07:18] LABS: Absolute Basophil Count 0.09 10^3/uL (0.0-0.2); Absolute Eosinophil Count 0.34 10^3/uL (0.0-0.7); Absolute Lymphocyte Count 2.16 10^3/uL (1.2-3.4); Absolute Neutrophil Count 13.46 10^3/uL (1.2-6.7)
[2022-07-07 07:32] LABS: Creatine Kinase > 10000 U/L (39-308)
[2022-07-07] MEDS: Cholecalciferol (Vitamin D3) 1,000 UNIT TAB 1000 UNITS PO (07:54)
[2022-07-07] MEDS: Magnesium Oxide 400 MG TAB PO ×4 (07:55→20:29)
[2022-07-07] MEDS: Enoxaparin 40 MG/0.4 ML SYR SC (07:55)
[2022-07-07] MEDS: Thiamine 100 MG TAB PO (07:55)
[2022-07-07] MEDS: Folic Acid 1 MG TAB PO (07:55)
[2022-07-07] MEDS: Multivitamin TAB 1 TAB PO (07:55)
[2022-07-07] MEDS: Pantoprazole 40 MG TABCR PO ×2 (07:55→20:29)
[2022-07-07] MEDS: Normal Saline Flush 10 ML SYR IVP ×3 (08:11→22:23)
--- NOTE | 2022-07-07 08:46 | PGE_ITS ---
Assessment and Plan Assessment and plan (1) Pneumonia: Status: Acute (2) Transaminitis: Status: Acute (3) Emphysema lung: Status: Acute (4) Elevated CK: Status: Acute (5) Rhabdomyolysis: Status: Acute Assessment and plan: This is a 41 yo man admitted for pneumonia and elevated CK with muscle weakness and pain. Legionella can cause elevation in CK level, so I will test for this. That being said his pneumonia is clinically not severe so I do wonder if the CK and muscle weakness is unrelated. He denies drug use but I will order a Utox. Autoimmune processes can cause elevated CK levels as well, so I will order a broad work up for this. I think it would be clinically helpful to see if the lab can dilute the CK level in order to give a true quantity in order to assess if there is improvement or not. He already received fluids earlier in his hospital stay and his CK level remains >10,000. His leg exam is abnormal as well with swelling and tenderness. His lumbar spine imaging is normal and he will be getting MR legs today. If there is muscle inflammation, I think a muscle biopsy would be in order as he clearly has an inflammatory process occuring. His chest CT find emphysema, and although he smokes, he is very young to have emphysema so I will order AAT levels, particularly given the LFT increase. Pneumonia - continue Zosyn and doxy - urine antigens for strep(pending) and legionella(negative) Elevated CK - recommend titration of CK to get an actual number to truly trend - LDH very elevated, CRP elevated, normal ESR, ferritin elevated - f/u myositis panel - MR imaging of legs today - if muscle inflammation noted, would recommend muscle biopsy - f/u myoglobulin level - f/u tick panel Emphysema - AAT level ordered General Date Of Service Date of service: 07/07/22 Time of Service: 08:47 Reason for Consult: Pneumonia Subjective Note Note: [place] is doing well, his leags still feel like he ran a marathon or climbed a mountain. He is working with PT on ambulating. His MR lumbar spine was totally normal. His LDH returned very elevated and his Utox was negative. His ESR is normal but he does have an elevated CRP. I ordered an extensive autoimmune panel, including for myositis and dermatomyositis. He will be getting MR legs today. Exam Narrative Exam Narrative: Gen:?NAD, normal respiratory effort, well-nourished HENT:?PERRL Chest:?No respiratory distress, normal appearance of chest, clear to auscultation bilaterally, no crackles or wheezes, normal inspiratory effort Heart:?regular rate and rhythym, no murmurs, rubs or gallops Abdomen:?Non-distended, soft, non tender Extremities:?No clubbing, no rashes. Bilateral leg edema and tenderness Neuro:?AAOx3 , non focal Psych:?cooperative, appropriate mental affect Objective Last Vital Signs Temp 37.4 C 07/07/22 07:37 Pulse 96 H 07/07/22 07:37 Resp 19 07/07/22 07:37 BP 133/87 07/07/22 07:37 Pulse Ox 97 07/07/22 07:37 Laboratory Results - last 24 hr 07/03/22 07/04/22 07/04/22 23:10 05:35 08:00 WBC RBC Hgb Hct MCV MCH MCHC RDW Plt Count MPV Immature Gran % Neutrophils % Lymphocytes % Monocytes % Eosinophils % Basophils % Nucleated RBC % Absolute Neutrophils Absolute Lymphocytes Absolute Monocytes Absolute Eosinophils Absolute Basophils Sodium Potassium Chloride Carbon Dioxide Anion Gap BUN Creatinine Est GFR (CKD-EPI 2020) Glucose Calcium Ionized Calcium Total Bilirubin AST ALT Alkaline Phosphatase Lactate Dehydrogenase Creatine Kinase Total Protein Albumin PTH Intact 118 H Urine Chloride <15 Vancomycin Trough Urine Opiates Screen Urine Methadone Screen Ur Barbiturates Screen Ur Tricyclics Screen Ur Amphetamines Screen U Benzodiazepines Scrn Urine Cocaine Screen Ur THC Screen Lyme Disease Antibody Negative Urine Legionella Ag Add-On Test Request 07/05/22 07/06/22 07/06/22 07:09 06:50 09:20 WBC RBC Hgb Hct MCV MCH MCHC RDW Plt Count MPV Immature Gran % Neutrophils % Lymphocytes % Monocytes % Eosinophils % Basophils % Nucleated RBC % Absolute Neutrophils Absolute Lymphocytes Absolute Monocytes Absolute Eosinophils Absolute Basophils Sodium Potassium Chloride Carbon Dioxide Anion Gap BUN Creatinine Est GFR (CKD-EPI 2020) Glucose Calcium Ionized Calcium 0.82 L Total Bilirubin AST ALT Alkaline Phosphatase Lactate Dehydrogenase Creatine Kinase Total Protein Albumin PTH Intact Urine Chloride Vancomycin Trough 3.7 L Urine Opiates Screen Urine Methadone Screen Ur Barbiturates Screen Ur Tricyclics Screen Ur Amphetamines Screen U Benzodiazepines Scrn Urine Cocaine Screen Ur THC Screen Lyme Disease Antibody Urine Legionella Ag Add-On Test Request DONE 07/06/22 07/06/22 07/06/22 14:19 14:19 18:50 WBC RBC Hgb Hct MCV MCH MCHC RDW Plt Count MPV Immature Gran % Neutrophils % Lymphocytes % Monocytes % Eosinophils % Basophils % Nucleated RBC % Absolute Neutrophils Absolute Lymphocytes Absolute Monocytes Absolute Eosinophils Absolute Basophils Sodium Potassium Chloride Carbon Dioxide Anion Gap BUN Creatinine Est GFR (CKD-EPI 2020) Glucose Calcium Ionized Calcium Total Bilirubin AST ALT Alkaline Phosphatase Lactate Dehydrogenase 1824 H Creatine Kinase Total Protein Albumin PTH Intact Urine Chloride Vancomycin Trough Urine Opiates Screen Negative Urine Methadone Screen Negative Ur Barbiturates Screen Negative Ur Tricyclics Screen Negative Ur Amphetamines Screen Negative U Benzodiazepines Scrn Negative Urine Cocaine Screen Negative Ur THC Screen Negative Lyme Disease Antibody Urine Legionella Ag Negative Add-On Test Request 07/07/22 07/07/22 06:15 06:15 WBC 17.12 H RBC 2.04 L Hgb 8.9 L Hct 25.6 L MCV 126 H MCH 43.6 H MCHC 34.8 RDW 19.2 H Plt Count 404 H MPV 9.4 Immature Gran % 2.2 Neutrophils % 78.6 Lymphocytes % 12.6 Monocytes % 4.1 Eosinophils % 2.0 Basophils % 0.5 Nucleated RBC % 3.7 H Absolute Neutrophils 13.46 H Absolute Lymphocytes 2.16 Absolute Monocytes 0.70 Absolute Eosinophils 0.34 Absolute Basophils 0.09 Sodium 139 Potassium 4.3 Chloride 107 Carbon Dioxide 21.6 Anion Gap 10.4 BUN 7 Creatinine 0.6 L Est GFR (CKD-EPI 2020) 122.83 Glucose 83 Calcium 6.0 L* Ionized Calcium Total Bilirubin 0.5 AST 481 H ALT 126 H Alkaline Phosphatase 103 Lactate Dehydrogenase Creatine Kinase > 48114 H Total Protein 5.2 L Albumin 1.7 L PTH Intact Urine Chloride Vancomycin Trough Urine Opiates Screen Urine Methadone Screen Ur Barbiturates Screen Ur Tricyclics Screen Ur Amphetamines Screen U Benzodiazepines Scrn Urine Cocaine Screen Ur THC Screen Lyme Disease Antibody Urine Legionella Ag Add-On Test Request Results Medications Medications: Active Medications Generic Name Dose Route Start Last Admin Trade Name Freq PRN Reason Stop Dose Admin Acetaminophen 0 mg 07/04/22 01:16 07/06/22 20:05 Acetaminophen 325 Mg Tab PO 650 mg Q4H PRN PRN Administration Al Hydrox/Mg Hydrox/Simethicone 30 ml 07/04/22 01:16 Mylanta Suspension 30 Ml Cup PO Q2H PRN PRN Albuterol Sulfate 2.5 mg 07/04/22 06:27 07/05/22 08:48 Albuterol 2.5 Mg/3 Ml Inh Soln Vial UPD 2.5 mg Q2H PRN PRN Administration Cholecalciferol 1,000 units 07/04/22 08:30 07/07/22 07:54 Cholecalciferol (Vitamin D3) 1,000 Unit Tab PO 1,000 units DAILY ELOY Administration Dimethicone/Zinc Oxide 0 gm 07/04/22 01:11 Saeed Protect Cream 142 Gm Tube TP PRN PRN Docusate Sodium 100 mg 07/04/22 01:16 Docusate Sodium 100 Mg Cap PO TID PRN PRN Enoxaparin Sodium 40 mg 07/04/22 08:00 07/07/22 07:55 Enoxaparin 40 Mg/0.4 Ml Syr SC 40 mg Q24H ELOY Administration Ergocalciferol 50,000 units 07/05/22 08:30 07/05/22 09:15 Ergocalciferol 73980 Units Cap PO 50,000 units Q7D ELOY Administration Folic Acid 1 mg 07/04/22 08:30 07/07/22 07:55 Folic Acid 1 Mg Tab PO 07/10/22 08:31 1 mg QAM ELOY Administration Sodium Chloride 500 mls @ 0 mls/hr 07/04/22 01:16 07/06/22 14:23 Saline 500ml Bag IV 0 mls/hr PRN PRN Infusion As Directed Doxycycline Hyclate 100 mg/ 100 mls @ 100 mls/hr 07/04/22 04:00 07/07/22 06:05 Sodium Chloride IVPB Infused Q12H ELOY Infusion Piperacillin Sod/Tazobactam 100 mls @ 25 mls/hr 07/04/22 08:00 07/07/22 08:11 Sod 4.5 gm/ Sodium Chloride IVPB 25 mls/hr Q8H ELOY Administration Protocol IV Miscellaneous Supplies 1 each 07/04/22 01:30 Iv Access IV DIRECTED ELOY Ketorolac Tromethamine 15 mg 07/04/22 04:32 07/06/22 01:13 Ketorolac 15 Mg/Ml Vial IVP 07/09/22 04:31 15 mg Q6H PRN PRN Administration Lorazepam 0 mg 07/04/22 01:19 07/06/22 20:05 Lorazepam 1 Mg Tab PO/SL 1 mg DIRECTED PRN Administration Magnesium Hydroxide 30 ml 07/04/22 01:16 Milk Of Magnesia 30 Ml Cup PO DAILY PRN PRN Magnesium Oxide 400 mg 07/04/22 08:30 07/07/22 07:55 Magnesium Oxide 400 Mg Tab PO 400 mg QID ELOY Administration Multivitamins 1 tab 07/04/22 08:30 07/07/22 07:55 Multivitamin Tab PO 07/10/22 08:31 1 tab QAM ELOY Administration Pantoprazole Sodium 40 mg 07/06/22 20:00 07/07/22 07:55 Pantoprazole 40 Mg Tabcr PO 40 mg BID@0730,2000 ELOY Administration Sodium Chloride 0 ml 07/04/22 01:16 07/07/22 08:11 Normal Saline Flush 10 Ml Syr IVP 20 ml PRN PRN Administration Thiamine HCl 100 mg 07/04/22 08:30 07/07/22 07:55 Thiamine 100 Mg Tab PO 07/10/22 08:31 100 mg QAM ELOY Administration Allergies No Known Allergies Allergy (Unverified 07/03/22 23:05) Labs Result Diagrams: 07/07/22 06:15 07/07/22 06:15 Labs: 07/04/22 01:00 Blood Blood Culture - Preliminary NO GROWTH 72 HOURS 07/04/22 00:15 Blood Blood Culture - Preliminary NO GROWTH 72 HOURS 07/04/22 10:25 Nose MRSA Screen - Final Laboratory Tests Range/Units 07/03/22 07/03/22 07/03/22 23:10 23:10 23:10 WBC (4.4-10.8) 10^3/uL 20.60 H RBC (4.36-5.78) 10^6/uL 2.63 L Hgb (13.5-17.5) g/dL 11.4 L Hct (40.0-50.0) % 30.5 L MCV (80-95) fL 116 H MCH (27.0-33.0) pg 43.3 H MCHC (32.0-36.0) % 37.4 H RDW (11.8-14.1) % 16.9 H Plt Count (130-400) 10^3/uL 430 H MPV (8.0-11.0) fL 9.3 Immature Gran % 0.8 Neutrophils % 78.6 Band Neutrophils % Lymphocytes % 14.1 Monocytes % 5.2 Eosinophils % 0.9 Basophils % 0.4 Nucleated RBC % (0.0-0.3) % 1.4 H Absolute Neutrophils (1.2-6.7) 10^3/uL 16.19 H Absolute Lymphocytes (1.2-3.4) 10^3/uL 2.90 Absolute Monocytes (0.1-0.8) 10^3/uL 1.07 H Absolute Eosinophils (0.0-0.7) 10^3/uL 0.19 Absolute Basophils (0.0-0.2) 10^3/uL 0.08 RBC Morphology Polychromasia Anisocytosis Macrocytosis 3+ [place] Bodies Present PT (9.3-11.0) sec INR (0.9-1.1) VBG pH (7.31-7.41) VBG pCO2 (41-51) mmHg VBG pO2 mmHg VBG HCO3 (23-28) mmol/L VBG Total CO2 (24-29) mmol/L VBG O2 Saturation % VBG Base Excess (-2-3) mmol/L Sodium (136-145) mmol/L 133 L Potassium (3.5-5.1) mmol/L 1.7 L* Chloride (98-107) mmol/L 87 L Carbon Dioxide (21.0-32.0) mmol/L 29.7 Anion Gap (3-11) mmol/L 16.3 H BUN (7-18) mg/dL 10 Creatinine (0.70-1.30) mg/dL 0.9 Est GFR (CKD-EPI 2020) (mL/min/1.73m2) 108.68 Glucose (74-106) mg/dL 114 H Calcium (8.5-10.1) mg/dL 5.9 L* Ionized Calcium (1.14-1.35) mmol/L Phosphorus (2.6-4.7) mg/dL Magnesium (1.8-2.4) mg/dL 0.9 L Iron (65-175) ug/dL TIBC (250-450) ug/dL Transferrin % Sat (20-55) % Ferritin (26-388) ng/mL Total Bilirubin (0.2-1.0) mg/dL 0.9 AST (15-37) U/L 396 H ALT (16-63) U/L 97 H Alkaline Phosphatase (46-116) U/L 151 H Lactate Dehydrogenase (85-227) U/L Creatine Kinase (39-308) U/L Troponin I (<or=60) ng/L NT-Pro-B Natriuret Pep (<300) pg/mL Total Protein (6.4-8.2) g/dL 6.9 Albumin (3.4-5.0) g/dL 2.6 L Lipase (73-393) U/L 25-OH Vitamin D Total (30-100) ng/mL Procalcitonin ng/mL TSH (0.36-3.74) uIU/mL 4.91 H Free T4 (0.76-1.46) ng/dL 1.18 PTH Intact (19-88) pg/mL Urine Color (Yellow) Urine Clarity (Clear) Urine pH (5-8) Ur Specific [place] (1.005-1.025) Urine Protein (Negative) mg/dL Urine Ketones (Negative) mg/dL Urine Blood (Negative) Urine Nitrite (Negative) Urine Bilirubin (Negative) Urine Urobilinogen (Up TO 0.2) EU/dL Ur Leukocyte Esterase (Negative) Urine RBC (0-2) HPF Urine WBC (0-5) HPF Ur Epithelial Cells (Negative) HPF Urine Crystals (Negative) HPF Urine Bacteria (Negative) HPF Urine Casts (Negative) LPF Urine Mucus (Negative) Ur Culture Indicated? Ur Random Creatinine mg/dL Ur Random Sodium mmol/L Ur Random Potassium mmol/L Urine Chloride (See Note) mmol/L Urine Glucose (Negative) mg/dL Vancomycin Trough (10.0-20.0) ug/mL Urine Opiates Screen (Negative) Urine Methadone Screen (Negative) Ur Barbiturates Screen (Negative) Ur Tricyclics Screen (Negative) Ur Amphetamines Screen (Negative) U Benzodiazepines Scrn (Negative) Urine Cocaine Screen (Negative) Ur THC Screen (Negative) Ethyl Alcohol (<10) mg/dL 144.6 H Lyme Disease Antibody (Negative) COVID-19 Source Nasal/Nares SARS-CoV-2 (PCR) (Negative) Negative Urine Legionella Ag (Negative) Add-On Test Request Patient ABO/Rh Antibody Screen Range/Units 07/03/22 07/03/22 07/03/22 23:10 23:10 23:10 WBC (4.4-10.8) 10^3/uL RBC (4.36-5.78) 10^6/uL Hgb (13.5-17.5) g/dL Hct (40.0-50.0) % MCV (80-95) fL MCH (27.0-33.0) pg MCHC (32.0-36.0) % RDW (11.8-14.1) % Plt Count (130-400) 10^3/uL MPV (8.0-11.0) fL Immature Gran % Neutrophils % Band Neutrophils % Lymphocytes % Monocytes % Eosinophils % Basophils % Nucleated RBC % (0.0-0.3) % Absolute Neutrophils (1.2-6.7) 10^3/uL Absolute Lymphocytes (1.2-3.4) 10^3/uL Absolute Monocytes (0.1-0.8) 10^3/uL Absolute Eosinophils (0.0-0.7) 10^3/uL Absolute Basophils (0.0-0.2) 10^3/uL RBC Morphology Polychromasia Anisocytosis Macrocytosis [place] Bodies PT (9.3-11.0) sec INR (0.9-1.1) VBG pH (7.31-7.41) 7.52 H VBG pCO2 (41-51) mmHg 38 L VBG pO2 mmHg 34 VBG HCO3 (23-28) mmol/L 31 H VBG Total CO2 (24-29) mmol/L 28 VBG O2 Saturation % 68 VBG Base Excess (-2-3) mmol/L 8 H Sodium (136-145) mmol/L Potassium (3.5-5.1) mmol/L Chloride (98-107) mmol/L Carbon Dioxide (21.0-32.0) mmol/L Anion Gap (3-11) mmol/L BUN (7-18) mg/dL Creatinine (0.70-1.30) mg/dL Est GFR (CKD-EPI 2020) (mL/min/1.73m2) Glucose (74-106) mg/dL Calcium (8.5-10.1) mg/dL Ionized Calcium (1.14-1.35) mmol/L Phosphorus (2.6-4.7) mg/dL < 2.0 L Magnesium (1.8-2.4) mg/dL Iron (65-175) ug/dL TIBC (250-450) ug/dL Transferrin % Sat (20-55) % Ferritin (26-388) ng/mL Total Bilirubin (0.2-1.0) mg/dL AST (15-37) U/L ALT (16-63) U/L Alkaline Phosphatase (46-116) U/L Lactate Dehydrogenase (85-227) U/L Creatine Kinase (39-308) U/L > 87207 H Troponin I (<or=60) ng/L NT-Pro-B Natriuret Pep (<300) pg/mL Total Protein (6.4-8.2) g/dL Albumin (3.4-5.0) g/dL Lipase (73-393) U/L 50 25-OH Vitamin D Total (30-100) ng/mL Procalcitonin ng/mL TSH (0.36-3.74) uIU/mL Free T4 (0.76-1.46) ng/dL PTH Intact (19-88) pg/mL Urine Color (Yellow) Urine Clarity (Clear) Urine pH (5-8) Ur Specific [place] (1.005-1.025) Urine Protein (Negative) mg/dL Urine Ketones (Negative) mg/dL Urine Blood (Negative) Urine Nitrite (Negative) Urine Bilirubin (Negative) Urine Urobilinogen (Up TO 0.2) EU/dL Ur Leukocyte Esterase (Negative) Urine RBC (0-2) HPF Urine WBC (0-5) HPF Ur Epithelial Cells (Negative) HPF Urine Crystals (Negative) HPF Urine Bacteria (Negative) HPF Urine Casts (Negative) LPF Urine Mucus (Negative) Ur Culture Indicated? Ur Random Creatinine mg/dL Ur Random Sodium mmol/L Ur Random Potassium mmol/L Urine Chloride (See Note) mmol/L Urine Glucose (Negative) mg/dL Vancomycin Trough (10.0-20.0) ug/mL Urine Opiates Screen (Negative) Urine Methadone Screen (Negative) Ur Barbiturates Screen (Negative) Ur Tricyclics Screen (Negative) Ur Amphetamines Screen (Negative) U Benzodiazepines Scrn (Negative) Urine Cocaine Screen (Negative) Ur THC Screen (Negative) Ethyl Alcohol (<10) mg/dL Lyme Disease Antibody (Negative) COVID-19 Source SARS-CoV-2 (PCR) (Negative) Urine Legionella Ag (Negative) Add-On Test Request Patient ABO/Rh Antibody Screen Range/Units 07/03/22 07/03/22 07/03/22 23:10 23:10 23:17 WBC (4.4-10.8) 10^3/uL RBC (4.36-5.78) 10^6/uL Hgb (13.5-17.5) g/dL Hct (40.0-50.0) % MCV (80-95) fL MCH (27.0-33.0) pg MCHC (32.0-36.0) % RDW (11.8-14.1) % Plt Count (130-400) 10^3/uL MPV (8.0-11.0) fL Immature Gran % Neutrophils % Band Neutrophils % Lymphocytes % Monocytes % Eosinophils % Basophils % Nucleated RBC % (0.0-0.3) % Absolute Neutrophils (1.2-6.7) 10^3/uL Absolute Lymphocytes (1.2-3.4) 10^3/uL Absolute Monocytes (0.1-0.8) 10^3/uL Absolute Eosinophils (0.0-0.7) 10^3/uL Absolute Basophils (0.0-0.2) 10^3/uL RBC Morphology Polychromasia Anisocytosis Macrocytosis [place] Bodies PT (9.3-11.0) sec 10.9 INR (0.9-1.1) 1.1 VBG pH (7.31-7.41) VBG pCO2 (41-51) mmHg VBG pO2 mmHg VBG HCO3 (23-28) mmol/L VBG Total CO2 (24-29) mmol/L VBG O2 Saturation % VBG Base Excess (-2-3) mmol/L Sodium (136-145) mmol/L Potassium (3.5-5.1) mmol/L Chloride (98-107) mmol/L Carbon Dioxide (21.0-32.0) mmol/L Anion Gap (3-11) mmol/L BUN (7-18) mg/dL Creatinine (0.70-1.30) mg/dL Est GFR (CKD-EPI 2020) (mL/min/1.73m2) Glucose (74-106) mg/dL Calcium (8.5-10.1) mg/dL Ionized Calcium (1.14-1.35) mmol/L Phosphorus (2.6-4.7) mg/dL Magnesium (1.8-2.4) mg/dL Iron (65-175) ug/dL TIBC (250-450) ug/dL Transferrin % Sat (20-55) % Ferritin (26-388) ng/mL Total Bilirubin (0.2-1.0) mg/dL AST (15-37) U/L ALT (16-63) U/L Alkaline Phosphatase (46-116) U/L Lactate Dehydrogenase (85-227) U/L Creatine Kinase (39-308) U/L Troponin I (<or=60) ng/L < 50 NT-Pro-B Natriuret Pep (<300) pg/mL 162 Total Protein (6.4-8.2) g/dL Albumin (3.4-5.0) g/dL Lipase (73-393) U/L 25-OH Vitamin D Total (30-100) ng/mL Procalcitonin ng/mL TSH (0.36-3.74) uIU/mL Free T4 (0.76-1.46) ng/dL PTH Intact (19-88) pg/mL Urine Color (Yellow) Urine Clarity (Clear) Urine pH (5-8) Ur Specific [place] (1.005-1.025) Urine Protein (Negative) mg/dL Urine Ketones (Negative) mg/dL Urine Blood (Negative) Urine Nitrite (Negative) Urine Bilirubin (Negative) Urine Urobilinogen (Up TO 0.2) EU/dL Ur Leukocyte Esterase (Negative) Urine RBC (0-2) HPF Urine WBC (0-5) HPF Ur Epithelial Cells (Negative) HPF Urine Crystals (Negative) HPF Urine Bacteria (Negative) HPF Urine Casts (Negative) LPF Urine Mucus (Negative) Ur Culture Indicated? Ur Random Creatinine mg/dL Ur Random Sodium mmol/L Ur Random Potassium mmol/L Urine Chloride (See Note) mmol/L Urine Glucose (Negative) mg/dL Vancomycin Trough (10.0-20.0) ug/mL Urine Opiates Screen (Negative) Urine Methadone Screen (Negative) Ur Barbiturates Screen (Negative) Ur Tricyclics Screen (Negative) Ur Amphetamines Screen (Negative) U Benzodiazepines Scrn (Negative) Urine Cocaine Screen (Negative) Ur THC Screen (Negative) Ethyl Alcohol (<10) mg/dL Lyme Disease Antibody (Negative) Negative COVID-19 Source SARS-CoV-2 (PCR) (Negative) Urine Legionella Ag (Negative) Add-On Test Request Patient ABO/Rh Antibody Screen Range/Units 07/04/22 07/04/22 07/04/22 00:45 01:00 01:59 WBC (4.4-10.8) 10^3/uL RBC (4.36-5.78) 10^6/uL Hgb (13.5-17.5) g/dL Hct (40.0-50.0) % MCV (80-95) fL MCH (27.0-33.0) pg MCHC (32.0-36.0) % RDW (11.8-14.1) % Plt Count (130-400) 10^3/uL MPV (8.0-11.0) fL Immature Gran % Neutrophils % Band Neutrophils % Lymphocytes % Monocytes % Eosinophils % Basophils % Nucleated RBC % (0.0-0.3) % Absolute Neutrophils (1.2-6.7) 10^3/uL Absolute Lymphocytes (1.2-3.4) 10^3/uL Absolute Monocytes (0.1-0.8) 10^3/uL Absolute Eosinophils (0.0-0.7) 10^3/uL Absolute Basophils (0.0-0.2) 10^3/uL RBC Morphology Polychromasia Anisocytosis Macrocytosis [place] Bodies PT (9.3-11.0) sec INR (0.9-1.1) VBG pH (7.31-7.41) VBG pCO2 (41-51) mmHg VBG pO2 mmHg VBG HCO3 (23-28) mmol/L VBG Total CO2 (24-29) mmol/L VBG O2 Saturation % VBG Base Excess (-2-3) mmol/L Sodium (136-145) mmol/L Potassium (3.5-5.1) mmol/L Chloride (98-107) mmol/L Carbon Dioxide (21.0-32.0) mmol/L Anion Gap (3-11) mmol/L BUN (7-18) mg/dL Creatinine (0.70-1.30) mg/dL Est GFR (CKD-EPI 2020) (mL/min/1.73m2) Glucose (74-106) mg/dL Calcium (8.5-10.1) mg/dL Ionized Calcium (1.14-1.35) mmol/L Phosphorus (2.6-4.7) mg/dL Magnesium (1.8-2.4) mg/dL Iron (65-175) ug/dL TIBC (250-450) ug/dL Transferrin % Sat (20-55) % Ferritin (26-388) ng/mL Total Bilirubin (0.2-1.0) mg/dL AST (15-37) U/L ALT (16-63) U/L Alkaline Phosphatase (46-116) U/L Lactate Dehydrogenase (85-227) U/L Creatine Kinase (39-308) U/L Troponin I (<or=60) ng/L < 50 NT-Pro-B Natriuret Pep (<300) pg/mL Total Protein (6.4-8.2) g/dL Albumin (3.4-5.0) g/dL Lipase (73-393) U/L 25-OH Vitamin D Total (30-100) ng/mL Procalcitonin ng/mL 22.4 TSH (0.36-3.74) uIU/mL Free T4 (0.76-1.46) ng/dL PTH Intact (19-88) pg/mL Urine Color (Yellow) Yellow Urine Clarity (Clear) Clear Urine pH (5-8) 6.5 Ur Specific [place] (1.005-1.025) 1.020 Urine Protein (Negative) mg/dL 100 H Urine Ketones (Negative) mg/dL Trace H Urine Blood (Negative) Large H Urine Nitrite (Negative) Negative Urine Bilirubin (Negative) Negative Urine Urobilinogen (Up TO 0.2) EU/dL 1.0 H Ur Leukocyte Esterase (Negative) Negative Urine RBC (0-2) HPF 3-5 H Urine WBC (0-5) HPF Negative Ur Epithelial Cells (Negative) HPF Rare Urine Crystals (Negative) HPF Negative Urine Bacteria (Negative) HPF Rare Urine Casts (Negative) LPF Negative Urine Mucus (Negative) Negative Ur Culture Indicated? No Ur Random Creatinine mg/dL Ur Random Sodium mmol/L Ur Random Potassium mmol/L Urine Chloride (See Note) mmol/L Urine Glucose (Negative) mg/dL Negative Vancomycin Trough (10.0-20.0) ug/mL Urine Opiates Screen (Negative) Urine Methadone Screen (Negative) Ur Barbiturates Screen (Negative) Ur Tricyclics Screen (Negative) Ur Amphetamines Screen (Negative) U Benzodiazepines Scrn (Negative) Urine Cocaine Screen (Negative) Ur THC Screen (Negative) Ethyl Alcohol (<10) mg/dL Lyme Disease Antibody (Negative) COVID-19 Source SARS-CoV-2 (PCR) (Negative) Urine Legionella Ag (Negative) Add-On Test Request Patient ABO/Rh Antibody Screen Range/Units 07/04/22 07/04/22 07/04/22 05:35 05:35 05:35 WBC (4.4-10.8) 10^3/uL 18.33 H RBC (4.36-5.78) 10^6/uL 2.14 L Hgb (13.5-17.5) g/dL 8.7 L D Hct (40.0-50.0) % 24.1 L MCV (80-95) fL 117 H MCH (27.0-33.0) pg 42.6 H MCHC (32.0-36.0) % 36.1 H RDW (11.8-14.1) % 17.0 H Plt Count (130-400) 10^3/uL 329 MPV (8.0-11.0) fL 9.7 Immature Gran % 1.0 Neutrophils % 85.5 Band Neutrophils % Lymphocytes % 6.9 Monocytes % 5.3 Eosinophils % 0.9 Basophils % 0.4 Nucleated RBC % (0.0-0.3) % 1.3 H Absolute Neutrophils (1.2-6.7) 10^3/uL 15.67 H Absolute Lymphocytes (1.2-3.4) 10^3/uL 1.26 Absolute Monocytes (0.1-0.8) 10^3/uL 0.97 H Absolute Eosinophils (0.0-0.7) 10^3/uL 0.16 Absolute Basophils (0.0-0.2) 10^3/uL 0.07 RBC Morphology See Below Polychromasia Present Anisocytosis 2+ Macrocytosis 3+ [place] Bodies Present PT (9.3-11.0) sec INR (0.9-1.1) VBG pH (7.31-7.41) VBG pCO2 (41-51) mmHg VBG pO2 mmHg VBG HCO3 (23-28) mmol/L VBG Total CO2 (24-29) mmol/L VBG O2 Saturation % VBG Base Excess (-2-3) mmol/L Sodium (136-145) mmol/L 136 Potassium (3.5-5.1) mmol/L 1.7 L* Chloride (98-107) mmol/L 94 L Carbon Dioxide (21.0-32.0) mmol/L 34.6 H Anion Gap (3-11) mmol/L 7.4 BUN (7-18) mg/dL 9 Creatinine (0.70-1.30) mg/dL 0.6 L Est GFR (CKD-EPI 2020) (mL/min/1.73m2) 122.83 Glucose (74-106) mg/dL 108 H Calcium (8.5-10.1) mg/dL 5.6 L* Ionized Calcium (1.14-1.35) mmol/L Phosphorus (2.6-4.7) mg/dL 2.3 L Magnesium (1.8-2.4) mg/dL 1.9 Iron (65-175) ug/dL TIBC (250-450) ug/dL Transferrin % Sat (20-55) % Ferritin (26-388) ng/mL Total Bilirubin (0.2-1.0) mg/dL AST (15-37) U/L ALT (16-63) U/L Alkaline Phosphatase (46-116) U/L Lactate Dehydrogenase (85-227) U/L Creatine Kinase (39-308) U/L Troponin I (<or=60) ng/L NT-Pro-B Natriuret Pep (<300) pg/mL Total Protein (6.4-8.2) g/dL Albumin (3.4-5.0) g/dL Lipase (73-393) U/L 25-OH Vitamin D Total (30-100) ng/mL 6.4 L Procalcitonin ng/mL TSH (0.36-3.74) uIU/mL Free T4 (0.76-1.46) ng/dL PTH Intact (19-88) pg/mL Urine Color (Yellow) Urine Clarity (Clear) Urine pH (5-8) Ur Specific [place] (1.005-1.025) Urine Protein (Negative) mg/dL Urine Ketones (Negative) mg/dL Urine Blood (Negative) Urine Nitrite (Negative) Urine Bilirubin (Negative) Urine Urobilinogen (Up TO 0.2) EU/dL Ur Leukocyte Esterase (Negative) Urine RBC (0-2) HPF Urine WBC (0-5) HPF Ur Epithelial Cells (Negative) HPF Urine Crystals (Negative) HPF Urine Bacteria (Negative) HPF Urine Casts (Negative) LPF Urine Mucus (Negative) Ur Culture Indicated? Ur Random Creatinine mg/dL Ur Random Sodium mmol/L Ur Random Potassium mmol/L Urine Chloride (See Note) mmol/L Urine Glucose (Negative) mg/dL Vancomycin Trough (10.0-20.0) ug/mL Urine Opiates Screen (Negative) Urine Methadone Screen (Negative) Ur Barbiturates Screen (Negative) Ur Tricyclics Screen (Negative) Ur Amphetamines Screen (Negative) U Benzodiazepines Scrn (Negative) Urine Cocaine Screen (Negative) Ur THC Screen (Negative) Ethyl Alcohol (<10) mg/dL Lyme Disease Antibody (Negative) COVID-19 Source SARS-CoV-2 (PCR) (Negative) Urine Legionella Ag (Negative) Add-On Test Request Patient ABO/Rh Antibody Screen Range/Units 07/04/22 07/04/22 07/04/22 05:35 06:56 06:56 WBC (4.4-10.8) 10^3/uL RBC (4.36-5.78) 10^6/uL Hgb (13.5-17.5) g/dL Hct (40.0-50.0) % MCV (80-95) fL MCH (27.0-33.0) pg MCHC (32.0-36.0) % RDW (11.8-14.1) % Plt Count (130-400) 10^3/uL MPV (8.0-11.0) fL Immature Gran % Neutrophils % Band Neutrophils % Lymphocytes % Monocytes % Eosinophils % Basophils % Nucleated RBC % (0.0-0.3) % Absolute Neutrophils (1.2-6.7) 10^3/uL Absolute Lymphocytes (1.2-3.4) 10^3/uL Absolute Monocytes (0.1-0.8) 10^3/uL Absolute Eosinophils (0.0-0.7) 10^3/uL Absolute Basophils (0.0-0.2) 10^3/uL RBC Morphology Polychromasia Anisocytosis Macrocytosis [place] Bodies PT (9.3-11.0) sec INR (0.9-1.1) VBG pH (7.31-7.41) VBG pCO2 (41-51) mmHg VBG pO2 mmHg VBG HCO3 (23-28) mmol/L VBG Total CO2 (24-29) mmol/L VBG O2 Saturation % VBG Base Excess (-2-3) mmol/L Sodium (136-145) mmol/L 137 Potassium (3.5-5.1) mmol/L 2.0 L* Chloride (98-107) mmol/L 95 L Carbon Dioxide (21.0-32.0) mmol/L 33.9 H Anion Gap (3-11) mmol/L 8.1 BUN (7-18) mg/dL 9 Creatinine (0.70-1.30) mg/dL 0.7 Est GFR (CKD-EPI 2020) (mL/min/1.73m2) 117.25 Glucose (74-106) mg/dL 124 H Calcium (8.5-10.1) mg/dL 5.8 L* Ionized Calcium (1.14-1.35) mmol/L Phosphorus (2.6-4.7) mg/dL Magnesium (1.8-2.4) mg/dL Iron (65-175) ug/dL TIBC (250-450) ug/dL Transferrin % Sat (20-55) % Ferritin (26-388) ng/mL Total Bilirubin (0.2-1.0) mg/dL AST (15-37) U/L ALT (16-63) U/L Alkaline Phosphatase (46-116) U/L Lactate Dehydrogenase (85-227) U/L Creatine Kinase (39-308) U/L Troponin I (<or=60) ng/L NT-Pro-B Natriuret Pep (<300) pg/mL Total Protein (6.4-8.2) g/dL Albumin (3.4-5.0) g/dL Lipase (73-393) U/L 25-OH Vitamin D Total (30-100) ng/mL Procalcitonin ng/mL TSH (0.36-3.74) uIU/mL Free T4 (0.76-1.46) ng/dL PTH Intact (19-88) pg/mL 118 H Urine Color (Yellow) Urine Clarity (Clear) Urine pH (5-8) Ur Specific [place] (1.005-1.025) Urine Protein (Negative) mg/dL Urine Ketones (Negative) mg/dL Urine Blood (Negative) Urine Nitrite (Negative) Urine Bilirubin (Negative) Urine Urobilinogen (Up TO 0.2) EU/dL Ur Leukocyte Esterase (Negative) Urine RBC (0-2) HPF Urine WBC (0-5) HPF Ur Epithelial Cells (Negative) HPF Urine Crystals (Negative) HPF Urine Bacteria (Negative) HPF Urine Casts (Negative) LPF Urine Mucus (Negative) Ur Culture Indicated? Ur Random Creatinine mg/dL Ur Random Sodium mmol/L Ur Random Potassium mmol/L Urine Chloride (See Note) mmol/L Urine Glucose (Negative) mg/dL Vancomycin Trough (10.0-20.0) ug/mL Urine Opiates Screen (Negative) Urine Methadone Screen (Negative) Ur Barbiturates Screen (Negative) Ur Tricyclics Screen (Negative) Ur Amphetamines Screen (Negative) U Benzodiazepines Scrn (Negative) Urine Cocaine Screen (Negative) Ur THC Screen (Negative) Ethyl Alcohol (<10) mg/dL Lyme Disease Antibody (Negative) COVID-19 Source SARS-CoV-2 (PCR) (Negative) Urine Legionella Ag (Negative) Add-On Test Request DONE Patient ABO/Rh Antibody Screen Range/Units 07/04/22 07/04/22 07/04/22 06:56 08:00 08:00 WBC (4.4-10.8) 10^3/uL RBC (4.36-5.78) 10^6/uL Hgb (13.5-17.5) g/dL Hct (40.0-50.0) % MCV (80-95) fL MCH (27.0-33.0) pg MCHC (32.0-36.0) % RDW (11.8-14.1) % Plt Count (130-400) 10^3/uL MPV (8.0-11.0) fL Immature Gran % Neutrophils % Band Neutrophils % Lymphocytes % Monocytes % Eosinophils % Basophils % Nucleated RBC % (0.0-0.3) % Absolute Neutrophils (1.2-6.7) 10^3/uL Absolute Lymphocytes (1.2-3.4) 10^3/uL Absolute Monocytes (0.1-0.8) 10^3/uL Absolute Eosinophils (0.0-0.7) 10^3/uL Absolute Basophils (0.0-0.2) 10^3/uL RBC Morphology Polychromasia Anisocytosis Macrocytosis [place] Bodies PT (9.3-11.0) sec INR (0.9-1.1) VBG pH (7.31-7.41) VBG pCO2 (41-51) mmHg VBG pO2 mmHg VBG HCO3 (23-28) mmol/L VBG Total CO2 (24-29) mmol/L VBG O2 Saturation % VBG Base Excess (-2-3) mmol/L Sodium (136-145) mmol/L Potassium (3.5-5.1) mmol/L Chloride (98-107) mmol/L Carbon Dioxide (21.0-32.0) mmol/L Anion Gap (3-11) mmol/L BUN (7-18) mg/dL Creatinine (0.70-1.30) mg/dL Est GFR (CKD-EPI 2020) (mL/min/1.73m2) Glucose (74-106) mg/dL Calcium (8.5-10.1) mg/dL Ionized Calcium (1.14-1.35) mmol/L Phosphorus (2.6-4.7) mg/dL Magnesium (1.8-2.4) mg/dL Iron (65-175) ug/dL TIBC (250-450) ug/dL Transferrin % Sat (20-55) % Ferritin (26-388) ng/mL Total Bilirubin (0.2-1.0) mg/dL AST (15-37) U/L ALT (16-63) U/L Alkaline Phosphatase (46-116) U/L Lactate Dehydrogenase (85-227) U/L Creatine Kinase (39-308) U/L > 68853 H Troponin I (<or=60) ng/L NT-Pro-B Natriuret Pep (<300) pg/mL Total Protein (6.4-8.2) g/dL Albumin (3.4-5.0) g/dL Lipase (73-393) U/L 25-OH Vitamin D Total (30-100) ng/mL Procalcitonin ng/mL TSH (0.36-3.74) uIU/mL Free T4 (0.76-1.46) ng/dL PTH Intact (19-88) pg/mL Urine Color (Yellow) Urine Clarity (Clear) Urine pH (5-8) Ur Specific [place] (1.005-1.025) Urine Protein (Negative) mg/dL Urine Ketones (Negative) mg/dL Urine Blood (Negative) Urine Nitrite (Negative) Urine Bilirubin (Negative) Urine Urobilinogen (Up TO 0.2) EU/dL Ur Leukocyte Esterase (Negative) Urine RBC (0-2) HPF Urine WBC (0-5) HPF Ur Epithelial Cells (Negative) HPF Urine Crystals (Negative) HPF Urine Bacteria (Negative) HPF Urine Casts (Negative) LPF Urine Mucus (Negative) Ur Culture Indicated? Ur Random Creatinine mg/dL 140.77 Ur Random Sodium mmol/L 14 Ur Random Potassium mmol/L 10 Urine Chloride (See Note) mmol/L <15 Urine Glucose (Negative) mg/dL Vancomycin Trough (10.0-20.0) ug/mL Urine Opiates Screen (Negative) Urine Methadone Screen (Negative) Ur Barbiturates Screen (Negative) Ur Tricyclics Screen (Negative) Ur Amphetamines Screen (Negative) U Benzodiazepines Scrn (Negative) Urine Cocaine Screen (Negative) Ur THC Screen (Negative) Ethyl Alcohol (<10) mg/dL Lyme Disease Antibody (Negative) COVID-19 Source SARS-CoV-2 (PCR) (Negative) Urine Legionella Ag (Negative) Add-On Test Request Patient ABO/Rh Antibody Screen Range/Units 07/04/22 07/04/22 07/04/22 11:45 11:45 11:45 WBC (4.4-10.8) 10^3/uL RBC (4.36-5.78) 10^6/uL Hgb (13.5-17.5) g/dL Hct (40.0-50.0) % MCV (80-95) fL MCH (27.0-33.0) pg MCHC (32.0-36.0) % RDW (11.8-14.1) % Plt Count (130-400) 10^3/uL MPV (8.0-11.0) fL Immature Gran % Neutrophils % Band Neutrophils % Lymphocytes % Monocytes % Eosinophils % Basophils % Nucleated RBC % (0.0-0.3) % Absolute Neutrophils (1.2-6.7) 10^3/uL Absolute Lymphocytes (1.2-3.4) 10^3/uL Absolute Monocytes (0.1-0.8) 10^3/uL Absolute Eosinophils (0.0-0.7) 10^3/uL Absolute Basophils (0.0-0.2) 10^3/uL RBC Morphology Polychromasia Anisocytosis Macrocytosis [place] Bodies PT (9.3-11.0) sec INR (0.9-1.1) VBG pH (7.31-7.41) VBG pCO2 (41-51) mmHg VBG pO2 mmHg VBG HCO3 (23-28) mmol/L VBG Total CO2 (24-29) mmol/L VBG O2 Saturation % VBG Base Excess (-2-3) mmol/L Sodium (136-145) mmol/L 140 Potassium (3.5-5.1) mmol/L 2.4 L* Chloride (98-107) mmol/L 97 L Carbon Dioxide (21.0-32.0) mmol/L 35.0 H Anion Gap (3-11) mmol/L 8.0 BUN (7-18) mg/dL 10 Creatinine (0.70-1.30) mg/dL 0.9 Est GFR (CKD-EPI 2020) (mL/min/1.73m2) 108.68 Glucose (74-106) mg/dL 127 H Calcium (8.5-10.1) mg/dL 6.4 L Ionized Calcium (1.14-1.35) mmol/L Phosphorus (2.6-4.7) mg/dL 2.3 L Magnesium (1.8-2.4) mg/dL Iron (65-175) ug/dL TIBC (250-450) ug/dL Transferrin % Sat (20-55) % Ferritin (26-388) ng/mL Total Bilirubin (0.2-1.0) mg/dL AST (15-37) U/L ALT (16-63) U/L Alkaline Phosphatase (46-116) U/L Lactate Dehydrogenase (85-227) U/L Creatine Kinase (39-308) U/L > 03953 H Troponin I (<or=60) ng/L NT-Pro-B Natriuret Pep (<300) pg/mL Total Protein (6.4-8.2) g/dL Albumin (3.4-5.0) g/dL Lipase (73-393) U/L 25-OH Vitamin D Total (30-100) ng/mL Procalcitonin ng/mL TSH (0.36-3.74) uIU/mL Free T4 (0.76-1.46) ng/dL PTH Intact (19-88) pg/mL Urine Color (Yellow) Urine Clarity (Clear) Urine pH (5-8) Ur Specific [place] (1.005-1.025) Urine Protein (Negative) mg/dL Urine Ketones (Negative) mg/dL Urine Blood (Negative) Urine Nitrite (Negative) Urine Bilirubin (Negative) Urine Urobilinogen (Up TO 0.2) EU/dL Ur Leukocyte Esterase (Negative) Urine RBC (0-2) HPF Urine WBC (0-5) HPF Ur Epithelial Cells (Negative) HPF Urine Crystals (Negative) HPF Urine Bacteria (Negative) HPF Urine Casts (Negative) LPF Urine Mucus (Negative) Ur Culture Indicated? Ur Random Creatinine mg/dL Ur Random Sodium mmol/L Ur Random Potassium mmol/L Urine Chloride (See Note) mmol/L Urine Glucose (Negative) mg/dL Vancomycin Trough (10.0-20.0) ug/mL Urine Opiates Screen (Negative) Urine Methadone Screen (Negative) Ur Barbiturates Screen (Negative) Ur Tricyclics Screen (Negative) Ur Amphetamines Screen (Negative) U Benzodiazepines Scrn (Negative) Urine Cocaine Screen (Negative) Ur THC Screen (Negative) Ethyl Alcohol (<10) mg/dL Lyme Disease Antibody (Negative) COVID-19 Source SARS-CoV-2 (PCR) (Negative) Urine Legionella Ag (Negative) Add-On Test Request Patient ABO/Rh Antibody Screen Range/Units 07/04/22 07/04/22 07/04/22 15:10 15:10 15:10 WBC (4.4-10.8) 10^3/uL RBC (4.36-5.78) 10^6/uL Hgb (13.5-17.5) g/dL 9.4 L Hct (40.0-50.0) % 25.5 L MCV (80-95) fL MCH (27.0-33.0) pg MCHC (32.0-36.0) % RDW (11.8-14.1) % Plt Count (130-400) 10^3/uL MPV (8.0-11.0) fL Immature Gran % Neutrophils % Band Neutrophils % Lymphocytes % Monocytes % Eosinophils % Basophils % Nucleated RBC % (0.0-0.3) % Absolute Neutrophils (1.2-6.7) 10^3/uL Absolute Lymphocytes (1.2-3.4) 10^3/uL Absolute Monocytes (0.1-0.8) 10^3/uL Absolute Eosinophils (0.0-0.7) 10^3/uL Absolute Basophils (0.0-0.2) 10^3/uL RBC Morphology Polychromasia Anisocytosis Macrocytosis [place] Bodies PT (9.3-11.0) sec INR (0.9-1.1) VBG pH (7.31-7.41) VBG pCO2 (41-51) mmHg VBG pO2 mmHg VBG HCO3 (23-28) mmol/L VBG Total CO2 (24-29) mmol/L VBG O2 Saturation % VBG Base Excess (-2-3) mmol/L Sodium (136-145) mmol/L 141 Potassium (3.5-5.1) mmol/L 2.4 L* Chloride (98-107) mmol/L 100 Carbon Dioxide (21.0-32.0) mmol/L 32.3 H Anion Gap (3-11) mmol/L 8.7 BUN (7-18) mg/dL 10 Creatinine (0.70-1.30) mg/dL 0.9 Est GFR (CKD-EPI 2020) (mL/min/1.73m2) 108.68 Glucose (74-106) mg/dL 120 H Calcium (8.5-10.1) mg/dL 6.4 L Ionized Calcium (1.14-1.35) mmol/L Phosphorus (2.6-4.7) mg/dL Magnesium (1.8-2.4) mg/dL Iron (65-175) ug/dL TIBC (250-450) ug/dL Transferrin % Sat (20-55) % Ferritin (26-388) ng/mL Total Bilirubin (0.2-1.0) mg/dL AST (15-37) U/L ALT (16-63) U/L Alkaline Phosphatase (46-116) U/L Lactate Dehydrogenase (85-227) U/L Creatine Kinase (39-308) U/L Troponin I (<or=60) ng/L NT-Pro-B Natriuret Pep (<300) pg/mL Total Protein (6.4-8.2) g/dL Albumin (3.4-5.0) g/dL Lipase (73-393) U/L 25-OH Vitamin D Total (30-100) ng/mL Procalcitonin ng/mL TSH (0.36-3.74) uIU/mL Free T4 (0.76-1.46) ng/dL PTH Intact (19-88) pg/mL Urine Color (Yellow) Urine Clarity (Clear) Urine pH (5-8) Ur Specific [place] (1.005-1.025) Urine Protein (Negative) mg/dL Urine Ketones (Negative) mg/dL Urine Blood (Negative) Urine Nitrite (Negative) Urine Bilirubin (Negative) Urine Urobilinogen (Up TO 0.2) EU/dL Ur Leukocyte Esterase (Negative) Urine RBC (0-2) HPF Urine WBC (0-5) HPF Ur Epithelial Cells (Negative) HPF Urine Crystals (Negative) HPF Urine Bacteria (Negative) HPF Urine Casts (Negative) LPF Urine Mucus (Negative) Ur Culture Indicated? Ur Random Creatinine mg/dL Ur Random Sodium mmol/L Ur Random Potassium mmol/L Urine Chloride (See Note) mmol/L Urine Glucose (Negative) mg/dL Vancomycin Trough (10.0-20.0) ug/mL Urine Opiates Screen (Negative) Urine Methadone Screen (Negative) Ur Barbiturates Screen (Negative) Ur Tricyclics Screen (Negative) Ur Amphetamines Screen (Negative) U Benzodiazepines Scrn (Negative) Urine Cocaine Screen (Negative) Ur THC Screen (Negative) Ethyl Alcohol (<10) mg/dL Lyme Disease Antibody (Negative) COVID-19 Source SARS-CoV-2 (PCR) (Negative) Urine Legionella Ag (Negative) Add-On Test Request Patient ABO/Rh O Negative Antibody Screen NEGATIVE Range/Units 07/04/22 07/04/22 07/04/22 15:10 15:10 15:10 WBC (4.4-10.8) 10^3/uL RBC (4.36-5.78) 10^6/uL Hgb (13.5-17.5) g/dL Hct (40.0-50.0) % MCV (80-95) fL MCH (27.0-33.0) pg MCHC (32.0-36.0) % RDW (11.8-14.1) % Plt Count (130-400) 10^3/uL MPV (8.0-11.0) fL Immature Gran % Neutrophils % Band Neutrophils % Lymphocytes % Monocytes % Eosinophils % Basophils % Nucleated RBC % (0.0-0.3) % Absolute Neutrophils (1.2-6.7) 10^3/uL Absolute Lymphocytes (1.2-3.4) 10^3/uL Absolute Monocytes (0.1-0.8) 10^3/uL Absolute Eosinophils (0.0-0.7) 10^3/uL Absolute Basophils (0.0-0.2) 10^3/uL RBC Morphology Polychromasia Anisocytosis Macrocytosis [place] Bodies PT (9.3-11.0) sec INR (0.9-1.1) VBG pH (7.31-7.41) VBG pCO2 (41-51) mmHg VBG pO2 mmHg VBG HCO3 (23-28) mmol/L VBG Total CO2 (24-29) mmol/L VBG O2 Saturation % VBG Base Excess (-2-3) mmol/L Sodium (136-145) mmol/L Potassium (3.5-5.1) mmol/L Chloride (98-107) mmol/L Carbon Dioxide (21.0-32.0) mmol/L Anion Gap (3-11) mmol/L BUN (7-18) mg/dL Creatinine (0.70-1.30) mg/dL Est GFR (CKD-EPI 2020) (mL/min/1.73m2) Glucose (74-106) mg/dL Calcium (8.5-10.1) mg/dL Ionized Calcium (1.14-1.35) mmol/L Phosphorus (2.6-4.7) mg/dL 2.1 L Magnesium (1.8-2.4) mg/dL Iron (65-175) ug/dL 187 H TIBC (250-450) ug/dL 219 L Transferrin % Sat (20-55) % 85 H Ferritin (26-388) ng/mL 930 H Total Bilirubin (0.2-1.0) mg/dL AST (15-37) U/L ALT (16-63) U/L Alkaline Phosphatase (46-116) U/L Lactate Dehydrogenase (85-227) U/L Creatine Kinase (39-308) U/L Troponin I (<or=60) ng/L NT-Pro-B Natriuret Pep (<300) pg/mL Total Protein (6.4-8.2) g/dL Albumin (3.4-5.0) g/dL Lipase (73-393) U/L 25-OH Vitamin D Total (30-100) ng/mL Procalcitonin ng/mL TSH (0.36-3.74) uIU/mL Free T4 (0.76-1.46) ng/dL PTH Intact (19-88) pg/mL Urine Color (Yellow) Urine Clarity (Clear) Urine pH (5-8) Ur Specific [place] (1.005-1.025) Urine Protein (Negative) mg/dL Urine Ketones (Negative) mg/dL Urine Blood (Negative) Urine Nitrite (Negative) Urine Bilirubin (Negative) Urine Urobilinogen (Up TO 0.2) EU/dL Ur Leukocyte Esterase (Negative) Urine RBC (0-2) HPF Urine WBC (0-5) HPF Ur Epithelial Cells (Negative) HPF Urine Crystals (Negative) HPF Urine Bacteria (Negative) HPF Urine Casts (Negative) LPF Urine Mucus (Negative) Ur Culture Indicated? Ur Random Creatinine mg/dL Ur Random Sodium mmol/L Ur Random Potassium mmol/L Urine Chloride (See Note) mmol/L Urine Glucose (Negative) mg/dL Vancomycin Trough (10.0-20.0) ug/mL Urine Opiates Screen (Negative) Urine Methadone Screen (Negative) Ur Barbiturates Screen (Negative) Ur Tricyclics Screen (Negative) Ur Amphetamines Screen (Negative) U Benzodiazepines Scrn (Negative) Urine Cocaine Screen (Negative) Ur THC Screen (Negative) Ethyl Alcohol (<10) mg/dL Lyme Disease Antibody (Negative) COVID-19 Source SARS-CoV-2 (PCR) (Negative) Urine Legionella Ag (Negative) Add-On Test Request Patient ABO/Rh Antibody Screen Range/Units 07/04/22 07/05/22 07/05/22 20:08 01:08 EST 05:48 WBC (4.4-10.8) 10^3/uL RBC (4.36-5.78) 10^6/uL Hgb (13.5-17.5) g/dL Hct (40.0-50.0) % MCV (80-95) fL MCH (27.0-33.0) pg MCHC (32.0-36.0) % RDW (11.8-14.1) % Plt Count (130-400) 10^3/uL MPV (8.0-11.0) fL Immature Gran % Neutrophils % Band Neutrophils % Lymphocytes % Monocytes % Eosinophils % Basophils % Nucleated RBC % (0.0-0.3) % Absolute Neutrophils (1.2-6.7) 10^3/uL Absolute Lymphocytes (1.2-3.4) 10^3/uL Absolute Monocytes (0.1-0.8) 10^3/uL Absolute Eosinophils (0.0-0.7) 10^3/uL Absolute Basophils (0.0-0.2) 10^3/uL RBC Morphology Polychromasia Anisocytosis Macrocytosis [place] Bodies PT (9.3-11.0) sec INR (0.9-1.1) VBG pH (7.31-7.41) VBG pCO2 (41-51) mmHg VBG pO2 mmHg VBG HCO3 (23-28) mmol/L VBG Total CO2 (24-29) mmol/L VBG O2 Saturation % VBG Base Excess (-2-3) mmol/L Sodium (136-145) mmol/L 142 144 Potassium (3.5-5.1) mmol/L 2.5 L* 2.6 L* Chloride (98-107) mmol/L 103 106 Carbon Dioxide (21.0-32.0) mmol/L 30.8 30.8 Anion Gap (3-11) mmol/L 8.2 7.2 BUN (7-18) mg/dL 9 8 Creatinine (0.70-1.30) mg/dL 0.9 0.8 Est GFR (CKD-EPI 2020) (mL/min/1.73m2) 108.68 112.61 Glucose (74-106) mg/dL 149 H 179 H Calcium (8.5-10.1) mg/dL 6.1 L* 6.0 L* Ionized Calcium (1.14-1.35) mmol/L Phosphorus (2.6-4.7) mg/dL Magnesium (1.8-2.4) mg/dL 1.8 Iron (65-175) ug/dL TIBC (250-450) ug/dL Transferrin % Sat (20-55) % Ferritin (26-388) ng/mL Total Bilirubin (0.2-1.0) mg/dL AST (15-37) U/L ALT (16-63) U/L Alkaline Phosphatase (46-116) U/L Lactate Dehydrogenase (85-227) U/L Creatine Kinase (39-308) U/L Troponin I (<or=60) ng/L NT-Pro-B Natriuret Pep (<300) pg/mL Total Protein (6.4-8.2) g/dL Albumin (3.4-5.0) g/dL Lipase (73-393) U/L 25-OH Vitamin D Total (30-100) ng/mL Procalcitonin ng/mL TSH (0.36-3.74) uIU/mL Free T4 (0.76-1.46) ng/dL PTH Intact (19-88) pg/mL Urine Color (Yellow) Urine Clarity (Clear) Urine pH (5-8) Ur Specific [place] (1.005-1.025) Urine Protein (Negative) mg/dL Urine Ketones (Negative) mg/dL Urine Blood (Negative) Urine Nitrite (Negative) Urine Bilirubin (Negative) Urine Urobilinogen (Up TO 0.2) EU/dL Ur Leukocyte Esterase (Negative) Urine RBC (0-2) HPF Urine WBC (0-5) HPF Ur Epithelial Cells (Negative) HPF Urine Crystals (Negative) HPF Urine Bacteria (Negative) HPF Urine Casts (Negative) LPF Urine Mucus (Negative) Ur Culture Indicated? Ur Random Creatinine mg/dL Ur Random Sodium mmol/L Ur Random Potassium mmol/L Urine Chloride (See Note) mmol/L Urine Glucose (Negative) mg/dL Vancomycin Trough (10.0-20.0) ug/mL Urine Opiates Screen (Negative) Urine Methadone Screen (Negative) Ur Barbiturates Screen (Negative) Ur Tricyclics Screen (Negative) Ur Amphetamines Screen (Negative) U Benzodiazepines Scrn (Negative) Urine Cocaine Screen (Negative) Ur THC Screen (Negative) Ethyl Alcohol (<10) mg/dL Lyme Disease Antibody (Negative) COVID-19 Source SARS-CoV-2 (PCR) (Negative) Urine Legionella Ag (Negative) Add-On Test Request Patient ABO/Rh Antibody Screen Range/Units 07/05/22 07/05/22 07/05/22 05:48 05:48 07:09 WBC (4.4-10.8) 10^3/uL 24.62 H RBC (4.36-5.78) 10^6/uL 1.82 L Hgb (13.5-17.5) g/dL 8.2 L Hct (40.0-50.0) % 22.3 L MCV (80-95) fL 123 H D MCH (27.0-33.0) pg 45.1 H MCHC (32.0-36.0) % 36.8 H RDW (11.8-14.1) % 18.3 H Plt Count (130-400) 10^3/uL 350 MPV (8.0-11.0) fL 9.7 Immature Gran % 1.8 Neutrophils % 81.1 Band Neutrophils % Lymphocytes % 11.6 Monocytes % 3.3 Eosinophils % 1.7 Basophils % 0.5 Nucleated RBC % (0.0-0.3) % 4.1 H Absolute Neutrophils (1.2-6.7) 10^3/uL 19.97 H Absolute Lymphocytes (1.2-3.4) 10^3/uL 2.86 Absolute Monocytes (0.1-0.8) 10^3/uL 0.81 H Absolute Eosinophils (0.0-0.7) 10^3/uL 0.42 Absolute Basophils (0.0-0.2) 10^3/uL 0.12 RBC Morphology Polychromasia Present Anisocytosis Macrocytosis 3+ [place] Bodies Present PT (9.3-11.0) sec INR (0.9-1.1) VBG pH (7.31-7.41) VBG pCO2 (41-51) mmHg VBG pO2 mmHg VBG HCO3 (23-28) mmol/L VBG Total CO2 (24-29) mmol/L VBG O2 Saturation % VBG Base Excess (-2-3) mmol/L Sodium (136-145) mmol/L 142 Potassium (3.5-5.1) mmol/L 3.1 L Chloride (98-107) mmol/L 109 H Carbon Dioxide (21.0-32.0) mmol/L 30.6 Anion Gap (3-11) mmol/L 2.4 L BUN (7-18) mg/dL 7 Creatinine (0.70-1.30) mg/dL 0.8 Est GFR (CKD-EPI 2020) (mL/min/1.73m2) 112.61 Glucose (74-106) mg/dL 105 Calcium (8.5-10.1) mg/dL 6.3 L* Ionized Calcium (1.14-1.35) mmol/L 0.82 L Phosphorus (2.6-4.7) mg/dL 2.4 L Magnesium (1.8-2.4) mg/dL Iron (65-175) ug/dL TIBC (250-450) ug/dL Transferrin % Sat (20-55) % Ferritin (26-388) ng/mL Total Bilirubin (0.2-1.0) mg/dL 0.8 AST (15-37) U/L 154 H ALT (16-63) U/L 57 Alkaline Phosphatase (46-116) U/L 109 Lactate Dehydrogenase (85-227) U/L Creatine Kinase (39-308) U/L > 16784 H Troponin I (<or=60) ng/L NT-Pro-B Natriuret Pep (<300) pg/mL Total Protein (6.4-8.2) g/dL 4.8 L Albumin (3.4-5.0) g/dL 1.7 L Lipase (73-393) U/L 25-OH Vitamin D Total (30-100) ng/mL Procalcitonin ng/mL TSH (0.36-3.74) uIU/mL Free T4 (0.76-1.46) ng/dL PTH Intact (19-88) pg/mL Urine Color (Yellow) Urine Clarity (Clear) Urine pH (5-8) Ur Specific [place] (1.005-1.025) Urine Protein (Negative) mg/dL Urine Ketones (Negative) mg/dL Urine Blood (Negative) Urine Nitrite (Negative) Urine Bilirubin (Negative) Urine Urobilinogen (Up TO 0.2) EU/dL Ur Leukocyte Esterase (Negative) Urine RBC (0-2) HPF Urine WBC (0-5) HPF Ur Epithelial Cells (Negative) HPF Urine Crystals (Negative) HPF Urine Bacteria (Negative) HPF Urine Casts (Negative) LPF Urine Mucus (Negative) Ur Culture Indicated? Ur Random Creatinine mg/dL Ur Random Sodium mmol/L Ur Random Potassium mmol/L Urine Chloride (See Note) mmol/L Urine Glucose (Negative) mg/dL Vancomycin Trough (10.0-20.0) ug/mL Urine Opiates Screen (Negative) Urine Methadone Screen (Negative) Ur Barbiturates Screen (Negative) Ur Tricyclics Screen (Negative) Ur Amphetamines Screen (Negative) U Benzodiazepines Scrn (Negative) Urine Cocaine Screen (Negative) Ur THC Screen (Negative) Ethyl Alcohol (<10) mg/dL Lyme Disease Antibody (Negative) COVID-19 Source SARS-CoV-2 (PCR) (Negative) Urine Legionella Ag (Negative) Add-On Test Request Patient ABO/Rh Antibody Screen Range/Units 07/05/22 07/05/22 07/06/22 07:30 08:53 06:50 WBC (4.4-10.8) 10^3/uL RBC (4.36-5.78) 10^6/uL Hgb (13.5-17.5) g/dL Hct (40.0-50.0) % MCV (80-95) fL MCH (27.0-33.0) pg MCHC (32.0-36.0) % RDW (11.8-14.1) % Plt Count (130-400) 10^3/uL MPV (8.0-11.0) fL Immature Gran % Neutrophils % Band Neutrophils % Lymphocytes % Monocytes % Eosinophils % Basophils % Nucleated RBC % (0.0-0.3) % Absolute Neutrophils (1.2-6.7) 10^3/uL Absolute Lymphocytes (1.2-3.4) 10^3/uL Absolute Monocytes (0.1-0.8) 10^3/uL Absolute Eosinophils (0.0-0.7) 10^3/uL Absolute Basophils (0.0-0.2) 10^3/uL RBC Morphology Polychromasia Anisocytosis Macrocytosis [place] Bodies PT (9.3-11.0) sec INR (0.9-1.1) VBG pH (7.31-7.41) VBG pCO2 (41-51) mmHg VBG pO2 mmHg VBG HCO3 (23-28) mmol/L VBG Total CO2 (24-29) mmol/L VBG O2 Saturation % VBG Base Excess (-2-3) mmol/L Sodium (136-145) mmol/L Potassium (3.5-5.1) mmol/L Chloride (98-107) mmol/L Carbon Dioxide (21.0-32.0) mmol/L Anion Gap (3-11) mmol/L BUN (7-18) mg/dL Creatinine (0.70-1.30) mg/dL Est GFR (CKD-EPI 2020) (mL/min/1.73m2) Glucose (74-106) mg/dL Calcium (8.5-10.1) mg/dL Ionized Calcium (1.14-1.35) mmol/L Phosphorus (2.6-4.7) mg/dL 4.5 Magnesium (1.8-2.4) mg/dL Iron (65-175) ug/dL TIBC (250-450) ug/dL Transferrin % Sat (20-55) % Ferritin (26-388) ng/mL Total Bilirubin (0.2-1.0) mg/dL AST (15-37) U/L ALT (16-63) U/L Alkaline Phosphatase (46-116) U/L Lactate Dehydrogenase (85-227) U/L Creatine Kinase (39-308) U/L > 59716 H Troponin I (<or=60) ng/L NT-Pro-B Natriuret Pep (<300) pg/mL Total Protein (6.4-8.2) g/dL Albumin (3.4-5.0) g/dL Lipase (73-393) U/L 25-OH Vitamin D Total (30-100) ng/mL Procalcitonin ng/mL TSH (0.36-3.74) uIU/mL Free T4 (0.76-1.46) ng/dL PTH Intact (19-88) pg/mL Urine Color (Yellow) Urine Clarity (Clear) Urine pH (5-8) Ur Specific [place] (1.005-1.025) Urine Protein (Negative) mg/dL Urine Ketones (Negative) mg/dL Urine Blood (Negative) Urine Nitrite (Negative) Urine Bilirubin (Negative) Urine Urobilinogen (Up TO 0.2) EU/dL Ur Leukocyte Esterase (Negative) Urine RBC (0-2) HPF Urine WBC (0-5) HPF Ur Epithelial Cells (Negative) HPF Urine Crystals (Negative) HPF Urine Bacteria (Negative) HPF Urine Casts (Negative) LPF Urine Mucus (Negative) Ur Culture Indicated? Ur Random Creatinine mg/dL Ur Random Sodium mmol/L Ur Random Potassium mmol/L Urine Chloride (See Note) mmol/L Urine Glucose (Negative) mg/dL Vancomycin Trough (10.0-20.0) ug/mL 19.8 Urine Opiates Screen (Negative) Urine Methadone Screen (Negative) Ur Barbiturates Screen (Negative) Ur Tricyclics Screen (Negative) Ur Amphetamines Screen (Negative) U Benzodiazepines Scrn (Negative) Urine Cocaine Screen (Negative) Ur THC Screen (Negative) Ethyl Alcohol (<10) mg/dL Lyme Disease Antibody (Negative) COVID-19 Source Nasopharynx SARS-CoV-2 (PCR) (Negative) Negative Urine Legionella Ag (Negative) Add-On Test Request Patient ABO/Rh Antibody Screen Range/Units 07/06/22 07/06/22 07/06/22 06:50 06:50 06:50 WBC (4.4-10.8) 10^3/uL 25.34 H* RBC (4.36-5.78) 10^6/uL 2.08 L Hgb (13.5-17.5) g/dL 9.2 L Hct (40.0-50.0) % 26.2 L MCV (80-95) fL 126 H MCH (27.0-33.0) pg 44.2 H MCHC (32.0-36.0) % 35.1 RDW (11.8-14.1) % 18.8 H Plt Count (130-400) 10^3/uL 405 H MPV (8.0-11.0) fL 9.5 Immature Gran % 0.0 Neutrophils % 86.0 Band Neutrophils % 1 Lymphocytes % 12.0 Monocytes % 0.0 Eosinophils % 0.0 Basophils % 1.0 Nucleated RBC % (0.0-0.3) % 2.0 H Absolute Neutrophils (1.2-6.7) 10^3/uL 22.05 H Absolute Lymphocytes (1.2-3.4) 10^3/uL 3.04 Absolute Monocytes (0.1-0.8) 10^3/uL 0.00 L Absolute Eosinophils (0.0-0.7) 10^3/uL 0.00 Absolute Basophils (0.0-0.2) 10^3/uL 0.25 H RBC Morphology See Below Polychromasia Anisocytosis Macrocytosis 2+ [place] Bodies PT (9.3-11.0) sec INR (0.9-1.1) VBG pH (7.31-7.41) VBG pCO2 (41-51) mmHg VBG pO2 mmHg VBG HCO3 (23-28) mmol/L VBG Total CO2 (24-29) mmol/L VBG O2 Saturation % VBG Base Excess (-2-3) mmol/L Sodium (136-145) mmol/L 144 Potassium (3.5-5.1) mmol/L 4.7 D Chloride (98-107) mmol/L 110 H Carbon Dioxide (21.0-32.0) mmol/L 25.5 Anion Gap (3-11) mmol/L 8.5 BUN (7-18) mg/dL 6 L Creatinine (0.70-1.30) mg/dL 0.7 Est GFR (CKD-EPI 2020) (mL/min/1.73m2) 117.25 Glucose (74-106) mg/dL 96 Calcium (8.5-10.1) mg/dL 5.9 L* Ionized Calcium (1.14-1.35) mmol/L Phosphorus (2.6-4.7) mg/dL Magnesium (1.8-2.4) mg/dL Iron (65-175) ug/dL TIBC (250-450) ug/dL Transferrin % Sat (20-55) % Ferritin (26-388) ng/mL Total Bilirubin (0.2-1.0) mg/dL 0.6 AST (15-37) U/L 378 H ALT (16-63) U/L 93 H Alkaline Phosphatase (46-116) U/L 108 Lactate Dehydrogenase (85-227) U/L Creatine Kinase (39-308) U/L Troponin I (<or=60) ng/L NT-Pro-B Natriuret Pep (<300) pg/mL Total Protein (6.4-8.2) g/dL 5.3 L Albumin (3.4-5.0) g/dL 1.8 L Lipase (73-393) U/L 25-OH Vitamin D Total (30-100) ng/mL Procalcitonin ng/mL TSH (0.36-3.74) uIU/mL Free T4 (0.76-1.46) ng/dL PTH Intact (19-88) pg/mL Urine Color (Yellow) Urine Clarity (Clear) Urine pH (5-8) Ur Specific [place] (1.005-1.025) Urine Protein (Negative) mg/dL Urine Ketones (Negative) mg/dL Urine Blood (Negative) Urine Nitrite (Negative) Urine Bilirubin (Negative) Urine Urobilinogen (Up TO 0.2) EU/dL Ur Leukocyte Esterase (Negative) Urine RBC (0-2) HPF Urine WBC (0-5) HPF Ur Epithelial Cells (Negative) HPF Urine Crystals (Negative) HPF Urine Bacteria (Negative) HPF Urine Casts (Negative) LPF Urine Mucus (Negative) Ur Culture Indicated? Ur Random Creatinine mg/dL Ur Random Sodium mmol/L Ur Random Potassium mmol/L Urine Chloride (See Note) mmol/L Urine Glucose (Negative) mg/dL Vancomycin Trough (10.0-20.0) ug/mL Urine Opiates Screen (Negative) Urine Methadone Screen (Negative) Ur Barbiturates Screen (Negative) Ur Tricyclics Screen (Negative) Ur Amphetamines Screen (Negative) U Benzodiazepines Scrn (Negative) Urine Cocaine Screen (Negative) Ur THC Screen (Negative) Ethyl Alcohol (<10) mg/dL Lyme Disease Antibody (Negative) COVID-19 Source SARS-CoV-2 (PCR) (Negative) Urine Legionella Ag (Negative) Add-On Test Request DONE Patient ABO/Rh Antibody Screen Range/Units 07/06/22 07/06/22 07/06/22 09:20 14:19 14:19 WBC (4.4-10.8) 10^3/uL RBC (4.36-5.78) 10^6/uL Hgb (13.5-17.5) g/dL Hct (40.0-50.0) % MCV (80-95) fL MCH (27.0-33.0) pg MCHC (32.0-36.0) % RDW (11.8-14.1) % Plt Count (130-400) 10^3/uL MPV (8.0-11.0) fL Immature Gran % Neutrophils % Band Neutrophils % Lymphocytes % Monocytes % Eosinophils % Basophils % Nucleated RBC % (0.0-0.3) % Absolute Neutrophils (1.2-6.7) 10^3/uL Absolute Lymphocytes (1.2-3.4) 10^3/uL Absolute Monocytes (0.1-0.8) 10^3/uL Absolute Eosinophils (0.0-0.7) 10^3/uL Absolute Basophils (0.0-0.2) 10^3/uL RBC Morphology Polychromasia Anisocytosis Macrocytosis [place] Bodies PT (9.3-11.0) sec INR (0.9-1.1) VBG pH (7.31-7.41) VBG pCO2 (41-51) mmHg VBG pO2 mmHg VBG HCO3 (23-28) mmol/L VBG Total CO2 (24-29) mmol/L VBG O2 Saturation % VBG Base Excess (-2-3) mmol/L Sodium (136-145) mmol/L Potassium (3.5-5.1) mmol/L Chloride (98-107) mmol/L Carbon Dioxide (21.0-32.0) mmol/L Anion Gap (3-11) mmol/L BUN (7-18) mg/dL Creatinine (0.70-1.30) mg/dL Est GFR (CKD-EPI 2020) (mL/min/1.73m2) Glucose (74-106) mg/dL Calcium (8.5-10.1) mg/dL Ionized Calcium (1.14-1.35) mmol/L Phosphorus (2.6-4.7) mg/dL Magnesium (1.8-2.4) mg/dL Iron (65-175) ug/dL TIBC (250-450) ug/dL Transferrin % Sat (20-55) % Ferritin (26-388) ng/mL Total Bilirubin (0.2-1.0) mg/dL AST (15-37) U/L ALT (16-63) U/L Alkaline Phosphatase (46-116) U/L Lactate Dehydrogenase (85-227) U/L Creatine Kinase (39-308) U/L Troponin I (<or=60) ng/L NT-Pro-B Natriuret Pep (<300) pg/mL Total Protein (6.4-8.2) g/dL Albumin (3.4-5.0) g/dL Lipase (73-393) U/L 25-OH Vitamin D Total (30-100) ng/mL Procalcitonin ng/mL TSH (0.36-3.74) uIU/mL Free T4 (0.76-1.46) ng/dL PTH Intact (19-88) pg/mL Urine Color (Yellow) Urine Clarity (Clear) Urine pH (5-8) Ur Specific [place] (1.005-1.025) Urine Protein (Negative) mg/dL Urine Ketones (Negative) mg/dL Urine Blood (Negative) Urine Nitrite (Negative) Urine Bilirubin (Negative) Urine Urobilinogen (Up TO 0.2) EU/dL Ur Leukocyte Esterase (Negative) Urine RBC (0-2) HPF Urine WBC (0-5) HPF Ur Epithelial Cells (Negative) HPF Urine Crystals (Negative) HPF Urine Bacteria (Negative) HPF Urine Casts (Negative) LPF Urine Mucus (Negative) Ur Culture Indicated? Ur Random Creatinine mg/dL Ur Random Sodium mmol/L Ur Random Potassium mmol/L Urine Chloride (See Note) mmol/L Urine Glucose (Negative) mg/dL Vancomycin Trough (10.0-20.0) ug/mL 3.7 L Urine Opiates Screen (Negative) Negative Urine Methadone Screen (Negative) Negative Ur Barbiturates Screen (Negative) Negative Ur Tricyclics Screen (Negative) Negative Ur Amphetamines Screen (Negative) Negative U Benzodiazepines Scrn (Negative) Negative Urine Cocaine Screen (Negative) Negative Ur THC Screen (Negative) Negative Ethyl Alcohol (<10) mg/dL Lyme Disease Antibody (Negative) COVID-19 Source SARS-CoV-2 (PCR) (Negative) Urine Legionella Ag (Negative) Negative Add-On Test Request Patient ABO/Rh Antibody Screen Range/Units 07/06/22 07/07/22 07/07/22 18:50 06:15 06:15 WBC (4.4-10.8) 10^3/uL 17.12 H RBC (4.36-5.78) 10^6/uL 2.04 L Hgb (13.5-17.5) g/dL 8.9 L Hct (40.0-50.0) % 25.6 L MCV (80-95) fL 126 H MCH (27.0-33.0) pg 43.6 H MCHC (32.0-36.0) % 34.8 RDW (11.8-14.1) % 19.2 H Plt Count (130-400) 10^3/uL 404 H MPV (8.0-11.0) fL 9.4 Immature Gran % 2.2 Neutrophils % 78.6 Band Neutrophils % Lymphocytes % 12.6 Monocytes % 4.1 Eosinophils % 2.0 Basophils % 0.5 Nucleated RBC % (0.0-0.3) % 3.7 H Absolute Neutrophils (1.2-6.7) 10^3/uL 13.46 H Absolute Lymphocytes (1.2-3.4) 10^3/uL 2.16 Absolute Monocytes (0.1-0.8) 10^3/uL 0.70 Absolute Eosinophils (0.0-0.7) 10^3/uL 0.34 Absolute Basophils (0.0-0.2) 10^3/uL 0.09 RBC Morphology Polychromasia Anisocytosis Macrocytosis [place] Bodies PT (9.3-11.0) sec INR (0.9-1.1) VBG pH (7.31-7.41) VBG pCO2 (41-51) mmHg VBG pO2 mmHg VBG HCO3 (23-28) mmol/L VBG Total CO2 (24-29) mmol/L VBG O2 Saturation % VBG Base Excess (-2-3) mmol/L Sodium (136-145) mmol/L 139 Potassium (3.5-5.1) mmol/L 4.3 Chloride (98-107) mmol/L 107 Carbon Dioxide (21.0-32.0) mmol/L 21.6 Anion Gap (3-11) mmol/L 10.4 BUN (7-18) mg/dL 7 Creatinine (0.70-1.30) mg/dL 0.6 L Est GFR (CKD-EPI 2020) (mL/min/1.73m2) 122.83 Glucose (74-106) mg/dL 83 Calcium (8.5-10.1) mg/dL 6.0 L* Ionized Calcium (1.14-1.35) mmol/L Phosphorus (2.6-4.7) mg/dL Magnesium (1.8-2.4) mg/dL Iron (65-175) ug/dL TIBC (250-450) ug/dL Transferrin % Sat (20-55) % Ferritin (26-388) ng/mL Total Bilirubin (0.2-1.0) mg/dL 0.5 AST (15-37) U/L 481 H ALT (16-63) U/L 126 H Alkaline Phosphatase (46-116) U/L 103 Lactate Dehydrogenase (85-227) U/L 1824 H Creatine Kinase (39-308) U/L > 14812 H Troponin I (<or=60) ng/L NT-Pro-B Natriuret Pep (<300) pg/mL Total Protein (6.4-8.2) g/dL 5.2 L Albumin (3.4-5.0) g/dL 1.7 L Lipase (73-393) U/L 25-OH Vitamin D Total (30-100) ng/mL Procalcitonin ng/mL TSH (0.36-3.74) uIU/mL Free T4 (0.76-1.46) ng/dL PTH Intact (19-88) pg/mL Urine Color (Yellow) Urine Clarity (Clear) Urine pH (5-8) Ur Specific [place] (1.005-1.025) Urine Protein (Negative) mg/dL Urine Ketones (Negative) mg/dL Urine Blood (Negative) Urine Nitrite (Negative) Urine Bilirubin (Negative) Urine Urobilinogen (Up TO 0.2) EU/dL Ur Leukocyte Esterase (Negative) Urine RBC (0-2) HPF Urine WBC (0-5) HPF Ur Epithelial Cells (Negative) HPF Urine Crystals (Negative) HPF Urine Bacteria (Negative) HPF Urine Casts (Negative) LPF Urine Mucus (Negative) Ur Culture Indicated? Ur Random Creatinine mg/dL Ur Random Sodium mmol/L Ur Random Potassium mmol/L Urine Chloride (See Note) mmol/L Urine Glucose (Negative) mg/dL Vancomycin Trough (10.0-20.0) ug/mL Urine Opiates Screen (Negative) Urine Methadone Screen (Negative) Ur Barbiturates Screen (Negative) Ur Tricyclics Screen (Negative) Ur Amphetamines Screen (Negative) U Benzodiazepines Scrn (Negative) Urine Cocaine Screen (Negative) Ur THC Screen (Negative) Ethyl Alcohol (<10) mg/dL Lyme Disease Antibody (Negative) COVID-19 Source SARS-CoV-2 (PCR) (Negative) Urine Legionella Ag (Negative) Add-On Test Request Patient ABO/Rh Antibody Screen
--- NOTE | 2022-07-07 09:13 | PDOC.CMPRO ---
- If Service Date Differs Date of service: 07/07/22 Time of Service: 09:13 Care Management Progress Note S/O: Milan remains in IV ABX and continues to require close monitoring on telemetry and CIWA. His labs are being closely monitored and he's having a lower extremity MRI today. He may need a muscle biopsy depending on the results. Per PT, patient is feeling better today however his legs are still very painful. A: Milan is a 41 year old male admitted to [facility] on 07/04/22 with severe electrolyte abnormalities. P: Anticipate Milan will return home with no new services once medically cleared. His s/o will drive him home via private vehicle. He will follow up with his PCP and discharge plan of care. CM will continue to follow.
[2022-07-07 10:38] LABS: Lab Add On Test DONE
[2022-07-07 10:49] LABS: ESR 10 mm/hr (0-15)
[2022-07-07 10:53] LABS: C-Reactive Protein 5.23 mg/dL (0.0-0.3)
--- NOTE | 2022-07-07 10:58 | CHAPLAIN ---
Milan was up in the chair with his legs elevated when I visited. He is waiting results on a tick panel. He came into the ED three days ago when he was unable to ambulate for an unknown reason. Milan seems to be comfortable being here. I explained my role and offered support.
--- NOTE | 2022-07-07 11:03 | PT.INTREAT ---
Date of service: 07/07/22 Time of Service: 09:31 PT Notes Visit Reasons: Severe Hypokalemia, Hypomagnesemia, Hypocalcemia,R Inpatient Physical Therapy Treatment Note [facility] Date: 07/07/2022 PRECAUTIONS: Activity as tolerated, fall SUBJECTIVE: Milan is pleasant and agreeable to participating in PT. He reports that he feels better, but that his legs are still very sore. OBJECTIVE: PAIN: He reports pain in B inferior anterior thighs and in B calves BED MOBILITY/TRANSFERS: Supine-sit: I with HOB flat Sit-supine: I with HOB flat Sit-stand: I Stand-sit: I Bed-chair: I with FWW; CGA without AD Chair-bed: I with FWW; CGA without AD GAIT Assistive Device: No AD/occasional AGRICULTURE MANAGER Weight bearing: Full Assist: CGA Distance: 200' in a.m.; 250' in p.m. Deviation: SOB, slightly wide CHRISTI GAIT TRAINING: Patient was instructed in high knee marching 2 x 25' with AGRICULTURE MANAGER and CGA and lateral stepping x15' to L and x15' to R in a.m. and high marching x30' and lateral stepping x20' to L and x20' to R in p.m. with AGRICULTURE MANAGER and CGA. Patient c/o B LE soreness with high knee marching. THEREX: Patient was instructed in functional [id number] 2x5 and functional step-ups x10 L/R on 4 step. Patient demonstrates SOB and c/o increased LE discomfort with both activities. ASSESSMENT: Patient tolerated session with c/o B LE soreness with gait training, ther ex and transfers. He continues to demonstrate slightly wide CHRISTI and SOB with gait training PLAN: Continue with gait training with least restrictive device for improved mobility and continued progression toward baseline level of function. TREATMENT CODE/TIME: Session 1: 24 minutes; 27718 x2 (09:31) Session 2: 23 minutes; [id number] x2 (13:14)
[2022-07-07 11:39] LABS: HIV-1/2 Ag & Ab Screen Negative (Negative)
--- NOTE | 2022-07-07 12:12 | W.NUTCONSULT ---
Date of service: 07/07/22 Time of Service: 12:12 Nutritional Consult ASSESSMENT: Attempted to visit Milan today x 2 but unavailable both times. 41 year old male admitted with PNA, transaminitis, emphysema lung, electrolyte imbalances. Appears older than stated age. Hx of tobacco and ETOH abuse. Meds inlcude thiamin, MVI and folate and Vit D for repletion. Very poor nutritional status though BMI wnl. Suspect micro nutrient deficiencies secondary to ETOH /tobacco use and lack of varied diet. Following regular diet with excellent intake. NUTRITIONAL DIAGNOSIS: Vitamin D deficiency = 6.4 mg L INTERVENTION: Vit D, MVI, Folate and Thiamin repletion Regular diet MONITORING AND EVALUATION: weight, po intake, labs Time Spent in Nutritional Counseling and Treatment: 0
[2022-07-07 13:36] LABS: Streptococcus Pneumoniae Ag, U Negative (Negative)
--- NOTE | 2022-07-07 16:06 | PGE_ITS ---
Date of Service Date of service: 07/07/22 Time of Service: 16:06 Assessment and Plan Assessment and plan (1) Rhabdomyolysis: Status: Acute Assessment and plan: CK level remains elevated > 10,000. D/w lab if CK lab can be diluted to get a quantifiable number to trend. Unclear etiology, possible from falls although no visible hematomas; no traumatic injury and no evidence for compartment syndrome. Continue iv hydration, monitor urine output, CK levels. (avoiding alkalinization as he already has alkaline VBG and alkalinization may worsen his potassium levels). Creatinine normal at 0.7 Pending: Utox, LDH, aldolase, myomarker panel, SSA/SSB, HIV, RF, anti-ccp, anti- SM, Scl-70, ANCA, urine myoglobin. Lumbar MRI w/o evidence of abnormality, abscess. MRI BLE; no evidence of muscle abnormalities, myositis. 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 (2) Hypokalemia: Status: Acute Assessment and plan: K now normalized. Stopped oral supplementation and IV supp. Monitor. (3) Hypomagnesemia: Status: Acute Assessment and plan: patient given iv and oral replacement, level is now at lower limits of normal. Continue oral supplementation (4) Hypocalcemia: Status: Acute Assessment and plan: with his low albumen level his calcium level corrected to 8.14 on 07/05. Now corrected is 7.66 vitamin D level is low and vitamin D is being supplemented at 50,000 units Qwk. (5) QT prolongation: Status: Acute Assessment and plan: Correct electrolytes. Monitor on tele. (6) Alcohol use: Status: Chronic Assessment and plan: Etoh related rhabdo? Monitor for w/d. No h/o w/d and none noted to date. Will supplement thiamine, MVI. (7) Hypophosphatemia: Status: Acute Assessment and plan: patient was severely depleted and now normalized. Nutrition related. (8) Anemia: Status: Chronic Assessment and plan: historically he has been anemic ususally in the 10 gm however he has not had any labs in a year. Hgb has been variable: 11.4 > 8.7 > 9.4 > 8.2 > 9.2 >8.9 Iron level elevated at 187. Ferritin high at 930. Monitor for GI loses. (9) Transaminitis: Status: Acute Assessment and plan: Suspect this is due to rhabdomyolysis, though EtOH liver disease could be contributing, based on the pattern. Bilirubin normal. Trend LFTs. CT abd/pelvis showed severe fatty infiltration of liver. Possible colitis of ascending colon. 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 Rhabdo? (11) Discharge planning issues: Status: Acute Assessment and plan: Full code (12) DVT prophylaxis: Status: Acute Assessment and plan: SC heparin (13) Pneumonia: Status: Acute Assessment and plan: Large left basilar lung consolidation and small right basilar consolidation. Multifocal bilateral airspace disease. Small bilateral pleural effusion. Cont Zosyn and doxycycline. WBC count improving. Pulmonary medicine now following. Stable now on RA. Monitor WBC count. Subjective Subjective Patient reports: no new complaints, still having pain (diffusely in both legs. ) and afebrile; denies nausea, vomiting or shortness of breath Interval history since last seen: Tm was last PM at 2000: 38.0 Exam Narrative Exam Narrative: Gen: Walking in hallway with PT. Pleasant. Cooperative. Lungs: clear. Nonlabored breathing. Heart: tachycardic, regular, no murmur Abdomen: soft, nontender Exts: Nonpitting edema of BLE's. Diffuse tenderness of BLEs. No erythema, lesions. Psych: General appearance and speech are normal. Affect appropriate. Objective Last Vital Signs Temp 37.7 C H 07/07/22 15:55 Pulse 99 H 07/07/22 15:55 Resp 21 07/07/22 15:55 BP 150/90 H 07/07/22 15:55 Pulse Ox 98 07/07/22 15:55 Laboratory Results - last 24 hr 07/06/22 07/06/22 07/06/22 06:50 14:19 14:19 WBC RBC Hgb Hct MCV MCH MCHC RDW Plt Count MPV Immature Gran % Neutrophils % Lymphocytes % Monocytes % Eosinophils % Basophils % Nucleated RBC % Absolute Neutrophils Absolute Lymphocytes Absolute Monocytes Absolute Eosinophils Absolute Basophils ESR Sodium Potassium Chloride Carbon Dioxide Anion Gap BUN Creatinine Est GFR (CKD-EPI 2020) Glucose Calcium Total Bilirubin AST ALT Alkaline Phosphatase Lactate Dehydrogenase Creatine Kinase C-Reactive Protein Total Protein Albumin Urine Opiates Screen Negative Urine Methadone Screen Negative Ur Barbiturates Screen Negative Ur Tricyclics Screen Negative Ur Amphetamines Screen Negative U Benzodiazepines Scrn Negative Urine Cocaine Screen Negative Ur THC Screen Negative HIV 1&2 Ag/Ab, 4th Gen Negative Urine Legionella Ag Ur Strep pneumoniae Ag Negative Add-On Test Request 07/06/22 07/06/22 07/07/22 14:19 18:50 06:15 WBC RBC Hgb Hct MCV MCH MCHC RDW Plt Count MPV Immature Gran % Neutrophils % Lymphocytes % Monocytes % Eosinophils % Basophils % Nucleated RBC % Absolute Neutrophils Absolute Lymphocytes Absolute Monocytes Absolute Eosinophils Absolute Basophils ESR Sodium 139 Potassium 4.3 Chloride 107 Carbon Dioxide 21.6 Anion Gap 10.4 BUN 7 Creatinine 0.6 L Est GFR (CKD-EPI 2020) 122.83 Glucose 83 Calcium 6.0 L* Total Bilirubin 0.5 AST 481 H ALT 126 H Alkaline Phosphatase 103 Lactate Dehydrogenase 1824 H Creatine Kinase > 72999 H C-Reactive Protein Total Protein 5.2 L Albumin 1.7 L Urine Opiates Screen Urine Methadone Screen Ur Barbiturates Screen Ur Tricyclics Screen Ur Amphetamines Screen U Benzodiazepines Scrn Urine Cocaine Screen Ur THC Screen HIV 1&2 Ag/Ab, 4th Gen Urine Legionella Ag Negative Ur Strep pneumoniae Ag Add-On Test Request 07/07/22 07/07/22 07/07/22 06:15 06:15 06:15 WBC 17.12 H RBC 2.04 L Hgb 8.9 L Hct 25.6 L MCV 126 H MCH 43.6 H MCHC 34.8 RDW 19.2 H Plt Count 404 H MPV 9.4 Immature Gran % 2.2 Neutrophils % 78.6 Lymphocytes % 12.6 Monocytes % 4.1 Eosinophils % 2.0 Basophils % 0.5 Nucleated RBC % 3.7 H Absolute Neutrophils 13.46 H Absolute Lymphocytes 2.16 Absolute Monocytes 0.70 Absolute Eosinophils 0.34 Absolute Basophils 0.09 ESR Sodium Potassium Chloride Carbon Dioxide Anion Gap BUN Creatinine Est GFR (CKD-EPI 2020) Glucose Calcium Total Bilirubin AST ALT Alkaline Phosphatase Lactate Dehydrogenase Creatine Kinase C-Reactive Protein 5.23 H Total Protein Albumin Urine Opiates Screen Urine Methadone Screen Ur Barbiturates Screen Ur Tricyclics Screen Ur Amphetamines Screen U Benzodiazepines Scrn Urine Cocaine Screen Ur THC Screen HIV 1&2 Ag/Ab, 4th Gen Urine Legionella Ag Ur Strep pneumoniae Ag Add-On Test Request DONE 07/07/22 06:15 WBC RBC Hgb Hct MCV MCH MCHC RDW Plt Count MPV Immature Gran % Neutrophils % Lymphocytes % Monocytes % Eosinophils % Basophils % Nucleated RBC % Absolute Neutrophils Absolute Lymphocytes Absolute Monocytes Absolute Eosinophils Absolute Basophils ESR 10 Sodium Potassium Chloride Carbon Dioxide Anion Gap BUN Creatinine Est GFR (CKD-EPI 2020) Glucose Calcium Total Bilirubin AST ALT Alkaline Phosphatase Lactate Dehydrogenase Creatine Kinase C-Reactive Protein Total Protein Albumin Urine Opiates Screen Urine Methadone Screen Ur Barbiturates Screen Ur Tricyclics Screen Ur Amphetamines Screen U Benzodiazepines Scrn Urine Cocaine Screen Ur THC Screen HIV 1&2 Ag/Ab, 4th Gen Urine Legionella Ag Ur Strep pneumoniae Ag Add-On Test Request
--- NOTE | 2022-07-07 16:19 | PHA.REVIEW2 ---
Pharmacy Admission Review - Admission Clinical Review (Last Updated 05/02/21 @ 14:40 by Karen Rosado MD) Emphysema lung (Acute) Elevated CK (Acute) Pneumonia (Acute) Ambulatory dysfunction (Acute) Transaminitis (Acute) Hypomagnesemia (Acute) Hypokalemia (Acute) Hypocalcemia (Acute) Rhabdomyolysis (Acute) Hypophosphatemia (Acute) Hypocalcemia (Acute) QT prolongation (Acute) Discharge planning issues (Acute) DVT prophylaxis (Acute) Hypokalemia (Acute) Hypomagnesemia (Acute) Hyponatremia (Acute) No Known Allergies Allergy (Unverified 07/03/22 23:05) Resuscitation Status Full Code Height 5 ft 6 in Weight 75.1 kg - Renal Dosing Renal Dosing: BUN 7 mg/dL (7-18) 07/07/22 06:15 Creatinine 0.6 mg/dL (0.70-1.30) L 07/07/22 06:15 Medications needing adjustments: Reviewed (Crcl ~168 mL/min current meds okay) - Anticoagulation Anticoagulation: Hgb 8.9 g/dL (13.5-17.5) L 07/07/22 06:15 Hct 25.6 % (40.0-50.0) L 07/07/22 06:15 Plt Count 404 10^3/uL (130-400) H 07/07/22 06:15 INR 1.1 (0.9-1.1) 07/03/22 23:10 Creatinine 0.6 mg/dL (0.70-1.30) L 07/07/22 06:15 DVT Prophylaxis: Reviewed Medications: Enoxaparin Therapeutic Anticoagulation: N/A - Opiate Usage Evaluate Pain Scale/Pains Meds: N/A - Relevant Labs ESR 10 mm/hr (0-15) 07/07/22 06:15 Sodium 139 mmol/L (136-145) 07/07/22 06:15 Potassium 4.3 mmol/L (3.5-5.1) 07/07/22 06:15 Chloride 107 mmol/L (98-107) 07/07/22 06:15 Phosphorus 4.5 mg/dL (2.6-4.7) 07/06/22 06:50 Magnesium 1.8 mg/dL (1.8-2.4) 07/05/22 05:48 C-Reactive Protein 5.23 mg/dL (0.0-0.3) H 07/07/22 06:15 Electrolytes, C-Reactive P, ESR: Reviewed - DM Control DM Control: Glucose 83 mg/dL (74-106) 07/07/22 06:15 DM Control: Reviewed - Cardiac Review Cardiac Review: Troponin I < 50 ng/L (<or=60) 07/04/22 01:59 NT-Pro-B Natriuret Pep 162 pg/mL (<300) 07/03/22 23:17 BP, HR, EF%: Reviewed (HR has been elevated most of admission so far, BP has been mostly within normal limits) - Qtc Review QTc: Reviewed (QTc 566 and 600 on the two EKGs done this admission) - IV to PO Switch IV Medications: Reviewed - Home Meds Home Med List reviewed: Intervened (patient has two PPIs listed on home med list, will have nursing check with patient to see which he is actully using) Relevent Home Meds Not ordered & why?: magnesium chloride (has magnesium oxide ordered), omeprazole (has pantoprazole ordered), potassium (was discontinued yesterday) - Current meds Current Medication Order Review: Intervened (adjusted the timing of pantoprazole based on the medicare coordinator time policy) - Comments Comments/Follow Ups: Watch HR, mag, K+, calcium, H/H, labs and for med changes (avoid QT prolonging meds). Antibiotic Review - Pharmacy Antibiotic Review Pharmacy Antibiotic Activity: C/S review (BC no growth @72 hours, MRSA negative ), Reviewed, no change (doxy and zosyn ordered for pneumonia (day 4)) Relevant Labs: Relevant Labs 07/07/22 07/06/22 06:15 18:50 Lactate Dehydrogenase 1824 H C-Reactive Protein 5.23 H
[2022-07-07 17:37] LABS: Rheumatoid Factor <8.6 IU/mL (<12.0)
[2022-07-08] VITALS (8 sets, daily range): BP systolic 104–132; BP diastolic 67–88; PULSE 62–93; RESP 14–18; TEMP 36.7–38.1; O2SAT 95–98
[2022-07-08] MEDS: PIPERACILLIN/TAZO 4.5 GM in Normal Saline 100 ML IVPB ×3 (00:34→16:54)
[2022-07-08] MEDS: Normal Saline 500 ML 30 ML IV (00:36)
[2022-07-08] MEDS: Normal Saline Flush 10 ML SYR IVP ×4 (00:36→15:38)
[2022-07-08] MEDS: Acetaminophen 325 MG TAB PO (03:17)
[2022-07-08] MEDS: DOXYCYCLINE 100 MG in Normal Saline 100 ML IVPB ×2 (05:04→15:38)
[2022-07-08 07:05] LABS: Abs Immature Grans 0.27 10^3/uL (0.0-0.06); Absolute Basophil Count 0.06 10^3/uL (0.0-0.2); Basophils % 0.4; Eosinophils % 2.4; HCT 24.3 % (40.0-50.0); HGB 8.2 g/dL (13.5-17.5); Immature Grans % 1.9; Lymphocytes % 12.5; MCH 42.7 pg (27.0-33.0); MCHC 33.7 % (32.0-36.0); MCV 127 fL (80-95); MPV 9.5 fL (8.0-11.0); Monocytes % 6.1; Neutrophils % 76.7; Nucleated RBC 2.1 % (0.0-0.3); Platelet Count 376 10^3/uL (130-400); RBC 1.92 10^6/uL (4.36-5.78); RDW 18.6 % (11.8-14.1); WBC 14.36 10^3/uL (4.4-10.8)
[2022-07-08 07:24] LABS: Absolute Eosinophil Count 0.34 10^3/uL (0.0-0.7); Absolute Monocyte Count 0.88 10^3/uL (0.1-0.8); Absolute Neutrophil Count 11.01 10^3/uL (1.2-6.7)
[2022-07-08 07:26] LABS: ALT 128 U/L (16-63); AST 333 U/L (15-37); Albumin 1.6 g/dL (3.4-5.0); Alkaline Phosphatase 91 U/L (46-116); Anion Gap 9.9 mmol/L (3-11); BUN 8 mg/dL (7-18); Bilirubin, Total 0.4 mg/dL (0.2-1.0); CO2 23.1 mmol/L (21.0-32.0); CREATININE 0.6 mg/dL (0.70-1.30); Chloride 107 mmol/L (98-107); Estimated GFR 122.83 (mL/min/1.73m2); Glucose 84 mg/dL (74-106); Potassium 4.2 mmol/L (3.5-5.1); Sodium 140 mmol/L (136-145); Total Protein 5.1 g/dL (6.4-8.2)
[2022-07-08 07:32] LABS: Calcium 6.2 mg/dL (8.5-10.1)
[2022-07-08 07:34] LABS: C-Reactive Protein 4.32 mg/dL (0.0-0.3)
[2022-07-08 07:52] LABS: Creatine Kinase > 10000 U/L (39-308)
[2022-07-08] MEDS: Multivitamin TAB 1 TAB PO (08:50)
[2022-07-08] MEDS: Thiamine 100 MG TAB PO (08:50)
[2022-07-08] MEDS: Cholecalciferol (Vitamin D3) 1,000 UNIT TAB 1000 UNITS PO (08:50)
[2022-07-08] MEDS: Folic Acid 1 MG TAB PO (08:51)
[2022-07-08] MEDS: Pantoprazole 40 MG TABCR PO ×2 (08:51→19:23)
[2022-07-08] MEDS: Magnesium Oxide 400 MG TAB PO (08:51)
[2022-07-08] MEDS: Enoxaparin 40 MG/0.4 ML SYR SC (08:51)
[2022-07-08 09:26] LABS: Cyclic Citrullinated Peptide <2.5 U/mL (<5.0)
[2022-07-08 10:23] LABS: Alpha 1 Antitrypsin,Serum 280 mg/dL (90-200)
--- NOTE | 2022-07-08 11:13 | PDOC.CMPRO ---
- If Service Date Differs Date of service: 07/08/22 Time of Service: 11:13 Care Management Progress Note S/O: Milan was not in his room when CM attempted to visit, and he was being taken down for imaging. Per PT, he is doing significantly better today. Per report, his silva will be d/c'd, as well as CICT protocol. CM will continue to follow. A: Milan is a 41 year old male admitted to [facility] on 07/04/22 with severe electrolyte abnormalities. P: Anticipate Milan will return home with no new services once medically cleared. His s/o will drive him home via private vehicle. He will follow up with his PCP and discharge plan of care. CM will continue to follow.
--- NOTE | 2022-07-08 12:14 | PT.INTREAT ---
Date of service: 07/08/22 Time of Service: 07:43 PT Notes Visit Reasons: Severe Hypokalemia, Hypomagnesemia, Hypocalcemia,R Inpatient Physical Therapy Treatment Note [facility] Date: 07/08/2022 PRECAUTIONS: Activity as tolerated, fall SUBJECTIVE: Milan is pleasant and agreeable to participating in PT. He reports that he feels better, but that his legs are still sore and feel swollen. OBJECTIVE: PAIN: He reports pain in B anterior distal thighs and in B calves BED MOBILITY/TRANSFERS: Supine-sit: I with HOB flat Sit-supine: I with HOB flat Sit-stand: I Stand-sit: I Bed-chair: SBA without AD Chair-bed: SBA without AD GAIT Assistive Device: No AD Weight bearing: Full Assist: SBA Distance: 550' in a.m.; 300 in p.m. Deviation: Decreased GÓMEZ, slightly wide CHRISTI, increasing knee flexion with cueing GAIT TRAINING: Patient was instructed in exaggerated knee flexion with ambulation ~x50' with CGA/SBA as well as long strides with exaggerated arm swing ~x50' with SBA. Patient c/o B LE soreness with ambulation activities. STAIRS: Up/down 6x4 and 4x6 using B rails and a step-to pattern with supervision ASSESSMENT: Patient tolerated session with c/o B LE soreness with gait training, ther ex and transfers. He continues to demonstrate slightly wide CHRISTI and decreased knee flexion with gait training PLAN: Continue with gait training with least restrictive device for improved mobility and continued progression toward baseline level of function. TREATMENT CODE/TIME: Session 1: 25 minutes; [id number] x2 (07:43) Session 2: 15 minutes; [id number] (14:45)
--- NOTE | 2022-07-08 14:00 | DI.RAD_ITS ---
Exam(s) XR KNEE LT 2V AP,LAT EXAM: XR KNEE LT 2V AP,LAT CLINICAL HISTORY: left knee osteonecrosis. TECHNIQUE: 2D digital imaging was performed of the left knee. Two images were obtained. AP and lat eral views were obtained. COMPARISON: MR MR LOWER EXTREMITY BI WO/W from 07/07/2022 CR XR KNEE RT 2V AP,LAT from 07/08/2022 FINDINGS: BONES: No acute fracture is present. No bony destructive lesion is seen. There does appear to be bharati nt sclerosis seen in the proximal tibia corresponding to the findings on the MRI. JOINTS: The knee is normally aligned. No joint effusion is seen. SOFT TISSUE: Normal. IMPRESSION: Faint sclerosis seen in the proximal tibia corresponding to the areas on the MRI. The MRI findings w ere suggestive of bone infarcts. DATA REPOSITORY: RADIATION DOSE DELIVERED:
--- NOTE | 2022-07-08 14:00 | DI.RAD_ITS ---
Exam(s) XR KNEE RT 2V AP,LAT EXAM: XR KNEE RT 2V AP,LAT CLINICAL HISTORY: right knee osteonecrosis. TECHNIQUE: 2D digital imaging was performed of the right knee. Three views obtained. AP, lateral an d PA tunnel views were obtained. COMPARISON: MR MR LOWER EXTREMITY BI WO/W from 07/07/2022 FINDINGS: BONES: No acute fracture is present. No bony destructive lesion is seen. JOINTS: The knee is normally aligned. No joint effusion is seen. SOFT TISSUE: Normal. IMPRESSION: Unremarkable radiographs of the right knee. DATA REPOSITORY: RADIATION DOSE DELIVERED:
--- NOTE | 2022-07-08 14:00 | DI.RAD_ITS ---
Exam(s) XR HIP LT AP LAT ONLY EXAM: XR HIP LT AP LAT ONLY CLINICAL HISTORY: multifocal osteonecrosis. TECHNIQUE: 2D digital imaging was performed of the left hip. Two views were obtained. AP and later al left hip views were obtained. COMPARISON: No exams were available for comparison FINDINGS: BONES: No acute fracture is present. No bony destructive lesion is seen. JOINTS: No dislocation present. SOFT TISSUE: Normal. IMPRESSION: Unremarkable radiographs of the left hip. DATA REPOSITORY: RADIATION DOSE DELIVERED:
--- NOTE | 2022-07-08 14:00 | DI.RAD_ITS ---
Exam(s) XR HIP RT AP LAT ONLY EXAM: XR HIP RT AP LAT ONLY CLINICAL HISTORY: multifocal osteonecrosis. TECHNIQUE: 2D digital imaging was performed of the right hip. Two images were obtained. AP and late ral right hip views were obtained. COMPARISON: No exams were available for comparison FINDINGS: BONES: No acute fracture is present. No bony destructive lesion is seen. JOINTS: No dislocation present. SOFT TISSUE: Normal. IMPRESSION: Unremarkable radiographs of the right hip. DATA REPOSITORY: RADIATION DOSE DELIVERED:
[2022-07-08 14:27] LABS: ANA Interpretation Negative (Negative)
[2022-07-08 14:32] LABS: ANCA Interpretation Negative (Negative)
[2022-07-08 15:03] LABS: Aldolase >360.0 U/L (<7.7)
--- NOTE | 2022-07-08 16:53 | PGE_ITS ---
Date of Service Date of service: 07/08/22 Time of Service: 16:53 Assessment and Plan Assessment and plan (1) Rhabdomyolysis: Status: Acute Assessment and plan: CK level remains elevated > 10,000. D/w lab if CK lab can be diluted to get a quantifiable number to trend. Unclear etiology, possible from falls although no visible hematomas; no traumatic injury and no evidence for compartment syndrome. Continue iv hydration, monitor urine output, CK levels. (avoiding alkalinization as he already has alkaline VBG and alkalinization may worsen his potassium levels). Creatinine normal at 0.7 Pending: Utox, LDH, aldolase, myomarker panel, SSA/SSB, HIV, RF, anti-ccp, anti- SM, Scl-70, ANCA, urine myoglobin. Lumbar MRI w/o evidence of abnormality, abscess. MRI BLE; no evidence of muscle abnormalities, myositis. 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 Consulted ortho. (2) Hypokalemia: Status: Acute Assessment and plan: K now normalized. Stopped oral supplementation and IV supp. Monitor. (3) Hypomagnesemia: Status: Acute Assessment and plan: patient given iv and oral replacement, level is now at lower limits of normal. Level in am. 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 He doesn't recall having that dx but it is in his chart and he has some hallmarks of the disorder. Today, changed intervention to calcitriol 0.25mg BID and calcium carbonate 3 fm BID. Will refer to endocrinology as outpt. (5) QT prolongation: Status: Acute Assessment and plan: Correct electrolytes. Monitor on tele. (6) Alcohol use: Status: Chronic Assessment and plan: Etoh related rhabdo? Monitor for w/d. No h/o w/d and none noted to date. Will supplement thiamine, MVI. (7) Hypophosphatemia: Status: Acute Assessment and plan: patient was severely depleted and now normalized. Nutrition related. (8) Anemia: Status: Chronic Assessment and plan: historically he has been anemic ususally in the 10 gm however he has not had any labs in a year. Hgb has been variable: 11.4 > 8.7 > 9.4 > 8.2 > 9.2 >8.9>8.2 Some loss could be attributed to iatrogenic losses; frequent phlebotomy for labs. Iron level elevated at 187. Ferritin high at 930. Monitor for GI loses. (9) Transaminitis: Status: Acute Assessment and plan: Suspect this is due to rhabdomyolysis, though EtOH liver disease alcoholic hepatitis, could be contributing, based on the pattern. Bilirubin normal. Trend LFTs. CT abd/pelvis showed severe fatty infiltration of liver. Possible colitis of ascending colon. 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 Rhabdo? (11) Discharge planning issues: Status: Acute Assessment and plan: Full code (12) DVT prophylaxis: Status: Acute Assessment and plan: SC heparin (13) Pneumonia: Status: Acute Assessment and plan: Large left basilar lung consolidation and small right basilar consolidation. Multifocal bilateral airspace disease. Small bilateral pleural effusion. Cont Zosyn and doxycycline. WBC count improving. Pulmonary medicine now following. Stable now on RA. Monitor WBC count. Subjective Subjective Patient reports: no new complaints, feels better, tolerating a regular diet and afebrile; denies nausea, vomiting or shortness of breath Exam Narrative Exam Narrative: Gen: Walking in hallway with PT. Pleasant. Cooperative. Lungs: clear. Nonlabored breathing. Heart: tachycardic, regular, no murmur Abdomen: soft, nontender Exts: Nonpitting edema of BLE's; improved. Less pain in knees with wt bearing. No erythema, lesions. Psych: General appearance and speech are normal. Affect appropriate. Objective Last Vital Signs Temp 37.2 C 07/08/22 15:43 Pulse 91 H 07/08/22 15:43 Resp 18 07/08/22 15:43 BP 126/88 07/08/22 15:43 Pulse Ox 98 07/08/22 15:43 Laboratory Results - last 24 hr 07/04/22 07/06/22 07/06/22 08:00 18:50 18:50 WBC RBC Hgb Hct MCV MCH MCHC RDW Plt Count MPV Immature Gran % Neutrophils % Lymphocytes % Monocytes % Eosinophils % Basophils % Nucleated RBC % Absolute Neutrophils Absolute Lymphocytes Absolute Monocytes Absolute Eosinophils Absolute Basophils Sodium Potassium Chloride Carbon Dioxide Anion Gap BUN Creatinine Est GFR (CKD-EPI 2020) Glucose Calcium Total Bilirubin AST ALT Alkaline Phosphatase Creatine Kinase C-Reactive Protein Total Protein Albumin Fdmnn-2-Dzzgfpjulpq 280 H Aldolase >360.0 H Urine Myoglobin Cancelled Rheumatoid Factor Cyclic Citrull Peptide JASON Titer JASON Titer 2 JASON Titer 3 JASON Interpretation ANCA Immunofluorescen ANCA Titer ANCA Pattern 07/06/22 07/06/22 07/08/22 18:50 18:50 06:35 WBC 14.36 H RBC 1.92 L Hgb 8.2 L Hct 24.3 L MCV 127 H MCH 42.7 H MCHC 33.7 RDW 18.6 H Plt Count 376 MPV 9.5 Immature Gran % 1.9 Neutrophils % 76.7 Lymphocytes % 12.5 Monocytes % 6.1 Eosinophils % 2.4 Basophils % 0.4 Nucleated RBC % 2.1 H Absolute Neutrophils 11.01 H Absolute Lymphocytes 1.80 Absolute Monocytes 0.88 H Absolute Eosinophils 0.34 Absolute Basophils 0.06 Sodium Potassium Chloride Carbon Dioxide Anion Gap BUN Creatinine Est GFR (CKD-EPI 2020) Glucose Calcium Total Bilirubin AST ALT Alkaline Phosphatase Creatine Kinase C-Reactive Protein Total Protein Albumin Fhwkl-6-Zrgrodopjip Aldolase Urine Myoglobin Rheumatoid Factor <8.6 Cyclic Citrull Peptide <2.5 JASON Titer Not Applicable JASON Titer 2 Not Applicable JASON Titer 3 Not Applicable JASON Interpretation Negative ANCA Immunofluorescen Negative ANCA Titer Not Applicable ANCA Pattern Not Applicable 07/08/22 07/08/22 06:35 06:35 WBC RBC Hgb Hct MCV MCH MCHC RDW Plt Count MPV Immature Gran % Neutrophils % Lymphocytes % Monocytes % Eosinophils % Basophils % Nucleated RBC % Absolute Neutrophils Absolute Lymphocytes Absolute Monocytes Absolute Eosinophils Absolute Basophils Sodium 140 Potassium 4.2 Chloride 107 Carbon Dioxide 23.1 Anion Gap 9.9 BUN 8 Creatinine 0.6 L Est GFR (CKD-EPI 2020) 122.83 Glucose 84 Calcium 6.2 L* Total Bilirubin 0.4 AST 333 H ALT 128 H Alkaline Phosphatase 91 Creatine Kinase > 40383 H C-Reactive Protein 4.32 H Total Protein 5.1 L Albumin 1.6 L Difeo-8-Hlxxqjumbjj Aldolase Urine Myoglobin Rheumatoid Factor Cyclic Citrull Peptide JASON Titer JASON Titer 2 JASON Titer 3 JASON Interpretation ANCA Immunofluorescen ANCA Titer ANCA Pattern
[2022-07-08 17:15] LABS: Anaplasma phagocytophilum Negative (Negative); B. miyamotoi PCR Negative (Negative); Babesia divergens/MO-1 Negative (Negative); Babesia duncani Negative (Negative); Babesia microti Negative (Negative); Ehrlichia chaffeensis Negative (Negative); Ehrlichia ewingii/canis Negative (Negative); Ehrlichia muris eauclairensis Negative (Negative)
[2022-07-08] MEDS: Calcium Carbonate 1.5 GM TAB 3 GM PO (19:23)
[2022-07-08] MEDS: Calcitriol 0.25 MCG CAP PO (19:23)
[2022-07-08 19:42] LABS: Scl 70 Antibodies, IgG <0.2 U
[2022-07-09] MEDS: Normal Saline 500 ML 30 ML IV (00:52)
[2022-07-09] MEDS: Normal Saline Flush 10 ML SYR IVP ×3 (00:52→14:13)
[2022-07-09] MEDS: PIPERACILLIN/TAZO 4.5 GM in Normal Saline 100 ML IVPB ×3 (00:52→16:59)
[2022-07-09 02:51] VITALS: BP 119/75; PULSE 90; RESP 17; TEMP 37.6; O2SAT 97
[2022-07-09] MEDS: DOXYCYCLINE 100 MG in Normal Saline 100 ML IVPB ×2 (04:59→15:38)
[2022-07-09 07:20] LABS: Absolute Basophil Count 0.08 10^3/uL (0.0-0.2); Absolute Lymphocyte Count 2.03 10^3/uL (1.2-3.4); Absolute Monocyte Count 0.97 10^3/uL (0.1-0.8); Absolute Neutrophil Count 9.81 10^3/uL (1.2-6.7); Basophils % 0.6; Eosinophils % 2.5; HCT 23.5 % (40.0-50.0); HGB 7.9 g/dL (13.5-17.5); Immature Grans % 1.5; Lymphocytes % 15.1; MCH 42.9 pg (27.0-33.0); MCHC 33.6 % (32.0-36.0); MCV 128 fL (80-95); MPV 9.5 fL (8.0-11.0); Monocytes % 7.2; Neutrophils % 73.1; Nucleated RBC 0.7 % (0.0-0.3); Platelet Count 429 10^3/uL (130-400); RBC 1.84 10^6/uL (4.36-5.78); RDW 17.7 % (11.8-14.1); WBC 13.42 10^3/uL (4.4-10.8)
[2022-07-09 07:26] VITALS: BP 127/85; PULSE 82; RESP 20; TEMP 37.3; O2SAT 96
--- NOTE | 2022-07-09 07:32 | OCONE_ITS ---
Date of service: 07/09/22 Time of Service: 07:20 History of Present Illness History of Present Illness Chief Complaint: Bilateral leg pain Narrative: Milan is a 41-year-old who has a significant past medical history associated hypoparathyroidism, electrolyte disturbances and imbalance, chronic alcohol abuse, in addition others. He presented emergency department with generalized weakness, pain, malaise. He noted significant weakness as well as pain. When he was seen in the emergency department he was noted to have significant elect rolyte disorders involving the entire gamut of his metabolic profile along with elevated CPK levels suggestive of rhabdomyolysis. He also had elevated procalcitonin and tachycardia and was diagnosed with a pneumonia. He is a chronic alcoholic and was positive EtOH in the emergency department on his presentation. He has now been in the hospital for few days. His electrolytes are improving. He still has elevated CPK levels with an ongoing rhabdomyolysis of an unclear etiology, likely related to his chronic alcoholism. He also complained of bilateral leg pain both within the muscles and within the legs himself so an MRI was performed that showed abnormalities consistent with osteonecrosis. I was called in consultation. He reports the majority of his pain is within the muscles of his calf and his thigh. He does describe some mild pain around the knees themselves with weightbearing but it is minimal. In general, the pain seems to be getting better. He feels that the weakness and the pain within the muscles about limits his ability to ambulate. Consults Consult date: 07/08/22 Requesting physician: Meño Alexandra Consult Reason Osteonecrosis Assessment and Plan Assessment and plan (1) Osteonecrosis of multiple sites: Status: Acute Assessment and plan: Milan is a 41-year-old who has multiple signs of osteonecrosis. This is likely related to his chronic alcoholism. At this point, he does not seem to be that symptomatic from it. There is only minimal changes on his x-rays. I would re commend some protected weightbearing for the next 8 weeks. He may bear weight on the legs but should do so with a walker or crutches to help offload this area. There are supports about multifocal osteonecrosis from chronic alcoholism, source listed below. Once again, this should be discussed with endocrine. While this may require intervention in the future though this is not guaranteed and given that he is not symptomatic we will follow accordingly. Sydnee K, Trav H, Declan H. Multifocal Osteonecrosis Secondary to Chronic Alcohol Ingestion. Case Rep Orthop. 2015;2015:[id number]. doi: 10.1155/2015/849384. Epub 2014Jul 04. PMID: 30972967; PMCID: [id number]. Review of Systems All systems reviewed & are unremarkable except as noted in HPI and below PFSH All Active Problems (Updated 07/12/22 @ 00:06 by ISRA HOLMAN) Osteonecrosis of multiple sites (Acute) Emphysema lung (Acute) Elevated CK (Acute) Pneumonia (Acute) Anemia (Chronic) Ambulatory dysfunction (Acute) Transaminitis (Acute) Hypomagnesemia (Acute) Hypokalemia (Acute) Hypocalcemia (Acute) Rhabdomyolysis (Acute) Hypoparathyroidism (Acute) Vitamin D deficiency (Acute) Tubulovillous adenoma (Chronic) Leucocytosis (Chronic) Hypophosphatemia (Acute) Iatrogenic hypocalcemia (Acute) Hypocalcemia (Acute) Respiratory failure with hypoxia (Acute) QT prolongation (Acute) Hyponatremia (Chronic) Macrocytosis (Acute) Alcohol use (Chronic) Altered mental status (Acute) Acute gastroenteritis (Acute) Electrolyte disturbance (Acute) Fatty liver (Chronic) Hypokalemia (Acute) Hypomagnesemia (Acute) History of splenectomy (Acute) Hyponatremia (Acute) Dehydration (Acute) Medical History Alcohol intoxication (07/14/14) Colitis Depression (07/14/14) No significant past medical history Tobacco use Surgical History History of hammer toe correction Social History Smoking/Tobacco Use Status: Current every day Tobacco Type: cigarettes Smoking risk assessment performed?: Yes Alcohol Intake: current Alcohol type: beer Drug use: Occasionally Substance use type: marijuana Details: NO ETOH x 3-4 weeks---01/06/21--er. Admits to 3 beers on 04/29/2021 Do you feel safe at home: Yes Do you feel safe in your relationship?: Yes Exam Extrem Other: Evaluation of the biateral legs demonstrates no significant overlying changes. There is some pitting edema of the midleg distal, 1+. He has most of his pain with palpation of his calf on bilateral legs. Similarly he has some pain about the thigh most in the quadriceps but also along the hamstrings in both. His pain along the joint line is very minimal if any at all. He has some mild pain to palpation over the fibular head on the left more than the right. He also has some pain along the lateral femoral condyle. His mid medial tibia Results Last Vital Signs Temp 37.3 C 07/09/22 07:26 Pulse 82 07/09/22 07:26 Resp 20 07/09/22 07:26 BP 127/85 07/09/22 07:26 Pulse Ox 96 07/09/22 07:26 Labs Result diagrams: 07/11/22 06:35 07/11/22 06:35 Labs: Laboratory Results - last 24 hr 07/04/22 07/06/22 07/06/22 08:00 18:50 18:50 Sodium Potassium Chloride Carbon Dioxide Anion Gap BUN Creatinine Est GFR (CKD-EPI 2020) Glucose Calcium Total Bilirubin AST ALT Alkaline Phosphatase Creatine Kinase C-Reactive Protein Total Protein Albumin Jiqly-7-Pbqqdgqoylv 280 H Aldolase >360.0 H Urine Myoglobin Cancelled Rheumatoid Factor Cyclic Citrull Peptide JASON Titer JASON Titer 2 JASON Titer 3 JASON Interpretation ANCA Immunofluorescen ANCA Titer ANCA Pattern 07/06/22 07/06/22 07/08/22 18:50 18:50 06:35 Sodium Potassium Chloride Carbon Dioxide Anion Gap BUN Creatinine Est GFR (CKD-EPI 2020) Glucose Calcium Total Bilirubin AST ALT Alkaline Phosphatase Creatine Kinase > 90475 H C-Reactive Protein 4.32 H Total Protein Albumin Hjrxu-7-Clmjqftksgj Aldolase Urine Myoglobin Rheumatoid Factor <8.6 Cyclic Citrull Peptide <2.5 JASON Titer Not Applicable JASON Titer 2 Not Applicable JASNO Titer 3 Not Applicable JASON Interpretation Negative ANCA Immunofluorescen Negative ANCA Titer Not Applicable ANCA Pattern Not Applicable 07/08/22 06:35 Sodium 140 Potassium 4.2 Chloride 107 Carbon Dioxide 23.1 Anion Gap 9.9 BUN 8 Creatinine 0.6 L Est GFR (CKD-EPI 2020) 122.83 Glucose 84 Calcium 6.2 L* Total Bilirubin 0.4 AST 333 H ALT 128 H Alkaline Phosphatase 91 Creatine Kinase C-Reactive Protein Total Protein 5.1 L Albumin 1.6 L Eupcm-4-Rrydblohbzf Aldolase Urine Myoglobin Rheumatoid Factor Cyclic Citrull Peptide JASON Titer JASON Titer 2 JASON Titer 3 JASON Interpretation ANCA Immunofluorescen ANCA Titer ANCA Pattern
[2022-07-09 07:45] LABS: Absolute Eosinophil Count 0.34 10^3/uL (0.0-0.7)
[2022-07-09 07:46] LABS: Hypochromasia 1+; Macrocytosis 2+
[2022-07-09] MEDS: Enoxaparin 40 MG/0.4 ML SYR SC (07:52)
[2022-07-09] MEDS: Calcium Carbonate 1.5 GM TAB 3 GM PO ×2 (07:52→19:44)
[2022-07-09] MEDS: Multivitamin TAB 1 TAB PO (07:52)
[2022-07-09 07:53] LABS: ALT 125 U/L (16-63); AST 218 U/L (15-37); Albumin 1.7 g/dL (3.4-5.0); Alkaline Phosphatase 92 U/L (46-116); Anion Gap 8.5 mmol/L (3-11); BUN 7 mg/dL (7-18); Bilirubin, Total 0.3 mg/dL (0.2-1.0); C-Reactive Protein 3.13 mg/dL (0.0-0.3); CO2 24.5 mmol/L (21.0-32.0); CREATININE 0.6 mg/dL (0.70-1.30); Calcium 7.5 mg/dL (8.5-10.1); Chloride 109 mmol/L (98-107); Estimated GFR 122.83 (mL/min/1.73m2); Glucose 91 mg/dL (74-106); Magnesium 1.4 mg/dL (1.8-2.4); Potassium 4.2 mmol/L (3.5-5.1); Sodium 142 mmol/L (136-145); Total Protein 5.3 g/dL (6.4-8.2)
[2022-07-09] MEDS: Thiamine 100 MG TAB PO (07:53)
[2022-07-09] MEDS: Pantoprazole 40 MG TABCR PO ×2 (07:53→19:44)
[2022-07-09] MEDS: Folic Acid 1 MG TAB PO (07:53)
[2022-07-09] MEDS: Calcitriol 0.25 MCG CAP PO ×2 (07:53→19:45)
[2022-07-09 08:17] LABS: Creatine Kinase > 10000 U/L (39-308)
[2022-07-09] MEDS: Magnesium Oxide 400 MG TAB PO ×2 (09:13→19:45)
[2022-07-09] MEDS: Normal Saline 1,000 ML 80 ML IV ×2 (09:28→22:26)
--- NOTE | 2022-07-09 11:07 | PDOC.CMPRO ---
- If Service Date Differs Date of service: 07/09/22 Time of Service: 11:07 Care Management Progress Note S/O: Milan was sitting up in his chair when CM met with him. He stated that he is doing much better with ambulation and is feeling better overall. He stated that he met with the Orthopedic surgeon today, who reported that his symptoms may be from a muscular source. reached out to [place] [facility] [place] do not believe that his condition is autoimmune related, myositis. His CK level remains elevated >10,000. CM will continue to follow. A: Milan is a 41 year old male admitted to [facility] on 07/04/22 with severe electrolyte abnormalities. P: Anticipate Milan will return home with no new services once medically cleared. His s/o will drive him home via private vehicle. He will follow up with his PCP and discharge plan of care. CM will continue to follow.
[2022-07-09 11:13] VITALS: BP 130/85; PULSE 80; RESP 20; TEMP 37.1; O2SAT 96
--- NOTE | 2022-07-09 11:52 | CHAPLAIN ---
Milan said he's been able to get up and walk around, which is a real change from when he was admitted and couldn't move his legs. He said the problem is muscle related, not bone related. The doctors' have their explanation for it, he said. He's still suppose to use a walked, Milan explained, so that he doesn't put too much pressure on his bones. Milan's family has been visiting. He talked about how grateful he was to be able to have visitors, knowing that wasn't possible during the pandemic. He is not sure when he'll be going home.
[2022-07-09 12:54] LABS: SS-B (La) Ab, IgG 1.2 Units (<20.0)
[2022-07-09 13:12] LABS: SS-A Antibody 0.8 Units (<20.0)
[2022-07-09 13:37] LABS: dsDNA Ab, IgG <12.3 IU/mL (<30.0)
[2022-07-09 15:00] LABS: Sm (Smith) Ab, IgG 1.3 Units (<20.0)
--- NOTE | 2022-07-09 15:00 | PT.INTREAT ---
Date of service: 07/09/22 Time of Service: 09:58 PT Notes Visit Reasons: Severe Hypokalemia, Hypomagnesemia, Hypocalcemia,R Inpatient Physical Therapy Treatment Note [facility] Date: 07/09/2022 PRECAUTIONS: Activity as tolerated, fall SUBJECTIVE: Milan is pleasant and agreeable to participating in PT. He reports that he feels better, that he has been transferring and ambulating independently within his room. He feels discouraged about going back to using the FWW, but understands that the current plan is for that to be temporary to offload his LE with ambulating. OBJECTIVE: PAIN: No c/o pain BED MOBILITY/TRANSFERS: Supine-sit: I with HOB flat Sit-supine: I with HOB flat Sit-stand: I Stand-sit: I Bed-chair: I Chair-bed: I GAIT Assistive Device: FWW Weight bearing: WBAT B Assist: I Distance: 600' Deviation: Improved gait mechanics THEREX: Patient was instructed in an open chain LE strengthening HEP. He demonstrates good understanding of exercises. Exercises are listed on white board in his room. ASSESSMENT: Patient tolerated session without complaint. He demonstrates improved gait mechanics and independence with ambulation with use of FWW. PLAN: Continue to gently progress LE strengthening HEP. TREATMENT CODE/TIME: 24 minutes; [id number], [id number] (09:58)
[2022-07-09 15:09] VITALS: BP 150/100; PULSE 84; RESP 22; TEMP 37.3; O2SAT 96
--- NOTE | 2022-07-09 15:47 | PGE_ITS ---
Date of Service Date of service: 07/09/22 Time of Service: 15:47 Assessment and Plan Assessment and plan (1) Rhabdomyolysis: Status: Acute Assessment and plan: CK level remains elevated > 10,000. Aldolase and LDH elevated. Likely alcohol related Discussed with [employer] at [facility] [place] [facility] and they doubt autoimmune related, myositis. If any labs that are currently pending come back concerning, re- consult. Continue iv hydration, monitor urine output, CK levels. Creatinine remains normal. Lumbar MRI w/o evidence of abnormality, abscess. MRI BLE; no evidence of muscle abnormalities, myositis. + findings most suggestive of osteonecrosis involving the distal left femur, proximal tibia bilaterally and the proximal left fibula. Consulted ortho. Recommended protected wt bearing. (2) Hypokalemia: Status: Acute Assessment and plan: K now normalized. Stopped oral supplementation and IV supp. Monitor. (3) Hypomagnesemia: Status: Acute Assessment and plan: patient given iv and oral replacement, level is now at lower limits of normal. Cont oral supp. 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 He doesn't recall having that dx but it is in his chart and he has some hallmarks of the disorder. Today, changed intervention to calcitriol 0.25mg BID and calcium carbonate 3 fm BID. Will refer to endocrinology as outpt. (5) QT prolongation: Status: Acute Assessment and plan: Correct electrolytes. Monitor on tele. (6) Alcohol use: Status: Chronic Assessment and plan: Etoh related rhabdo? Monitor for w/d. No h/o w/d and none noted to date. Will supplement thiamine, MVI. (7) Hypophosphatemia: Status: Acute Assessment and plan: patient was severely depleted and now normalized. Nutrition related. (8) Anemia: Status: Chronic Assessment and plan: historically he has been anemic ususally in the 10 gm however he has not had any labs in a year. Hgb has been variable: 11.4 > 8.7 > 9.4 > 8.2 > 9.2 >8.9>8.2 Some loss could be attributed to iatrogenic losses; frequent phlebotomy for labs. Iron level elevated at 187. Ferritin high at 930. No GI loses noted. (9) Transaminitis: Status: Acute Assessment and plan: Suspect this is due to rhabdomyolysis, though EtOH liver disease alcoholic hepatitis, could be contributing, based on the pattern. Bilirubin normal. Trend LFTs. CT abd/pelvis showed severe fatty infiltration of liver. Possible colitis of ascending colon. 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 Rhabdo? (11) Discharge planning issues: Status: Acute Assessment and plan: Full code (12) DVT prophylaxis: Status: Acute Assessment and plan: SC heparin (13) Pneumonia: Status: Acute Assessment and plan: Large left basilar lung consolidation and small right basilar consolidation. Multifocal bilateral airspace disease. Small bilateral pleural effusion. Cont Zosyn and doxycycline. WBC count improving. Pulmonary medicine now following. Stable now on RA. Monitor WBC count. Subjective Subjective Patient reports: no new complaints, feels better and afebrile; denies shortness of breath Interval history since last seen: Ambulating in hallways/room with walker; restricted wt bearing per ortho d/t osteonecrosis Exam Narrative Exam Narrative: Gen: Sitting in recliner. NAD Lungs: clear. Nonlabored breathing. Heart: RRR, No murmur. Abdomen: soft, nontender Exts: Edema of dorsum of feet. Leg edema is nonpitting. Less pain in knees with wt bearing. No erythema, lesions. Psych: General appearance and speech are normal. Affect appropriate. Objective Last Vital Signs Temp 37.3 C 07/09/22 15:09 Pulse 84 07/09/22 15:09 Resp 22 07/09/22 15:09 BP 150/100 H 07/09/22 15:09 Pulse Ox 96 07/09/22 15:09 Laboratory Results - last 24 hr 07/03/22 07/06/22 07/09/22 23:10 18:50 07:00 WBC RBC Hgb Hct MCV MCH MCHC RDW Plt Count MPV Immature Gran % Neutrophils % Lymphocytes % Monocytes % Eosinophils % Basophils % Nucleated RBC % Absolute Neutrophils Absolute Lymphocytes Absolute Monocytes Absolute Eosinophils Absolute Basophils RBC Morphology Hypochromasia Poikilocytosis Macrocytosis Sodium 142 Potassium 4.2 Chloride 109 H Carbon Dioxide 24.5 Anion Gap 8.5 BUN 7 Creatinine 0.6 L Est GFR (CKD-EPI 2020) 122.83 Glucose 91 Calcium 7.5 L Magnesium 1.4 L Total Bilirubin 0.3 AST 218 H ALT 125 H Alkaline Phosphatase 92 Creatine Kinase > 13755 H C-Reactive Protein 3.13 H Total Protein 5.3 L Albumin 1.7 L Scl-70 IgG Ab <0.2 A.phagocytophil DNA PCR Negative B. divergens/MO-1 PCR Negative Babesia duncani (PCR) Negative Babesia microti DNA PCR Negative Borrelia (PCR) Negative E.chaffeensis DNA (PCR) Negative E.ewingii/canis DNA PCR Negative E. muris-like DNA (PCR) Negative 07/09/22 07:00 WBC 13.42 H RBC 1.84 L Hgb 7.9 L Hct 23.5 L MCV 128 H MCH 42.9 H MCHC 33.6 RDW 17.7 H Plt Count 429 H MPV 9.5 Immature Gran % 1.5 Neutrophils % 73.1 Lymphocytes % 15.1 Monocytes % 7.2 Eosinophils % 2.5 Basophils % 0.6 Nucleated RBC % 0.7 H Absolute Neutrophils 9.81 H Absolute Lymphocytes 2.03 Absolute Monocytes 0.97 H Absolute Eosinophils 0.34 Absolute Basophils 0.08 RBC Morphology See Below Hypochromasia 1+ Poikilocytosis Macrocytosis 2+ Sodium Potassium Chloride Carbon Dioxide Anion Gap BUN Creatinine Est GFR (CKD-EPI 2020) Glucose Calcium Magnesium Total Bilirubin AST ALT Alkaline Phosphatase Creatine Kinase C-Reactive Protein Total Protein Albumin Scl-70 IgG Ab A.phagocytophil DNA PCR B. divergens/MO-1 PCR Babesia duncani (PCR) Babesia microti DNA PCR Borrelia (PCR) E.chaffeensis DNA (PCR) E.ewingii/canis DNA PCR E. muris-like DNA (PCR)
[2022-07-09 15:51] LABS: Myoglobin, U >5000 mcg/L (<=65)
[2022-07-09 19:27] VITALS: BP 158/105; PULSE 81; RESP 20; TEMP 36.7; O2SAT 96
[2022-07-09] MEDS: amLODIPine 5 MG TAB PO (21:16)
[2022-07-09 22:46] VITALS: BP 132/84; PULSE 83; RESP 19; TEMP 37.1; O2SAT 94
[2022-07-10 03:24] VITALS: BP 120/79; PULSE 100; RESP 18; TEMP 36.9; O2SAT 82
[2022-07-10] MEDS: DOXYCYCLINE 100 MG in Normal Saline 100 ML IVPB ×2 (04:12→16:08)
[2022-07-10 07:01] LABS: Abs Immature Grans 0.15 10^3/uL (0.0-0.06); Absolute Basophil Count 0.08 10^3/uL (0.0-0.2); Absolute Eosinophil Count 0.35 10^3/uL (0.0-0.7); Absolute Lymphocyte Count 2.15 10^3/uL (1.2-3.4); Absolute Monocyte Count 1.04 10^3/uL (0.1-0.8); Absolute Neutrophil Count 9.19 10^3/uL (1.2-6.7); Basophils % 0.6; Eosinophils % 2.7; HCT 23.9 % (40.0-50.0); HGB 8.1 g/dL (13.5-17.5); Immature Grans % 1.2; Lymphocytes % 16.6; MCH 42.9 pg (27.0-33.0); MCHC 33.9 % (32.0-36.0); MCV 127 fL (80-95); MPV 9.9 fL (8.0-11.0); Neutrophils % 70.9; Nucleated RBC 0.5 % (0.0-0.3); Platelet Count 515 10^3/uL (130-400); RBC 1.89 10^6/uL (4.36-5.78); RDW 17.6 % (11.8-14.1); RDW-SD 79.6 fL; WBC 12.96 10^3/uL (4.4-10.8)
[2022-07-10 07:24] LABS: Diff Comment Agrees w/ Instrument; Macrocytosis 2+
[2022-07-10 07:30] LABS: ALT 119 U/L (16-63); AST 142 U/L (15-37); Albumin 1.9 g/dL (3.4-5.0); Alkaline Phosphatase 96 U/L (46-116); Anion Gap 9.8 mmol/L (3-11); BUN 7 mg/dL (7-18); Bilirubin, Total 0.3 mg/dL (0.2-1.0); C-Reactive Protein 2.21 mg/dL (0.0-0.3); CO2 24.2 mmol/L (21.0-32.0); CREATININE 0.6 mg/dL (0.70-1.30); Calcium 9.5 mg/dL (8.5-10.1); Chloride 107 mmol/L (98-107); Estimated GFR 122.83 (mL/min/1.73m2); Glucose 90 mg/dL (74-106); Sodium 141 mmol/L (136-145); Total Protein 5.8 g/dL (6.4-8.2)
[2022-07-10] MEDS: PIPERACILLIN/TAZO 4.5 GM in Normal Saline 100 ML IVPB ×4 (07:41→23:59)
[2022-07-10] MEDS: Enoxaparin 40 MG/0.4 ML SYR SC (07:41)
[2022-07-10] MEDS: Calcitriol 0.25 MCG CAP PO ×2 (07:42→20:11)
[2022-07-10] MEDS: Pantoprazole 40 MG TABCR PO ×2 (07:42→20:09)
[2022-07-10] MEDS: Thiamine 100 MG TAB PO (07:42)
[2022-07-10] MEDS: Multivitamin TAB 1 TAB PO (07:42)
[2022-07-10] MEDS: Folic Acid 1 MG TAB PO (07:42)
[2022-07-10] MEDS: Magnesium Oxide 400 MG TAB PO ×2 (07:42→20:10)
[2022-07-10] MEDS: Calcium Carbonate 1.5 GM TAB 3 GM PO ×2 (07:42→20:11)
[2022-07-10 07:47] LABS: Magnesium 1.4 mg/dL (1.8-2.4)
[2022-07-10] MEDS: Acetaminophen 325 MG TAB PO ×2 (07:49→16:09)
[2022-07-10 08:05] LABS: Creatine Kinase 7136 U/L (39-308)
[2022-07-10 08:07] VITALS: BP 142/90; PULSE 92; RESP 18; TEMP 36.8; O2SAT 95
[2022-07-10] MEDS: MAGNESIUM SULFATE 4 GM/100 ML BAG IVPB (09:42)
[2022-07-10] MEDS: Normal Saline Flush 10 ML SYR IVP ×2 (09:42→16:08)
--- NOTE | 2022-07-10 10:02 | PT.INPN ---
Date of service: 07/10/22 Time of Service: 10:02 PT Notes Visit Reasons: Severe Hypokalemia, Hypomagnesemia, Hypocalcemia,R Inpatient Physical Therapy Progress Note Date: 07/10/2022 Dates of Service: 07/05/2022 through 07/10/2022 Referring Doctor: Karen Rosado MD PT Orders: PT CONSULT: Evaluate Precautions: Fall precautions. Per orthopedic surgeon: Use FWW or crutches for the next 8 weeks to off load B LE and allow for bone healing to occur. Patient Profile/Admitting Diagnosis: 41-year-old male who developed insidious onset of weakness and functional deterioration over the past 10 days to the point where he is admitted on Wednesday with electrolyte imbalance. Patient is diagnosed with rhabdomyolysis, hypokalemia, hypomagnesemia, hypocalcemia, QT prolongation, EtOH use, and hypophosphatemia, and anemia. PMHX:? All Active Problems?(Updated 07/04/22 @ 03:24 by Karen Rosado MD) Ambulatory dysfunction (Acute) Transaminitis (Acute) Hypomagnesemia (Acute) Hypokalemia (Acute) Hypocalcemia (Acute) Rhabdomyolysis (Acute) Hypoparathyroidism (Acute) Vitamin D deficiency (Acute) Tubulovillous adenoma (Chronic) Leucocytosis (Chronic) Hypophosphatemia (Acute) Iatrogenic hypocalcemia (Acute) Hypocalcemia (Acute) Respiratory failure with hypoxia (Acute) QT prolongation (Acute) Hyponatremia (Chronic) Macrocytosis (Acute) Alcohol use (Chronic) Altered mental status (Acute) Discharge planning issues (Acute) DVT prophylaxis (Acute) Acute gastroenteritis (Acute) Electrolyte disturbance (Acute) Fatty liver (Chronic) Hypokalemia (Acute) Hypomagnesemia (Acute) History of splenectomy (Acute) Hyponatremia (Acute) Dehydration (Acute) Medical History Alcohol intoxication (07/14/14) Colitis Depression (07/14/14) No significant past medical history Tobacco use Surgical History? History of hammer toe correction Social History/Home Situation: Lives with his disabled girlfriend in a second floor apartment with approximately 14 steps with railing.? His bathroom is handicap accessible with a walk-in shower, grab bars and a flexible shower hose.? 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 Equipment Owned/DME: None Subjective:? Patient feels that he may not need to stay too much longer as he has significantly improved overall. He understands the importance using the FWW to off load his B LE during ambulation for the next 8 weeks. Objective:? General Observation: Pleasant, cooperative, and no abnormal pain behavior noted. Mental Status: Oriented x3 Pain: Denies Vital Signs: WNL as closely monitored by nursing ROM: Right Upper Extremity: Shoulder Flexion WFL. Shoulder abduction WFL. Elbow flexion WFL. Wrist flexion WFL. Functional opening and closing of hand WFL. Left Upper Extremity: Shoulder Flexion WFL. Shoulder abduction WFL. Elbow flexion WFL. Wrist flexion WFL. Functional opening and closing of hand WFL. Right Lower Extremity: Hip flexion WFL. Hip abduction WFL. Knee flexion WFL. Ankle dorsiflexion WFL. Ankle plantarflexion WFL. Left Lower Extremity: Hip flexion WFL. Hip abduction WFL. Knee flexion WFL. Ankle dorsiflexion WFL. Ankle plantarflexion WFL. Strength: Right Upper Extremity: Shoulder flexors 4/5. Shoulder abductors 4/5. Elbow flexors 5/5. Elbow extensors 5/5. Wildlife And Game Protector strong. Left Upper Extremity: Shoulder flexors 4/5. Shoulder abductors 4/5. Elbow flexors 5/5. Elbow extensors 5/5. Wildlife And Game Protector strong. Right Lower Extremity: Hip flexors 4-/5. Hip abductors 4/5. Knee flexors 5/5. Knee extensors 4/5. Ankle dorsiflexors 5/5. Ankle plantarflexors 5/5. Left Lower Extremity: Hip flexors 4-/5. Hip abductors 4/5. Knee flexors 5/5. Knee extensors 4/5. Ankle dorsiflexors 5/5. Ankle plantarflexors 5/5. Bed Mobility/Transfers: Rolling independent Supine to sit independent Sit to supine independent Sit to stand independent Stand to sit independent Bed to chair independent Chair to bed independent Gait:? 300 feet + 100 feet using FWW with supervision for IV pole management. NuStep: Tolerated 5 minutes of NuStep device with resistance at 6 with good response. Advised patient about utilizing his bike at home as well to continue working his B LE muscles slowly. Balance:? Static Sitting: Normal Dynamic Sitting: Normal Static Standing: Good Dynamic Standing: Fair Special Tests: Mobility Limitations Standardized Measure [facility] [place] 6 clicks Basic Mobility Inpatient Short Form: Raw Score: 23 ? CMS Score: 11%/CL ? ? ? Informed Consent/Education:? Patient instructed in purpose of PT consult and plan of care. Assessment:?? Patient is a 41year old male referred to physical therapy services with the diagnosis of electrolyte imbalance.? Patient presents with clinical signs and symptoms consistent with this diagnosis, as demonstrated by the following impairment level findings: Significant weakness throughout, with significant functional impairment particular with his bed mobility and gait.? Patient's current functional status would require placement in a SNF with rehabilitation, but this may roll changer the short-term.? We will have a better idea over the next couple days for more definitive recommendation.? Impairments are contributing to the following functional limitations: AMPAC score. [place] 54716 moderate complexity based on the following: History: See comorbidities and social history Examination: See above for functional limitations and impairments Presentation: Unstable Decision Making: High complexity based on his clinical findings Goals: Goals X1 week 1. Independent with all HEPs in [place] 2. Independent in hallway ambulation using FWW for up to 600 feet 3. Independent in non-level surface ambulation using FWW for up to 1000 feet Plan of Care/Treatment Plan: 1x/day, 3 days/week x 1 week. Plan of care has been reviewed with the CAT TENDER providing the service under Physical Therapy direction. Initiate Physical Therapy intervention for strengthening, bed mobility, transfers, gait, stairs, balance training, use of assistive device.? Patient was instructed to perform bridging, straight leg raises and ankle pumping frequently throughout the day. DISCHARGE RECOMMENDATIONS: [] Home with no services [] Home with services [specify] [X] Home with outpatient PT. Will benefit from outpatient PT for continued strengthening and progression of mobility level as tolerated. [] SNF for continued rehabilitation [] [] [facility] Project [facility] [] [] SNF versus LTC based on ability to participate and progress [] TREATMENT CODE/TIME: 40181 x 20 minutes, 86210 x 18 minutes beginning at 10:02 AM. Thank you for the opportunity to participate in the care of this patient. Shira Parks PT, DPT, CLT [facility], [place]
[2022-07-10 11:12] VITALS: BP 148/90; PULSE 76; RESP 17; TEMP 36.6; O2SAT 95
--- NOTE | 2022-07-10 11:13 | PDOC.CMPRO ---
- If Service Date Differs Date of service: 07/10/22 Time of Service: 11:13 Care Management Progress Note S/O: Per report, Milan's CK was under 10,000 today, but it remains high. Per MD, he will likely be ready for discharge once this level is acceptable. His door was closed most of the day, CM did not interrupt him. He is independent in the community, and does not anticipate needing any services upon discharge. CM will continue to follow. A: Milan is a 41 year old male admitted to [facility] on 07/04/22 with severe electrolyte abnormalities. P: Anticipate Milan will return home with no new services once medically cleared. His s/o will drive him home via private vehicle. He will follow up with his PCP and discharge plan of care. CM will continue to follow.
[2022-07-10 16:03] VITALS: BP 162/108; PULSE 82; RESP 18; TEMP 37.4; O2SAT 95
--- NOTE | 2022-07-10 17:27 | PGE_ITS ---
Date of Service Date of service: 07/10/22 Time of Service: 17:28 Assessment and Plan Assessment and plan (1) Rhabdomyolysis: Status: Acute Assessment and plan: CK level down to 7136 Aldolase and LDH elevated. Likely alcohol related Discussed with [employer] at [facility] and they doubt autoimmune related, myositis. If any labs that are currently pending come back concerning, re- consult. To date, myositis w/u is negative. Continue iv hydration, monitor urine output, CK levels. Creatinine remains normal. Lumbar MRI w/o evidence of abnormality, abscess. MRI BLE; no evidence of muscle abnormalities, myositis. + findings most suggestive of osteonecrosis involving the distal left femur, proximal tibia bilaterally and the proximal left fibula. Consulted ortho. Recommended protected wt bearing. (2) Hypokalemia: Status: Acute Assessment and plan: K now normalized. Stopped oral supplementation and IV supp. Monitor. (3) Hypomagnesemia: Status: Acute Assessment and plan: patient given iv and oral replacement. Mg normalized now lower again. Cont oral supp. 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 He doesn't recall having that dx but it is in his chart and he has some hallmarks of the disorder. Now on calcitriol 0.25mg BID and calcium carbonate 3 gm BID. Will refer to endocrinology as outpt. Calcium now normal. (5) Alcohol use: Status: Chronic Assessment and plan: Etoh related rhabdo? No withdrawal noted. No h/o w/d and none noted to date. Will supplement thiamine, MVI. (6) Hypophosphatemia: Status: Acute Assessment and plan: patient was severely depleted and now normalized. Nutrition related. (7) Anemia: Status: Chronic Assessment and plan: historically he has been anemic ususally in the 10 gm however he has not had any labs in a year. Hgb has been variable: 11.4 > 8.7 > 9.4 > 8.2 > 9.2 >8.9>8.2>8.1 Some loss could be attributed to iatrogenic losses; frequent phlebotomy for labs. Iron level elevated at 187. Ferritin high at 930. No GI loses noted. (8) Transaminitis: Status: Acute Assessment and plan: Suspect this is due to rhabdomyolysis, though EtOH liver disease alcoholic hepatitis, could be contributing, based on the pattern. Bilirubin normal. Trend LFTs. CT abd/pelvis showed severe fatty infiltration of liver. Possible colitis of ascending colon. 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 Rhabdo? Much improved. Roller walker for protected wt bearing. (10) Discharge planning issues: Status: Acute Assessment and plan: Full code (11) DVT prophylaxis: Status: Acute Assessment and plan: SC heparin (12) Pneumonia: Status: Acute Assessment and plan: Large left basilar lung consolidation and small right basilar consolidation. Multifocal bilateral airspace disease. Small bilateral pleural effusion. Cont Zosyn and doxycycline. WBC count conts to improve. Pulmonary medicine now following. Stable now on RA. Monitor WBC count. Subjective Subjective Patient reports: no new complaints, feels better, pain is less (Less pain in knees and leg muscles with ambulation ), tolerating a regular diet and afebrile; denies diarrhea, nausea, vomiting or shortness of breath Exam Narrative Exam Narrative: Gen: Sitting in recliner. NAD Lungs: clear. Nonlabored breathing. Heart: RRR, No murmur. Abdomen: soft, nontender Exts: Edema of dorsum of feet. Leg edema is nonpitting. Less pain in knees with wt bearing and palpation. No erythema, lesions. Psych: General appearance and speech are normal. Affect appropriate. Objective Last Vital Signs Temp 37.4 C 07/10/22 16:03 Pulse 82 07/10/22 16:03 Resp 18 07/10/22 16:03 BP 162/108 H 07/10/22 16:03 Pulse Ox 95 07/10/22 16:03 Laboratory Results - last 24 hr 07/10/22 07/10/22 07/10/22 06:15 06:15 06:15 WBC 12.96 H RBC 1.89 L Hgb 8.1 L Hct 23.9 L MCV 127 H MCH 42.9 H MCHC 33.9 RDW 17.6 H Plt Count 515 H MPV 9.9 Immature Gran % 1.2 Neutrophils % 70.9 Lymphocytes % 16.6 Monocytes % 8.0 Eosinophils % 2.7 Basophils % 0.6 Nucleated RBC % 0.5 H Absolute Neutrophils 9.19 H Absolute Lymphocytes 2.15 Absolute Monocytes 1.04 H Absolute Eosinophils 0.35 Absolute Basophils 0.08 RBC Morphology See Below Macrocytosis 2+ Sodium 141 Potassium 4.0 Chloride 107 Carbon Dioxide 24.2 Anion Gap 9.8 BUN 7 Creatinine 0.6 L Est GFR (CKD-EPI 2020) 122.83 Glucose 90 Calcium 9.5 Magnesium 1.4 L Total Bilirubin 0.3 AST 142 H ALT 119 H Alkaline Phosphatase 96 Creatine Kinase 7136 H C-Reactive Protein 2.21 H Total Protein 5.8 L Albumin 1.9 L
[2022-07-10 19:19] VITALS: BP 145/94; PULSE 79; RESP 17; TEMP 36.9; O2SAT 94
[2022-07-10] MEDS: amLODIPine 5 MG TAB PO (20:11)
[2022-07-10 22:57] VITALS: BP 144/85; PULSE 87; RESP 17; TEMP 37.1; O2SAT 93
[2022-07-11 03:16] VITALS: BP 123/76; PULSE 93; RESP 19; TEMP 37.5; O2SAT 93
[2022-07-11] MEDS: DOXYCYCLINE 100 MG in Normal Saline 100 ML IVPB ×2 (04:15→16:02)
[2022-07-11 05:42] VITALS: TEMP 36.9
[2022-07-11] MEDS: Acetaminophen 325 MG TAB PO (05:42)
[2022-07-11 07:32] LABS: Abs Immature Grans 0.13 10^3/uL (0.0-0.06); Absolute Eosinophil Count 0.37 10^3/uL (0.0-0.7); Absolute Lymphocyte Count 2.27 10^3/uL (1.2-3.4); Absolute Monocyte Count 0.99 10^3/uL (0.1-0.8); Absolute Neutrophil Count 8.56 10^3/uL (1.2-6.7); Basophils % 0.8; Lymphocytes % 18.3; MCH 42.3 pg (27.0-33.0); MCHC 33.3 % (32.0-36.0); MCV 127 fL (80-95); MPV 9.6 fL (8.0-11.0); Neutrophils % 68.9; Nucleated RBC 0.3 % (0.0-0.3); Platelet Count 624 10^3/uL (130-400); RBC 1.89 10^6/uL (4.36-5.78); WBC 12.42 10^3/uL (4.4-10.8)
[2022-07-11] MEDS: Pantoprazole 40 MG TABCR PO (07:53)
[2022-07-11] MEDS: Calcium Carbonate 1.5 GM TAB 3 GM PO (07:53)
[2022-07-11] MEDS: Magnesium Oxide 400 MG TAB PO (07:53)
[2022-07-11] MEDS: Calcitriol 0.25 MCG CAP PO (07:54)
[2022-07-11] MEDS: PIPERACILLIN/TAZO 4.5 GM in Normal Saline 100 ML IVPB (07:55)
[2022-07-11] MEDS: Normal Saline Flush 10 ML SYR IVP (07:55)
[2022-07-11] MEDS: Enoxaparin 40 MG/0.4 ML SYR SC (07:56)
[2022-07-11 08:01] LABS: ALT 99 U/L (16-63); AST 79 U/L (15-37); Alkaline Phosphatase 84 U/L (46-116); Anion Gap 7.8 mmol/L (3-11); BUN 8 mg/dL (7-18); Bilirubin, Total 0.3 mg/dL (0.2-1.0); C-Reactive Protein 1.62 mg/dL (0.0-0.3); CO2 27.2 mmol/L (21.0-32.0); CREATININE 0.6 mg/dL (0.70-1.30); Calcium 9.2 mg/dL (8.5-10.1); Chloride 106 mmol/L (98-107); Estimated GFR 122.83 (mL/min/1.73m2); Glucose 93 mg/dL (74-106); Magnesium 1.6 mg/dL (1.8-2.4); Potassium 3.8 mmol/L (3.5-5.1); Sodium 141 mmol/L (136-145); Total Protein 6.1 g/dL (6.4-8.2)
[2022-07-11 08:06] VITALS: BP 143/88; PULSE 79; RESP 18; TEMP 36.9; O2SAT 91
[2022-07-11 08:12] LABS: Diff Comment Agrees w/ Instrument
[2022-07-11 08:13] LABS: Hypochromasia 2+; Macrocytosis 2+; Polychromasia Present
[2022-07-11 08:14] LABS: Creatine Kinase 2713 U/L (39-308)
[2022-07-11] MEDS: MAGNESIUM SULFATE 2 GM/50 ML BAG IVPB (09:22)
[2022-07-11 10:44] VITALS: RESP 16; O2SAT 94
[2022-07-11 11:15] VITALS: BP 136/90; PULSE 87; RESP 18; TEMP 36.6; O2SAT 98
[2022-07-11 11:26] LABS: Lab Add On Test DONE
[2022-07-11 12:20] LABS: Procalcitonin 0.3 ng/mL
[2022-07-11 15:04] VITALS: BP 143/97; PULSE 95; RESP 18; TEMP 37.1; O2SAT 92
--- NOTE | 2022-07-11 17:19 | DSE_ITS ---
Date of service: 07/11/22 Time of Service: 17:19 DS: Diagnosis Discharge Diagnosis (1) Rhabdomyolysis: Status: Acute (2) Pneumonia: Status: Acute (3) Hypokalemia: Status: Acute (4) Hypomagnesemia: Status: Acute (5) Hypocalcemia: Status: Acute (6) Alcohol use: Status: Chronic (7) Hypophosphatemia: Status: Acute (8) Anemia: Status: Chronic (9) Transaminitis: Status: Acute (10) Ambulatory dysfunction: Status: Acute Discharge Plan Disposition Patient Disposition: AGAINST MEDICAL ADVICE Condition: Improving Discharge Details Reason For Visit: Severe Hypokalemia, Hypomagnesemia, Hypocalcemia,R Admit Date/Time: 07/04/22 01:13 Admit Provider: Karen Rosado Attending Provider: Karen Rosado Primary Care Provider: Malou Moreno Hospital Course Hospital Course: Mr Cody is a 41 year old male with PMHx of EtOH abuse, hypoparathyroidism, electrolyte disturbances, fatty liver, who was admitted to [facility] ICU under the hospitalist service having presented with generalized weakness, fatigue, malaise, inability to work, joint aches, and severe electrolyte disturbances including hypokalemia, hypomagnesemia, hypocalcemia, hyponatremia. He was in rhabdomyolysis and had evidence of sepsis, though the source of this was unclear. His electrolytes were repleted and he was started on empiric antibioitics (doxycycline and zosyn). His CXR was negative, but CT chest did confirm bilateral infiltrates. He did have vitamin D deficiency which was likely contributing to his hypocalcemia and was initiated on calcitriol. He had evidence of QT prolongation which resolved with correction of his electrolytes. As CPK level had remained elevated, autoimmune myositis workup was pursued and was negative. He did not have evidence of GUANAKO on this admission. He was treated with IVF. Rheumatology consult was pursued. MRI of BLEs was obtained to look for evidence of inflammation of the muscle and while it did not reveal myositis, it did show possible cellulitis (which the patient did not have clinically). 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 For this, the patient was referred to orthopedics. Rheumatology did not reommend a muscle biopsy, and the patient improved clinically on IVF and antibiotics. Tick illness was ruled out. Pulmonology was also involved in his care due to PNA, findings of emphysema on CT and transaminitis. AAT level was ordered (nm). Urine antigens for strep and legionella were also checked (negative). The patient did leave AMA today even though his CPK had not yet normalized. He was written for doxycycline and augmentin to complete a 10 day course. He did not have evidence of EtOh w/d on this admission and no seizures. Total Care for patient as well as completion of his discharge summary took 45 minutes. Home Meds and New Rx's Prescriptions: New magnesium oxide 400 mg (241.3 mg magnesium) Tablet 400 mg PO BID Qty: 60 0RF calcium carbonate 600 mg calcium (1,500 mg) Tablet 3 g PO BID Qty: 180 0RF calcitriol 0.25 mcg Capsule 0.25 mcg PO BID Qty: 60 0RF amlodipine 5 mg Tablet 5 mg PO HS Qty: 30 0RF doxycycline hyclate 100 mg capsule 100 mg PO DAILY Qty: 6 0RF amoxicillin-pot clavulanate 875-125 mg tablet 1 tab PO BID Qty: 6 0RF Continued multivitamin [Multiple Vitamins] Tablet 1 tab PO DAILY Qty: 30 0RF pantoprazole 40 mg tablet,delayed release (DR/EC) 40 mg PO BID Qty: 60 0RF Discontinued potassium chloride [Klor-Con M20] 20 mEq Tablet,Er Particles/Crystals 40 meq PO BID Qty: 60 0RF Mag 64 64 mg Tablet,Delayed Release (Dr/Ec) 64 mg PO BID Qty: 60 0RF omeprazole 40 mg capsule,delayed release(DR/EC) 40 mg PO BID Qty: 60 0RF Discharge Instructions Instructions: Hypokalemia (DC), Rhabdomyolysis (DC), Bacterial Pneumonia (DC), Hypocalcemia (DC), Hypomagnesemia (DC) Additional Instructions: Finish your antibiotics as prescribed. Return to the hospital with any worsening weakness, if you develop a fever, bleeding, chest pain, or shortness of breath. Follow up with your PCP in 1-2 weeks. Follow up with orthopedics. Bloodwork on Wednesday. Stand Alone Forms: Nursing Discharge Form Referrals: Theodore León MD [ [facility] STAFF PHYSICIAN] - (osteonecrosis of multiple joints, h/o EtOH abuse) Activity:: Activity as Tolerated Equipment/Supplies:: No Equipment Needed Diet:: As Tolerated Discharge Orders Discharge Orders: Discharge Order (Routine); Ordered 07/11/22 Ordered By: Karen Rosado Other Ambulatory Orders: Basic Metabolic Panel (Routine) Timeframe: 20220713 Facility: [facility] - Location: Laboratory Outpatient - [facility] Ordered By: Kraen Rosado Complete Blood Count w/Diff (Routine) Timeframe: 20220713 Facility: [facility] - Location: Laboratory Ordered By: Karen Rosado Creatine Kinase (Routine) Timeframe: 20220713 Facility: [facility] - Location: Laboratory Outpatient - [facility] Ordered By: Karen Rosado Magnesium (Routine) Timeframe: 20220713 Facility: [facility] - Location: Laboratory Outpatient - [facility] Ordered By: Karen Rosado Discharge Data Discharge Date/Time-TO BE ENTERED AT DEPARTURE: 07/11/22 17:32 DS: Summary Time Spent with Patient providing and/or coordinating discharge services: Greater than 30 minutes Status at Discharge Functional status at discharge: independent ambulation Overall status at discharge: patient is progressing back to baseline Mental Status: mental status grossly normal Speech and Movement: speech and movement normal Mood: congruent mood Affect: normal affect Exam Narrative Exam Narrative: Patient did not permit examination on the day of leaving AM Psych Mental Status: mental status grossly normal Speech and Movement: speech and movement normal Mood: congruent mood Affect: normal affect DS: Data Vitals/I&O Vitals and I&O: Vital Signs Temperature 37.1 C 07/11/22 15:04 Temperature Source Tympanic 07/11/22 15:04 Pulse 95 H 07/11/22 15:04 Pulse Rhythm Regular 07/11/22 03:08 Pulse 103 H 07/05/22 10:10 Respiratory Rate 18 07/11/22 15:04 Respiratory Effort 07/11/22 10:26 Respiratory Depth Normal 07/11/22 10:26 Respiratory Pattern Normal 07/11/22 10:26 Blood Pressure 143/97 H 07/11/22 15:04 Blood Pressure Mean 84 07/05/22 10:00 Blood Pressure Position Sitting 07/05/22 07:40 Pulse Oximetry 92 07/11/22 15:04 Oxygen Delivery Method Room Air 07/11/22 15:04 Oxygen Flow Rate 0 07/11/22 15:04 Fraction of Inspired Oxygen (FIO2) 94 07/05/22 07:40 Pain Level 0 07/11/22 15:04 Comment 07/11/22 10:44 Intake & Output 07/10/22 07/11/22 07/11/22 23:59 11:59 23:59 Intake Total 892 / 2172.667 580 / 920 340 / 920 Balance 892 / 2172.667 580 / 920 340 / 920 Weight 70.4 kg Intake: IV 412 / 1512.667 220 / 320 100 / 320 Oral 480 / 660 360 / 600 240 / 600 Other: Urine Appearance Clear Clear Comment pt using toilet for urination, reports no difficulty voiding. Voiding Methods Toilet Data Completed and Pending Completed studies during hospitalization [Text1]: CXR 07/03/22: No acute pulmonary findings on this single AP portable view of the chest. echo 07/04/22: LV is of normal size and systolic function. LVEF is 59%. No segmental wall motion abnormalities. Normal diastolic function. Normal RV size and systolic function. No significant valvular abnormalities. CT chest/abdomen/pelvis 07/05/22: 1. Bilateral infiltrates, as described above, and small bilateral pleural effusions. 2. 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 Small left upper quadrant splenule is again noted, unchanged in size, measuring 1.5 x 1.5 cm. 3. Anterior abdominal wall midline para umbilical hernia which contains fat but no bowel loops.? There is no bowel obstruction. 4. Sigmoid diverticuli without evidence of acute diverticulitis.? In addition, there findings in the ascending colon which are There is circumferential hypodense thickening of the wall of the ascending colon.? Also the proximal aspect of the transverse colon.? This may be related to an element of colitis.? For, this may also be related just to under distension.? This was not evident on the prior study of 04/29/2021.? However, that time there was oral contrast in the bowel lumen, including the colon. Hepatic steatosis is noted.? There are no discrete focal hepatic lesions. Venous doppler BLEs 07/06/22: 1.? No ultrasound evidence of DVT in either lower extremity. Lumbar spine MRI 07/06/22: 1. No evidence of epidural nor paraspinal abscess, as per request. 2. No evidence of disc herniation, canal stenosis, or foraminal stenosis. 3. No significant facet arthropathy. Incidentally noted is a benign intraosseous hemangioma in the right side of L1 vertebral body. MRI BLEs w/w/o: 1. Findings of bilateral lower extremity cellulitis.? No abscess or evidence to suggest myositis. 2. Findings most suggestive of bone infarcts involving the distal left femur, proximal tibia bilaterally and the proximal left fibula. 3. Findings were discussed with Dr. Alexandra at 4 p.m. on 07/07/2022. xr L hip 07/08/22: Unremarkable radiographs of the left hip.? XR R hip 07/08/22: Unremarkable radiographs of the right hip.? XR R knee 07/08/22: Unremarkable radiographs of the right knee. XR L knee 07/08/22: Faint sclerosis seen in the proximal tibia corresponding to the areas on the MRI.? The MRI findings were suggestive of bone infarcts.? Labs on day of discharge: Labs from last 24 hours 07/11/22 07/11/22 07/11/22 06:35 06:35 06:35 WBC 12.42 H RBC 1.89 L Hgb 8.0 L Hct 24.0 L MCV 127 H MCH 42.3 H MCHC 33.3 RDW 17.0 H Plt Count 624 H MPV 9.6 Immature Gran % 1.0 Neutrophils % 68.9 Lymphocytes % 18.3 Monocytes % 8.0 Eosinophils % 3.0 Basophils % 0.8 Nucleated RBC % 0.3 Absolute Neutrophils 8.56 H Absolute Lymphocytes 2.27 Absolute Monocytes 0.99 H Absolute Eosinophils 0.37 Absolute Basophils 0.10 RBC Morphology See Below Polychromasia Present Hypochromasia 2+ Macrocytosis 2+ Sodium Potassium Chloride Carbon Dioxide Anion Gap BUN Creatinine Est GFR (CKD-EPI 2020) Glucose Calcium Magnesium Total Bilirubin AST ALT Alkaline Phosphatase Creatine Kinase C-Reactive Protein Total Protein Albumin Procalcitonin 0.3 Add-On Test Request DONE 07/11/22 07/11/22 06:35 06:35 WBC RBC Hgb Hct MCV MCH MCHC RDW Plt Count MPV Immature Gran % Neutrophils % Lymphocytes % Monocytes % Eosinophils % Basophils % Nucleated RBC % Absolute Neutrophils Absolute Lymphocytes Absolute Monocytes Absolute Eosinophils Absolute Basophils RBC Morphology Polychromasia Hypochromasia Macrocytosis Sodium 141 Potassium 3.8 Chloride 106 Carbon Dioxide 27.2 Anion Gap 7.8 BUN 8 Creatinine 0.6 L Est GFR (CKD-EPI 2020) 122.83 Glucose 93 Calcium 9.2 Magnesium 1.6 L Total Bilirubin 0.3 AST 79 H ALT 99 H Alkaline Phosphatase 84 Creatine Kinase 2713 H C-Reactive Protein 1.62 H Total Protein 6.1 L Albumin 2.0 L Procalcitonin Add-On Test Request [facility] All Active Problems (Updated 07/12/22 @ 00:06 by ISRA HOLMAN) Osteonecrosis of multiple sites (Acute) Emphysema lung (Acute) Elevated CK (Acute) Pneumonia (Acute) Anemia (Chronic) Ambulatory dysfunction (Acute) Transaminitis (Acute) Hypomagnesemia (Acute) Hypokalemia (Acute) Hypocalcemia (Acute) Rhabdomyolysis (Acute) Hypoparathyroidism (Acute) Vitamin D deficiency (Acute) Tubulovillous adenoma (Chronic) Leucocytosis (Chronic) Hypophosphatemia (Acute) Iatrogenic hypocalcemia (Acute) Hypocalcemia (Acute) Respiratory failure with hypoxia (Acute) QT prolongation (Acute) Hyponatremia (Chronic) Macrocytosis (Acute) Alcohol use (Chronic) Altered mental status (Acute) Acute gastroenteritis (Acute) Electrolyte disturbance (Acute) Fatty liver (Chronic) Hypokalemia (Acute) Hypomagnesemia (Acute) History of splenectomy (Acute) Hyponatremia (Acute) Dehydration (Acute) Medical History Alcohol intoxication (07/14/14) Colitis Depression (07/14/14) No significant past medical history Tobacco use Surgical History History of hammer toe correction Social History Smoking/Tobacco Use Status: Current every day Tobacco Type: cigarettes Smoking risk assessment performed?: Yes Alcohol Intake: current Alcohol type: beer Drug use: Occasionally Substance use type: marijuana Details: NO ETOH x 3-4 weeks---01/06/21--er. Admits to 3 beers on 04/29/2021 Do you feel safe at home: Yes Do you feel safe in your relationship?: Yes
--- NOTE | 2022-07-12 10:21 | PDOC.CMDIS ---
- If Service Date Differs Date of service: 07/11/22 Time of Service: 17:20 LACE Index Scoring Tool - Questions: Length of Stay (in days): 7 - 13 Acuity (Admit via E.D.?): Yes E.D. Visits: 1 - Answers: Total Score: 9 Risk of Readmission: Low Risk Care Management Discharge Reason for Hospitalization: severe hypokalemia, hypomagnesemia, hypocalcemia Discharge Plan: [place] is discharged home with no services. He will follow up with his PCP and plan of care as instructed. He is driven home by his significant other via private vehicle. Patient/Family Education Needs: Review of discharge instructions; Ask Me Three.
[2022-07-22 18:10] LABS: Anti-EJ Ab Negative (Negative); Anti-Jo-1 Ab <20 Units (<20); Anti-Ku Ab Negative (Negative); Anti-MDA-5 Ab (CADM-140) <20 Units (<20); Anti-Mi-2-Ab Negative (Negative); Anti-NXP-2 (P140) Ab <20 Units (<20); Anti-OJ Ab Negative (Negative); Anti-PL-12 Ab Negative (Negative); Anti-PL-7 Ab Negative (Negative); Anti-PM/Scl-100 Ab <20 Units (<20); Anti-SRP Ab Negative (Negative); Anti-SS-A 52kD Ab, IgG <20 Units (<20); Anti-TIF-1gamma Ab <20 Units (<20); Anti-U1 RNP Ab <20 Units (<20); Anti-U2 RNP Ab Negative (Negative); Anti-U3 RNP (Fibrillarin) Negative (Negative)
== END 2022-07-11 17:32 | disposition left against medical advice (07) | DRG 557 ==
LOC: ER 07-04 01:27 → ICU 07-04 03:32 → MS 07-05 14:12
PROVIDERS: Family Medicine; Internal Medicine; Student in an Organized Health Care Education/Training Program; Admitting Provider Internal Medicine; Emergency Provider Emergency Medicine; PCP Nurse Practitioner Family; Visit Provider Internal Medicine
DX: M62.82 Rhabdomyolysis (principal); E87.1 Hypo-osmolality and hyponatremia; J91.8 Pleural effusion in other conditions classified elsewhere; M87.39 Other secondary osteonecrosis, multiple sites; E83.42 Hypomagnesemia; J18.9 Pneumonia, unspecified organism; E87.6 Hypokalemia; E83.52 Hypercalcemia; K21.9 Gastro-esophageal reflux disease without esophagitis; R60.0 Localized edema; E55.9 Vitamin D deficiency, unspecified; E20.9 Hypoparathyroidism, unspecified; D75.89 Other specified diseases of blood and blood-forming organs; K76.0 Fatty (change of) liver, not elsewhere classified; E86.0 Dehydration; Z90.81 Acquired absence of spleen; R74.01 Elevation of levels of liver transaminase levels; E83.39 Other disorders of phosphorus metabolism; W19.XXXA Unspecified fall, initial encounter; R29.6 Repeated falls; F17.210 Nicotine dependence, cigarettes, uncomplicated; D64.9 Anemia, unspecified; J43.9 Emphysema, unspecified; F10.10 Alcohol abuse, uncomplicated; R53.1 Weakness
CPT/HCPCS: 36415; 51702; 72158; 74177; 80048; 80053; 80307; 82306; 82550; 82805; 83516; 83690; 84145; 85652; 86200; 86235; 86255; 86850; 86900; 86901; 87040; 87081; 87389; 87449; 87635; 87798; 93005; 96365; 96375; 97110; 97163; 97530; 99285; J1650; 71045; 71260; 73502; 73560; 73720; 80202; 80320; 81003; 81015; 82085; 82103; 82270; 82330; 82436; 82565; 82728; 83540; 83550; 83615; 83735; 83874; 83880; 83970; 84100; 84133; 84300; 84439; 84443; 84484; 85014; 85018; 85025; 85610; 86038; 86140; 86225; 86431; 86618; 87899; 93010; 93306; 93970; 94640; 99223; 99232; 99233; 99239; 99291; J0610; J1885; J2543; J3475; J3480; J3490; J7613

== ENCOUNTER 2022-08-16 03:29 | Emergency (ER) | payer MEDICAID, SELFPAY ==
--- NOTE | 2022-08-16 03:33 | ED.GENADUL_ITS ---
Discharge Plan Disposition Patient Disposition: Discharge Details Clinical Impression: Cardiopulmonary arrest Primary Care Provider: Malou Moreno ED Provider: Erick Armas Discharge Data Discharge Date/Time-TO BE ENTERED AT DEPARTURE: 08/16/22 05:45 Medical Decision Making 42-year-old male brought by EMS. They were initially toned out for vomiting and alcohol use. They arrived to find the patient with large volume coffee-ground emesis and state that upon transfer of the patient out of his domicile he became unresponsive and lost his pulse. ACLS was initiated approximately 25 minutes prior to arrival. Patient received high-quality CPR, a left humerus IO was placed, and 3 rounds of epinephrine administered. Upon arrival patient has no cardiac activity on bedside ultrasound. He remained without a pulse and in asystole. Resuscitation was continued and the patient received 2 further administrations of epinephrine as well as an amp of bicarbonate. Bedside ultrasound continued to demonstrate no cardiac activity and at 3:32 AM I pronounced the patient . Case discussed with on-call clinical medical transcriptionist and patient will be made an ME case. He will be transported to the [facility]. I was able to contact the patient's girlfriend,, Vale Soriano and inform her of the patients . HPI General Mode of arrival: EMS . Date/Time Provider Initiated Documentation: 08/16/22 03:33 . Limitations to Documentation: other (Working code) . Information obtained by: EMS . History of Present Illness 42 year old M presents to the emergency department with the chief complaint of Sudden collapse, CPR in progress, Patient did receive the following treatments prior to arrival, other (Epinephrine x3, left humerus IO, supraglottic airway) Related Data Home Medications Medication Instructions Recorded Confirmed multivitamin (Multiple Vitamins 1 tab PO DAILY #30 tabs 05/02/21 07/03/22 tablet) pantoprazole 40 mg tablet,delayed 40 mg PO BID #60 tabs 05/02/21 07/03/22 release amlodipine 5 mg tablet 5 mg PO HS #30 tabs 07/11/22 amoxicillin 875 mg-potassium 1 tab PO BID #6 tabs 07/11/22 clavulanate 125 mg tablet calcitriol 0.25 mcg capsule 0.25 mcg PO BID #60 caps 07/11/22 calcium carbonate 600 mg calcium 3 g PO BID #180 tabs 07/11/22 (1,500 mg) tablet doxycycline hyclate 100 mg capsule 100 mg PO DAILY #6 caps 07/11/22 magnesium oxide 400 mg (241.3 mg 400 mg PO BID #60 tabs 07/11/22 magnesium) tablet Previous Rx's Medication Instructions Recorded multivitamin (Multiple Vitamins 1 tab PO DAILY #30 tabs 05/02/21 tablet) pantoprazole 40 mg tablet,delayed 40 mg PO BID #60 tabs 05/02/21 release amlodipine 5 mg tablet 5 mg PO HS #30 tabs 07/11/22 amoxicillin 875 mg-potassium 1 tab PO BID #6 tabs 07/11/22 clavulanate 125 mg tablet calcitriol 0.25 mcg capsule 0.25 mcg PO BID #60 caps 07/11/22 calcium carbonate 600 mg calcium 3 g PO BID #180 tabs 07/11/22 (1,500 mg) tablet doxycycline hyclate 100 mg capsule 100 mg PO DAILY #6 caps 07/11/22 magnesium oxide 400 mg (241.3 mg 400 mg PO BID #60 tabs 07/11/22 magnesium) tablet Allergies Allergy/AdvReac Type Severity Reaction Status Date / Time No Known Allergies Allergy Unverified 07/03/22 23:05 General [place]: 3 Review of Systems Narrative: Unable to obtain Unobtainable due to mental status PFSH All Active Problems (Updated 08/16/22 @ 03:47 by Erick Armas MD) Cardiopulmonary arrest (Acute) Osteonecrosis of multiple sites (Acute) Emphysema lung (Acute) Elevated CK (Acute) Pneumonia (Acute) Anemia (Chronic) Ambulatory dysfunction (Acute) Transaminitis (Acute) Hypomagnesemia (Acute) Hypokalemia (Acute) Hypocalcemia (Acute) Rhabdomyolysis (Acute) Hypoparathyroidism (Acute) Vitamin D deficiency (Acute) Tubulovillous adenoma (Chronic) Leucocytosis (Chronic) Hypophosphatemia (Acute) Iatrogenic hypocalcemia (Acute) Hypocalcemia (Acute) Respiratory failure with hypoxia (Acute) QT prolongation (Acute) Hyponatremia (Chronic) Macrocytosis (Acute) Alcohol use (Chronic) Altered mental status (Acute) Acute gastroenteritis (Acute) Electrolyte disturbance (Acute) Fatty liver (Chronic) Hypokalemia (Acute) Hypomagnesemia (Acute) History of splenectomy (Acute) Hyponatremia (Acute) Dehydration (Acute) Medical History Alcohol intoxication (07/14/14) Colitis Depression (07/14/14) No significant past medical history Tobacco use Surgical History History of hammer toe correction Social History Smoking/Tobacco Use Status: Current every day Tobacco Type: cigarettes Smoking risk assessment performed?: Yes Alcohol Intake: current Alcohol type: beer Drug use: Occasionally Substance use type: marijuana Details: NO ETOH x 3-4 weeks---01/06/21--er. Admits to 3 beers on 04/29/2021 Do you feel safe at home: Yes Do you feel safe in your relationship?: Yes Exam Narrative Exam Narrative: GEN: Unresponsive, apneic HEAD: Normocephalic, atraumatic ENT: Mucous membranes covered with dark coffee-ground emesis EYES: Pupils nonresponsive, negative corneal reflex NECK: No mass CHEST/RESP: Apneic CARDIOVASCULAR: No cardiac activity/heart sounds ABDOMEN: Distended and soft EXT: Pale and cool, IO present left proximal humerus. Neuro: No demonstrable neurologic function Psych: unable to assess
[2022-08-16 03:40] VITALS: BP 160/124
--- NOTE | 2022-08-16 04:12 | NUR.NOTE ---
Nursing Note: PT ARRIVED VIA EMS IN ACTIVE CODE STATUS. EMS REPORTS BEING CALLED TO THE SCENE FOR VOMITING BLACK COFFEE GROUND LIKE EMESIS. PT WAS DRINKING. EMS WAS TAKING PT TO AMBULANCE, PT WENT UNCONSCIOUS. EMS GAVE EPI X 3 AN CPR - RESUSCITATION UNSUCCESSFUL. UPON ARRIVAL, PT STILL UNCONSCIOUS AND COVERED IN BLACK VOMIT. 0328: EPI GIVEN IV 0330: SODIUM BICARB GIVEN IV' 0331: EPI GIVEN IV CPR ADMINISTERED WELL RESUSCITATION UNSUCCESSFUL 0405: TIME OF CALLED NOTIFIED [employer] @ 0405, [id number] WITH DEEPA ACEVES
--- NOTE | 2022-08-16 18:27 | NUR.NOTE ---
Nursing Note: ME saw this patient this morning and released the body. Unable to reach next of kin (mother with multiple attempts at phone calls). [facility] called to go to mother's house to make notification. Upon notification, mother called and spoke to this nurse. Mother is concerned that they do not have money for a or to bury patient. States she is unsure of which home to choose. I told her I would check to see what resources, if any we had and would call her back. I have made several attempts and left messages to this time without reaching a live person or receiving a call back.
--- NOTE | 2022-08-16 19:27 | NUR.NOTE ---
Nursing Note: Code called at 0332, to elba at [id number].
== END 2022-08-16 05:45 | disposition expired ==
PROVIDERS: Emergency Provider Emergency Medicine; PCP Nurse Practitioner Family
DX: I46.9 Cardiac arrest, cause unspecified (principal)